=== PATIENT | female | born 1975 | race Caucasian/White ===

== ENCOUNTER 2020-12-17 13:25 | Emergency (ER) | payer OTHER, SELFPAY ==
[2020-12-17] VITALS (11 sets, daily range): BP systolic 115–132; BP diastolic 70–91; PULSE 75–91; RESP 13–20; TEMP 36.6; O2SAT 94–100
--- NOTE | ~2020-12-17 | XR_ITS ---
EXAMINATION: XR chest 2V DATE: 12/17/2020 14:15 INDICATION: Chest pain. TECHNIQUE: Frontal and lateral views of the chest were obtained. COMPARISON: Chest single view 01/13/2019, CT abdomen and pelvis 06/07/2019 FINDINGS: The chest demonstrates clear lungs without pneumonia, pleural effusion, or pneumothorax. Th e heart size is normal. Surgical clips in the right upper quadrant are likely from cholecystectomy. IMPRESSION: 1. No acute cardiopulmonary disease. Reviewed, dictated and finalized at location A.
--- NOTE | 2020-12-17 13:43 | ECG_ITS ---
Measurements Intervals [place] Rate: 87 P: 11 [place]: 109 QRS: -8 QRSD: 97 T: -11 QT: 360 QTc: 434 Interpretive Statements SINUS RHYTHM WITH SHORT [place] INTERVAL INCOMPLETE RIGHT BUNDLE BRANCH BLOCK LOW QRS VOLTAGE IN PRECORDIAL LEADS BORDERLINE T WAVE ABNORMALITY- ANT/INF LEADS BASELINE ARTIFACT- I, II, III BORDERLINE ECG Electronically Signed On 12-17-2020 14:54:30 CDT by Prince Springer D.O.
[2020-12-17 13:58] LABS: Basophils Percent Auto 0.5 % (0.2-1.2); Eosinophils Absolute Auto 0.1 K/mm3 (0-0.3); Eosinophils Percent Auto 1.8 % (0-4.4); Hematocrit 35.9 % (37.0-47.0); Hemoglobin 11.6 g/dL (12.0-15.0); Immature Granulocyte Absolute 0.05 K/mm3 (0.00-0.031); Immature Granulocyte Percent A 0.6 % (0-0.5); Lymphocytes Absolute Auto 1.81 K/mm3 (0.9-3.2); Lymphocytes Percent Auto 23.4 % (18.3-44.2); Mean Corpuscular HGB Conc 32.3 g/dl (32-36); Mean Corpuscular Hemoglobin 25.4 pg (26-34); Mean Corpuscular Volume 78.7 fl (80-100); Monocytes Absolute Auto 0.6 K/mm3 (0.1-0.6); Monocytes Percent Auto 7.3 % (2.6-8.5); Neutrophils Absolute Auto 5.1 K/mm3 (1.3-6.7); Neutrophils Percent Auto 66.4 % (45.5-73.1); Platelet Count Result 204 k/mm3 (150-375); Red Blood Count 4.56 M/mm3 (4.2-5.4); Red Cell Distribution Width 14.9 % (11.5-14.5); White Blood Count 7.7 K/mm3 (4.5-10.0)
[2020-12-17 14:07] LABS: INR 0.9; Prothrombin Time 12.7 Seconds (11.1-14.7)
[2020-12-17 14:08] LABS: Partial Thromboplastin Time 26.6 SECONDS (22.3-36.8)
[2020-12-17 14:15] LABS: Anion Gap 8 mmol/L (8-16); Blood Urea Nitrogen 17 mg/dL (7-17); Calcium 8.7 mg/dL (8.4-10.2); Carbon Dioxide 25 mmol/L (22-30); Chloride 106 mmol/L (98-107); Estimated Glomerular Filt Rate > 60; Glucose 98 mg/dL (65-105); Potassium 3.8 mmol/L (3.4-5.0); Sodium 139 mmol/L (137-145)
[2020-12-17 14:27] LABS: Troponin I < 0.012 ng/mL (0.000-0.034)
--- NOTE | 2020-12-17 14:44 | ED.CHESTPAIN ---
HPI - Chest Pain General Chief Complaint: Chest Pain Stated Complaint: CP Time Seen by Provider: 12/17/20 14:25 History of Present Illness HPI narrative: 45 yo female presents to the ED c/o chest pain. She had moderate pressure-like chest pain at 1000 today. This resolved prior to my evaluation. This was associated with mild SOB, tingling in arms, and dizziness. She has had similar symptoms occasionally for several weeks. She saw her PCP yesterday for these symptoms. He was planning a cardiology referral, but told her that if it happened again she should come to the ED. Related Data Allergies Allergy/AdvReac Type Severity Reaction Status Date / Time gatifloxacin Allergy Unknown Verified 01/13/19 19:18 Review of Systems Review of Systems: All systems reviewed & are unremarkable except as noted in HPI and below Constitutional: Constitutional: Denies chills and Denies fever(s) Eyes: Eyes: Reports no additional eye complaints ENT: Reports system reviewed and no additional complaints, except as documented Cardiovascular: Cardiovascular: Reports as per HPI Respiratory: Respiratory: Reports as per HPI Gastrointestinal: Gastrointestinal: Reports no additional gastrointestinal complaints Genitourinary: Genitourinary: Reports no additional female genitourinary complaints Neurologic: Reports as per HPI [facility] Social History Social History Gender identity (if verbalized by the patient): Female Exam Const: General: healthy appearing, no acute distress and alert Orientation/consciousness: patient oriented x3 HENMT: Head: normal to inspection Neck: Neck: normal visual inspection Chest: Chest palpation & inspection: no tenderness Resp: Effort & Inspection: normal respiratory effort Auscultation: clear to auscultation bilaterally, no rales, no rhonchi and no wheezes Cardio: Jugular venous distension: no JVD Rate: regular rate Rhythm: regular rhythm Heart sounds: no murmurs GI: Inspection: non-distended GI Palp: Yes Soft to palpation and No Tenderness to palpation present (GI) Skin: General skin exam: normal color Neuro: General: patient oriented x3, moves all extremities, no focal motor deficits and CN's II-XI intact bilaterally Speech: normal speech Gait exam (Neuro): Normal gait present Extrem: General: no edema Psych: Appearance: well kempt Affect: normal affect Course Vital Signs Vital signs: Vital Signs Temperature 36.6 C 12/17/20 13:44 Pulse Rate 79 12/17/20 13:44 Respiratory Rate 17 12/17/20 13:44 Blood Pressure 131/90 12/17/20 13:44 Pulse Oximetry 100 12/17/20 13:44 Temperature 36.6 C 12/17/20 13:44 Pulse Rate 81 12/17/20 17:36 Respiratory Rate 18 12/17/20 17:36 Blood Pressure 129/70 12/17/20 17:36 Pulse Oximetry 100 12/17/20 17:36 MDM - Chest Pain MDM Narrative Medical decision making narrative: Nothing acute on EKG. Troponin negative x2. Pain free. Differential Diagnosis Differential diagnosis: Likely unstable angina pectoris, atypical chest pain, st elevation myocardial infarction, chest pain and other (NSTEMI) Medical Records Data Attestation: I reviewed the patient's medical records. Lab Data Attestation: I reviewed the patient's lab results. Result diagrams: 12/17/20 13:47 12/17/20 13:47 Labs: Lab Results 12/17/20 12/17/20 12/17/20 Range/Units 13:47 13:47 13:47 WBC 7.7 (4.5-10.0) K/mm3 RBC 4.56 (4.2-5.4) M/mm3 Hgb 11.6 L (12.0-15.0) g/dL Hct 35.9 L (37.0-47.0) % MCV 78.7 L (80-100) fl MCH 25.4 L (26-34) pg MCHC 32.3 (32-36) g/dl RDW 14.9 H (11.5-14.5) % Plt Count 204 (150-375) k/mm3 MPV 12.0 H (7.4-10.4) fl Immature Gran % (Auto) 0.6 H (0-0.5) % Neut % (Auto) 66.4 (45.5-73.1) % Lymph % (Auto) 23.4 (18.3-44.2) % [place] % (Auto) 7.3 (2.6-8.5) % Eos % (Auto) 1.8 (0-4.4) % Ba
[2020-12-17] MEDS: ASPIRIN 81 MG CHEWABLE TABLET 324 MG PO (15:23)
--- NOTE | 2020-12-17 15:28 | PC.NURSE ---
report given to Ilda BEDOYA
[2020-12-17 16:50] LABS: Troponin I < 0.012 ng/mL (0.000-0.034)
== END 2020-12-17 17:37 | disposition home or self-care (01) ==
PROVIDERS: Emergency Provider Emergency Medicine; PCP Family Medicine
DX: R07.89 Other chest pain (principal); I45.10 Unspecified right bundle-branch block
CPT/HCPCS: 36415; 71046; 80048; 84484; 85025; 85610; 85730; 93005; 99284; A9270

== ENCOUNTER 2021-07-01 20:38 | Emergency (ER) | payer OTHER, SELFPAY ==
[2021-07-01] VITALS (27 sets, daily range): BP systolic 80–130; BP diastolic 65–86; PULSE 87–107; RESP 17–38; TEMP 37.1; O2SAT 93–95
--- NOTE | ~2021-07-01 | CT_ITS ---
EXAMINATION: CT abdomen pelvis w con DATE: 07/02/2021 00:23 INDICATION: Vomiting. TECHNIQUE: Computed tomography (CT) of the abdomen and pelvis was performed with 100 mL Omnipaque 350 intravenous contrast. Automated exposure control and iterative reconstruction technique were employe d. The dose-length product was 1376.23 mGy-cm. COMPARISON: CT abdomen and pelvis 06/07/2019, 05/17/2015 FINDINGS: The visualized portions of the lung bases demonstrate patchy airspace and groundglass opaci ties in all lobes bilaterally. Calcified right hilar and mediastinal lymph nodes are consistent with old granulomatous disease. No pleural effusion. The heart size is normal. No pericardial effusion. Th ere is a small sliding hiatal hernia. There is a mildly enlarged right hilar lymph node, likely react marian. There is a 10 mm cyst in the liver. There are changes of cholecystectomy. There is chronic mild splenomegaly, likely secondary to obesity. Calcifications in the spleen are consistent with old granu lomatous disease. The pancreas, adrenal glands, and kidneys are normal. There are changes of appendec shreyas. There are no dilated loops of bowel. There are no pathologically enlarged lymph nodes. There is no free intraperitoneal fluid. There is mild thoracolumbar spondylosis. IMPRESSION: 1. Diffuse lung disease, consistent with COVID-19 pneumonia. 2. Small sliding hiatal hernia. Reviewed, dictated and finalized at location A. E CIRCUIT OPERATOR
--- NOTE | ~2021-07-01 | XR_ITS ---
EXAMINATION: XR chest 1V portable EXAM DATE: 07/01/2021 21:59 INDICATION: N/V Today,Weakness,Fatigue,Productive Cough,COVID+ diagnosed Wednesday. TECHNIQUE: Portable AP frontal chest x-ray was obtained. Comparison is made to prior examination from 12/17/2020. FINDINGS: Mild to moderate amount of bilateral ill-defined airspace disease, distribution and appeara nce is consistent with COVID pneumonia. There are cholecystectomy clips. There is no pneumothorax jadon pected. There are no pleural effusions. Cardiomediastinal silhouette is normal. IMPRESSION: Mild to moderate bilateral COVID pneumonia. Reviewed, dictated and finalized at location A. ESSIONAL CASTER
[2021-07-01 21:23] LABS: Basophils Percent Auto 0.3 % (0.2-1.2); Eosinophils Percent Auto 0.3 % (0-4.4); Hematocrit 34.6 % (37.0-47.0); Immature Granulocyte Absolute 0.02 K/mm3 (0.00-0.031); Immature Granulocyte Percent A 0.5 % (0-0.5); Immature Platelet Fraction Pct 9.1 % (0.9-11.2); Lymphocytes Absolute Auto 0.48 K/mm3 (0.9-3.2); Lymphocytes Percent Auto 12.2 % (18.3-44.2); Mean Corpuscular HGB Conc 31.8 g/dl (32-36); Mean Corpuscular Hemoglobin 24.4 pg (26-34); Mean Corpuscular Volume 76.9 fl (80-100); Mean Platelet Volume 11.9 fl (7.4-10.4); Monocytes Absolute Auto 0.1 K/mm3 (0.1-0.6); Neutrophils Absolute Auto 3.3 K/mm3 (1.3-6.7); Neutrophils Percent Auto 83.7 % (45.5-73.1); Platelet Count Result 127 k/mm3 (150-375); Red Cell Distribution Width 16.5 % (11.5-14.5); White Blood Count 3.9 K/mm3 (4.5-10.0)
[2021-07-01 21:25] LABS: Add Urine Microscopic? YES; Appearance Urine Cloudy (Clear); Bilirubin Urine Negative (Negative); Blood Urine Negative (Negative); Color Urine Yellow (Yellow); Glucose Urine UA Negative (Negative); Ketones Urine Negative (Negative); Leukocyte Esterase Ur Negative LEU/UL (Negative); Mucus Urine Rare /lpf; Nitrate Urine Negative (Negative); Protein Urine Negative (Negative); Specific Grav Ur 1.018 (1.001-1.035); Squamous Epithelial Cell Urine Few /hpf (Few); Urobilinogen Urine Negative mg/dL (<2.0); WBC Urine 0-3 /hpf
[2021-07-01 21:33] LABS: Alanine Aminotransferase 26 U/L (4-35); Albumin Level 3.9 g/dL (3.5-5.1); Alkaline Phosphatase 86 U/L (38-126); Anion Gap 10 mmol/L (8-16); Aspartate Amino Transferase 39 U/L (14-36); Bilirubin,Total 0.2 mg/dL (0.2-1.3); Blood Urea Nitrogen 10 mg/dL (7-17); Carbon Dioxide 22 mmol/L (22-30); Chloride 104 mmol/L (98-107); Estimated CRCL calculation 111 ml/min; Estimated Glomerular Filt Rate > 60; Glucose 129 mg/dL (65-110); Lipase 55 U/L (23-300); Potassium 3.6 mmol/L (3.4-5.0); Sodium 136 mmol/L (137-145)
--- NOTE | 2021-07-01 21:49 | ECG_ITS ---
Measurements Intervals [place] Rate: 92 P: 26 SD: 107 QRS: 4 QRSD: 97 T: -15 QT: 357 QTc: 443 Interpretive Statements SINUS RHYTHM WITH SHORT [place] INTERVAL INCOMPLETE RIGHT BUNDLE BRANCH BLOCK BORDERLINE ST-T WAVE ABNORMALITY- INFERIOR LEADS BASELINE ARTIFACT- II, III, AVF, V1, V3-V6 BORDERLINE ECG Electronically Signed On 07-02-2021 5:24:55 HEEL SORTER by Prince Springer D.O.
--- NOTE | 2021-07-01 21:52 | PC.NURSE ---
Called lab requesting add on of troponin.
--- NOTE | 2021-07-01 22:06 | ED.GENADULT ---
HPI - General Adult General Chief complaint: Nausea/Vomiting/Diarrhea Stated complaint: COVID+, nausea Time Seen by Provider: 07/01/21 21:47 Source: patient and RN notes reviewed History of Present Illness HPI narrative: Patient is a 45 y/o female complaining of generalized abdominal pain, nausea and vomiting starting earlier today. She describes her pain as aching and rates it as 5/10. There is no known alleviating or exacerbating factor. She vomited about 5 times. She has a cough, but no fever or SOB. She tested positive for COVID 4 days ago. Related Data Allergies Allergy/AdvReac Type Severity Reaction Status Date / Time gatifloxacin Allergy Unknown Other Verified 07/01/21 20:57 Review of Systems Constitutional: Constitutional: Denies chills, Denies fever(s), Denies headache(s) and Denies weakness Eyes: Eyes: Denies blurry vision ENT: Denies headache(s) and Denies neck pain Cardiovascular: Cardiovascular: Denies chest pain and Denies dyspnea Respiratory: Respiratory: Reports cough and Denies dyspnea Gastrointestinal: Gastrointestinal: Reports abdominal pain, Denies diarrhea, Reports nausea and Reports vomiting Genitourinary: Genitourinary: Denies hematuria and Denies dysuria Musculoskeletal: Musculoskeletal: Denies back pain and Denies neck pain Neurologic: Denies headache(s) and Denies weakness PMFSH Social History Social History Gender identity (if verbalized by the patient): Female Exam Const: General: no acute distress, well developed and ill appearing Orientation/consciousness: oriented to person, oriented to place, oriented to time and patient oriented x3 HENMT: Head: normocephalic Ears: external ears normal General nose exam: Normal external nose present Eyes: General: appearance normal, both eyes and all related structures Conjunctivae: conjunctivae normal Neck: Neck: normal visual inspection and full ROM Chest: Chest palpation & inspection: normal inspection of the chest and no tenderness Resp: Effort & Inspection: normal respiratory effort Auscultation: clear to auscultation bilaterally Cardio: Rate: regular rate Rhythm: regular rhythm GI: GI Palp: No abdominal tenderness and Yes Soft to palpation Skin: General skin exam: normal color and turgor normal Neuro: General: oriented to person, oriented to place, oriented to time and patient oriented x3 Cognition (Neuro): normal cognition Extrem: General: normal to inspection, full ROM and no pedal edema Psych: Appearance: grossly normal Mental Status: mental status grossly normal Affect: normal affect Course Vital Signs Vital signs: Vital Signs Temperature 37.1 C 07/01/21 20:50 Pulse Rate 104 H 07/01/21 20:50 Respiratory Rate 27 H 07/01/21 20:50 Blood Pressure 130/86 07/01/21 20:50 Pulse Oximetry 93 07/01/21 20:50 Temperature 37.1 C 07/01/21 20:50 Pulse Rate 107 H 07/02/21 03:24 Respiratory Rate 22 H 07/02/21 03:24 Blood Pressure 120/86 07/02/21 03:24 Pulse Oximetry 100 07/02/21 03:24 Medical Decision Making Vital Signs Vital Signs: Vital Signs Temperature 37.1 C 07/01/21 20:50 Pulse Rate 104 H 07/01/21 20:50 Respiratory Rate 27 H 07/01/21 20:50 Blood Pressure 130/86 07/01/21 20:50 Pulse Oximetry 93 07/01/21 20:50 Temperature 37.1 C 07/01/21 20:50 Pulse Rate 107 H 07/02/21 03:24 Respiratory Rate 22 H 07/02/21 03:24 Blood Pressure 120/86 07/02/21 03:24 Pulse Oximetry 100 07/02/21 03:24 Lab Data Result diagrams: 07/01/21 21:15 07/01/21 21:15 Labs: Lab Results 07/01/21 07/01/21 07/01/21 Range/Units 21:11 21:15 21:15 WBC 3.9 L (4.5-10.0) K/mm3 RBC 4.50 (4.2-5.4) M/mm3 Hgb 11.0 L (12.0-15.0) g/dL Hct 34.6 L (37.0-47.0) % MCV 76.9 L (80-100) fl MCH 24.4 L (26-34) pg MCHC 31.8 L (32-36) g/dl RDW 16.5 H (11.5-14.5) % Plt Count
[2021-07-01 22:19] LABS: Troponin I < 0.012 ng/mL (0.000-0.034)
[2021-07-01] MEDS: ONDANSETRON INJ 4 MG/2 ML VIAL IV PUSH (22:19)
[2021-07-01] MEDS: SODIUM CHLORIDE 0.9% IV 1,000 ML 999 ML IV CONT (22:19)
--- NOTE | 2021-07-01 22:25 | PC.NURSE ---
Spoke with Gilberto, patient's , with patient permission, Gave update.
[2021-07-02 01:10] LABS: Troponin I < 0.012 ng/mL (0.000-0.034)
[2021-07-02 01:47] VITALS: BP 115/65; PULSE 90; RESP 20; O2SAT 96
[2021-07-02 02:54] VITALS: BP 120/86; PULSE 100; RESP 23; O2SAT 100
[2021-07-02 03:24] VITALS: BP 120/86; PULSE 107; RESP 22; O2SAT 100
== END 2021-07-02 03:25 | disposition home or self-care (01) ==
PROVIDERS: Family Medicine; Emergency Provider Emergency Medicine; PCP Family Medicine
DX: U07.1 COVID-19 (principal); J12.82 Pneumonia due to coronavirus disease 2019; K52.9 Noninfective gastroenteritis and colitis, unspecified
CPT/HCPCS: 36415; 71045; 74177; 80053; 81001; 81025; 83690; 84484; 85025; 85055; 93005; 96361; 96374; 99284; J2405; J7030; Q9967

== ENCOUNTER 2021-12-14 13:15 | Emergency (ER) | payer OTHER, SELFPAY ==
--- NOTE | ~2021-12-14 | CT_ITS ---
EXAMINATION: CT soft tissue neck w con DATE: 12/14/2021 16:15 INDICATION: Dysphagia, right-sided neck swelling TECHNIQUE: Computed tomography (CT) of the neck was performed with 75 cc of Omnipaque 350 intravenous contrast. The dose-length product (DLP) was 503.42 mGy-cm. Automated exposure control and iterative reconstruction technique were employed. COMPARISON: None FINDINGS: There is a polyp or mucous retention cyst in the left maxillary sinus. The neck soft tissue s are unremarkable. No mass is identified. There are no pathologically enlarged cervical lymph nodes. The vascular structures are unremarkable. No abscess is identified. IMPRESSION: 1. No CT correlate for the patient's symptoms. Reviewed, dictated and finalized at location F.
[2021-12-14 13:18] VITALS: BP 141/87; PULSE 87; RESP 16; TEMP 37.1; O2SAT 100
[2021-12-14 15:09] LABS: Basophils Absolute Auto 0.1 K/mm3 (0.0-0.1); Basophils Percent Auto 0.9 % (0.2-1.2); Eosinophils Absolute Auto 0.1 K/mm3 (0-0.3); Eosinophils Percent Auto 1.7 % (0-4.4); Hematocrit 35.9 % (37.0-47.0); Hemoglobin 10.7 g/dL (12.0-15.0); Immature Granulocyte Absolute 0.05 K/mm3 (0.00-0.031); Immature Granulocyte Percent A 0.7 % (0-0.5); Lymphocytes Absolute Auto 1.92 K/mm3 (0.9-3.2); Lymphocytes Percent Auto 25.1 % (18.3-44.2); Mean Corpuscular HGB Conc 29.8 g/dl (32-36); Mean Corpuscular Hemoglobin 22.6 pg (26-34); Mean Corpuscular Volume 75.9 fl (80-100); Mean Platelet Volume 11.6 fl (7.4-10.4); Monocytes Absolute Auto 0.6 K/mm3 (0.1-0.6); Monocytes Percent Auto 8.4 % (2.6-8.5); Neutrophils Absolute Auto 4.8 K/mm3 (1.3-6.7); Neutrophils Percent Auto 63.2 % (45.5-73.1); Platelet Count Result 240 k/mm3 (150-375); Red Blood Count 4.73 M/mm3 (4.2-5.4); Red Cell Distribution Width 17.3 % (11.5-14.5); White Blood Count 7.7 K/mm3 (4.5-10.0)
[2021-12-14 15:19] LABS: Anion Gap 9 mmol/L (8-16); Blood Urea Nitrogen 18 mg/dL (7-17); Calcium 8.5 mg/dL (8.4-10.2); Carbon Dioxide 24 mmol/L (22-30); Chloride 107 mmol/L (98-107); Estimated CRCL calculation 95 ml/min; Estimated Glomerular Filt Rate > 60; Glucose 99 mg/dL (65-110); Potassium 4.1 mmol/L (3.4-5.0); Sodium 140 mmol/L (137-145)
--- NOTE | 2021-12-14 15:25 | ED.GENADULT ---
HPI - General Adult General Chief complaint: Unspecified Stated complaint: neck swelling Time Seen by Provider: 12/14/21 14:50 Source: patient Mode of arrival: ambulatory Limitations: no limitations History of Present Illness HPI narrative: Patient is a 46-year-old female complaining of right-sided neck swelling that has been ongoing for the past month but worse today. Patient states that they found a thyroid mass back in September, had an ultrasound done, scheduled to have a biopsy next month. Patient denies any dysphagia, lip swelling, tongue swelling, throat swelling, shortness of breath, fever or chills. Related Data Allergies Allergy/AdvReac Type Severity Reaction Status Date / Time gatifloxacin Allergy Unknown Other Verified 07/01/21 20:57 Review of Systems Review of Systems: All systems reviewed & are unremarkable except as noted in HPI and below Constitutional: Constitutional: Denies body ache(s), Denies chills, Denies excessive sweating, Denies fatigue, Denies fever(s), Denies headache(s), Denies lethargy, Denies malaise, Denies weakness and Denies weight loss Eyes: Eyes: Denies blurry vision, Denies change in vision and Denies loss of vision ENT: Denies dizziness, Denies ear discharge, Denies headache(s), Denies lip swelling, Denies epistaxis, Denies nasal congestion, Denies neck pain, Denies throat swelling and Denies tongue swelling Cardiovascular: Cardiovascular: Denies chest pain, Denies chest pain at rest, Denies chest pain with activity, Denies diaphoresis, Denies rapid heart rate, Denies edema, Denies irregular heart rhythm, Denies lightheadedness, Denies palpitations, Denies dyspnea and Denies dyspnea on exertion Respiratory: Respiratory: Denies chest congestion, Denies cough, Denies hemoptysis, Denies dyspnea and Denies dyspnea on exertion Gastrointestinal: Gastrointestinal: Denies abdominal pain, Denies melena, Denies hematochezia, Denies diarrhea, Denies nausea, Denies vomiting and Denies hematemesis Musculoskeletal: Musculoskeletal: Denies abnormal gait, Denies deformity, Denies joint swelling, Denies limited range of motion, Denies neck pain and Denies numbness Neurologic: Denies Abnormal speech present, Denies abnormal gait, Denies confusion, Denies dizziness, Denies headache(s), Denies focal weakness, Denies loss of vision, Denies numbness, Denies Other visual disturbances, Denies Sensory deficit (Neuro) and Denies weakness Psychiatric: Psychiatric: Denies confusion, Denies depression, Denies auditory hallucinations, Denies homicidal ideation and Denies suicidal ideation Endocrine: Endocrine: Denies cold intolerance, Denies excessive sweating, Denies fatigue, Denies heat intolerance and Denies palpitations Hematologic/Lymphatic: Hematologic/Lymphatic: Denies easy bleeding and Denies easy bruising Allergic/Immunologic: Allergic/Immunologic: Denies lip swelling, Denies throat swelling and Denies tongue swelling [facility] Social History Social History Gender identity (if verbalized by the patient): Female Comments Past medical history: Hypertension, thyroid nodule Family history: Hypertension Social history: Non-smoker no EtOH or drug use Exam Const: General: cooperative, healthy appearing, comfortable, no acute distress, well developed, alert and awake; No confusion Orientation/consciousness: oriented to person, oriented to place, oriented to time, patient oriented x3 and No confusion Limitations: no limitations HENMT: Head: normal to inspection, normocephalic and atraumatic Ears: hearing grossly normal bilaterally, TM normal on the right and TM normal on the left General nose exam: Normal external nose present, Normal nares present and No nasal discharge present Face and sinus: normal facial exam Mouth: Yes Normal oral and palatal mucosa present, Yes lip normal, Yes tongue normal and Yes oropharynx normal Throat: posterior oropharynx normal, tonsils n
[2021-12-14 15:33] LABS: Platelet Estimate Adequate (Adequate)
[2021-12-14 15:34] LABS: Anisocytosis 1+ (NORMAL); Hypochromasia 1+ (NORMAL)
[2021-12-14 17:23] VITALS: BP 132/86; PULSE 80; RESP 14; O2SAT 99
== END 2021-12-14 17:24 | disposition home or self-care (01) ==
PROVIDERS: Emergency Provider Emergency Medicine; PCP Family Medicine
DX: R22.1 Localized swelling, mass and lump, neck (principal); I10 Essential (primary) hypertension
CPT/HCPCS: 36415; 70491; 80048; 81025; 85025; 99284; Q9967

== ENCOUNTER 2021-12-26 16:13 | Emergency (ER) | payer OTHER, SELFPAY ==
--- NOTE | ~2021-12-26 | CT_ITS ---
EXAMINATION: CTA chest PE protocol DATE: 12/26/2021 19:15 INDICATION: Chest pain and shortness of breath. TECHNIQUE: Computed tomography angiography (CTA) of the chest was performed with 100 mL Omnipaque-350 intravenous contrast timed to evaluate the pulmonary arteries. Coronal maximum intensity projection 3D-reconstructions were created by the technologist. Automated exposure control and iterative reconst ruction technique were employed. The dose-length product was 691.89 mGy-cm. COMPARISON: Chest CT 10/02/2015 FINDINGS: There is no pneumonia or pleural effusion. Calcified right hilar lymph nodes are consistent with old granulomatous disease. No pleural effusion. There is a 9 mm nodule in left thyroid lobe, li margarita not clinically significant. The heart size is normal. No pericardial effusion. There is no pulmo nary embolus. There is a small sliding hiatal hernia. There are changes of cholecystectomy. There are cysts in the liver measuring up to 8 mm. There is mild thoracic spondylosis. There is anterior and p osterior fusion at T2-T3. IMPRESSION: 1. No pulmonary embolus. 2. Small sliding hiatal hernia. Reviewed, dictated and finalized at location A.
--- NOTE | ~2021-12-26 | XR_ITS ---
EXAMINATION: XR chest 2V DATE: 12/26/2021 17:26 INDICATION: Dizziness and tachycardia TECHNIQUE: PA and lateral views of the chest are obtained. COMPARISON: 07/01/2021 FINDINGS: The lungs are free of acute opacities. There is no pleural effusion or pneumothorax. The ca rdiomediastinal silhouette is normal. The visualized bones and soft tissues are unremarkable. Surgica l clips in the right upper quadrant are likely from prior cholecystectomy. IMPRESSION: 1. No acute cardiopulmonary abnormality. Reviewed, dictated and finalized at location B.
[2021-12-26 16:14] VITALS: BP 136/82; PULSE 108; RESP 20; TEMP 36.8; O2SAT 100
--- NOTE | 2021-12-26 16:19 | ECG_ITS ---
Measurements Intervals [place] Rate: 105 P: 58 [place]: 128 QRS: 7 QRSD: 102 T: 2 QT: 324 QTc: 429 Interpretive Statements SINUS TACHYCARDIA LOW QRS VOLTAGE IN PRECORDIAL LEADS INCOMPLETE RIGHT BUNDLE BRANCH BLOCK BORDERLINE ST-T WAVE ABNORMALITY- INFERIOR LEADS BORDERLINE ECG Electronically Signed On 12-29-2021 7:43:15 CDT by Prince Springer D.O.
[2021-12-26 16:20] VITALS: PULSE 105
[2021-12-26 16:29] LABS: Basophils Absolute Auto 0.1 K/mm3 (0.0-0.1); Basophils Percent Auto 0.5 % (0.2-1.2); Eosinophils Absolute Auto 0.2 K/mm3 (0-0.3); Eosinophils Percent Auto 1.5 % (0-4.4); Hematocrit 35.8 % (37.0-47.0); Hemoglobin 10.8 g/dL (12.0-15.0); Immature Granulocyte Absolute 0.09 K/mm3 (0.00-0.031); Immature Granulocyte Percent A 0.8 % (0-0.5); Lymphocytes Absolute Auto 2.29 K/mm3 (0.9-3.2); Lymphocytes Percent Auto 20.8 % (18.3-44.2); Mean Corpuscular HGB Conc 30.2 g/dl (32-36); Mean Corpuscular Hemoglobin 22.7 pg (26-34); Mean Corpuscular Volume 75.2 fl (80-100); Mean Platelet Volume 11.8 fl (7.4-10.4); Monocytes Absolute Auto 0.7 K/mm3 (0.1-0.6); Monocytes Percent Auto 6.6 % (2.6-8.5); Neutrophils Absolute Auto 7.7 K/mm3 (1.3-6.7); Neutrophils Percent Auto 69.8 % (45.5-73.1); Platelet Count Result 237 k/mm3 (150-375); Red Blood Count 4.76 M/mm3 (4.2-5.4); Red Cell Distribution Width 16.7 % (11.5-14.5)
[2021-12-26 16:42] LABS: Alanine Aminotransferase 21 U/L (4-35); Albumin Level 4.1 g/dL (3.5-5.1); Alkaline Phosphatase 76 U/L (38-126); Anion Gap 8 mmol/L (8-16); Aspartate Amino Transferase 22 U/L (14-36); Bilirubin,Total 0.1 mg/dL (0.2-1.3); Blood Urea Nitrogen 17 mg/dL (7-17); Calcium 8.6 mg/dL (8.4-10.2); Carbon Dioxide 23 mmol/L (22-30); Chloride 104 mmol/L (98-107); Estimated CRCL calculation 86 ml/min; Estimated Glomerular Filt Rate > 60; Glucose 81 mg/dL (65-110); Potassium 3.5 mmol/L (3.4-5.0); Sodium 135 mmol/L (137-145)
--- NOTE | 2021-12-26 17:20 | ED.DIZZY ---
HPI - Dizziness General Chief Complaint: Dizziness Stated Complaint: dizzy/syncope Time Seen by Provider: 12/26/21 17:11 Source: patient Mode of arrival: EMS Limitations: no limitations History of Present Illness HPI Narrative: This is a 46 year old female that presents to the ER for episodes of racing heart rate. Ongoing over the last couple of weeks. Associated with intermittent sharp chest pain and feelings of shortness of breath. Also reports a dry cough and hoarseness. Reports she has been feeling lightheaded. Reports she was recently found to have a thyroid nodule that is scheduled to be biopsied. Denies any current chest pain. Denies fever, or lower extremity edema. Related Data Home Medications Medication Instructions Recorded Confirmed No Home Medications 12/26/21 12/26/21 Allergies Allergy/AdvReac Type Severity Reaction Status Date / Time gatifloxacin Allergy Unknown Other Verified 12/26/21 16:22 Review of Systems Review of Systems: CONSTITUTIONAL: Denies fever CARDIOVASCULAR: Reports chest pain, palpitations. Denies edema. RESPIRATORY: Reports cough and dyspnea. NEUROLOGIC: Denies numbness, or weakness. All systems reviewed & are unremarkable except as noted in HPI and below PMFSH Past Medical History Medical History (Updated 12/26/21 @ 19:34 by Deidra Chatman PA-C) History of gastroesophageal reflux (GERD) History of hypertension Social History Social History (Updated 12/26/21 @ 17:38 by Deidra Chatman PA-C) Substance use: never Gender identity (if verbalized by the patient): Female Exam Narrative: GENERAL: Well-appearing, well-nourished, and in no acute distress. HEAD: Normocephalic, atraumatic. EYES: PERRLA and EOMI. ENT: Nares clear, no rhinorrhea or epistaxis. Mucous membranes moist. Oropharynx without tonsillar hypertrophy exudate or other lesions. Bilateral TMs pearly alcantara non-bulging NECK: Supple. No adenopathy or masses. CHEST: Clear to auscultation. No respiratory distress. No wheezes rales or rhonchi HEART: Regular rate and rhythm. No murmur heard. Normal peripheral pulses. EXTREMITIES: Normal range of motion. No edema. Strength equal in bilateral upper and lower extremities (5/5) SKIN: Warm, dry, no rash. NEURO: No focal deficits. Alert and oriented x3. Cranial nerves II through XII grossly intact PSYCH: Normal mood and affect Course Vital Signs Vital signs: Vital Signs Temperature 98.3 F 12/26/21 16:14 Pulse Rate 108 H 12/26/21 16:14 Respiratory Rate 20 12/26/21 16:14 Blood Pressure 136/82 12/26/21 16:14 Pulse Oximetry 100 12/26/21 16:14 Temperature 98.3 F 12/26/21 16:14 Pulse Rate 108 H 12/26/21 19:20 Respiratory Rate 20 12/26/21 19:20 Blood Pressure 133/75 12/26/21 19:20 Pulse Oximetry 100 12/26/21 19:20 MDM - Dizziness MDM Narrative Medical decision making narrative: Patient presents to the emergency department with several complaints ongoing over the last couple of weeks. Notes feelings of intermittent lightheadedness and heart racing. Reports intermittent sharp chest pains and shortness of breath. She is afebrile and nontoxic-appearing. Oxygen saturation has remained normal on room air. Mildly tachycardic upon arrival, this did respond to fluid administration. Patient has remained in a sinus rhythm while in the ED. Denies any current chest pain. CBC shows microcytic anemia with hemoglobin of 10.8, which appears to be around her baseline. Metabolic panel without concerning findings. EKG without concerning changes and baseline troponin is negative. D-dimer was elevated, so CTA of the chest was obtained. This is without evidence of PE or acute cardiopulmonary abnormality. Shows a small sliding hiatal hernia. UA without evidence of infection at bedside test is negative. COVID swab is also negative. Patient and family updated on case findings. Will order outpatient Holter monitor for further evaluation her symp
[2021-12-26 17:46] VITALS: BP 122/85; BP 143/78; PULSE 105; PULSE 115
[2021-12-26 17:48] VITALS: BP 146/98; PULSE 122
[2021-12-26] MEDS: SODIUM CHLORIDE 0.9% IV 1,000 ML 999 ML IV CONT (17:51)
[2021-12-26 17:55] LABS: Appearance Urine Clear (Clear); Bilirubin Urine Negative (Negative); Blood Urine Negative (Negative); Color Urine Yellow (Yellow); Glucose Urine UA Negative (Negative); Ketones Urine Negative (Negative); Leukocyte Esterase Ur Negative LEU/UL (Negative); Nitrate Urine Negative (Negative); Protein Urine Negative (Negative); Urobilinogen Urine 0.2 mg/dL (<2.0)
[2021-12-26 18:13] LABS: INR 1.1; Prothrombin Time 13.4 Seconds (11.1-14.7)
[2021-12-26 18:14] LABS: Partial Thromboplastin Time 28.6 SECONDS (22.3-36.8)
[2021-12-26 18:16] LABS: D Dimer 0.52 ug/mL (<0.48)
[2021-12-26 18:26] LABS: Amorphous Sediment Urine Few; RBC Urine 0-2 /hpf (0-2); Squamous Epithelial Cell Urine Rare /hpf (Few); WBC Urine 0-3 /hpf
[2021-12-26 18:27] LABS: Troponin I < 0.012 ng/mL (0.000-0.034)
[2021-12-26 18:28] LABS: Add Urine Microscopic? YES
[2021-12-26 18:29] LABS: SARS-CoV-2 RNA PCR Negative
--- NOTE | 2021-12-26 19:19 | PC.NURSE ---
assuming care of pt.
[2021-12-26 19:20] VITALS: BP 133/75; PULSE 108; RESP 20; O2SAT 100
== END 2021-12-26 19:55 | disposition home or self-care (01) ==
PROVIDERS: Physician Assistant; Emergency Provider Emergency Medicine; PCP Family Medicine
DX: R00.2 Palpitations (principal); R42 Dizziness and giddiness; Z20.822 Contact with and (suspected) exposure to COVID-19; I10 Essential (primary) hypertension; K21.9 Gastro-esophageal reflux disease without esophagitis; K44.9 Diaphragmatic hernia without obstruction or gangrene; R00.0 Tachycardia, unspecified; R94.31 Abnormal electrocardiogram [ECG] [EKG]; I45.10 Unspecified right bundle-branch block; R07.9 Chest pain, unspecified
CPT/HCPCS: 36415; 71046; 71275; 80053; 81001; 81025; 84484; 85025; 85380; 85610; 85730; 93005; 96360; 99284; C9803; J7030; Q9967; U0003; U0005

== ENCOUNTER 2022-03-24 18:28 | Emergency (ER) | payer OTHER, SELFPAY ==
[2022-03-24] VITALS (26 sets, daily range): BP systolic 126–148; BP diastolic 77–92; PULSE 66–96; RESP 11–22; TEMP 36.3; O2SAT 95–100
--- NOTE | 2022-03-24 18:37 | ECG_ITS ---
Measurements Intervals [place] Rate: 72 P: 7 [place]: 103 QRS: -2 QRSD: 86 T: -9 QT: 381 QTc: 418 Interpretive Statements SINUS RHYTHM WITH SHORT [place] INTERVAL LOW QRS VOLTAGE IN PRECORDIAL LEADS NONSPECIFIC T-WAVE ABNORMALITY BORDERLINE ECG COMPARED TO ECG 12/26/2021 16:19:52 HEART RATE HAS DECREASED T-WAVE ABNORMALITY NOW PRESENT Electronically Signed On 03-25-2022 12:21:18 CDT by Tai Stevens M.D.
[2022-03-24 18:49] LABS: Basophils Percent Auto 0.3 % (0.2-1.2); Eosinophils Absolute Auto 0.1 K/mm3 (0-0.3); Eosinophils Percent Auto 0.6 % (0-4.4); Hematocrit 35.5 % (37.0-47.0); Hemoglobin 10.7 g/dL (12.0-15.0); Immature Granulocyte Absolute 0.04 K/mm3 (0.00-0.031); Immature Granulocyte Percent A 0.4 % (0-0.5); Lymphocytes Absolute Auto 1.35 K/mm3 (0.9-3.2); Lymphocytes Percent Auto 14.5 % (18.3-44.2); Mean Corpuscular HGB Conc 30.1 g/dl (32-36); Mean Corpuscular Hemoglobin 22.4 pg (26-34); Mean Corpuscular Volume 74.4 fl (80-100); Mean Platelet Volume 11.7 fl (7.4-10.4); Monocytes Absolute Auto 0.4 K/mm3 (0.1-0.6); Neutrophils Absolute Auto 7.5 K/mm3 (1.3-6.7); Neutrophils Percent Auto 80.2 % (45.5-73.1); Platelet Count Result 213 k/mm3 (150-375); Red Blood Count 4.77 M/mm3 (4.2-5.4); Red Cell Distribution Width 16.6 % (11.5-14.5); White Blood Count 9.3 K/mm3 (4.5-10.0)
[2022-03-24 19:07] LABS: Microcytosis 1+ (NORMAL); Ovalocytes 1+ (NORMAL); Platelet Estimate Adequate (Adequate)
[2022-03-24 19:10] LABS: Alanine Aminotransferase 21 U/L (6-35); Albumin Level 4.6 g/dL (3.5-5.1); Alkaline Phosphatase 73 U/L (38-126); Anion Gap 14 mmol/L (8-16); Aspartate Amino Transferase 29 U/L (14-36); Bilirubin,Total 0.3 mg/dL (0.2-1.3); Blood Urea Nitrogen 13 mg/dL (7-17); Calcium 9.4 mg/dL (8.4-10.2); Carbon Dioxide 22 mmol/L (22-30); Chloride 102 mmol/L (98-107); Estimated CRCL calculation 124 ml/min; Estimated Glomerular Filt Rate > 60; Glucose 114 mg/dL (65-110); Potassium 3.8 mmol/L (3.4-5.0); Sodium 138 mmol/L (137-145)
--- NOTE | 2022-03-24 19:46 | ED.DIZZY ---
HPI - Dizziness General Chief Complaint: Dizziness Stated Complaint: dizziness, covid + Time Seen by Provider: 03/24/22 19:14 History of Present Illness HPI Narrative: Patient is a 46-year-old female who presents ER with dizziness. Tested positive for COVID 1 week ago. Over the last day she has had dizziness with looking up and down and with other positional changes. Associate with some nausea but no vomiting. Feels similar to previous vertigo that she has had and she is taking meclizine without improvement. No focal weakness in arm or leg. Denies runny nose or sore throat or productive cough. Related Data Home Medications Medication Instructions Recorded Confirmed No Home Medications 12/26/21 12/26/21 Allergies Allergy/AdvReac Type Severity Reaction Status Date / Time gatifloxacin Allergy Unknown Other Verified 12/26/21 16:22 Review of Systems Review of Systems: All systems reviewed & are unremarkable except as noted in HPI and below Constitutional: Constitutional: Denies chills and Denies fever(s) ENT: Reports dizziness, Denies nasal congestion and Denies sore throat Cardiovascular: Cardiovascular: Denies chest pain, Denies rapid heart rate and Denies radiating jaw, neck or arm pain Respiratory: Respiratory: Denies cough and Denies dyspnea Gastrointestinal: Gastrointestinal: Denies abdominal pain, Denies nausea and Denies vomiting Neurologic: Denies syncope, Denies focal weakness and Denies numbness PMFSH Past Medical History Medical History (Updated 03/24/22 @ 21:20 by Fredy Zamora MD) History of gastroesophageal reflux (GERD) History of hypertension Surgical History Surgical History (Updated 03/24/22 @ 19:48 by Fredy Zamora MD) History of appendectomy History of cholecystectomy Social History Social History (Updated 12/26/21 @ 17:38 by Deidra Chatman PA-C) Substance use: never Gender identity (if verbalized by the patient): Female Exam Narrative: GENERAL: Well-appearing, well-nourished, and in no acute distress. HEAD: Normocephalic, atraumatic. EYES: PERRL and EOMI. ENT: Mucous membranes moist. TMs normal bilaterally. Ear canals free of cerumen. CHEST: Clear to auscultation. No respiratory distress. HEART: Regular rate and rhythm. Normal peripheral pulses. ABDOMEN: Soft, nontender, nondistended. EXTREMITIES: Normal range of motion. No edema. NEURO: Alert and oriented x3. PSYCH: Normal mood and affect. Course Course Emergency Course: Patient feels improved after fluids, Valium, and ear manipulation specifically on the right side. Vital Signs Vital signs: Vital Signs Temperature 97.4 F L 03/24/22 18:34 Pulse Rate 96 03/24/22 18:34 Respiratory Rate 16 03/24/22 18:34 Blood Pressure 148/88 H 03/24/22 18:34 Pulse Oximetry 100 03/24/22 18:34 Oxygen Delivery Room Air 03/24/22 18:34 Temperature 97.4 F L 03/24/22 18:34 Pulse Rate 71 03/24/22 19:15 Respiratory Rate 22 H 03/24/22 19:15 Blood Pressure 126/90 03/24/22 19:15 Pulse Oximetry 100 03/24/22 19:15 Oxygen Delivery Room Air 03/24/22 19:15 MDM - Dizziness Lab Data Result diagrams: 03/24/22 18:39 03/24/22 18:39 Labs: Lab Results 03/24/22 03/24/22 Range/Units 18:39 18:39 WBC 9.3 (4.5-10.0) K/mm3 RBC 4.77 (4.2-5.4) M/mm3 Hgb 10.7 L (12.0-15.0) g/dL Hct 35.5 L (37.0-47.0) % MCV 74.4 L (80-100) fl MCH 22.4 L (26-34) pg MCHC 30.1 L (32-36) g/dl RDW 16.6 H (11.5-14.5) % Plt Count 213 (150-375) k/mm3 MPV 11.7 H (7.4-10.4) fl Immature Gran % (Auto) 0.4 (0-0.5) % Neut % (Auto) 80.2 H (45.5-73.1) % Lymph % (Auto) 14.5 L (18.3-44.2) % [place] % (Auto) 4.0 (2.6-8.5) % Eos % (Auto) 0.6 (0-4.4) % Baso % (Auto) 0.3 (0.2-1.2) % Lymph # (Auto) 1.35 (0.9-3.2) K/mm3 [place] # (Auto) 0.4 (0.1-0.6) K/mm3 Eos # (Auto) 0.1 (0-0.3) K/mm3 Baso # (Auto) 0.0 (0.0-0.1) K/
[2022-03-24] MEDS: diazePAM INJ (*CRX) 10 MG/2 ML SYRINGE 2 MG IV PUSH (19:57)
[2022-03-24] MEDS: SODIUM CHLORIDE 0.9% IV 1,000 ML 999 ML IV CONT (19:58)
== END 2022-03-24 22:35 | disposition home or self-care (01) ==
PROVIDERS: Emergency Medicine; Emergency Provider Emergency Medicine; PCP Family Medicine
DX: R42 Dizziness and giddiness (principal); K21.9 Gastro-esophageal reflux disease without esophagitis; I10 Essential (primary) hypertension; R94.31 Abnormal electrocardiogram [ECG] [EKG]
CPT/HCPCS: 36415; 80053; 81025; 85025; 93005; 96361; 96374; 99284; J3360; J7030

== ENCOUNTER 2022-03-25 09:35 | Inpatient (IN) | payer OTHER, SELFPAY ==
[2022-03-25] VITALS (42 sets, daily range): BP systolic 115–150; BP diastolic 63–88; PULSE 57–112; RESP 10–24; TEMP 36.4–37; O2SAT 96–100; BMI 33.5; BMI 34.2
--- NOTE | ~2022-03-25 | XR_ITS ---
EXAMINATION: XR chest 1V 03/25/2022 11:36 INDICATION: Dizziness, fever and nausea. PROCEDURE: AP view of the chest COMPARISON: Comparison to multiple prior studies sequentially, with oldest reviewed study dated 01/13. FINDINGS: The lungs are clear. The cardiomediastinal silhouette is within normal limits. There are no pleural effusions. There is no pneumothorax suspected. IMPRESSION: 1: NO ACUTE CARDIOPULMONARY DISEASE. Reviewed, dictated and finalized at location A.
--- NOTE | ~2022-03-25 | MR_ITS ---
EXAMINATION: MR brain/brain stem wo/w con DATE: 03/26/2022 09:34 INDICATION: Vertigo. TECHNIQUE: Magnetic resonance imaging (MRI) of the brain and brainstem was performed without and with 18 mL MultiHance intravenous contrast. COMPARISON: Brain MRI 01/14/2019, head CT 03/25/2022 FINDINGS: There is no acute ischemic infarct, intracranial hemorrhage, or abnormal mass lesion. 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 The ventricles are normal in size. There i s mucosal thickening in the paranasal sinuses. The orbits are normal. The mastoid air cells are chalino l. IMPRESSION: 1. Normal brain. Reviewed, dictated and finalized at location A. IMPRESSION: 1. Normal brain.
--- NOTE | ~2022-03-25 | CT_ITS ---
EXAMINATION: CT brain wo con DATE: 03/25/2022 11:31 INDICATION: Vertigo. Dizziness. TECHNIQUE: Computed tomography (CT) of the head was performed without intravenous contrast. The mA wa s adjusted according to patient size. Iterative reconstruction technique was employed. The dose-lengt h product was 605.33 mGy-cm. COMPARISON: Head CT 01/13/2019 FINDINGS: There is no intracranial hemorrhage, acute infarction, or abnormal intracranial mass lesion . The ventricles are normal in size. There is mucosal thickening in the paranasal sinuses. There is d ependent fluid in the left maxillary sinus. The orbits are normal. The mastoid air cells are normal. IMPRESSION: 1. Normal brain. Reviewed, dictated and finalized at location A. IMPRESSION: 1. Normal brain.
--- NOTE | 2022-03-25 10:03 | ECG_ITS ---
Measurements Intervals [place] Rate: 70 P: 22 WA: 119 QRS: 7 QRSD: 89 T: 3 QT: 379 QTc: 409 Interpretive Statements SINUS RHYTHM WITH SHORT WA INTERVAL LOW QRS VOLTAGE IN PRECORDIAL LEADS NONSPECIFIC T-WAVE ABNORMALITY BORDERLINE ECG COMPARED TO ECG 03/24/2022 18:42:35 NO SIGNIFICANT CHANGES Electronically Signed On 03-25-2022 12:51:16 CDT by Tai Stevens M.D.
[2022-03-25 10:23] LABS: Basophils Percent Auto 0.5 % (0.2-1.2); Eosinophils Absolute Auto 0.1 K/mm3 (0-0.3); Hematocrit 35.4 % (37.0-47.0); Hemoglobin 10.5 g/dL (12.0-15.0); Immature Granulocyte Absolute 0.03 K/mm3 (0.00-0.031); Immature Granulocyte Percent A 0.5 % (0-0.5); Immature Platelet Fraction Pct 11.1 % (0.9-11.2); Lymphocytes Absolute Auto 1.12 K/mm3 (0.9-3.2); Lymphocytes Percent Auto 19.3 % (18.3-44.2); Mean Corpuscular HGB Conc 29.7 g/dl (32-36); Mean Corpuscular Hemoglobin 22.2 pg (26-34); Mean Corpuscular Volume 74.7 fl (80-100); Mean Platelet Volume 11.8 fl (7.4-10.4); Monocytes Absolute Auto 0.2 K/mm3 (0.1-0.6); Monocytes Percent Auto 4.1 % (2.6-8.5); Neutrophils Absolute Auto 4.3 K/mm3 (1.3-6.7); Neutrophils Percent Auto 74.6 % (45.5-73.1); Platelet Count Result 210 k/mm3 (150-375); Red Blood Count 4.74 M/mm3 (4.2-5.4); Red Cell Distribution Width 16.6 % (11.5-14.5); White Blood Count 5.8 K/mm3 (4.5-10.0)
[2022-03-25 10:29] LABS: Alanine Aminotransferase 23 U/L (6-35); Albumin Level 4.6 g/dL (3.5-5.1); Alkaline Phosphatase 78 U/L (38-126); Anion Gap 13 mmol/L (8-16); Aspartate Amino Transferase 26 U/L (14-36); Bilirubin,Total 0.3 mg/dL (0.2-1.3); Blood Urea Nitrogen 9 mg/dL (7-17); Calcium 8.9 mg/dL (8.4-10.2); Carbon Dioxide 22 mmol/L (22-30); Chloride 105 mmol/L (98-107); Estimated CRCL calculation 105 ml/min; Estimated Glomerular Filt Rate > 60; Glucose 115 mg/dL (65-110); Potassium 3.8 mmol/L (3.4-5.0); Sodium 140 mmol/L (137-145)
--- NOTE | 2022-03-25 11:09 | PC.NURSE ---
Patient report given to AURELIANO Maloney. All questions answered and care of patient transferred.
[2022-03-25] MEDS: MECLIZINE HCL 25 MG TABLET PO (11:15)
[2022-03-25] MEDS: SODIUM CHLORIDE 0.9% IV 1,000 ML 999 ML IV CONT (11:18)
[2022-03-25 11:34] LABS: INR 1.1; Partial Thromboplastin Time 26.8 SECONDS (22.3-36.8); Prothrombin Time 13.3 Seconds (11.1-14.7)
[2022-03-25 11:42] LABS: Appearance Urine Clear (Clear); Bilirubin Urine Negative (Negative); Blood Urine Negative (Negative); Color Urine Yellow (Yellow); Glucose Urine UA Negative (Negative); Ketones Urine 1+ mg/dL (Negative); Leukocyte Esterase Ur Negative LEU/UL (Negative); Nitrate Urine Negative (Negative); Protein Urine Negative (Negative); Specific Grav Ur <= 1.005 (1.001-1.035); Urobilinogen Urine 0.2 mg/dL (<2.0)
[2022-03-25 11:55] LABS: Add Urine Microscopic? YES; Mucus Urine Rare /lpf; RBC Urine 0-2 /hpf (0-2); WBC Urine 0-3 /hpf
[2022-03-25 13:02] LABS: Troponin I < 0.012 ng/mL (0.000-0.034)
[2022-03-25] MEDS: diazePAM INJ (*CRX) 10 MG/2 ML SYRINGE 2 MG IV PUSH ×2 (14:05→21:26)
[2022-03-25] MEDS: ONDANSETRON INJ 4 MG/2 ML VIAL IV PUSH ×2 (14:05→20:43)
--- NOTE | 2022-03-25 14:48 | ED.DIZZY ---
HPI - Dizziness General Chief Complaint: Dizziness Stated Complaint: vertigo Time Seen by Provider: 03/25/22 10:31 Source: RN notes reviewed History of Present Illness HPI Narrative: Patient presents emergency department from home for vertigo. Patient states that she has been feeling dizzy for the past 3 days. States that dizziness is worse whenever she ambulates but is still present when she sits feels like the room spinning she states associate with nausea and vomiting. Patient states she was in the emergency department last night for similar but negative work-up she denies any numbness or weakness of the extremities she denies any vision changes chest pain shortness of breath or any other symptoms states she took meclizine with minimal relief Related Data Home Medications Medication Instructions Recorded Confirmed No Home Medications 12/26/21 12/26/21 Allergies Allergy/AdvReac Type Severity Reaction Status Date / Time gatifloxacin Allergy Unknown Other Verified 03/25/22 11:00 Review of Systems Review of Systems: Gen.: Denies fevers or chills Eyes: Denies eye pain or visual change ENT: Denies congestion Respiratory: Denies shortness of breath or cough CV: Denies chest pain or palpitations GI: Denies abdominal pain reports nausea vomiting Musculoskeletal: Denies back pain or muscle pain Neuro: See HPI Skin: Denies rash Except as documented, all other systems reviewed and negative [facility] Past Medical History Medical History History of gastroesophageal reflux (GERD) History of hypertension Surgical History Surgical History (Updated 03/24/22 @ 19:48 by Fredy Zamora MD) History of appendectomy History of cholecystectomy Social History Social History Substance use: never Gender identity (if verbalized by the patient): Female Exam Narrative: APPEARANCE: No acute distress, nontoxic, resting in bed HEENT: Normocephalic, atraumatic, OMM, TMs clear bilaterally EYES: PERRL, EOMI NECK: Supple, nontender, full range of motion without pain, no meningismus RESPIRATORY: No respiratory distress, clear to auscultation bilaterally with no rhonchi wheezing or rales CARDIOVASCULAR: RRR s murmur ABDOMINAL: Soft, nontender, nondistended MUSCULOSKELETAL: Moves all extremities. No clubbing, cyanosis or edema. NEURO: A and O ?3, following commands, speech normal, cranial nerves II through XII grossly intact,muscle strength 5 out of 5 bilateral upper and lower extremities SKIN:: Warm, dry. Normal Color PSYCHIATRIC: Normal affect/mood Course Course Emergency Course: Patient given meclizine and Valium with continued dizziness Discussed with [employer] [employer] Ruba Benitez agrees with admission Discussed with patient and family results of workup and diagnosis. Discussed need for admission. Patient and family understand and agree to current treatment plan Vital Signs Vital signs: Vital Signs Temperature 97.6 F 03/25/22 09:58 Pulse Rate 112 H 03/25/22 09:58 Respiratory Rate 17 03/25/22 09:58 Blood Pressure 132/82 03/25/22 09:58 Pulse Oximetry 100 03/25/22 09:58 Oxygen Delivery Room Air 03/25/22 09:58 Temperature 97.6 F 03/25/22 09:58 Pulse Rate 62 03/25/22 14:01 Respiratory Rate 15 03/25/22 14:01 Blood Pressure 115/64 03/25/22 14:01 Pulse Oximetry 100 03/25/22 14:01 Oxygen Delivery Room Air 03/25/22 09:58 MDM - Dizziness Lab Data Result diagrams: 03/25/22 10:08 03/25/22 10:08 Labs: Lab Results 03/25/22 03/25/22 03/25/22 Range/Units 10:08 10:08 10:08 WBC 5.8 (4.5-10.0) K/mm3 RBC 4.74 (4.2-5.4) M/mm3 Hgb 10.5 L (12.0-15.0) g/dL Hct 35.4 L (37.0-47.0) % MCV 74.7 L (80-100) fl MCH 22.2 L (26-34) pg MCHC 29.7 L (32-36) g/dl RDW 16.6 H (11.5-14.5) % Plt Count 210 (150-375) k/mm3
[2022-03-25] MEDS: SODIUM CHLORIDE 0.9% IV 1,000 ML 80 ML IV CONT (16:41)
--- NOTE | 2022-03-25 16:45 | PC.NURSE ---
This patient, Rama Carrasco, was admitted to Medical Room 342-01. Patient/family oriented to hospital policies and general routines including ID bracelet, bed and alarms, visiting hours, pain management, procedures, bathroom and other care routines, personal items, smoking policy, room service/diet, and visiting hours. Information on how to activate the Rapid Response Team has been discussed. Patient/Family are encouraged to report perceived risks to care and to ask questions if they do not understand what they are told or what they should do.
--- NOTE | 2022-03-25 17:06 | PM.IMHP ---
H&P: HPI History of Present Illness Date/Time: 03/25/22 17:06 Chief Complaint: Dizziness Narrative: 46yo female with HTN who presents to the ED with complaints of dizziness. Patient developed right-sided neck pain sometime in September. She was found to have a right salivary gland enlargement as well as multiple nodules on her thyroid. She is followed by ENT for this. On chart review there is a CT of the neck in November which was unremarkable. A CT of the chest a month later did show a small thyroid nodule on the left. In any regard, patient continued to have right anterior neck tenderness and about 6 weeks ago was given a course of prednisone and Augmentin. She states she turned yellow and became very dizzy. The treatment was stopped. The prescribing providers felt this was a side effect and not a true allergy. More recently patient had sore throat, cough and fever and was diagnosed with COVID about 7 days ago. She was not treated with antibodies or other infusions. She used symptomatic care with Mucinex, NSAIDs and vitamins. She recovered well from the COVID up until 3 days ago when she developed dizziness. The dizziness was similar to the event 6 weeks ago. Dizziness seemed to be better when she was upright but worse when laying down. She had have the head of the bed elevated. She feels like the room was spinning. She presented the emergency room on March 24 and was treated appropriately. She had clinical improvement and was able to be discharged. When she returned home however she developed nausea and vomiting after eating. She tried ibuprofen and meclizine and was able to eventually fall sleep. This morning however, patient again developed severe dizziness. She was cold with tingling in her arms and blurry vision. She is having headaches. She has been having loose stools but only 1 per day. She has fullness in her ears. She did note some red blood with wiping today after a bowel movement. She also is having brief palpitations. No numbness, tingling or weakness in her extremities. No fever or chills. No dysuria or hematuria. She does have urine retention symptoms. Because of the persistent dizziness, she presented back to the emergency room for evaluation. In the emergency department, patient was hemodynamically stable. Her pulse was 112. CT the brain showed no acute findings. Chest x-ray was clear. test was negative. She has a microcytic anemia but is known iron deficiency and takes iron for this. She had this worked up with colonoscopy and EGD that were normal in October. Urinalysis showed 1+ ketones but otherwise negative. Troponin was negative. She was treated with meclizine, Zofran, Valium and IV fluids. Despite treatment, her symptoms persisted. She was admitted for further care. Review of Systems Review of Systems: All systems reviewed & are unremarkable except as noted in HPI and below PMFSH Past Medical History Medical History (Updated 03/26/22 @ 18:17 by Spencer Benitez MD) Eosinophilic esophagitis by EGD in 2016 History of gastroesophageal reflux (GERD) History of hypertension IBS (irritable bowel syndrome) Surgical History Surgical History (Updated 03/25/22 @ 18:16 by Spencer Benitez MD) History of appendectomy History of cholecystectomy Hx of section C/s x2 with two vaginal births Family History Family History Mother Hypothyroidism Hypertension Diabetes type 2, controlled Father Thyroid cancer Hypertension Diabetes type 2, controlled Social History Social History (Updated 03/25/22 @ 18:12 by Spencer Benitez MD) Social History: She is a lifelong nonsmoker. She denies alcohol and drug use. She lives at home with her and 3 children. She is a full code. She nominates her to be the 1 to make medical decisions for her if she is unable. Smoking status: Never smoker Second h
[2022-03-25 19:20] LABS: Troponin I < 0.012 ng/mL (0.000-0.034)
[2022-03-25] MEDS: MECLIZINE HCL 12.5 MG TABLET PO (20:18)
[2022-03-25 21:14] LABS: Troponin I < 0.012 ng/mL (0.000-0.034)
[2022-03-26] VITALS (8 sets, daily range): BP systolic 125–134; BP diastolic 74–76; PULSE 56–91; RESP 16–18; TEMP 36.8–36.9; O2SAT 98–100
[2022-03-26] MEDS: ACETAMINOPHEN 325 MG TABLET 650 MG PO (02:10)
[2022-03-26] MEDS: diazePAM INJ (*CRX) 10 MG/2 ML SYRINGE 2 MG IV PUSH ×3 (03:25→19:49)
[2022-03-26 06:31] LABS: Basophils Percent Auto 0.5 % (0.2-1.2); Eosinophils Absolute Auto 0.1 K/mm3 (0-0.3); Eosinophils Percent Auto 2.3 % (0-4.4); Hematocrit 31.9 % (37.0-47.0); Hemoglobin 9.3 g/dL (12.0-15.0); Immature Granulocyte Absolute 0.05 K/mm3 (0.00-0.031); Immature Granulocyte Percent A 0.8 % (0-0.5); Lymphocytes Percent Auto 36.4 % (18.3-44.2); Mean Corpuscular HGB Conc 29.2 g/dl (32-36); Mean Corpuscular Hemoglobin 22.2 pg (26-34); Mean Corpuscular Volume 76.1 fl (80-100); Mean Platelet Volume 11.6 fl (7.4-10.4); Monocytes Absolute Auto 0.4 K/mm3 (0.1-0.6); Monocytes Percent Auto 7.3 % (2.6-8.5); Neutrophils Absolute Auto 3.2 K/mm3 (1.3-6.7); Neutrophils Percent Auto 52.7 % (45.5-73.1); Platelet Count Result 185 k/mm3 (150-375); Red Blood Count 4.19 M/mm3 (4.2-5.4); Red Cell Distribution Width 16.8 % (11.5-14.5)
[2022-03-26] MEDS: SODIUM CHLORIDE 0.9% IV 1,000 ML 80 ML IV CONT ×2 (06:36→23:24)
[2022-03-26 06:44] LABS: Alanine Aminotransferase 21 U/L (6-35); Albumin Level 3.7 g/dL (3.5-5.1); Alkaline Phosphatase 60 U/L (38-126); Anion Gap 8 mmol/L (8-16); Aspartate Amino Transferase 22 U/L (14-36); Bilirubin,Total 0.2 mg/dL (0.2-1.3); Blood Urea Nitrogen 11 mg/dL (7-17); Calcium 8.4 mg/dL (8.4-10.2); Carbon Dioxide 27 mmol/L (22-30); Chloride 106 mmol/L (98-107); Estimated CRCL calculation 92 ml/min; Estimated Glomerular Filt Rate > 60; Glucose 95 mg/dL (65-110); Sodium 141 mmol/L (137-145)
[2022-03-26 07:11] LABS: Anisocytosis 1+ (NORMAL); Platelet Estimate Adequate (Adequate)
[2022-03-26] MEDS: ENOXAPARIN 40 MG/0.4 ML SYRINGE SUB-Q (08:33)
[2022-03-26] MEDS: amLODIPine BESYLATE 2.5 MG TABLET PO (08:33)
[2022-03-26] MEDS: PANTOPRAZOLE 40 MG TABLET PO (08:34)
[2022-03-26] MEDS: LORATADINE 10 MG TABLET PO (08:34)
[2022-03-26] MEDS: FLUTICASONE PROPIONATE 0.05% NA SPR 16 GM BTL (*BKC) 1 SPRAY NASAL (08:34)
[2022-03-26] MEDS: lisinopriL 10 MG TABLET PO (08:34)
[2022-03-26] MEDS: MECLIZINE HCL 12.5 MG TABLET PO ×4 (08:34→20:05)
[2022-03-26] MEDS: ONDANSETRON INJ 4 MG/2 ML VIAL IV PUSH ×2 (08:37→12:31)
--- NOTE | 2022-03-26 09:23 | PC.NURSE ---
Patient off of unit down to MRI
--- NOTE | 2022-03-26 11:24 | PCOTNOTE ---
Attempted OT evaluation, patient reports feeling to dizzy at this time to get up, will follow and attempt at later time. RN notified.
--- NOTE | 2022-03-26 11:50 | PCPTNOTE ---
Attempted PT evaluation, patient reports feeling to dizzy at this time to get up, will follow and attempt at later time. RN notified.
--- NOTE | 2022-03-26 16:22 | PM.IMPN ---
Progress Note: A&P Assessment and Plan (1) Vertigo: Code(s): R42 - Dizziness and giddiness Status: Acute (2) Nausea and vomiting: Code(s): R11.2 - Nausea with vomiting, unspecified Status: Acute (3) COVID-19 virus infection: Code(s): U07.1 - COVID-19 Status: Acute (4) Microcytic anemia: Code(s): D50.9 - Iron deficiency anemia, unspecified Status: Acute (5) HTN (hypertension), benign: Code(s): I10 - Essential (primary) hypertension Status: Acute (6) GERD (gastroesophageal reflux disease): Code(s): K21.9 - Gastro-esophageal reflux disease without esophagitis Status: Acute Plan Patient was admitted to [address] [place] [address] for dizziness. No concerning neurologic symptoms to suggest CVA. MRI of the brain normal. The acute onset makes acoustic neuroma less likely. Suspect that her dizziness is post viral from the recent COVID infection. She still symptomatic but with improvement. Will continue IV fluids. Will continue scheduled meclizine. Valium available as needed. PT noted no concerns and did not feel related BPPV. Zofran available for nausea. Continue home medications. Encouraged her to be up walking in the halls and sitting in the chair for meals. Hopefully she renea be able to be discharged tomorrow. DVT prophylaxis: Lovenox Code status: Full Diet: heart healthy Subjective Date/time seen: 03/26/22 16:22 Interval history: 46-year-old female hypertension and GERD here for dizziness. Some improvement today. He will tolerate oral intake. Still with dizziness and nausea. No hearing loss but does state she has fullness in the right ear. Right anterior neck submandibular gland tenderness. No symptoms of urine retention. Exam Narrative: AF 98.2 134/74 76 18 100% ra Gen - NARD HEENT - normocephalic. Atraumatic. Pupils equal round and reactive. Extraocular motions intact. Sclera clear and anicteric. Nares patent with some swelling to the left turbinates. TMs pearly. Oropharynx was clear. No oral lesions. Moist mucous membranes. Neck - neck was supple. Small right submandibular gland that was slightly enlarged with minimal tenderness Chest - CTA bilaterally. nml RR CV - RRR S1/S2; Tele showing no significant dysrhythmias Abd -soft. Nontender. Nondistended. Positive bowel sounds. Ext -no pedal edema Psych - normal mood but nervous affect. Skin - warm and dry. No rashes noted. Objective Data Vital Signs Vital Signs: Vital Signs - 24 hr 03/25/22 16:48 03/25/22 20:00 03/25/22 22:00 Temperature 98.6 F Pulse Rate 65 70 72 Respiratory Rate 16 16 Blood Pressure 128/73 119/73 Pulse Oximetry 100 100 Oxygen Delivery 03/26/22 00:00 03/26/22 04:00 03/26/22 05:52 Temperature 98.3 F Pulse Rate 60 56 L 61 Respiratory Rate 16 Blood Pressure 125/76 Pulse Oximetry 98 Oxygen Delivery 03/26/22 08:00 03/26/22 13:01 03/26/22 12:45 Temperature Pulse Rate Respiratory Rate Blood Pressure Pulse Oximetry Oxygen Delivery Room Air Room Air Room Air 03/26/22 08:00 03/26/22 12:00 03/26/22 14:00 Temperature 98.2 F Pulse Rate 61 91 76 Respiratory Rate 18 Blood Pressure 134/74 Pulse Oximetry 100 Oxygen Delivery Intake/Output Intake/Output: Intake & Output 03/23/22 03/24/22 03/25/22 03/26/22 23:59 23:59 23:59 23:59 Intake Total 1250 1240 Output Total 500 1900 Balance 750 -660 Meds/Results Medications: Active Medications Generic Name Dose Route Start Last Admin Trade Name Freq PRN Reason Stop Dose Admin Acetaminophen 650 mg 03/26/22 02:02 03/26/22 02:10 Acetaminophen 325 Mg Tablet PO 650 mg Q4H PRN Administration Mild Pain (1-3) or Fever Amlodipine Besylate 2.5 mg 03/26/22 09:00 03/26/22 08:33 Amlodipine Besylate 2.5 Mg Tablet PO 2.5 mg DAILY TODD Administration Diazepam 2 mg 03/25/22 18:20 03/26/22 12:27 Diazepam Inj (*
[2022-03-27 05:11] VITALS: BP 125/77; PULSE 87; RESP 18; TEMP 36.7; O2SAT 99
[2022-03-27] MEDS: ONDANSETRON INJ 4 MG/2 ML VIAL IV PUSH ×2 (08:31→16:32)
[2022-03-27] MEDS: diazePAM INJ (*CRX) 10 MG/2 ML SYRINGE 2 MG IV PUSH (08:31)
[2022-03-27] MEDS: MECLIZINE HCL 12.5 MG TABLET PO ×4 (08:31→20:12)
[2022-03-27] MEDS: LORATADINE 10 MG TABLET PO (08:32)
[2022-03-27] MEDS: lisinopriL 10 MG TABLET PO (08:32)
[2022-03-27] MEDS: FLUTICASONE PROPIONATE 0.05% NA SPR 16 GM BTL (*BKC) 1 SPRAY NASAL (08:32)
[2022-03-27] MEDS: amLODIPine BESYLATE 2.5 MG TABLET PO (08:32)
[2022-03-27] MEDS: ENOXAPARIN 40 MG/0.4 ML SYRINGE SUB-Q (08:32)
[2022-03-27] MEDS: PANTOPRAZOLE 40 MG TABLET PO ×2 (08:32→16:33)
--- NOTE | 2022-03-27 10:10 | PM.IMPN ---
Progress Note: A&P Assessment and Plan (1) Vertigo: Code(s): R42 - Dizziness and giddiness Status: Acute (2) Nausea and vomiting: Code(s): R11.2 - Nausea with vomiting, unspecified Status: Acute (3) COVID-19 virus infection: Code(s): U07.1 - COVID-19 Status: Acute (4) Microcytic anemia: Code(s): D50.9 - Iron deficiency anemia, unspecified Status: Acute (5) HTN (hypertension), benign: Code(s): I10 - Essential (primary) hypertension Status: Acute (6) GERD (gastroesophageal reflux disease): Code(s): K21.9 - Gastro-esophageal reflux disease without esophagitis Status: Acute Plan Interval plan: Patient was admitted to [address] [place] [address] for dizziness. Mri Brain is Normal. Dizziness may be related to recent covid infection treat symptomatically with fluids valium and zofran. Hb is 9, bmp is good Dc over the weekend Subjective Date/time seen: 03/27/22 10:10 Interval history: 46-year-old female hypertension and GERD here for dizziness. Pt still feels dizziness and vertigo Pt had recent COVID infection Exam Narrative: Vital Signs Temp Pulse Resp BP Pulse Ox O2 Del Method 03/27/22 05:11 36.7 C 87 18 125/77 99 03/26/22 20:00 Room Air 03/26/22 20:28 36.9 C 76 16 126/75 100 03/26/22 16:00 82 03/26/22 14:00 36.8 C 76 18 134/74 100 03/26/22 12:00 91 03/26/22 12:45 Room Air 03/26/22 13:01 Room Air Intake and Output 03/26/22 03/27/22 03/27/22 23:59 07:59 15:59 Intake Total 1120 Output Total 500 500 Balance 620 -500 Intake: IV 1000 Sodium Chlorid e 0.9% IV 1,000 1000 ml @ 80 mls/hr IV CONT .[id number] [facility] Rx#:[id number] Oral 120 Output: Urine 500 500 Generally: unwell appearing tired weak Neck - neck was supple. Chest -lungs are clear to ausculation CV - RRR S1/S2 Abd -soft. Nontender. Nondistended. Positive bowel sounds. Ext -no pedal edema Objective Data Vital Signs Vital Signs: Vital Signs - 24 hr 03/26/22 13:01 03/26/22 12:45 03/26/22 12:00 Temperature Pulse Rate 91 Respiratory Rate Blood Pressure Pulse Oximetry Oxygen Delivery Room Air Room Air 03/26/22 14:00 03/26/22 16:00 03/26/22 20:28 Temperature 36.8 C 36.9 C Pulse Rate 76 82 76 Respiratory Rate 18 16 Blood Pressure 134/74 126/75 Pulse Oximetry 100 100 Oxygen Delivery 03/26/22 20:00 03/27/22 05:11 Temperature 36.7 C Pulse Rate 87 Respiratory Rate 18 Blood Pressure
[2022-03-27] MEDS: SODIUM CHLORIDE 0.9% IV 1,000 ML 80 ML IV CONT ×2 (12:52→21:45)
[2022-03-27] MEDS: METOCLOPRAMIDE HCL INJ 10 MG/2 ML VIAL 5 MG IV PUSH (12:52)
[2022-03-27 14:00] VITALS: BP 113/71; PULSE 82; RESP 14; TEMP 36.4; O2SAT 100
[2022-03-27 20:59] VITALS: BP 126/76; PULSE 97; RESP 18; TEMP 36.2; O2SAT 100
[2022-03-27] MEDS: ACETAMINOPHEN 325 MG TABLET 650 MG PO (21:43)
[2022-03-28 04:37] VITALS: BP 108/68; PULSE 66; RESP 16; TEMP 36.3; O2SAT 100
[2022-03-28 08:00] VITALS: O2SAT 100
[2022-03-28] MEDS: ENOXAPARIN 40 MG/0.4 ML SYRINGE SUB-Q (09:30)
[2022-03-28] MEDS: LORATADINE 10 MG TABLET PO (09:30)
[2022-03-28] MEDS: amLODIPine BESYLATE 2.5 MG TABLET PO (09:30)
[2022-03-28] MEDS: MECLIZINE HCL 12.5 MG TABLET PO ×4 (09:30→20:15)
[2022-03-28] MEDS: FLUTICASONE PROPIONATE 0.05% NA SPR 16 GM BTL (*BKC) 1 SPRAY NASAL (09:30)
[2022-03-28] MEDS: PANTOPRAZOLE 40 MG TABLET PO (09:30)
[2022-03-28] MEDS: lisinopriL 10 MG TABLET PO (09:30)
--- NOTE | 2022-03-28 10:29 | PM.IMPN ---
Progress Note: A&P Assessment and Plan (1) Vertigo: Code(s): R42 - Dizziness and giddiness Status: Acute Assessment and Plan: will continue current treatment. Monitor closely. Patient advised to walk with nursing staff. (2) Nausea and vomiting: Code(s): R11.2 - Nausea with vomiting, unspecified Status: Acute Assessment and Plan: Gradually getting better. (3) COVID-19 virus infection: Code(s): U07.1 - COVID-19 Status: Acute Assessment and Plan: Old infection currently stable (4) Microcytic anemia: Code(s): D50.9 - Iron deficiency anemia, unspecified Status: Acute Assessment and Plan: monitor, stable at present (5) HTN (hypertension), benign: Code(s): I10 - Essential (primary) hypertension Status: Acute Assessment and Plan: stable on current meds (6) GERD (gastroesophageal reflux disease): Code(s): K21.9 - Gastro-esophageal reflux disease without esophagitis Status: Acute Assessment and Plan: stable Plan 03/28/2022 Patient was admitted to [address] [place] [address] for dizziness. Mri Brain is Normal. Dizziness may be related to recent covid infection treat symptomatically with fluids valium and zofran. Hb is 9, bmp is good Subjective Date/time seen: 03/28/22 10:29 Patient was seen during the morning rounds today. Patient still have mild dizziness. Patient has no chest pain or shortness of breath. No abdominal pain, nausea, vomiting. Mood stable Review of Systems Review of Systems: All systems reviewed & are unremarkable except as noted in HPI and below Exam Narrative: Vital Signs Temp Pulse Resp BP Pulse Ox O2 Del Method 03/27/22 05:11 36.7 C 87 18 125/77 99 03/26/22 20:00 Room Air 03/26/22 20:28 36.9 C 76 16 126/75 100 03/26/22 16:00 82 03/26/22 14:00 36.8 C 76 18 134/74 100 03/26/22 12:00 91 03/26/22 12:45 Room Air 03/26/22 13:01 Room Air Intake and Output 03/26/22 03/27/22 03/27/22 23:59 07:59 15:59 Intake Total 1120 Output Total 500 500 Balance 620 -500 Intake: IV 1000 Sodium Chlorid e 0.9% IV 1,000 1000 ml @ 80 mls/hr IV CONT .[id number] [facility] Rx#:[id number] Oral 120 Output: Urine 500 500 Generally: unwell appearing tired weak Neck - neck was supple. Chest -lungs are clear to ausculation CV - RRR S1/S2 Abd -soft. Nontender. Nondistended. Positive bowel sounds. Ext -no pedal edema Objective Data Vital Signs Vital
[2022-03-28] MEDS: ACETAMINOPHEN 325 MG TABLET 650 MG PO ×2 (11:01→20:17)
[2022-03-28] MEDS: THERAPEUTIC MULTIVITAMINS/MINERALS TAB (*BKC) 1 TABLET PO (11:01)
[2022-03-28 14:00] VITALS: BP 118/79; PULSE 77; RESP 14; TEMP 36.9; O2SAT 99
[2022-03-28 15:37] VITALS: O2SAT 99
[2022-03-28 19:43] VITALS: BP 130/79; PULSE 87; RESP 18; TEMP 36.8; O2SAT 100
[2022-03-28] MEDS: SODIUM CHLORIDE 0.9% IV 1,000 ML 80 ML IV CONT (20:15)
[2022-03-29 04:52] VITALS: BP 112/76; PULSE 80; RESP 18; TEMP 36.4; O2SAT 100
[2022-03-29 07:44] VITALS: BP 133/80; PULSE 74; RESP 16; TEMP 35.8; O2SAT 100
[2022-03-29] MEDS: MECLIZINE HCL 12.5 MG TABLET PO ×4 (07:52→20:53)
[2022-03-29] MEDS: SODIUM CHLORIDE 0.9% IV 1,000 ML 80 ML IV CONT ×2 (07:54→20:53)
[2022-03-29] MEDS: ONDANSETRON INJ 4 MG/2 ML VIAL IV PUSH (07:54)
[2022-03-29] MEDS: ENOXAPARIN 40 MG/0.4 ML SYRINGE SUB-Q (08:56)
[2022-03-29] MEDS: FLUTICASONE PROPIONATE 0.05% NA SPR 16 GM BTL (*BKC) 1 SPRAY NASAL (08:56)
[2022-03-29] MEDS: amLODIPine BESYLATE 2.5 MG TABLET PO (08:56)
[2022-03-29] MEDS: lisinopriL 10 MG TABLET PO (08:56)
[2022-03-29] MEDS: LORATADINE 10 MG TABLET PO (08:57)
[2022-03-29] MEDS: THERAPEUTIC MULTIVITAMINS/MINERALS TAB (*BKC) 1 TABLET PO (08:57)
[2022-03-29] MEDS: PANTOPRAZOLE 40 MG TABLET PO (08:57)
--- NOTE | 2022-03-29 10:39 | PM.IMPN ---
Progress Note: A&P Assessment and Plan (1) Vertigo: Code(s): R42 - Dizziness and giddiness Status: Acute Assessment and Plan: will continue current treatment. Monitor closely. Patient advised to walk with nursing staff. (2) Nausea and vomiting: Code(s): R11.2 - Nausea with vomiting, unspecified Status: Acute Assessment and Plan: Gradually getting better. (3) COVID-19 virus infection: Code(s): U07.1 - COVID-19 Status: Acute Assessment and Plan: Old infection currently stable (4) Microcytic anemia: Code(s): D50.9 - Iron deficiency anemia, unspecified Status: Acute Assessment and Plan: monitor, stable at present (5) HTN (hypertension), benign: Code(s): I10 - Essential (primary) hypertension Status: Acute Assessment and Plan: stable on current meds (6) GERD (gastroesophageal reflux disease): Code(s): K21.9 - Gastro-esophageal reflux disease without esophagitis Status: Acute Assessment and Plan: stable (7) Acute bronchitis: Code(s): J20.9 - Acute bronchitis, unspecified Status: Acute Assessment and Plan: start Zithromax and through lozenges Plan 03/29/2022 Patient was admitted to [address] [place] [address] for dizziness. Mri Brain is Normal. Dizziness may be related to recent covid infection treat symptomatically with fluids valium and zofran. Hb is 9, bmp is good Subjective Date/time seen: 03/29/22 10:39 Patient was seen during the morning rounds today. Patient complained of a sore throat. Dizziness is slightly better. Patient denies any shortness of breath or chest pain. No abdominal pain, no nausea, no vomiting. Mood stable Review of Systems Review of Systems: All systems reviewed & are unremarkable except as noted in HPI and below Exam Narrative: Vital Signs Temp Pulse Resp BP Pulse Ox O2 Del Method 03/27/22 05:11 36.7 C 87 18 125/77 99 03/26/22 20:00 Room Air 03/26/22 20:28 36.9 C 76 16 126/75 100 03/26/22 16:00 82 03/26/22 14:00 36.8 C 76 18 134/74 100 03/26/22 12:00 91 03/26/22 12:45 Room Air 03/26/22 13:01 Room Air Intake and Output 03/26/22 03/27/22 03/27/22 23:59 07:59 15:59 Intake Total 1120 Output Total 500 500 Balance 620 -500 Intake: IV 1000 Sodium Chlorid e 0.9% IV 1,000 1000 ml @ 80 mls/hr IV CONT .[id number] [facility] Rx#:[id number] Oral 120 Output: Urine 500 500 Generally: unwell appearing tired weak
[2022-03-29] MEDS: ACETAMINOPHEN 325 MG TABLET 650 MG PO (12:19)
[2022-03-29 14:00] VITALS: BP 120/79; PULSE 73; RESP 16; TEMP 36.6; O2SAT 100
[2022-03-29] MEDS: ALPRAZolam (*CRX) 0.5 MG TABLET PO ×2 (14:37→20:53)
[2022-03-29 20:50] VITALS: BP 107/62; PULSE 73; RESP 18; TEMP 36.2; O2SAT 100
[2022-03-30 04:27] VITALS: BP 118/69; PULSE 68; RESP 16; TEMP 36.6; O2SAT 100
[2022-03-30] MEDS: LORATADINE 10 MG TABLET PO (08:49)
[2022-03-30] MEDS: FLUTICASONE PROPIONATE 0.05% NA SPR 16 GM BTL (*BKC) 1 SPRAY NASAL (08:49)
[2022-03-30] MEDS: ENOXAPARIN 40 MG/0.4 ML SYRINGE SUB-Q (08:49)
[2022-03-30] MEDS: lisinopriL 10 MG TABLET PO (08:50)
[2022-03-30] MEDS: THERAPEUTIC MULTIVITAMINS/MINERALS TAB (*BKC) 1 TABLET PO (08:50)
[2022-03-30] MEDS: PANTOPRAZOLE 40 MG TABLET PO (08:50)
[2022-03-30] MEDS: MECLIZINE HCL 12.5 MG TABLET PO ×2 (08:50→12:22)
[2022-03-30] MEDS: amLODIPine BESYLATE 2.5 MG TABLET PO (08:50)
--- NOTE | 2022-03-30 12:47 | PM.DS ---
DS: Admitting Diagnosis Discharge Date 03/30/22 Admitting Diagnosis Dizziness DS: Discharge Diagnosis Discharge Diagnosis (1) Vertigo: Code(s): R42 - Dizziness and giddiness Status: Acute (2) Nausea and vomiting: Code(s): R11.2 - Nausea with vomiting, unspecified Status: Acute (3) COVID-19 virus infection: Code(s): U07.1 - COVID-19 Status: Acute (4) Microcytic anemia: Code(s): D50.9 - Iron deficiency anemia, unspecified Status: Acute (5) HTN (hypertension), benign: Code(s): I10 - Essential (primary) hypertension Status: Acute (6) GERD (gastroesophageal reflux disease): Code(s): K21.9 - Gastro-esophageal reflux disease without esophagitis Status: Acute (7) Acute bronchitis: Code(s): J20.9 - Acute bronchitis, unspecified Status: Acute DS: Summary Hospital Course Reason for hospitalization: 46-year-old female hypertension and GERD here for dizziness. Please see H&P for details Hospital Course: Patient was admitted to [address] [place] [address] for dizziness.? No concerning neurologic symptoms to suggest CVA.? MRI of the brain was normal. The acute onset makes acoustic neuroma less likely. Suspect that her dizziness is post viral from the recent COVID infection.?SHe also has tender right salivary gland that is being worked up by her ENT. She was started on IV fluids andw scheduled meclizine. Valium was available as needed.? PT noted no concerns and did not feel related BPPV. Zofran was available for nausea.?Azithromycin added for bronchitis. She has meclizine at home. She had clinical improvement and was able to be discharged home on 03/30/22. Status at Discharge Cognitive/behavioral status at discharge: Stable Time Spent with Patient Time attestation: Total time spent providing and/or coordinating discharge services: 32 minutes Time spent: Greater than 30 minutes Exam Narrative: AF 97.9 118/69 68 16 100% ra Gen - NARD Chest - CTA bilaterally. nml RR CV - RRR S1/S2 Abd -soft. Nontender. Nondistended. Positive bowel sounds. Ext -no pedal edema Psych - normal mood and affect; in good spirits Skin - warm and dry. No rashes noted. Discharge Plan Discharge Attending physician on discharge: Spencer Benitez Discharging Clinician: Spencer Benitez Anticipated Discharge Date/Time: 03/30/22 12:54 Patient Disposition: Home, Self-Care Activity: as tolerated Diet: regular Discharge Instructions: Please complete your antibiotic course even if you are starting to feel well. Take precautions to avoid falls. Rise slowly from a lying or sitting position. Pause before standing or walking. Contact your doctor or call 911 and come to the Emergency Room if you have recurrent dizziness or other worrisome symptoms. Use meclizine as needed for dizziness. Avoid NSAIDs (ibuprofen, naproxen, Aleve). Tylenol is safe to take. Follow-up with your doctor in 1-2 weeks. Please call for appointment. Follow-up with your ENT doctor as scheduled. Thank you for using [facility] for your isacc care needs. Patient Instructions: Antibiotic Form Stand Alone Forms: General Discharge Information Follow-up/Referrals: Abram,Rob Rubio MD [Primary Care Provider] - Call for Appointment Discharge Medications: New azithromycin 250 mg tablet 250 mg PO DAILY 3 Days Qty: 3 0RF Continued cetirizine [Zyrtec] 10 mg Tablet 10 mg PO DAILY amlodipine 2.5 mg tablet 2.5 mg PO DAILY omeprazole 40 mg Capsule,Delayed Release(Dr/Ec) 40 mg PO DAILY lisinopril 10 mg Tablet 10 mg PO DAILY fluticasone propionate [Flovent HFA] 220 mcg/actuation HFA aerosol inhaler 220 mcg inhalation PRN PRN (Reason: Shortness Of Breath Or Wheezing) Rx Instructions: patient swallows dose for EOE fluticasone propionate 50 mcg/actuation spray,suspension 50 mcg INTRANASAL DAILY Date of admissio
[2022-03-30 13:15] VITALS: BP 114/83; PULSE 85; RESP 16; TEMP 36.9; O2SAT 100
== END 2022-03-30 14:10 | disposition home or self-care (01) | DRG 149 ==
LOC: ANHED 14:50 → ANH3MED 15:54
PROVIDERS: Admitting Provider Internal Medicine; Emergency Provider Emergency Medicine; PCP Family Medicine; Visit Provider Internal Medicine
DX: R42 Dizziness and giddiness (principal); U09.9 Post COVID-19 condition, unspecified; J20.9 Acute bronchitis, unspecified; R11.2 Nausea with vomiting, unspecified; D50.9 Iron deficiency anemia, unspecified; K21.9 Gastro-esophageal reflux disease without esophagitis; I10 Essential (primary) hypertension; K58.9 Irritable bowel syndrome, unspecified; E04.1 Nontoxic single thyroid nodule; Z90.49 Acquired absence of other specified parts of digestive tract
CPT/HCPCS: 36415; 70450; 70553; 71045; 80053; 81001; 81025; 84484; 85025; 85055; 85610; 85730; 93005; 96361; 96372; 96374; 96375; 96376; 97161; 97165; 99285; A9270; A9577; G0378; J0456; J1650; J2405; J2765; J3360; J7030

== ENCOUNTER 2022-06-14 10:57 | Emergency (ER) | payer OTHER, SELFPAY ==
[2022-06-14] VITALS (37 sets, daily range): BP systolic 117–163; BP diastolic 79–94; PULSE 63–82; RESP 10–19; TEMP 36.2; O2SAT 93–100
--- NOTE | 2022-06-14 11:55 | ECG_ITS ---
Measurements Intervals [place] Rate: 66 P: 6 AZ: 112 QRS: 1 QRSD: 89 T: -8 QT: 393 QTc: 415 Interpretive Statements SINUS RHYTHM WITH SHORT [place] INTERVAL LOW QRS VOLTAGE IN PRECORDIAL LEADS [QRS DEFLECTION < 1.0 mV IN CHEST LEADS] COMPARED TO ECG 03/25/2022 10:11:52 NO SIGNIFICANT CHANGES Electronically Signed On 06-14-2022 19:49:09 CDT by Ragini Arguelles M.D.
[2022-06-14 12:17] LABS: Basophils Percent Auto 0.6 % (0.2-1.2); Eosinophils Absolute Auto 0.1 K/mm3 (0-0.3); Eosinophils Percent Auto 1.3 % (0-4.4); Hematocrit 42.3 % (37.0-47.0); Hemoglobin 13.5 g/dL (12.0-15.0); Immature Granulocyte Absolute 0.04 K/mm3 (0.00-0.031); Immature Granulocyte Percent A 0.6 % (0-0.5); Immature Platelet Fraction Pct 12.8 % (0.9-11.2); Lymphocytes Absolute Auto 1.32 K/mm3 (0.9-3.2); Lymphocytes Percent Auto 18.4 % (18.3-44.2); Mean Corpuscular HGB Conc 31.9 g/dl (32-36); Mean Corpuscular Hemoglobin 26.7 pg (26-34); Mean Corpuscular Volume 83.8 fl (80-100); Mean Platelet Volume 11.8 fl (7.4-10.4); Monocytes Absolute Auto 0.5 K/mm3 (0.1-0.6); Monocytes Percent Auto 6.4 % (2.6-8.5); Neutrophils Absolute Auto 5.2 K/mm3 (1.3-6.7); Neutrophils Percent Auto 72.7 % (45.5-73.1); Platelet Count Result 185 k/mm3 (150-375); Red Blood Count 5.05 M/mm3 (4.2-5.4); Red Cell Distribution Width 20.6 % (11.5-14.5); White Blood Count 7.2 K/mm3 (4.5-10.0)
[2022-06-14 12:20] LABS: Add Urine Microscopic? NO; Appearance Urine Clear (Clear); Bilirubin Urine Negative (Negative); Blood Urine Negative (Negative); Color Urine Colorless (Yellow); Glucose Urine UA Negative (Negative); Ketones Urine Negative (Negative); Leukocyte Esterase Ur Negative LEU/UL (Negative); Nitrate Urine Negative (Negative); Protein Urine Negative (Negative); Urobilinogen Urine Negative mg/dL (<2.0)
[2022-06-14 12:22] LABS: Specific Grav Ur 1.002 (1.001-1.035)
[2022-06-14 12:25] LABS: Alanine Aminotransferase 25 U/L (6-35); Albumin Level 4.6 g/dL (3.5-5.1); Alkaline Phosphatase 68 U/L (38-126); Anion Gap 15 mmol/L (8-16); Aspartate Amino Transferase 21 U/L (14-36); Bilirubin,Total 0.3 mg/dL (0.2-1.3); Blood Urea Nitrogen 14 mg/dL (7-17); Carbon Dioxide 24 mmol/L (22-30); Chloride 103 mmol/L (98-107); Estimated CRCL calculation 102 ml/min; Estimated Glomerular Filt Rate > 60; Glucose 103 mg/dL (65-110); Sodium 142 mmol/L (137-145)
--- NOTE | 2022-06-14 15:29 | ED.GENADULT ---
HPI - General Adult General Chief complaint: Unspecified Stated complaint: Possible Iron Overdose Source: patient Mode of arrival: ambulatory Limitations: no limitations History of Present Illness HPI narrative: 46 years old white female presented to the ED with increased dizziness and vertigo, been taking meclizine and Valium without any effect. Patient reported having diagnosis of vertigo March 2022, was seen by anything without improvement, currently been doing vestibular therapy. Patient noticed that the vertigo got worse over the last few days. Also complaining of watery diarrhea up to 5 times a day for the last 1-1/2 weeks. She denies any fever, chills, nausea, vomiting or abdominal pain. Patient on iron supplement for anemia, did not take it today. She thinks it probably overdosed on iron which causing her to have diarrhea. This morning with some pain of the right lower back, and pain of the right toes. She denied any recent physical activity or trauma. Patient had COVID infection 2 weeks prior to the beginning of the symptoms of vertigo Related Data Home Medications Medication Instructions Recorded Confirmed cetirizine 10 mg tablet (Zyrtec) 10 mg PO DAILY 03/25/22 05/26/22 fluticasone propionate 220 220 mcg inhalation PRN PRN 03/25/22 05/26/22 mcg/actuation HFA aerosol inhaler Shortness Of Breath Or Wheezing (Flovent HFA) fluticasone propionate 50 50 mcg intranasal DAILY 03/25/22 05/26/22 mcg/actuation nasal spray,suspension lisinopril 10 mg tablet 10 mg PO DAILY 03/25/22 05/26/22 omeprazole 40 mg capsule,delayed 40 mg PO DAILY 03/25/22 05/26/22 release ascorbic acid (vitamin C) 250 mg 250 mg PO DAILY 05/26/22 05/26/22 tablet calcium carb-vit D3-minerals 600 1 tablet PO DAILY 05/26/22 05/26/22 mg calcium-400 unit tablet ferrous sulfate 325 mg (65 mg 325 mg PO DAILY 05/26/22 05/26/22 iron) tablet (iron) omega-3 fatty acids 1,000 mg PO DAILY 05/26/22 05/26/22 vitamin B complex (B 1 tablet PO DAILY 05/26/22 05/26/22 Complex-Vitamin B12 tablet) Allergies Allergy/AdvReac Type Severity Reaction Status Date / Time amoxicillin Allergy Mild Dizziness Verified 06/14/22 11:45 gatifloxacin Allergy Unknown Other Verified 06/14/22 11:45 Review of Systems Review of Systems: All systems reviewed & are unremarkable except as noted in HPI and below PMFSH Past Medical History Medical History Eosinophilic esophagitis by EGD in 2016 History of gastroesophageal reflux (GERD) History of hypertension IBS (irritable bowel syndrome) Surgical History Surgical History History of appendectomy History of cholecystectomy Hx of section C/s x2 with two vaginal births Family History Family History Mother Hypothyroidism Hypertension Diabetes type 2, controlled Father Thyroid cancer Hypertension Diabetes type 2, controlled Social History Social History Social History: She is a lifelong nonsmoker. She denies alcohol and drug use. She lives at home with her and 3 children. She is a full code. She nominates her to be the 1 to make medical decisions for her if she is unable. Smoking status: Never smoker Second hand tobacco smoke exposure: No Alcohol intake: never Substance use: never Substance use type: does not use Gender identity (if verbalized by the patient): Female Spiritual care concerns: No Exam Narrative: General appearance: Well-developed, well-nourished. Patient could not lay down flat because of the severity of vertigo, and have to be in sitting up position. at the bedside Skin: Normal color Head: Normocephalic, nontraumatic Eyes: Clear conjunctiva ENT: Oropharynx normal, ears normal, nose normal Neck: Supple, nontender Chest
[2022-06-14] MEDS: SODIUM CHLORIDE 0.9% IV 1,000 ML 999 ML IV CONT ×2 (16:06→16:07)
[2022-06-14] MEDS: diazePAM INJ (*CRX) 10 MG/2 ML SYRINGE 5 MG IV PUSH (16:07)
[2022-06-14] MEDS: MECLIZINE HCL 25 MG TABLET PO (16:07)
--- NOTE | 2022-06-15 10:58 | PC.NURSE ---
[facility], pt in lab to drop off specimen. reordered lab at this time.
== END 2022-06-15 04:09 | disposition home or self-care (01) ==
PROVIDERS: Emergency Provider Emergency Medicine; PCP Family Medicine
DX: R42 Dizziness and giddiness (principal); R19.7 Diarrhea, unspecified; K21.00 Gastro-esophageal reflux disease with esophagitis, without bleeding; I10 Essential (primary) hypertension; K58.9 Irritable bowel syndrome, unspecified
CPT/HCPCS: 36415; 80053; 81003; 81025; 85025; 85055; 93005; 96361; 96374; 99284; A9270; J3360; J7030

== ENCOUNTER 2022-06-15 11:00 | Outpatient (CLI) | payer OTHER, SELFPAY ==
[2022-06-15 12:46] LABS: Toxigenic C. Diff NEGATIVE (NEGATIVE)
== END 2022-06-15 11:01 | disposition home or self-care (01) ==
PROVIDERS: PCP Family Medicine; Visit Provider Emergency Medicine
DX: A04.72 Enterocolitis due to Clostridium difficile, not specified as recurrent (principal)
CPT/HCPCS: 87493

== ENCOUNTER 2022-07-16 13:46 | Observation (INO) | payer OTHER, SELFPAY ==
--- NOTE | ~2022-07-16 | XR_ITS ---
EXAMINATION: XR chest 1V portable DATE: 07/16/2022 14:18 INDICATION: Aphasia TECHNIQUE: frontal view of the chest was obtained. COMPARISON: Chest radiograph dated 03/25/2022 FINDINGS: The lungs remain clear with no focal airspace opacities, pulmonary edema, pleural effusion or pneumot horax. The cardiomediastinal silhouette is normal. Visualized bones and soft tissues are unremarkable . Cholecystectomy clips in the right upper quadrant. IMPRESSION: 1. No acute cardiopulmonary disease. Reviewed, dictated and finalized at location A. SION DIRECTOR
--- NOTE | ~2022-07-16 | CT_ITS ---
EXAMINATION: CTA BRAIN/CAROTID DATE: 07/16/2022 14:02 INDICATION: Aphasia TECHNIQUE: Computed tomographic angiography (CTA) of the head and neck was performed with 100 mL Omni paque-350 intravenous contrast. Multiplanar reconstructions and maximum intensity projection 3D-recon structions of the carotid arteries and of the intracranial arteries were created by the technologist on a separate workstation. Precontrast CT of the head was also obtained. Automated exposure control and iterative reconstruction technique were employed.The dose-length product was 1605.86 mGy-cm. COMPARISON: Head CT dated 03/25/2022) MR dated 03/26/2022 FINDINGS: Carotid arteries: Aortic arch is normal in caliber with no atherosclerotic plaque or dissection. Normal variant separat e aortic origin of the left vertebral artery. There is no evident plaque with 0% stenosis of the righ t and left carotid bulbs relative to normal distal artery lumen diameter (NASCET criteria). Visualize d upper lungs are clear. Likely benign subcentimeter low-attenuation left thyroid nodule. Superior me diastinum and cervical soft tissues are otherwise unremarkable. Mild cervical spondylosis. Head: No acute intracranial hemorrhage, acute infarction or abnormal extra axial fluid collection. Ventricl es are normal and symmetric. No mass/mass effect. No abnormally enhancing brain lesions. The orbits a nd mastoid air cells are normal. Mild mucosal thickening in the right maxillary and bilateral ethmoid sinuses and prominent mucous retention cyst in the left maxillary sinus. Intracranial arteries There is no hemodynamically significant stenosis in the vertebral, basilar and internal carotid arter ies left vertebral artery is dominant. There are no aneurysms identified. Both A1 and P1 segments ar e patent. Cerebral arterial arborization appears symmetric. IMPRESSION: 1. 0% stenosis of the right and left carotid bulbs relative to normal distal artery lumen diameter (N ASCET criteria). 2. Normal brain and cerebral CT angiogram. No evident acute intracranial process. Reviewed, dictated and finalized at location A. HEAD IMPRESSION: 1. 0% stenosis of the right and left carotid bulbs relative to normal distal ar yaakov lumen diameter (NASCET criteria). 2. Normal brain and cerebral CT angiogram. No evident acute intracranial proces s.
--- NOTE | ~2022-07-16 | MR_ITS ---
EXAMINATION: MR brain/brain stem wo/w con DATE: 07/17/2022 13:08 INDICATION: Dysarthria TECHNIQUE: Magnetic resonance imaging (MRI) of the brain and brainstem was performed without and with 17 mL Multihance intravenous contrast. Sequences included sagittal and axial T1-weighted SE, axial d iffusion-weighted FS SE, axial T2*-weighted GRE, axial T2-weighted FLAIR, and axial T2-weighted FSE. Postcontrast axial, sagittal and coronal T1-weighted SE was obtained. Apparent diffusion coefficient (ADC) maps were created. COMPARISON: 03/26/2022 FINDINGS: There are no areas of restricted diffusion to suggest acute infarction. No intracranial hemorrhage or abnormal intracranial mass lesion. There are scattered areas of nonspecific increased T2-weighted si gnal intensity in the cerebral white matter, predominantly involving the deep and periventricular whi te matter. There are no intraparenchymal signal abnormalities seen on the other pulse sequences. The ventricles are symmetric and normal in size. There are no abnormal extra-axial fluid collections. Dylan w voids are seen in the cerebral arteries on the T2-weighted sequences consistent with their expected patency. 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 No other abnormally enhancing lesions identified. Mild mucosal thickening the bilateral ethmoid sin uses. Large mucous retention cyst in the left maxillary sinus. Visualized orbits and mastoid air cell s are normal. IMPRESSION: 1. Normal brain. No acute intracranial process. Reviewed, dictated and finalized at location A. IN WORKER
--- NOTE | ~2022-07-16 | MR_ITS ---
EXAMINATION: MR brain/brain stem wo con DATE: 07/19/2022 11:20 INDICATION: Garbled and delayed speech. TECHNIQUE: Magnetic resonance imaging (MRI) of the brain and brainstem was performed without intraven ous contrast. COMPARISON: Brain MRI 07/17/2022 FINDINGS: There is no intracranial hemorrhage, acute infarction, or abnormal intracranial mass lesion . The ventricles are normal in size. The orbits are normal. There is a mucous retention cyst in left maxillary sinus. The mastoid air cells are normal. IMPRESSION: 1. Normal brain. Reviewed, dictated and finalized at location A. T CHECKER IMPRESSION: 1. Normal brain.
--- NOTE | ~2022-07-16 | MR_ITS ---
EXAMINATION: MR venography brain DATE: 07/19/2022 11:20 INDICATION: Refractory headaches. TECHNIQUE: Magnetic resonance venography (MRV) of the brain was performed without intravenous contras t. COMPARISON: Brain MRI 07/17/2022 FINDINGS: The superior sagittal sinus, internal cerebral veins, vein of Moncho, straight sinus, transverse sinus es, and oblique sinuses are normal. 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 IMPRESSION: 1. Normal MRV. Reviewed, dictated and finalized at location A. ER PRINTER IMPRESSION: 1. Normal MRV.
--- NOTE | 2022-07-16 13:50 | ECG_ITS ---
Measurements Intervals [place] Rate: 85 P: 40 AZ: 134 QRS: 1 QRSD: 117 T: -11 QT: 377 QTc: 449 Interpretive Statements SINUS RHYTHM INCOMPLETE RIGHT BUNDLE BRANCH BLOCK LOW QRS VOLTAGE IN PRECORDIAL LEADS BORDERLINE ST-T WAVE ABNORMALITY- ANT/INF LEADS BORDERLINE ECG COMPARED TO ECG 06/14/2022 12:47:53 NO SIGNIFICANT CHANGES Electronically Signed On 07-16-2022 14:37:12 ARTIST COLOR SEPARATION by Prince Springer D.O.
--- NOTE | 2022-07-16 14:00 | ED.NEUROSD ---
HPI - Neuro Symptoms/Deficit General Chief Complaint: Suspected CVA Stated Complaint: SLURRED SPEECH IN PAST 1/2 HOUR Time Seen by Provider: 07/16/22 13:49 History of Present Illness HPI Narrative: This is a 46-year-old female past medical history of hypertension, presenting the emergency department with slurred speech beginning at approximately 19:00 last night. Patient states she was recently started on prednisone and noticed some slurred speech associated with some headache. The headache and the slurred speech appeared to improve. Patient then noted a recurrence of the slurred speech at approximately 13:16 today. She denies any other symptoms Related Data Home Medications Medication Instructions Recorded Confirmed cetirizine 10 mg tablet (Zyrtec) 10 mg PO DAILY 03/25/22 07/16/22 fluticasone propionate 220 220 mcg inhalation PRN PRN 03/25/22 07/16/22 mcg/actuation HFA aerosol inhaler Shortness Of Breath Or Wheezing (Flovent HFA) fluticasone propionate 50 50 mcg intranasal DAILY 03/25/22 07/16/22 mcg/actuation nasal spray,suspension omeprazole 40 mg capsule,delayed 40 mg PO DAILY 03/25/22 07/16/22 release ascorbic acid (vitamin C) 250 mg 250 mg PO DAILY 05/26/22 07/16/22 tablet calcium carb-vit D3-minerals 600 1 tablet PO DAILY 05/26/22 07/16/22 mg calcium-400 unit tablet ferrous sulfate 325 mg (65 mg 325 mg PO DAILY 05/26/22 07/16/22 iron) tablet (iron) omega-3 fatty acids 1,000 mg PO DAILY 05/26/22 07/16/22 vitamin B complex (B 1 tablet PO DAILY 05/26/22 07/16/22 Complex-Vitamin B12 tablet) Allergies Allergy/AdvReac Type Severity Reaction Status Date / Time amoxicillin Allergy Mild Dizziness Verified 07/16/22 14:28 gatifloxacin Allergy Unknown Other Verified 07/16/22 14:28 clavulanic acid AdvReac Other Verified 07/16/22 17:34 [From Augmentin] prednisone AdvReac Other Verified 07/16/22 17:34 Review of Systems Review of Systems: CONSTITUTIONAL: Denies fever, chills, or sweats. EYES: Denies visual changes, redness, or discharge. ENT: Denies rhinorrhea, congestion, sore throat, or otalgia. CARDIOVASCULAR: Denies chest pain, palpitations, or edema. RESPIRATORY: Denies cough or dyspnea. GASTROINTESTINAL: Denies abdominal pain, nausea, vomiting, or diarrhea. GENITOURINARY: Denies dysuria or hematuria. SKIN: Denies rash or itching. MUSCULOSKELETAL: Denies back pain, joint pain, or myalgia. NEUROLOGIC: Slurred speech denies headache, numbness, dizziness, or weakness. PSYCHIATRIC: Denies anxiety or depression. [facility] Past Medical History Medical History Eosinophilic esophagitis by EGD in 2016 History of gastroesophageal reflux (GERD) History of hypertension IBS (irritable bowel syndrome) Surgical History Surgical History History of appendectomy History of cholecystectomy Hx of section C/s x2 with two vaginal births Family History Family History Mother Hypothyroidism Diabetes type 2, controlled Hypertension Father Thyroid cancer Diabetes type 2, controlled Hypertension Sibling Epilepsy Other Epilepsy Grandparent Breast cancer Social History Social History Social History: She is a lifelong nonsmoker. She denies alcohol and drug use. She lives at home with her and 3 children. She is a full code. She nominates her to be the 1 to make medical decisions for her if she is unable. Smoking status: Never smoker Second hand tobacco smoke exposure: No Alcohol intake: never Substance use: never Substance use type: does not use Lack of Transportation: No Lack of Food: Never True Current Housing: I Have Housing Concerned About Future Housing: No Difficulty Paying Gas/Electric Bills: No Difficulty Paying for Me
[2022-07-16 14:04] VITALS: BP 145/95; PULSE 95; RESP 16; TEMP 36.6; O2SAT 100
[2022-07-16 14:04] LABS: Glucose Point of Care 93 mg/dl (65-105)
[2022-07-16 14:13] LABS: Basophils Absolute Auto 0.1 K/mm3 (0.0-0.1); Basophils Percent Auto 0.6 % (0.2-1.2); Eosinophils Absolute Auto 0.1 K/mm3 (0-0.3); Eosinophils Percent Auto 1.5 % (0-4.4); Hematocrit 41.7 % (37.0-47.0); Hemoglobin 13.7 g/dL (12.0-15.0); Immature Granulocyte Absolute 0.06 K/mm3 (0.00-0.031); Immature Granulocyte Percent A 0.6 % (0-0.5); Lymphocytes Absolute Auto 2.53 K/mm3 (0.9-3.2); Mean Corpuscular HGB Conc 32.9 g/dl (32-36); Mean Corpuscular Hemoglobin 28.2 pg (26-34); Mean Platelet Volume 11.8 fl (7.4-10.4); Monocytes Absolute Auto 0.6 K/mm3 (0.1-0.6); Monocytes Percent Auto 6.7 % (2.6-8.5); Neutrophils Percent Auto 63.6 % (45.5-73.1); Platelet Count Result 199 k/mm3 (150-375); Red Blood Count 4.85 M/mm3 (4.2-5.4); Red Cell Distribution Width 16.3 % (11.5-14.5); White Blood Count 9.4 K/mm3 (4.5-10.0)
[2022-07-16 14:18] VITALS: PULSE 87
[2022-07-16 14:24] LABS: Ethanol < 10 mg/dL (<10); Prothrombin Time 13.1 Seconds (11.1-14.7)
[2022-07-16 14:25] LABS: Alanine Aminotransferase 25 U/L (6-35); Albumin Level 4.5 g/dL (3.5-5.1); Alkaline Phosphatase 61 U/L (38-126); Anion Gap 13 mmol/L (8-16); Aspartate Amino Transferase 20 U/L (14-36); Bilirubin,Total 0.2 mg/dL (0.2-1.3); Blood Urea Nitrogen 18 mg/dL (7-17); Carbon Dioxide 25 mmol/L (22-30); Chloride 103 mmol/L (98-107); Estimated CRCL calculation 71 ml/min; Estimated Glomerular Filt Rate > 60; Glucose 99 mg/dL (65-110); Potassium 3.7 mmol/L (3.4-5.0); Sodium 141 mmol/L (137-145)
[2022-07-16 14:30] LABS: Appearance Urine Clear (Clear); Bilirubin Urine Negative (Negative); Blood Urine 2+ (Negative); Glucose Urine UA Negative (Negative); Ketones Urine Negative (Negative); Leukocyte Esterase Ur Negative LEU/UL (Negative); Nitrate Urine Negative (Negative); Protein Urine Negative (Negative); Specific Grav Ur <= 1.005 (1.001-1.035); Urobilinogen Urine 0.2 mg/dL (<2.0); pH Urine 6.5 (5.0-9.0)
[2022-07-16 14:33] LABS: Add Urine Microscopic? YES; Color Urine Other (Yellow)
[2022-07-16 14:35] LABS: Squamous Epithelial Cell Urine Rare /hpf (Few); WBC Urine 0-3 /hpf
[2022-07-16 14:44] LABS: Amphetamine Screen Urine Negative (Negative); Barbiturate Screen Urine Negative (Negative); Benzodiazepines Screen Urine Negative (Negative); Cannabinoid Screen Urine Negative (Negative); Cocaine Screen Urine Negative (Negative); Methadone Screen Urine Negative (Negative); Opiate Screen Urine Negative (Negative); Phencyclidine Screen Urine Negative (Negative)
[2022-07-16 15:43] LABS: Influenza A QL RT-PCR Negative (Negative); Influenza B QL RT-PCR Negative (Negative); SARS-CoV-2 RNA PCR Negative
[2022-07-16 16:17] VITALS: BP 118/78; PULSE 68; RESP 16; O2SAT 99
--- NOTE | 2022-07-16 17:00 | ADMGEN ---
This patient, Rama Carrasco, was admitted to 2 Medical Room 242-. Patient/family oriented to hospital policies and general routines including ID bracelet, bed and alarms, visiting hours, pain management, procedures, bathroom and other care routines, personal items, smoking policy, room service/diet, and visiting hours. Report received from Nannette in ER Information on how to activate the Rapid Response Team has been discussed. Patient/Family are encouraged to report perceived risks to care and to ask questions if they do not understand what they are told or what they should do.
[2022-07-16 17:10] VITALS: BMI 33.0
[2022-07-16 18:17] VITALS: PULSE 68
[2022-07-16 20:00] VITALS: PULSE 70
[2022-07-16 20:43] VITALS: BP 124/73; PULSE 70; RESP 18; TEMP 36.3; O2SAT 97
--- NOTE | 2022-07-16 22:00 | PM.IMHP ---
H&P: HPI History of Present Illness Date/Time: 07/16/22 22:00 Chief Complaint: Headache and difficulty speaking. Narrative: This is a 46-year-old female with hypertension who presented to the emergency department from home for evaluation of headache and difficulty speaking. She has had a continuous headache at the top of her head since that she describes as sharp and squeezing in nature. Tylenol does help take the edge off however the headache has never fully gone away. She has had sensitivities to light, noise, and smell with the headache as well. She also has intermittent dizziness however that is not necessarily unusual for her as she is currently undergoing vestibular therapy for vertigo that has been an ongoing problem since March. Last evening she had some mild slurred speech which she attributed to possible low blood sugar and her symptoms improved after having a bite to eat. This morning she was busy preparing Thanksgiving and while sitting down for lunch she once again started to have slurred speech and worsening of her headache and she came in for evaluation. Blood pressure was 145/95 on arrival (she was taken off of her lisinopril not too long ago after a 25 pound weight loss) but they have been well within normal limits since that time. CTA of the head and neck showed no evidence of acute intracranial process and 0% stenosis of the right and left carotid bulbs. Her labs were unremarkable. At the time my evaluation she continues to have the headache, unfortunately. She has not seemed to be having any issues with speech at this time. She denies facial droop, dysphagia, focal weakness, and paresthesias. No sensations of racing heart, palpitations, or irregular heartbeat. She has not had acute vision changes or shortness of breath. Review of Systems Review of Systems: Twelve systems were reviewed and are negative except for as per HPI. [facility] Past Medical History Medical History (Updated 07/17/22 @ 00:23 by Cintia David PA-C) Eosinophilic esophagitis by EGD in 2016 Gastroesophageal reflux disease History of hypertension No longer on antihypertensives after 25 pound weight loss. Irritable bowel syndrome Surgical History Surgical History History of appendectomy History of cholecystectomy Hx of section C/s x2 with two vaginal births Family History Family History Mother Hypothyroidism Diabetes type 2, controlled Hypertension Father Thyroid cancer Diabetes type 2, controlled Hypertension Sibling Epilepsy Other Epilepsy Grandparent Breast cancer Social History Social History (Updated 07/17/22 @ 00:21 by Cintia David PA-C) Social History: Surrogate medical decision maker: Gilberto Carrasco, spouse. Code status: Full code. Smoking status: Never smoker Second hand tobacco smoke exposure: No Alcohol intake: never Substance use: never Substance use type: does not use Lack of Transportation: No Lack of Food: Never True Current Housing: I Have Housing Concerned About Future Housing: No Difficulty Paying Gas/Electric Bills: No Difficulty Paying for Meds: No Currently Unemployed: No Education: Associate Degree Difficulty w/ Childcare or Family Care: No Additional living arrangements comments: The patient lives with her and 4 children in [place]. Additional occupation/education comments: Homemaker. Spiritual care concerns: No Meds Home Medications and Allergies Home Medications Medication Instructions Recorded Confirmed Type cetirizine 10 mg tablet (Zyrtec) 10 mg PO DAILY 03/25/22 07/16/22 History fluticasone propionate 220 220 mcg inhalation PRN PRN 03/25/22 07/16/22 History mcg/actuation HFA aerosol inhaler Shortness Of Breath Or Wheezing (Flovent HFA) fluticasone propionate 50 50 mcg intranasal DAILY 03/25/22
[2022-07-16] MEDS: ACETAMINOPHEN 325 MG TABLET 650 MG PO (23:58)
[2022-07-17] VITALS (8 sets, daily range): BP systolic 114–124; BP diastolic 76–82; PULSE 58–84; RESP 16–18; TEMP 35.9–36.6; O2SAT 99–100; BMI 32.8
[2022-07-17 04:35] LABS: Estimated CRCL calculation 71 ml/min; Estimated Glomerular Filt Rate > 60
[2022-07-17 05:06] LABS: Anion Gap 10 mmol/L (8-16); Blood Urea Nitrogen 17 mg/dL (7-17); Calcium 8.5 mg/dL (8.4-10.2); Carbon Dioxide 25 mmol/L (22-30); Chloride 106 mmol/L (98-107); Estimated CRCL calculation 80 ml/min; Estimated Glomerular Filt Rate > 60; Glucose 83 mg/dL (65-110); Sodium 141 mmol/L (137-145)
[2022-07-17 05:13] LABS: Basophils Absolute Auto 0.1 K/mm3 (0.0-0.1); Basophils Percent Auto 0.7 % (0.2-1.2); Eosinophils Absolute Auto 0.1 K/mm3 (0-0.3); Hematocrit 38.3 % (37.0-47.0); Hemoglobin 12.4 g/dL (12.0-15.0); Immature Granulocyte Absolute 0.03 K/mm3 (0.00-0.031); Immature Granulocyte Percent A 0.4 % (0-0.5); Lymphocytes Absolute Auto 2.91 K/mm3 (0.9-3.2); Lymphocytes Percent Auto 42.2 % (18.3-44.2); Mean Corpuscular HGB Conc 32.4 g/dl (32-36); Mean Corpuscular Hemoglobin 27.5 pg (26-34); Mean Corpuscular Volume 84.9 fl (80-100); Mean Platelet Volume 11.6 fl (7.4-10.4); Monocytes Absolute Auto 0.5 K/mm3 (0.1-0.6); Monocytes Percent Auto 7.1 % (2.6-8.5); Neutrophils Absolute Auto 3.3 K/mm3 (1.3-6.7); Neutrophils Percent Auto 47.6 % (45.5-73.1); Platelet Count Result 173 k/mm3 (150-375); Red Blood Count 4.51 M/mm3 (4.2-5.4); Red Cell Distribution Width 16.2 % (11.5-14.5); White Blood Count 6.9 K/mm3 (4.5-10.0)
--- NOTE | 2022-07-17 08:24 | WPDNEURCNPN ---
Assessment and Plan Assessment and plan (1) Headache: Code(s): R51.9 - Headache, unspecified Status: Acute (2) Slurred speech: Code(s): R47.81 - Slurred speech Status: Acute (3) History of hypertension: Code(s): Z86.79 - Personal history of other diseases of the circulatory system Status: Acute Plan Ms. Carrasco is a 46 year old female with a history of HTN who presented with headache and transient dysarthria. Concern was initially for stroke/TIA vs demyelinating disease vs migraine with aura. However, patient has had very consistent episodes of speech change associated with trembling movements that have raised concern for possible seizures. She has full awareness of the episodes so could be focal onset seizures; however, if she is having bilateral trembling movements with intact awareness, that would be more concerning for a psychogenic non-epileptic spell. - Recommend MRI brain w/wo contrast and routine EEG - I have asked to try to record any future spells on his phone for me to review - Will discuss need for anti-seizure medication based on results of testing - Can treat headache with migraine cocktail if not responding to OTC - migraine cocktail: 1L normal saline bolus, 25mg IV Benadryl, 30mg IV Toradol, 10mg IV prochlorperazine Consult date: 07/17/22 Time Seen: 08:24 Reason for consult: Concern for stroke HPI: Rama Carrasco is a 46 year old female with a history of HTN who presented on 07/16 due to headache and dysarthria. Patient's last known well was on 07/15 around 1900, since that time she had intermittent headache and slurring of the speech. Headache is described as sharp and squeezing with photphobia, phonophobia, dizziness. It has not responded to any over the counter medication. Patient presented to the emergency department for evaluation. Her BP was 145/95. Her EKG showed sinus rhythm. Her labs including UA and UDS were negative. CT head as well as CTA brain and neck were negative. Her NIH score was 1. She was outside the window for tPA. Her speech issues eventually resolved by the time she was admitted. She denied any word finding difficulties, focal numbness/weakness, vision changes, or any other neurological symptoms. Per patient has had three episodes of transient slurrying of speech over the past three days. He describes the episodes as fairly similar, although some more intense. During the episode patient is alert and aware of the episode, but cannot speak and sounds like she has garbled speech . With one of the episodes she had bilateral upper and lower extremity trembling, but she was fully aware of this and has full recollection of the episode. Earlier this morning, patient had a third episode that was witnessed by her nurse again described as garbled speech with full alertness, and tremulous movements of the left leg. This lasted about 2 minutes, and she was tired afterwards. Patient does not feel completely back to baseline, especially with her speech. is concerned about recent cessation of steroids that were prescribed for otological issues. He reports the steroids made her turn yellow like jaundice , and is worried about adrenal issues causing these episodes. Patient's BP has been stable during the admission and there do not seem to be any active concerns for adrenal insufficiency. They have also brought up concerns about her history of low ferritin. Patient has a sister, uncle, and grandfather who have epilepsy. Her sister was diagnosed in her 30s, has lupus, and takes Lamictal. Review of Systems Constitutional: Constitutional: Reports no additional constitutional complaints Eyes: Eyes: Reports no additional eye complaints ENT: Reports system reviewed and no additional complaints, except as documented Cardiovascular: Cardiovascular: Reports no additional cardiovascular complaints Respiratory: Respiratory: Reports no additional respiratory complaints
[2022-07-17] MEDS: ACETAMINOPHEN 325 MG TABLET 650 MG PO (08:54)
[2022-07-17] MEDS: LORATADINE 10 MG TABLET PO (09:07)
[2022-07-17] MEDS: OMEGA 3 POLYUNSAT FATTY ACIDS 1 GM CAP PO (09:07)
[2022-07-17] MEDS: ASCORBIC ACID 250 MG TABLET PO (09:07)
[2022-07-17] MEDS: FLUTICASONE PROPIONATE 0.05% NA SPR 16 GM BTL (*BKC) 2 SPRAY NASAL (09:08)
--- NOTE | 2022-07-17 09:43 | PM.IMPN ---
Progress Note: A&P Assessment and Plan (1) Headache: Code(s): R51.9 - Headache, unspecified Status: Acute Assessment and Plan: complex migraine versus TIA. Appreciate neurology consult. CTA head negative. MRA brain ordered per Neurology. Echo ordered. will start on Toradol Compazine for headache per Neurology recommendations (2) Slurred speech: Code(s): R47.81 - Slurred speech Status: Acute Assessment and Plan: complex migraine versus TIA. Neurology on board. Management as per above (3) History of hypertension: Code(s): Z86.79 - Personal history of other diseases of the circulatory system Status: Acute Assessment and Plan: allow permissive hypertension Subjective Date/time seen: 07/17/22 09:43 Patient reports headache on the back side of her head. No other complaints Review of Systems Review of Systems: Twelve systems were reviewed and are negative except for as per HPI. Exam Const: Other: Well-developed, mildly ill-appearing female sitting up in bed. Weight: 87.5 kilograms. BMI: 33.1. HENMT: Other: Normocephalic, atraumatic. Nares patent bilaterally. Moist mucous membranes. Eyes: Other: Wearing glasses. Pupils are reactive. Extraocular motions intact. Sclerae anicteric. Conjunctiva mildly injected. Neck: Other: Supple. No carotid bruits. Resp: Other: Respirations are nonlabored and lungs are clear to auscultation. Cardio: Other: Regular rate rhythm with normal S1-S2. GI: Other: Abdomen is soft, nontender, and nondistended with positive bowel sounds. Skin: Other: Warm and dry. No rash or lesion on limited exam. Neuro: Other: Alert and oriented x4. Cranial nerves 2-12 are grossly intact. Mild beating nystagmus with left lateral gaze. She reports increasing vertigo with extreme gaze is as well. Tongue is midline. No pronator drift. Normal [id number] and rapid alternating movements. Speech is clear. No facial asymmetry. Strong shoulder shrug. Strength 5/5 in upper and lower extremities. Neurovascular intact throughout. Extrem: Other: No cyanosis, clubbing, or edema. Peripheral pulses intact. Psych: Other: Pleasant and cooperative. Appropriate mood and affect. Objective Data Vital Signs Vital Signs: Vital Signs - 24 hr 07/16/22 14:04 07/16/22 14:18 07/16/22 16:17 Temperature 97.8 F Pulse Rate 95 87 68 Respiratory Rate 16 16 Blood Pressure 145/95 H 118/78 Pulse Oximetry 100 99 Oxygen Delivery Room Air 07/16/22 18:17 07/16/22 18:00 07/16/22 19:52 Temperature Pulse Rate 68 Respiratory Rate Blood Pressure Pulse Oximetry Oxygen Delivery Room Air Room Air 07/16/22 20:43 07/17/22 04:21 07/16/22 20:00 Temperature 97.4 F L 96.6 F L Pulse Rate 70 64 70 Respiratory Rate 18 18 Blood Pressure 124/73 115/79 Pulse Oximetry 97 99 Oxygen Delivery 07/17/22 00:00 07/17/22 04:00 07/17/22 08:48 Temperature Pulse Rate 84 58 L Respiratory Rate Blood Pressure Pulse Oximetry Oxygen Delivery Room Air Intake/Output Intake/Output: Intake & Output 07/14/22 07/15/22 07/16/22 07/17/22 23:59 23:59 23:59 23:59 Intake Total 100 / 100 490 / 490 Output Total 650 / 650 550 / 550 Balance -550 / -550 -60 / -60 Meds/Results Medications: Active Medications Generic Name Dose Route Start Last Admin Trade Name Freq PRN Reason Stop Dose Admin Acetaminophen 650 mg 07/16/22 23:00 07/17/22 08:54 Acetaminophen 325 Mg Tablet PO 650 mg Q6H PRN Administration Mild Pain (1-3) or Fever Ascorbic Acid 250 mg 07/17/22 09:00 07/17/22 09:07 Ascorbic Acid 250 Mg Tablet PO 250 mg DAILY TODD Administration Calcium Carbonate 500 mg 07/17/22 09:00 07/17/22 09:07 Calcium/Vitamin D 500 Mg Tablet PO 500 mg QAM [facility] Administration Ferrous Sulfate 324 mg 07/17/22 09:00 Ferrous Sulfate 324 Mg Tablet PO DAILY [facility]
[2022-07-17] MEDS: KETOROLAC 15 MG/ML VIAL (*BKC) IV PUSH ×3 (10:38→23:06)
[2022-07-17] MEDS: levETIRAcetam 500MG/NACL 100ML 500 MG/100 ML BAG 400 MG IVPB (10:47)
--- NOTE | 2022-07-17 12:28 | WPDNEUROLOGY ---
Neurology EEG Report General Information Date of Study: 07/17/22 TEST Routine EEG DIAGNOSIS Possible seizure CONDITION OF RECORDING Awake, drowsy, and asleep EEG NUMBER [id number] CLINICAL HISTORY Patient has had intermittent episodes of slurred speech and dizziness. EEG DESCRIPTION During the awake state with eyes closed the background consists of 9 Hz posterior dominant rhythm which attenuates appropriately with eye opening. The recording is continuous. There is a well developed anterior-posterior gradient. No significant asymmetries of background activities are noted. With drowsiness there is was waxing and waning of the dominant rhythm with eventual replacement by a mixture of beta, alpha, and theta activity. As the patient enters stage II sleep, symmetrical spindles, K complexes and vertex sharp waves are present. Arousal is unremarkable. There are no epileptiform discharges or seizures during this recording. Hyperventilation and photic stimulation were not performed. IMPRESSION This is a normal routine EEG recorded in awake, drowsy, and asleep states. There are no electrographic seizures identified, nor are there any epileptiform discharges. Please note that a normal EEG cannot exclude a seizure disorder. Clinical correlation is recommended.
[2022-07-17] MEDS: VITAMIN B COMPLEX CAPSULE 1 CAP PO (14:30)
[2022-07-17] MEDS: FERROUS SULFATE 324 MG TABLET PO (14:30)
[2022-07-17] MEDS: PANTOPRAZOLE 40 MG TABLET PO (17:03)
[2022-07-18] VITALS (10 sets, daily range): BP systolic 118–133; BP diastolic 69–85; PULSE 55–83; RESP 18–20; TEMP 36.2–36.9; O2SAT 98–100
--- NOTE | 2022-07-18 08:00 | PM.IMPN ---
Progress Note: A&P Assessment and Plan (1) Headache: Code(s): R51.9 - Headache, unspecified Status: Acute Assessment and Plan: Suspect complex migraine, appreciate Neurology consultation, Topamax 50 mg twice daily started naproxen as needed (2) Slurred speech: Code(s): R47.81 - Slurred speech Status: Acute Assessment and Plan: secondary to migraine, intermittent in (3) History of hypertension: Code(s): Z86.79 - Personal history of other diseases of the circulatory system Status: Acute Assessment and Plan: allow permissive hypertension Plan DVT prophylaxis with SCDs GI prophylaxis not indicated Code status full code Subjective Date/time seen: 07/18/22 08:00 Interval history: No overnight events noted. No chest pain or shortness of breath. No nausea, vomiting or diarrhea. No fevers or chills. headache remains. Review of Systems Review of Systems: 12 point review of systems was assessed and was negative except as noted in the HPI Exam Narrative: General: No acute distress, alert and oriented per baseline HEENT: Atraumatic, normocephalic, mucous membranes moist CV: Regular rate and rhythm, S1, S2 Lungs: Clear to auscultation bilaterally, no rales or crackles noted, no wheezes, good air entry Abdomen: Soft, nontender, nondistended Extremities: Normal to inspection Skin: No rashes noted, no lesions or wounds seen Psych: Euthymic, normal affect Objective Data Vital Signs Vital Signs: Vital Signs - 24 hr 07/17/22 08:48 07/17/22 14:08 07/17/22 12:00 Temperature 97.9 F Pulse Rate 72 71 Respiratory Rate 16 Blood Pressure 114/76 Pulse Oximetry 99 Oxygen Delivery Room Air 07/17/22 16:00 07/17/22 20:00 07/17/22 20:00 Temperature Pulse Rate 67 77 Respiratory Rate Blood Pressure Pulse Oximetry Oxygen Delivery Room Air 07/17/22 20:25 07/18/22 03:30 07/18/22 00:00 Temperature 97.1 F L 97.2 F L Pulse Rate 67 65 55 L Respiratory Rate 18 18 Blood Pressure 124/82 118/69 Pulse Oximetry 100 99 Oxygen Delivery 07/18/22 04:00 Temperature Pulse Rate 56 L Respiratory Rate Blood Pressure Pulse Oximetry Oxygen Delivery Intake/Output Intake/Output: Intake & Output 07/15/22 07/16/22 07/17/22 07/18/22 23:59 23:59 23:59 23:59 Intake Total 100 1620 390 Output Total 650 1350 600 Balance -550 270 -210 Meds/Results Medications: Active Medications Generic Name Dose Route Start Last Admin Trade Name Freq PRN Reason Stop Dose Admin Acetaminophen 650 mg 07/16/22 23:00 07/17/22 08:54 Acetaminophen 325 Mg Tablet PO 650 mg Q6H PRN Administration Mild Pain (1-3) or Fever Ascorbic Acid 250 mg 07/17/22 09:00 07/17/22 09:07 Ascorbic Acid 250 Mg Tablet PO 250 mg DAILY TODD Administration Calcium Carbonate 500 mg 07/17/22 09:00 07/17/22 09:07 Calcium/Vitamin D 500 Mg Tablet PO 500 mg QAM TODD Administration Ferrous Sulfate 324 mg 07/17/22 09:00 07/17/22 14:30 Ferrous Sulfate 324 Mg Tablet PO 324 mg DAILY TODD Administration Fish Oil 1 gm 07/17/22 09:00 07/17/22 09:07 Green 3 Polyunsat Fatty Acids 1 Gm Cap PO 1 gm QAM TODD Administration Fluticasone Propionate 2 spray 07/17/22 09:00 07/17/22 09:08 Fluticasone Propionate 0.05% Na Spr 16 Gm Btl (*Bkc) NASAL 2 spray DAILY TODD Administration Fluticasone Propionate 1 puff 07/17/22 09:55 Fluticasone Prop 220 Mcg (*Sp) 12 Gm Inhaler INHALATION PRN PRN Difficulty swallowing Ketorolac Tromethamine 15 mg 07/17/22 09:27 07/17/22 23:06 Ketorolac 15 Mg/Ml Vial (*Bkc) IV PUSH 15 mg Q6H PRN Administration Pain Rated 4-6 Loratadine 10 mg 07/17/22 09:00 07/17/22 09:07 Loratadine 10 Mg Tablet PO 10 mg QAM TODD Administration Pantoprazole Sodium 40 mg 07/17/22 01:10 07/17/22 17:03 Pantoprazole 40 Mg Tablet PO 40 mg HS TODD
[2022-07-18] MEDS: FLUTICASONE PROPIONATE 0.05% NA SPR 16 GM BTL (*BKC) 2 SPRAY NASAL (09:18)
[2022-07-18] MEDS: OMEGA 3 POLYUNSAT FATTY ACIDS 1 GM CAP PO (09:18)
[2022-07-18] MEDS: ASCORBIC ACID 250 MG TABLET PO (09:18)
[2022-07-18] MEDS: FERROUS SULFATE 324 MG TABLET PO (09:18)
[2022-07-18] MEDS: VITAMIN B COMPLEX CAPSULE 1 CAP PO (09:18)
[2022-07-18] MEDS: LORATADINE 10 MG TABLET PO (09:18)
[2022-07-18] MEDS: ACETAMINOPHEN 325 MG TABLET 650 MG PO ×2 (09:26→17:38)
--- NOTE | 2022-07-18 10:50 | WPDNEUROPN ---
Progress Note: A&P Assessment and Plan (1) Headache: Code(s): R51.9 - Headache, unspecified Status: Acute (2) Slurred speech: Code(s): R47.81 - Slurred speech Status: Acute (3) History of hypertension: Code(s): Z86.79 - Personal history of other diseases of the circulatory system Status: Acute Assessment and Plan: Ms. Carrasco is a 46 year old female with a history of HTN who presented with headache and transient episodes dysarthria. After getting a better description of these episodes, I have low suspicion that these are seizures. MRI and routine EEG were normal. I am considering migraine with brainstem aura as a possibility vs psychogenic non-epileptic spell. I do suspect there may be a functional component to these symptoms. There also seems to be some fluctuation in her speech related to her submandibular gland, per the patient. Given the headaches, I have discussed the option of starting a daily preventative medication (Topamax), which they are agreeable with. I have emphasized that she does not need to be completely headache free to be able to go home, as it may take several weeks before she sees improvement in her symptoms. - Start Topamax 50mg BID - Use Naproxen 500mg PRN breakthrough headaches - Follow-up with ENT this week - Follow-up with [facility] Neurology in 3 months. Subjective Date/time seen: 07/18/22 10:50 Interval history: Rama Carrasco is a 46 year old female with a history of HTN who presented on 07/16 due to headache and dysarthria. Patient's last known well was on 07/15 around 1900, since that time she had intermittent headache and slurring of the speech. Headache is described as sharp and squeezing with photophobia, phonophobia, dizziness. Patient presented to the emergency department for evaluation. Her BP was 145/95. Her EKG showed sinus rhythm. Her labs including UA and UDS were negative. CT head as well as CTA brain and neck were negative. Her NIH score was 1. She was outside the window for tPA. Her speech issues eventually resolved by the time she was admitted. She denied any word finding difficulties, focal numbness/weakness, vision changes, or any other neurological symptoms. Per patient has had multiple episodes of transient slurrying of speech over the past few days. He describes the episodes as fairly similar, although some more intense. During the episode patient is alert and aware of the episode, but cannot speak and sounds like she has garbled speech . With one of the episodes she had bilateral upper and lower extremity trembling, but she was fully aware of this and has full recollection of the episode. Patient had a third episode that was witnessed by her nurse again described as garbled speech with full alertness, and tremulous movements of the left leg. This lasted about 2 minutes, and she was tired afterwards. Patient does not feel completely back to baseline, especially with her speech. is concerned about recent cessation of steroids that were prescribed for otological issues. He reports the steroids made her turn yellow like jaundice , and is worried about adrenal issues causing these episodes. Patient's BP has been stable during the admission and there do not seem to be any active concerns for adrenal insufficiency. They have also brought up concerns about her history of low ferritin. Patient has a sister, uncle, and grandfather who have epilepsy. Her sister was diagnosed in her 30s, has lupus, and takes Lamictal. Interval history: Patient has had fluctuations in her speech associated with headaches, no alterations in awareness. was able to provide me with videos of the events. Patient also reports submandibular swelling on the right side and feels that her speech gets worse when this swells. She has been following with an ENT and has an appt scheduled this Wednesday. Routine EEG and MRI brain were normal. There is no family history of migraines. Rev
[2022-07-18] MEDS: TOPIRAMATE 25 MG TABLET 50 MG PO ×2 (12:08→20:35)
[2022-07-18] MEDS: KETOROLAC 15 MG/ML VIAL (*BKC) IV PUSH ×2 (12:08→20:35)
[2022-07-18] MEDS: FOLIC ACID 1 MG TABLET PO (12:08)
[2022-07-18 12:42] LABS: Folic Acid 5.1 ng/mL (2.76->20)
[2022-07-18 19:35] LABS: Iron 61 ug/dL (37-170)
[2022-07-18 19:44] LABS: Percent Iron Saturation 18 % (20-50)
[2022-07-18] MEDS: PANTOPRAZOLE 40 MG TABLET PO (20:35)
[2022-07-19] VITALS (8 sets, daily range): BP systolic 112–115; BP diastolic 83–87; PULSE 56–89; RESP 16–18; TEMP 36.7–36.8; O2SAT 98–100
[2022-07-19 06:06] LABS: Basophils Absolute Auto 0.1 K/mm3 (0.0-0.1); Basophils Percent Auto 0.9 % (0.2-1.2); Eosinophils Absolute Auto 0.2 K/mm3 (0-0.3); Eosinophils Percent Auto 2.3 % (0-4.4); Hematocrit 39.6 % (37.0-47.0); Hemoglobin 13.1 g/dL (12.0-15.0); Immature Granulocyte Absolute 0.04 K/mm3 (0.00-0.031); Immature Granulocyte Percent A 0.6 % (0-0.5); Lymphocytes Absolute Auto 2.12 K/mm3 (0.9-3.2); Lymphocytes Percent Auto 31.1 % (18.3-44.2); Mean Corpuscular HGB Conc 33.1 g/dl (32-36); Mean Corpuscular Hemoglobin 27.7 pg (26-34); Mean Corpuscular Volume 83.7 fl (80-100); Monocytes Absolute Auto 0.5 K/mm3 (0.1-0.6); Monocytes Percent Auto 6.7 % (2.6-8.5); Neutrophils Percent Auto 58.4 % (45.5-73.1); Platelet Count Result 178 k/mm3 (150-375); Red Blood Count 4.73 M/mm3 (4.2-5.4); Red Cell Distribution Width 15.7 % (11.5-14.5); White Blood Count 6.8 K/mm3 (4.5-10.0)
[2022-07-19 06:26] LABS: Alanine Aminotransferase 25 U/L (6-35); Albumin Level 3.9 g/dL (3.5-5.1); Alkaline Phosphatase 54 U/L (38-126); Anion Gap 7 mmol/L (8-16); Aspartate Amino Transferase 21 U/L (14-36); Bilirubin,Total 0.2 mg/dL (0.2-1.3); Blood Urea Nitrogen 19 mg/dL (7-17); Calcium 8.3 mg/dL (8.4-10.2); Carbon Dioxide 21 mmol/L (22-30); Chloride 110 mmol/L (98-107); Estimated CRCL calculation 79 ml/min; Estimated Glomerular Filt Rate > 60; Glucose 87 mg/dL (65-110); Potassium 3.8 mmol/L (3.4-5.0); Sodium 138 mmol/L (137-145)
--- NOTE | 2022-07-19 09:39 | WPDNEUROPN ---
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 Carrasco is a 46 year old female with a history of HTN who presented with headache and transient episodes dysarthria. 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 I have discussed this in length with patient and . Discussed that the only treatment for these spells is outpatient cognitive behavioral therapy, and that they do not respond to traditional anti-seizure medications. She still may have migraines, but I do not think these spells of dysarthria and shaking are related to any kind of aura. She did not tolerate Topamax, so I have discussed with them the option of amitriptyline, which they will think over. - Can try amitriptyline 25mg qhs for headache prevention - Use Naproxen 500mg PRN breakthrough headaches - Will repeat MRI brain and obtain MRV due to refractory headaches - Recommend consulting ENT for speech issues or can follow-up as outpatient as scheduled if discharged Subjective Date/time seen: 07/19/22 09:39 Interval history: Rama Carrasco is a 46 year old female with a history of HTN who presented on 07/16 due to headache and dysarthria. Patient's last known well was on 07/15 around 1900, since that time she had intermittent headache and slurring of the speech. Headache is described as sharp and squeezing with photophobia, phonophobia, dizziness. Patient presented to the emergency department for evaluation. Her BP was 145/95. Her EKG showed sinus rhythm. Her labs including UA and UDS were negative. CT head as well as CTA brain and neck were negative. Her NIH score was 1. She was outside the window for tPA. Her speech issues eventually resolved by the time she was admitted. She denied any word finding difficulties, focal numbness/weakness, vision changes, or any other neurological symptoms. Per patient has had multiple episodes of transient slurrying of speech over the past few days. He describes the episodes as fairly similar, although some more intense. During the episode patient is alert and aware of the episode, but cannot speak and sounds like she has garbled speech . With one of the episodes she had bilateral upper and lower extremity trembling, but she was fully aware of this and has full recollection of the episode. Patient had a third episode that was witnessed by her nurse again described as garbled speech with full alertness, and tremulous movements of the left leg. This lasted about 2 minutes, and she was tired afterwards. MRI brain and routine EEG were normal. is concerned about recent cessation of steroids that were prescribed for otological issues. He reports the steroids made her turn yellow like jaundice , and is worried about adrenal issues causing these episodes. Patient's BP has been stable during the admission and there do not seem to be any active concerns for adrenal insufficiency. They have also brought up concerns about her history of low ferritin. Patient has a sister, uncle, and grandfather who have epilepsy. Her sister was diagnosed in her 30s, has lupus, and takes Lamictal. Interval history: Patient felt worse this morning, had more spells yesterday that were recorded by . She received two doses of Topamax and felt that it made her feel worse. This afternoon she is feeling better. Her speech is at baseline presently, but continues to fluctuate. Review of Systems Constitutional: Constitutional: Reports no additional constitutional complaints Eyes:
--- NOTE | 2022-07-19 09:51 | PCOTNOTE ---
Attempted to see pt for Occupational therapy treatment this AM. Per RN, to come back and attempt at a later time today due to some medical concerns at this time.
[2022-07-19] MEDS: FLUTICASONE PROPIONATE 0.05% NA SPR 16 GM BTL (*BKC) 2 SPRAY NASAL (09:52)
--- NOTE | 2022-07-19 12:03 | PC.NURSE ---
Spoke with Dr. Arevalo to let her know that ENT cannot see patient until tomorrow, as no one is available until then
[2022-07-19] MEDS: FOLIC ACID 1 MG TABLET PO (12:43)
[2022-07-19] MEDS: ACETAMINOPHEN 325 MG TABLET 650 MG PO (12:43)
[2022-07-19] MEDS: VITAMIN B COMPLEX CAPSULE 1 CAP PO (12:43)
[2022-07-19] MEDS: ASCORBIC ACID 250 MG TABLET PO (12:43)
--- NOTE | 2022-07-19 15:57 | PM.DS ---
DS: Admitting Diagnosis Discharge Date 07/19/22 Admitting Diagnosis slurred speech, migraine, blurred vision DS: Discharge Diagnosis Discharge Diagnosis (1) Headache: Code(s): R51.9 - Headache, unspecified Status: Acute (2) Slurred speech: Code(s): R47.81 - Slurred speech Status: Acute (3) History of hypertension: Code(s): Z86.79 - Personal history of other diseases of the circulatory system Status: Acute DS: Summary Hospital Course Reason for hospitalization: slurred speech, headache, blurred vision Hospital Course: 56-year-old female with a past medical history of hypertension, presented to the ER with slurred speech on 07/16/2022. Patient was recently on prednisone and noticed the slurred speech with associated headache on that medication. Slurred speech comes and goes. Patient also having blurred vision associated with the headaches along with photosensitivity and smell sensitivity. Neurology has been consulted. Tylenol does seem to help with the headache sometimes but not always. She also has some dizziness and is currently undergoing vestibular therapy for vertigo and has been doing this since March. When arrived to the ED patient's blood pressure was 145/95. CTA of the head and neck showed no evidence of acute intracranial process and 0 stenosis of the right and left carotid bulbs. Patient's labs were unremarkable. Neurology ordered MRI in routine EEG the verbal unremarkable. Differentials per neurology included non psychogenic epileptic spell versus migraine with brainstem aura. Dr. Arevalo recommended Topamax 50 mg twice daily and naproxen as needed for headaches. Patient was educated on the risk and benefits and mechanism of Topamax. Patient and family were not happy with Topamax results and stated that they felt that it increased her slurred speech. Discuss possible change to amitriptyline but it patient and were not on board with changing medications. They would prefer being prescribed abortive migraine medication and no maintenance medication. A for full neurological workup has been conducted and she has been discharged from neurology's care. Was advised that patient follow-up with ENT this week and follow up with [facility] neurology in 3 months. Time Spent with Patient Time attestation: Total time spent providing and/or coordinating discharge services: Exam Narrative: GENERAL: Comfortable, no acute distress HENMT: moist mucous membranes EYES: EOM intact b/l, PERRL NECK: no lymphadenopathy RESPIRATORY: clear to auscultation CARDIO: RRR GI: soft, nontender, bowel sounds present SKIN: no rashes EXTREMITIES: no edema, redness or tenderness NEURO: cranial nerves 1-12 intact, no facial droop DS: Data Data Completed and Pending Labs on day of discharge: Labs from last 24 hours 07/19/22 07/19/22 07/18/22 05:47 05:47 18:06 WBC 6.8 RBC 4.73 Hgb 13.1 Hct 39.6 MCV 83.7 MCH 27.7 MCHC 33.1 RDW 15.7 H Plt Count 178 MPV 12.0 H Immature Gran % (Auto) 0.6 H Neut % (Auto) 58.4 Lymph % (Auto) 31.1 Irwin % (Auto) 6.7 Eos % (Auto) 2.3 Baso % (Auto) 0.9 Lymph # (Auto) 2.12 Irwin # (Auto) 0.5 Eos # (Auto) 0.2 Baso # (Auto) 0.1 Abs Immat Gran (auto) 0.04 H Absolute Neuts (auto) 4.0 Absolute Nucleated RBC 0.0 Nucleated RBC % 0.0 Sodium 138 Potassium 3.8 Chloride 110 H Carbon Dioxide 21 L Anion Gap 7 L BUN 19 H Creatinine 0.80 Estim Creat Clear Calc 79 Estimated GFR > 60 Glucose 87 Calcium 8.3 L Iron 61 TIBC 344 % Saturation 18 L Ferritin 14.90 Total Bilirubin 0.2 AST 21 ALT 25 Alkaline Phosphatase 54 Total Protein 7.0 Albumin 3.9 Discharge Plan Discharge Attending physician on discharge: Spencer Benitez Consulting providers: Nisha Arevalo Discharging Clinician: Michelle Slade Patient Dis
== END 2022-07-19 18:05 | disposition home or self-care (01) ==
LOC: ANHED 14:19 → ANH2MED 16:39
PROVIDERS: Student in an Organized Health Care Education/Training Program; Admitting Provider Hospitalist; Emergency Provider Preventive Medicine Aerospace Medicine; PCP Family Medicine; Visit Provider Internal Medicine
DX: R51.9 Headache, unspecified (principal); F44.5 Conversion disorder with seizures or convulsions; R47.81 Slurred speech; R47.1 Dysarthria and anarthria; K21.9 Gastro-esophageal reflux disease without esophagitis; I10 Essential (primary) hypertension; R19.7 Diarrhea, unspecified; R32 Unspecified urinary incontinence; K58.9 Irritable bowel syndrome, unspecified; R42 Dizziness and giddiness; I45.10 Unspecified right bundle-branch block; Z20.822 Contact with and (suspected) exposure to COVID-19; Z86.79 Personal history of other diseases of the circulatory system; Z79.51 Long term (current) use of inhaled steroids; Z79.899 Other long term (current) drug therapy; Z82.49 Family history of ischemic heart disease and other diseases of the circulatory system
CPT/HCPCS: 36415; 70496; 70498; 70544; 70551; 70553; 71045; 80048; 80053; 80307; 81001; 82607; 82728; 82746; 82948; 83540; 83550; 85025; 85610; 87636; 92523; 93005; 95816; 96365; 96366; 96374; 96375; 96376; 97161; 97165; 97535; 99285; A9270; A9577; G0378; J0131; J1885; J1953; Q9967

== ENCOUNTER 2022-10-12 00:07 | Day surgery (SDC) | payer OTHER, SELFPAY ==
[2022-05-26 11:57] VITALS: BMI 32.9
--- NOTE | 2022-07-09 09:44 | SUR.PREOP ---
Report to the Outpatient Waiting Room, entrance under the green pavilion located off [facility], at time 0715 on date 07/20/22. Planned Procedure Time: 0915. Time changes happen often and if your time is changed the preop area will call you the afternoon before. - You and your visitor will be asked to self-screen and do not enter if you have any COVID symptoms. - Only one visitor is requested with a max of two and NO children visitors are allowed at this time. - The patient visitor may be requested to leave or wait in car when not with patient due to distancing restrictions. - A mask is optional within the hospital. Patients may have clear liquids (water, carbonated beverages, clear teas, apple juice) until 3 hours prior to surgery with a maximum of 20 ounces. - No food from midnight until time of surgery - Infants may have breast milk until 4 hours before surgery, infant formula 6 hours prior to surgery. - Children will be allowed to drink immediately following surgery. If applicable, please bring a bottle or sippy cup to assist with drinking. Juice, water, soda, and popsicles are readily available. For infants on formula, please bring formula the day of surgery. Pacifiers are allowed. Medications to discontinue per physician VITAMINS & SUPPLEMENTS Date to take last dose 07/17/22 Please no make-up, nail icelandic, hairspray, perfume, deodorant, or body powder the day of surgery. No jewelry (including any body piercings) or valuables the day of surgery, leave them at home. Please take a shower or bath the night before, or the morning of, surgery with an antibacterial soap. Wear comfortable, loose fitting clothing. Children are encouraged to wear pajamas. - Jewelry must be removed prior to entering the operating room. Rings and piercings that are not removed may be cut off. - The hospital will not accept responsibility for valuables. - Please leave all valuables, including medications, at home the day of surgery. If you are going home after surgery, a licensed driver license reviewing officer must drive you home. - NO public transportation without another adult if you receive anesthesia. - We recommend that an adult stay with you for 24 hours following discharge. - We also recommend that you do not drive, make important decision, drink alcoholic beverages, or take any drugs that were not prescribed by your health care provider for at least 24 hours after your discharge time. For Pediatric surgeries, we recommend two adults accompany the child home. Follow any additional instructions given to you from your surgeon. If you or anyone in your household have experienced Covid symptoms in the past week, please notify your surgeon or the nurse liaison at the phone number below for possible testing. Telephone instructions given to [place] GIRARD and asked if any additional questions and then verbalized understanding. Patient advised to call surgeon office or pre surgery nurse liaison [phone] if any additional questions.
[2022-07-09 09:54] VITALS: BMI 32.5
--- NOTE | 2022-07-20 07:21 | WPDHPUPDATE1 ---
History and Physical Update Update Date/Time: 07/20/22 07:21 History and Physical has been reviewed, including an updated exam of the patient. There are NO changes in the patient's condition. Risks, benefits, and alternatives have been discussed and questions answered. Patient agrees to proceed with procedure.
--- NOTE | 2022-07-20 07:21 | PM.HPGS ---
History of Present Illness History of Present Illness Consent: Risks, benefits, and alternatives have been discussed and questions answered. Patient agrees to proceed with procedure. Chief complaint: menorrhagia Narrative: Rama Carrasco is a 46 year old female with heavy cycles. Patient was admitted in March of 2022 with severe vertigo and at that time was diagnosed with anemia and started on iron. Current H&H is 12.8 and 41 however ferritin is still low at 9. Patient had heavy cycles throughout the summer. She then skipped her March in April cycles and her May cycle was machine ceramic coater. It was recommended to proceed with D&C hysteroscopy due to the severe anemia. Risks of infection, bleeding, and perforation were reviewed. Possible pathology was also discussed. Patient voices understanding and agrees to proceed. Review of Systems Review of Systems: not repeated day of surgery; patient states no changes in status PMFSH Past Medical History Medical History (Updated 07/20/22 @ 07:28 by Vivian Wallace MD) Eosinophilic esophagitis by EGD in 2016 Gastroesophageal reflux disease History of asthma History of hypertension No longer on antihypertensives after 25 pound weight loss. Irritable bowel syndrome Surgical History Surgical History (Updated 07/20/22 @ 07:25 by Vivian Wallace MD) History of appendectomy History of bladder suspension procedure 2004 History of cholecystectomy Hx of section C/s x2 with two vaginal births Family History Family History Mother Hypothyroidism Diabetes type 2, controlled Hypertension Father Thyroid cancer Diabetes type 2, controlled Hypertension Sibling Epilepsy Other Epilepsy Grandparent Breast cancer Social History Social History Social History: Surrogate medical decision maker: Gilberto Carrasco, spouse. Code status: Full code. Smoking status: Never smoker Second hand tobacco smoke exposure: No Alcohol intake: never Substance use: never Substance use type: does not use Lack of Transportation: No Lack of Food: Never True Current Housing: I Have Housing Concerned About Future Housing: No Difficulty Paying Gas/Electric Bills: No Difficulty Paying for Meds: No Currently Unemployed: No Education: Associate Degree Difficulty w/ Childcare or Family Care: No Living arrangements: with family Additional living arrangements comments: The patient lives with her and 4 children in [place]. Additional occupation/education comments: Homemaker. Spiritual care concerns: No Meds Home Medications and Allergies Home Medications Medication Instructions Recorded Confirmed Type cetirizine 10 mg tablet (Zyrtec) 10 mg PO DAILY 03/25/22 07/16/22 History fluticasone propionate 220 220 mcg inhalation PRN PRN 03/25/22 07/16/22 History mcg/actuation HFA aerosol inhaler Shortness Of Breath Or Wheezing (Flovent HFA) fluticasone propionate 50 50 mcg intranasal DAILY 03/25/22 07/16/22 History mcg/actuation nasal spray,suspension omeprazole 40 mg capsule,delayed 40 mg PO HS 03/25/22 07/17/22 History release ascorbic acid (vitamin C) 250 mg 250 mg PO DAILY 05/26/22 07/16/22 History tablet calcium carb-vit D3-minerals 600 1 tablet PO DAILY 05/26/22 07/16/22 History mg calcium-400 unit tablet omega-3 fatty acids 1,000 mg PO DAILY 05/26/22 07/16/22 History sumatriptan succinate 25 mg tablet 25 mg PO ONCE #40 tabs 07/19/22 Rx topiramate 25 mg tablet (Topamax) 50 mg PO Q12HR #60 tabs 07/19/22 Rx Allergies Allergy/AdvReac Type Severity Reaction Status Date / Time amoxicillin Allergy Mild Dizziness Verified 07/16/22 14:28 gatifloxacin Allergy Unknown Other Verified 07/16/22 14:28 clavulanic acid AdvReac Other Verified 07/16/22 17:34 [From Augmentin] prednisone AdvReac Other Verified
[2022-09-28 13:30] VITALS: BMI 31.2
--- NOTE | 2022-09-28 13:36 | PC.NURSE ---
Addendum entered by Lizbet Corona RN 10/08/22 12:53: PT CALLED AND ADDED NEW MEDICATIONS TO LIST. INSTRUCTED TO TAKE PREDNISONE AND GABAPENTIN DAY OF SURGERY Original Note: Report to the Outpatient Waiting Room, entrance under the green pavilion located off [facility], at time 0600 on date 10/12/22. Planned Procedure Time: 0730. Time changes happen often and if your time is changed the preop area will call you the afternoon before. - You and your visitor will be asked to self-screen and do not enter if you have any COVID symptoms. - Only one visitor is requested with a max of two and NO children visitors are allowed at this time. - The patient visitor may be requested to leave or wait in car when not with patient due to distancing restrictions. - A mask is optional within the hospital at this time. Patients may have clear liquids (water, carbonated beverages, clear teas, apple juice) until 3 hours prior to surgery with a maximum of 20 ounces. - No food from midnight until time of surgery Take the following medications with a SIP of water the morning of surgery: N/A DO NOT STOP ANY OF YOUR OTHER PRESCRIPTION MEDICATIONS PRIOR TO SURGERY EXCEPT THE FOLLOWING Medications to discontinue per physician: VITAMINS/SUPPLEMENTS Date to take last dose: 10/08/22 Please no make-up, nail northern irish, hairspray, perfume, deodorant, or body powder the day of surgery. No jewelry (including any body piercings) or valuables the day of surgery, leave them at home. Please take a shower or bath the night before, or the morning of, surgery with an antibacterial soap. Wear comfortable, loose fitting clothing. - Jewelry must be removed prior to entering the operating room. Rings and piercings that are not removed may be cut off. - The hospital will not accept responsibility for valuables. - Please leave all valuables, including medications, at home the day of surgery. If you are going home after surgery, a licensed electric pile driver operator must drive you home. - NO public transportation without another adult if you receive anesthesia. - We recommend that an adult stay with you for 24 hours following discharge. - We also recommend that you do not drive, make important decision, drink alcoholic beverages, or take any drugs that were not prescribed by your health care provider for at least 24 hours after your discharge time. Follow any additional instructions given to you from your surgeon. If you or anyone in your household have experienced Covid symptoms in the past week, please notify your surgeon or the nurse liaison at the phone number below for possible testing. Telephone instructions given to PT - IND[place] GIRARD and asked if any additional questions and then verbalized understanding. Patient advised to call surgeon office or pre surgery nurse liaison [phone] if any additional questions.
--- NOTE | 2022-10-08 12:51 | SUR.PREOP ---
PT CALLED TO ADD NEW MEDICATIONS TO MED LIST.
[2022-10-12 06:05] VITALS: BP 122/81; PULSE 64; RESP 14; TEMP 36.4; O2SAT 99
[2022-10-12 06:13] VITALS: BMI 31.3
[2022-10-12] MEDS: ACETAMINOPHEN 500 MG TABLET 1000 MG PO (06:19)
[2022-10-12] MEDS: LACTATED RINGERS 1,000 ML 30 ML IV CONT ×2 (06:20→09:05)
--- NOTE | 2022-10-12 06:34 | WPDANESEPPF ---
Anes - Initial Pre Proc Eval Procedure: Operation Date: 10/12/22 07:30 Proposed Procedures p Hysteroscopy Dilation and Curettage - Vivian Wallace MD Date/Time: 10/12/22 06:34 Surgeon: Vivian Wallace MD Pre Op Diagnosis: menorrhagia Patient Data Age: 46 Gender: F Height: 1.63 m Weight: 82.75 kg Allergies Allergy/AdvReac Type Severity Reaction Status Date / Time gatifloxacin Allergy Unknown Other Verified 10/12/22 06:33 prednisone Allergy Seizure Verified 10/12/22 06:33 amoxicillin AdvReac Mild Dizziness Verified 10/12/22 06:33 Home Medications Medication Instructions Recorded Confirmed Type cetirizine 10 mg tablet (Zyrtec) 10 mg PO DAILY 03/25/22 07/16/22 History fluticasone propionate 220 220 mcg inhalation PRN PRN 03/25/22 07/16/22 History mcg/actuation HFA aerosol inhaler Shortness Of Breath Or Wheezing (Flovent HFA) fluticasone propionate 50 50 mcg intranasal DAILY 03/25/22 07/16/22 History mcg/actuation nasal spray,suspension omeprazole 40 mg capsule,delayed 40 mg PO HS 03/25/22 07/17/22 History release ascorbic acid (vitamin C) 250 mg 250 mg PO DAILY 05/26/22 10/12/22 History tablet calcium carb-vit D3-minerals 600 1 tablet PO DAILY 05/26/22 10/12/22 History mg calcium-400 unit tablet omega-3 fatty acids 1,000 mg PO DAILY 05/26/22 10/12/22 History famotidine 20 mg tablet (Pepcid) 20 mg PO DAILY 09/28/22 09/28/22 History montelukast 10 mg tablet 10 mg PO HS 09/28/22 09/28/22 History (Singulair) gabapentin 300 mg tablet 300 mg PO TID 10/08/22 10/12/22 History methylprednisolone 4 mg tablets in 0 mg PO PER PKG DIR 10/08/22 10/08/22 History a dose pack Patient hx anesthesia problems: none Family hx anesthesia problems: none Results Review: All pre-operative results and documents have been reviewed as part of the pre-operative evaluation. [facility] Past Medical History Medical History (Updated 10/12/22 @ 06:34 by Reyes Daniel MD) Eosinophilic esophagitis by EGD in 2016 Gastroesophageal reflux disease History of asthma History of hypertension No longer on antihypertensives after 25 pound weight loss. Irritable bowel syndrome Obesity Surgical History Surgical History History of appendectomy History of bladder suspension procedure 2004 History of cholecystectomy Hx of section C/s x2 with two vaginal births Family History Family History Mother Hypothyroidism Diabetes type 2, controlled Hypertension Father Thyroid cancer Diabetes type 2, controlled Hypertension Sibling Epilepsy Other Epilepsy Grandparent Breast cancer Social History Social History Social History: Surrogate medical decision maker: Gilberto Carrasco, spouse. Code status: Full code. Smoking status: Never smoker Second hand tobacco smoke exposure: No Alcohol intake: never Substance use: never Substance use type: does not use Lack of Transportation: No Lack of Food: Never True Current Housing: I Have Housing Concerned About Future Housing: No Difficulty Paying Gas/Electric Bills: No Difficulty Paying for Meds: No Currently Unemployed: No Education: Associate Degree Difficulty w/ Childcare or Family Care: No Living arrangements: with family Additional occupation/education comments: Homemaker. Spiritual care concerns: No Anes - Eval Final PreProcedure Day of Procedure 10/12/22 06:34 Patient weight: obese Heart: regular rate and rhythm Lungs: clear to auscultation Airway: Mallampati scale class II Neurological: alert and oriented Last oral intake: >/= 8 hours ASA classification: III Emergent: no Anesthetic plan: proceed Anesthesia type and monitoring: general GIVS and standard monitoring Results Review: All pre-operative results and document
--- NOTE | 2022-10-12 07:15 | WPDHPUPDATE1 ---
History and Physical Update Update Date/Time: 10/12/22 07:15 History and Physical has been reviewed, including an updated exam of the patient. There are NO changes in the patient's condition. Risks, benefits, and alternatives have been discussed and questions answered. Patient agrees to proceed with procedure.
--- NOTE | 2022-10-12 07:16 | PM.HPGS ---
History of Present Illness History of Present Illness Consent: Risks, benefits, and alternatives have been discussed and questions answered. Patient agrees to proceed with procedure. Chief complaint: menorrhagia Narrative: Rama Carrasco is a 46 year old female with menorrhagia and anemia. It was recommended to proceed with workup with D&C hysteroscopy. Risks of infection, bleeding, perforation, and possible pathology are reviewed. Patient voices understanding and agrees to proceed. Review of Systems Review of Systems: not repeated day of surgery; patient states no changes in status [facility] Past Medical History Medical History (Updated 10/12/22 @ 06:34 by Reyes Daniel MD) Eosinophilic esophagitis by EGD in 2016 Gastroesophageal reflux disease History of asthma History of hypertension No longer on antihypertensives after 25 pound weight loss. Irritable bowel syndrome Obesity Surgical History Surgical History History of appendectomy History of bladder suspension procedure 2004 History of cholecystectomy Hx of section C/s x2 with two vaginal births Family History Family History Mother Hypothyroidism Diabetes type 2, controlled Hypertension Father Thyroid cancer Diabetes type 2, controlled Hypertension Sibling Epilepsy Other Epilepsy Grandparent Breast cancer Social History Social History Social History: Surrogate medical decision maker: Gilberto Carrasco, spouse. Code status: Full code. Smoking status: Never smoker Second hand tobacco smoke exposure: No Alcohol intake: never Substance use: never Substance use type: does not use Lack of Transportation: No Lack of Food: Never True Current Housing: I Have Housing Concerned About Future Housing: No Difficulty Paying Gas/Electric Bills: No Difficulty Paying for Meds: No Currently Unemployed: No Education: Associate Degree Difficulty w/ Childcare or Family Care: No Living arrangements: with family Additional occupation/education comments: Homemaker. Spiritual care concerns: No Meds Home Medications and Allergies Home Medications Medication Instructions Recorded Confirmed Type cetirizine 10 mg tablet (Zyrtec) 10 mg PO DAILY 03/25/22 07/16/22 History fluticasone propionate 220 220 mcg inhalation PRN PRN 03/25/22 07/16/22 History mcg/actuation HFA aerosol inhaler Shortness Of Breath Or Wheezing (Flovent HFA) fluticasone propionate 50 50 mcg intranasal DAILY 03/25/22 07/16/22 History mcg/actuation nasal spray,suspension omeprazole 40 mg capsule,delayed 40 mg PO HS 03/25/22 07/17/22 History release ascorbic acid (vitamin C) 250 mg 250 mg PO DAILY 05/26/22 10/12/22 History tablet calcium carb-vit D3-minerals 600 1 tablet PO DAILY 05/26/22 10/12/22 History mg calcium-400 unit tablet omega-3 fatty acids 1,000 mg PO DAILY 05/26/22 10/12/22 History famotidine 20 mg tablet (Pepcid) 20 mg PO DAILY 09/28/22 09/28/22 History montelukast 10 mg tablet 10 mg PO HS 09/28/22 09/28/22 History (Singulair) gabapentin 300 mg tablet 300 mg PO TID 10/08/22 10/12/22 History methylprednisolone 4 mg tablets in 0 mg PO PER PKG DIR 10/08/22 10/08/22 History a dose pack Allergies Allergy/AdvReac Type Severity Reaction Status Date / Time gatifloxacin Allergy Unknown Other Verified 10/12/22 06:33 prednisone Allergy Seizure Verified 10/12/22 06:33 amoxicillin AdvReac Mild Dizziness Verified 10/12/22 06:33 Vital Signs Vital Signs - 24 hr 10/12/22 06:05 Temperature 97.5 F L Pulse Rate 64 Respiratory Rate 14 Blood Pressure 122/81 Pulse Oximetry 99 Oxygen Delivery Room Air Exam Const: General: healthy appearing and alert Orientation/consciousness: patient oriented x3 Resp: Effort & Inspection: normal respi
[2022-10-12] MEDS: KETOROLAC 30 MG/ML VIAL (*BKC) IV PUSH (07:41)
[2022-10-12] MEDS: LIDOCAINE 1% BUFFERED WITH 8.4% SODIUM BICARB 1 ML SYRINGE 10 ML INFILTRATE (07:41)
--- NOTE | 2022-10-12 07:48 | P.OP_ITS ---
Procedure Note - Detailed Date of Procedure 10/12/22 Pre-op Diagnosis menorrhagia Post-op Diagnosis Same Procedure Performed D&C hysteroscopy Surgeon Vivian Wallace MD Anesthesia MAC and Local Findings uterus sounds to 8cm and appears grossly normal Description of Procedure The patient is taken to the operating room and placed under anesthesia in the dorsal lithotomy position. She was prepped and draped in usual sterile fashion. Farnam speculum was placed in the vagina and the cervix was grasped on the anterior lip with a tenaculum. The cervix is injected in each quadrant with 1% lidocaine. The uterus is sounded to 8cm. The hysteroscope was placed with no abnormalities noted it is immediately removed. The sharp curette is used to curette the endometrium until a good uterine cry was noted in all areas. All instruments are removed. Sponge, needle, and instrument counts are correct per the OR staff. The patient is awakened from anesthesia and taken to recovery in stable condition. Estimated Blood Loss 5 Drains No Packing No Pathology Yes ( Endometrial curetting) Complications No immediate complications Condition Stable Disposition PACU
[2022-10-12 07:55] VITALS: BP 104/73; PULSE 63; RESP 12; O2SAT 97
[2022-10-12 08:35] VITALS: BP 117/73; PULSE 59; RESP 16
[2022-10-12] MEDS: ONDANSETRON INJ 4 MG/2 ML VIAL IV PUSH (08:42)
[2022-10-12 09:10] VITALS: BP 127/76; PULSE 55; RESP 12
[2022-10-12] MEDS: diphenhydrAMINE HCl INJ 50 MG/ML VIAL 25 MG IV PUSH (09:21)
[2022-10-12 09:40] VITALS: BP 136/81; PULSE 56; RESP 12
== END 2022-10-12 10:30 | disposition home or self-care (01) ==
PROVIDERS: PCP Family Medicine; Visit Provider Obstetrics & Gynecology Gynecology
PROC: 0U5B8ZZ Destruction of Endometrium, Via Natural or Artificial Opening Endoscopic (ICD-10-PCS; CPT 58563; principal; 2022-10-12 07:30)
DX: N92.0 Excessive and frequent menstruation with regular cycle (principal); K21.9 Gastro-esophageal reflux disease without esophagitis; K58.9 Irritable bowel syndrome, unspecified; E66.9 Obesity, unspecified; Z68.31 Body mass index [BMI] 31.0-31.9, adult
CPT/HCPCS: 58558; 88305; A9270; J1100; J1200; J1885; J2250; J2405; J2704; J3010; J7030; J7120

== ENCOUNTER 2022-11-09 16:30 | Emergency (ER) | payer OTHER, SELFPAY ==
[2022-11-09 16:59] VITALS: BP 126/86; PULSE 91; RESP 16; TEMP 37; O2SAT 100
[2022-11-09 19:00] VITALS: BP 131/88
--- NOTE | 2022-11-09 20:08 | ED.GENADULT ---
HPI - General Adult General Chief complaint: Back Pain/Injury Stated complaint: CHRONIC BACK PAIN Time Seen by Provider: 11/09/22 18:58 History of Present Illness HPI narrative: This is a 47-year-old female presenting ED with a chief complaint of lower back pain. Patient has been having pain in the left sacroiliac region for 6-8 weeks. It is a shooting pain that goes down the back of her left leg. It is severe in intensity, constant and worse with different movements. Before the last 2 months she has never experienced this pain before. Sometimes it improved with change in position and there are no exacerbating factors. She has been taking Tylenol Motrin and Robaxin for this. She denies bowel incontinence, urinary retention, weakness of her lower extremities, IV drug abuse history of cancer or trauma. The patient has an appointment this Wednesday to get an MRI. The goal of today's visit is pain control. Related Data Home Medications Medication Instructions Recorded Confirmed cetirizine 10 mg tablet (Zyrtec) 10 mg PO DAILY 03/25/22 07/16/22 fluticasone propionate 220 220 mcg inhalation PRN PRN 03/25/22 07/16/22 mcg/actuation HFA aerosol inhaler Shortness Of Breath Or Wheezing (Flovent HFA) fluticasone propionate 50 50 mcg intranasal DAILY 03/25/22 07/16/22 mcg/actuation nasal spray,suspension omeprazole 40 mg capsule,delayed 40 mg PO HS 03/25/22 07/17/22 release ascorbic acid (vitamin C) 250 mg 250 mg PO DAILY 05/26/22 10/12/22 tablet calcium carb-vit D3-minerals 600 1 tablet PO DAILY 05/26/22 10/12/22 mg calcium-400 unit tablet omega-3 fatty acids 1,000 mg PO DAILY 05/26/22 10/12/22 famotidine 20 mg tablet (Pepcid) 20 mg PO DAILY 09/28/22 09/28/22 montelukast 10 mg tablet 10 mg PO HS 09/28/22 09/28/22 (Singulair) gabapentin 300 mg tablet 300 mg PO TID 10/08/22 10/12/22 methylprednisolone 4 mg tablets in 0 mg PO PER PKG DIR 10/08/22 10/08/22 a dose pack Allergies Allergy/AdvReac Type Severity Reaction Status Date / Time gatifloxacin Allergy Unknown Other Verified 10/12/22 06:33 prednisone Allergy Seizure Verified 10/12/22 06:33 amoxicillin AdvReac Mild Dizziness Verified 10/12/22 06:33 PMF Past Medical History Medical History Eosinophilic esophagitis by EGD in 2016 Gastroesophageal reflux disease History of asthma History of hypertension No longer on antihypertensives after 25 pound weight loss. Irritable bowel syndrome Obesity Surgical History Surgical History History of appendectomy History of bladder suspension procedure 2004 History of cholecystectomy Hx of section C/s x2 with two vaginal births Family History Family History Mother Hypothyroidism Diabetes type 2, controlled Hypertension Father Thyroid cancer Diabetes type 2, controlled Hypertension Sibling Epilepsy Other Epilepsy Grandparent Breast cancer Social History Social History Social History: Surrogate medical decision maker: Gilberto Carrasco, spouse. Code status: Full code. Smoking status: Never smoker Second hand tobacco smoke exposure: No Alcohol intake: never Substance use: never Substance use type: does not use Lack of Transportation: No Lack of Food: Never True Current Housing: I Have Housing Concerned About Future Housing: No Difficulty Paying Gas/Electric Bills: No Difficulty Paying for Meds: No Currently Unemployed: No Education: Associate Degree Difficulty w/ Childcare or Family Care: No Living arrangements: with family Additional occupation/education comments: Homemaker. Spiritual care concerns: No Exam Narrative: APPEARANCE: Patient appears uncomfortable Head: atraumatic. EYES: EOMI, NOSE: Atraumatic NECK: Trachea mi
[2022-11-09] MEDS: ACETAMINOPHEN 500 MG TABLET 1000 MG PO (20:36)
[2022-11-09] MEDS: methocarbamoL 750 MG TABLET 1500 MG PO (20:37)
[2022-11-09] MEDS: LIDOCAINE 5% PATCH 1 PATCH TRANSDERM (20:38)
[2022-11-09] MEDS: KETOROLAC 15 MG/ML VIAL (*BKC) IM (20:43)
[2022-11-09 21:05] VITALS: BP 119/79; PULSE 70; RESP 17; O2SAT 99
== END 2022-11-09 21:05 | disposition home or self-care (01) ==
PROVIDERS: Emergency Provider Emergency Medicine; PCP Family Medicine
DX: M54.42 Lumbago with sciatica, left side (principal); K21.9 Gastro-esophageal reflux disease without esophagitis; J45.909 Unspecified asthma, uncomplicated; I10 Essential (primary) hypertension
CPT/HCPCS: 96372; 99283; A9270; J1885

== ENCOUNTER → 2022-11-10 13:05 | Outpatient (CLI) | payer OTHER, SELFPAY ==
--- NOTE | ~2022-11-10 | US_ITS ---
Pelvic ultrasound. Clinical History: Menorrhagia, pain, anemia Technique: Realtime transabdominal and transvaginal scanning of the pelvis was performed. Color flow Doppler and Doppler spectral analysis were performed. Findings: The uterus is anteverted. The endometrial stripe has a thickness of 8 mm. Small cervical n abothian cysts noted. No focal myometrial mass is identified. The right ovary measures 1.6 x 1.2 x 1.8 cm. No significant right ovarian or adnexal mass is seen. V ascular flow present in the right ovary on Doppler spectral analysis. The left ovary is not visualized. No significant left ovarian or adnexal mass is seen. There is trace free fluid in the cul de sac. Impression: Uterus and right ovary are unremarkable. Left ovary not seen. Trace free fluid, nonspecific. Reviewed, dictated and finalized at [facility]. Impression: Uterus and right ovary are unremarkable. Left ovary not seen. Trace free fluid, nonspecific.
== END ==
PROVIDERS: PCP Family Medicine; Visit Provider Obstetrics & Gynecology Gynecology
DX: M54.50 Low back pain, unspecified (principal); N92.0 Excessive and frequent menstruation with regular cycle; D64.9 Anemia, unspecified
CPT/HCPCS: 76830

== ENCOUNTER 2023-01-30 17:24 | Emergency (ER) | payer OTHER, SELFPAY ==
--- NOTE | 2023-01-30 17:54 | PC.NURSE ---
Pt would like to leave without being seen, pt verbalized understanding of recommendation to stay for evaluation and return to closest ER if symptoms worsen. IV per EMS discontinued.
== END 2023-01-30 18:18 | disposition left against medical advice (07) ==
PROVIDERS: PCP Family Medicine
DX: Z53.21 Procedure and treatment not carried out due to patient leaving prior to being seen by health care provider (principal)
CPT/HCPCS: 99199

== ENCOUNTER 2023-09-28 19:12 | Emergency (ER) | payer OTHER, SELFPAY ==
[2023-09-28 19:14] VITALS: BP 153/102; PULSE 100; RESP 17; TEMP 37.2; O2SAT 99
--- NOTE | 2023-09-28 22:11 | ED.WOUNDLAC ---
HPI - Wound/Laceration General Chief Complaint: Wound/Laceration Stated Complaint: pain after crew person procedure Time Seen by Provider: 09/28/23 21:56 History of Present Illness HPI narrative: 47-year-old female who reports for evaluation for increased pain to her biopsy site today. Patient went to a crew person today and had a lesion removed with shave biopsy to her left buttocks. States she was given pain medicines which has since worn off and she is now having increasing pain. She also states she is having difficulty controlling the bleeding earlier but that has since resolved and is now at least using. She denies fever vomiting. She called her dermatology office who advised him to come to the ER given it was the end of a workday. She has been taking Tylenol without improvement. Unfortunately, she is unable to take NSAIDs. Related Data Home Medications Medication Instructions Recorded Confirmed cetirizine 10 mg tablet (Zyrtec) 10 mg PO DAILY 03/25/22 07/16/22 fluticasone propionate 220 220 mcg inhalation PRN PRN 03/25/22 07/16/22 mcg/actuation HFA aerosol inhaler Shortness Of Breath Or Wheezing (Flovent HFA) fluticasone propionate 50 50 mcg intranasal DAILY 03/25/22 07/16/22 mcg/actuation nasal spray,suspension omeprazole 40 mg capsule,delayed 40 mg PO HS 03/25/22 07/17/22 release ascorbic acid (vitamin C) 250 mg 250 mg PO DAILY 05/26/22 10/12/22 tablet calcium carb-vit D3-minerals 600 1 tablet PO DAILY 05/26/22 10/12/22 mg calcium-400 unit tablet omega-3 fatty acids 1,000 mg PO DAILY 05/26/22 10/12/22 famotidine 20 mg tablet (Pepcid) 20 mg PO DAILY 09/28/22 09/28/22 montelukast 10 mg tablet 10 mg PO HS 09/28/22 09/28/22 (Singulair) gabapentin 300 mg tablet 300 mg PO TID 10/08/22 10/12/22 methylprednisolone 4 mg tablets in 0 mg PO PER PKG DIR 10/08/22 10/08/22 a dose pack Allergies Allergy/AdvReac Type Severity Reaction Status Date / Time gatifloxacin Allergy Unknown Other Verified 09/28/23 20:08 morphine Allergy Swelling Verified 09/28/23 20:08 prednisone Allergy Seizure Verified 09/28/23 20:08 amoxicillin AdvReac Mild Dizziness Verified 09/28/23 20:08 Review of Systems Review of Systems: CONSTITUTIONAL: Denies fever, chills, or sweats. EYES: Denies visual changes, redness, or discharge. ENT: Denies rhinorrhea, congestion, sore throat, or otalgia. CARDIOVASCULAR: Denies chest pain, palpitations, or edema. RESPIRATORY: Denies cough or dyspnea. GASTROINTESTINAL: Denies abdominal pain, nausea, vomiting, or diarrhea. GENITOURINARY: Denies dysuria or hematuria. SKIN: See HPI MUSCULOSKELETAL: Denies back pain, joint pain, or myalgia. NEUROLOGIC: Denies headache, numbness, or weakness. PSYCHIATRIC: Denies anxiety or depression. [facility] Past Medical History Medical History Eosinophilic esophagitis by EGD in 2016 Gastroesophageal reflux disease History of asthma History of hypertension No longer on antihypertensives after 25 pound weight loss. Irritable bowel syndrome Obesity Surgical History Surgical History History of appendectomy History of bladder suspension procedure 2004 History of cholecystectomy Hx of section C/s x2 with two vaginal births Family History Family History Mother Hypothyroidism Diabetes type 2, controlled Hypertension Father Thyroid cancer Diabetes type 2, controlled Hypertension Sibling Epilepsy Other Epilepsy Grandparent Breast cancer Social History Social History Social History: Surrogate medical decision maker: Gilberto Carrasco, spouse. Code status: Full code. Smoking status: Never smoker Second hand tobacco smoke exposure: No Alcohol intake: never Substance use: never Substance use
[2023-09-28] MEDS: HYDROcodone/acetaminophen (*CRX) 5-325 MG TABLET 1 TAB PO (22:16)
[2023-09-28 22:31] VITALS: BP 146/97; PULSE 88; RESP 20; O2SAT 99
== END 2023-09-28 22:32 | disposition home or self-care (01) ==
LOC: ANHED 22:27
PROVIDERS: Emergency Provider Physician Assistant; PCP Family Medicine
DX: G89.18 Other acute postprocedural pain (principal); K21.9 Gastro-esophageal reflux disease without esophagitis; J45.909 Unspecified asthma, uncomplicated
CPT/HCPCS: 99283; A9270

== ENCOUNTER 2024-12-27 13:52 | Emergency (ER) | payer OTHER, SELFPAY ==
--- OUTSIDE RECORDS SUMMARY | 2024-12-27 14:02 | XMS_ITS ---
Author Organization [facility], Address [address] [facility] [address] [place] [address] Care Team Providers Care Qa Specialist Name Role Phone Rob Valverde DO Primary Care Provider Randal Colunga Unavailable [phone] Jonathon Sparrow Unavailable [phone] RESULTS Component Value Reference Range Notes CT Lumbar Spine with Sagitta l and Coronal Reconstruction Reviewed date:04/14/2024 09:20:39 AM Interpretation:completed Performing Lab: Notes/Report: completed REASON FOR VISIT SNN XR/MRI Lumb 04-06-24 Encounters Encounter Location Date Provider Diagnosis [facility], [place] [address] [address] 04/13/2024 Jonathon Sparrow Lumbar radiculopathy M54.16 ASSESSMENTS Encounter Date Diagnosis Assessment Notes Treatment Notes Treatment Clinical Notes 04/13/2024 Lumbar radiculopathy (ICD-10 - M54.16) PLAN OF TREATMENT No Information
--- OUTSIDE RECORDS SUMMARY | 2024-12-27 14:02 | XMS_ITS | Clinical Summary ---
Author Organization [facility] Address [address] [place] [address] [address] [place] [address] Phone Care Team Providers Care Business Continuity Planning Director Name Role Phone Provider, Not On File Primary Care Provider Unav ailable Gilberto Ferrera DO Unavailable [phone] Allergies Active Allergy Reactions Criticality Noted Date Comments Gatifloxacin Other (see Comments) 08/08/2015 Unable to speak Medications lisinopril (PRINIVIL, ZESTRIL) 10 MG Tablet Take 10 mg by mouth daily. Active esomeprazole (NEXIUM) 40 MG CAPSULE DELAYED RELEASE Take 1 Cap by mouth every morning (before breakfast). 30 Cap 2 5 Active polyethylene glycol (MIRALAX) Powder Mix the entire bottle with 64 oz of a clear liquid. Use as directed by the office for colonoscopy prep. 255 g 0 5 Active Fexofenadine-Ps eudoephedrine (FELECIA-D PO) Take 10 mg by mouth daily. Active montelukast (SINGULAIR) 10 MG Tablet Take 10 mg by mouth every evening. Active fluticasone (FLOVENT HFA) 220 MCG/ACT Aerosol 2 puffs BID; swallow do not inhale 1 Inhaler 3 6 Active sucralfate (CARAFATE) 1 GM Tablet DISSOLVE 1 TABLET IN 30ML OF WATER AND DRINK BEFORE MEALS AND AT BEDTIME 120 Tab 1 6 Active Active Problems No known active problems Family History Medical History Relation Name Comments Hypertension Father Thyroid Cancer Father Crohn's Disease Mother Hypertension Mother Skin Cancer Mother Lupus Sister 1 Seizures Sister 2 Relation Name Status Comments Father Mother Alive Sister 1 Sister 2 Social History Tobacco Use Types Packs/Day Years Used Date Smoking Tobacco: Never Alcohol Use Standard Drinks/Week Comments No 0 (1 standard drink = 0.6 oz pur e alcohol) Comments No Sex and Gender Information Value Date Recorded Sex Assigned at Not on file Legal Sex Female 4:44 PM AGENT SPA DESK Gender Identity Not on file Sexual Orientation Not on file Last Filed Vital Signs Vital Sign Reading Time Taken Comments Blood Pressure 124/82 08/08/2015 10:50 AM AGENT SPA DESK Pulse 99 08/08/2015 10:50 AM AGENT SPA DESK Temperature 36.4 C (97.5 F) 08/08/2015 10:50 AM AGENT SPA DESK Respiratory Rate 14 08/08/2015 10:5 0 AM AGENT SPA DESK Oxygen Saturation 97% 08/08/2015 10: 50 AM AGENT SPA DESK Inhaled Oxygen Concentration - - Weight 102.6 kg (226 lb 3.2 oz) 015 10:50 AM AGENT SPA DESK Height 162.6 cm (5' 4 ) 08/08/2015 10:5 0 AM AGENT SPA DESK Body Mass Index 38.83 08/08/2015 10:50 AM AGENT SPA DESK Plan of Treatment Health Maintenance Due Date Last Done Comments Hepatitis C Virus (HCV) Screening 1975 TdaP Immunization 1973 Hepatitis B Immunization (1 of 3 - 19+ 3-dose series) 1992 Pap Smear 1994 Cervical Cancer Screening (CCS) 2003 HPV/Cotest 2003 Cologuard 2023 Immunochemical Fecal Occult Blood 2023 Mammogram 2023 Pneumococcal Immunization (5 0+ years) (1 of 1 - PCV) 2023 Zoster Immunization (1 of 2) 2023 Influenza Immunization (#1) 2024 SARS-COV-2 Immunization (1 - 2023- season) 2024 Colonoscopy 10/10/2025 10/10/2015 Colorectal Cancer Screening 10/10/2025 Respiratory Syncytial Virus (RSV) Immunization (Adult) (1 - 1-dose 75+ series) 2048 10/10/2015 Meningococcal Immunization (ACWY) Aged Out No longer eligible based on patient's age to complete this topic Pneumococcal Immunization Combined Aged Out No longer eligible based on patient's age to complete this topic Rotavirus Immunization Aged Out No lo nger eligible based on patient's age to complete this topic Procedures Procedure Name Priority Date/Time Associated Diagnosis Comments HM COLONOSCOPY Routine 10/10/2015 from Last 3 Months or Most Recently Relevant to Health Maintenance Results * HM COLONOSCOPY (10/10/2015) Gilberto Ferrera DO PROCEDURE/MINOR SURGICAL ORDERA BLES Final Result from Last 3 Months or Most Recently Relevant to Health Maintenance Care Teams Business Continuity Planning Director Relationship Specialty Start Date End Date Provider, Not On File [place] PCP - General 08/26/15 Gilberto Ferrera DO [facility] [facility] 10/17/15
--- OUTSIDE RECORDS SUMMARY | 2024-12-27 14:02 | XMS_ITS ---
Author Organization [facility] [employer] [facility] [place] ([address]) Address [address] [place] [address] Care Team Providers Care Training And Development Officer Name Role Phone Kishore Mercer Primary Care Provider UnavailRagini Darby Unavailable [phone] Rob Valverde DO Unavailable Unavailable Petr Schulz [phone] REASON FOR VISIT SCIT - Traditional Schedule Allergy immunotherapy Encounters Encounter Location Date Provider Diagnosis [facility] [address] [place] [address] 12/05/2024 Petr Schulz Allergic rhinitis du e to pollen J30.1 ; Other allergic rhinitis J30.89 ; Allergic rhinitis due to animal (cat) (dog) hair and dander J30.81 and Other chronic allergic conjunctivitis H10.45 Assessments Encounter Date Diagnosis (ICD Code) Assessment Notes Treatment Notes Treatment Clinical Notes Section Notes 12/05/2024 Allergic rhinitis due to pollen (ICD-10 - J30.1) 12/05/2024 Other allergic rhinitis (ICD-10 - J30.89) 12/05/2024 Allergic rhinitis due to animal (cat) (dog) hair and dander (ICD-10 - J30.81) 12/05/2024 Other chronic allergic conjunctivitis (ICD-10 - H10.45) Plan Of Treatment Next Appt Details Follow Up: 1 Week, Reason: Progress Notes * Rama CARRASCO EDOB: [birth year] (49 yo F)Acc No.[id number]:12/05/2024 SCIT-Aeroallergen Patient: Rama DAVIS Provider: Omer Schulz MD :1975 A ge:49 Y S ex:Female Date:12/05/2024 Address:[address] [place] [address] [address], [id number] Pcp:Kishore Mercer Subjective: * Chief Complaints: * 1 . SCIT - Traditional Schedule Allergy immunotherapy. * HPI: * Introduction: The patient is here for scheduled immunotherapy. Please see the attached specialty form regarding the specifics of the administration of these vaccines. As per our protocol, the must undergo a screening health questionnaire (medication changes, reaction(s) to last immunotherapy dose(s), current health status, ACT (if appropriate), self-injectable epinephrine on patient(?) and peak flow (if appropriate)). Also, the patient must wait in our office for 30 minutes after receiving the vaccine(s). Furthermore, every patient must have an epinephrine pen (self-injectable) with them at the time of administration--and carry if for the following 1.5 hours after they leave our office. The patient must also have taken their antihistamine the day of the injection, preferably 2 hours prior. The consent form for SCIT (subcutaneous immunotherapy) is on file. * Medical History: Objective: * Vitals: Assessment: * Assessment: 1. A llergic rhinitis due to pollen - J30.1 (Primary) 2 . O ther allergic rhinitis - J30.89 3 . A llergic rhinitis due to animal (cat) (dog) hair and dander - J30.81 4 . O ther chronic allergic conjunctivitis - H10.45 Plan: * Treatment: * Follow Up: 1 Week * Billing Information: * Visit Code: * Procedure Codes: 49441 IMMUNOTHERAPY INJECTIONS. * Electronic signature of Johny Schulz MD, FAAAAI on 12/27/2024 at 02:02 PM CDT Sign off status: Pending * Provider: Omer Schulz MD Date: 0 12/05/2024 Generated for Printi ng/Raphael/eTransmitting on: 0 12/27/2024 02:02 PM CDT History and Physical Notes * HPI (History of Present Illness) Category Sub-Category Detail Notes Category Not es *Introduction The patient is here for scheduled immunotherapy. Please see the attached specialty form regarding the specifics of the administration of these vaccines. As per our protocol, the must undergo a screening health questionnaire (medication changes, reaction(s) to last immunotherapy dose(s), current health status, ACT (if appropriate), self-injectable epinephrine on patient(?) and peak flow (if appropriate)). Also, the patient must wait in our office for 30 minutes after receiving the vaccine(s). Furthermore, every patient must have an epinephrine pen (self-injectable) with them at the time of administration--and carry if for the following 1.5 hours after they leave our office. The patient must also have taken their antihistamine the day of the injection, preferably 2 hours prior. The consent form for SCIT (subcutaneous immunotherapy) is on file.
--- OUTSIDE RECORDS SUMMARY | 2024-12-27 14:02 | XMS_ITS ---
Author Organization [facility] [employer] [facility] [place] ([address]) Address [address] [place] [address] Care Team Providers Care Aged Or Disabled Care Worker Name Role Phone Kishore Mercer Primary Care Provider Unavailab Ragini Patel Unavailable [phone] Rob Valverde DO Unavailable REASON FOR VISIT Refills Medications Medication SIG (Take, Route, Fr equency, Duration) Notes Start Date End Date Status Famotidine 20 MG 1 tablet Orally 1 hr prior to shots for 90 days 03/23/2024 Active Encounters Encounter Location Date Provider Diagnosis [address] [address] 12/21/2024 Ragini Godoy Allergic rhinitis due to pollen J30.1 Assessments Encounter Date Diagnosis (ICD Code) Assessment Notes Treatment Notes Treatment Clinical Notes Section Notes 12/21/2024 Allergic rhinitis due to pollen (ICD-10 - J30.1) Plan Of Treatment Medication Medication Name Sig Start Date Stop Date Notes Famotidine 20 MG 1 tablet Orally 1 hr prior to shots for 90 days 03/23/2024 Progress Notes * Rama CARRASCO EDOB: [birth year] (49 yo F)Acc No.[id number]:12/21/2024 Patient: Anali Rama HERNANDEZ :1975 A ge:49 Y S ex:Female Address:[address], [place], [address] * Refills Refill Famotidine Tablet, 20 MG, Orally, 90, 1 tablet, 1 hr prior to shots, 90 days, Refills=0 * true * Date: Generated for Gustavo sidhu/Raphael/Laina on: 0 12/27/2024 02:02 PM CDT
--- OUTSIDE RECORDS SUMMARY | 2024-12-27 14:02 | XMS_ITS | Clinical Summary ---
Author Organization [facility] Address [address] [place] [address] Care Team Providers Care Strip Cutting Machine Operator Name Role Phone Rob Valverde DO Primary Care Provider [phone] Source Comments [facility],non-owned Affiliates and Associated Physician Practices is amultiple site organization consisting of ambulatory clinics and hospital sitesin [place], [place], [place] and [place]. This disclosure is being madepursuant to the Care Everywhere program and may not contain all information available regarding this patient. Last updated 18.[facility] [employer] Social History Tobacco Use Types Packs/Day Years Used Date Smoking Tobacco: Never Assessed Comments Unknown Sex and Gender Information Value Date Recorded Sex Assigned at Not on file Legal Sex Female 10:50 AM FLIGHT SERVICE AGENT Gender Identity Not on file Sexual Orientation Not on file Plan of Treatment Health Maintenance Due Date Last Done Comments COLOGUARD (AGES 45-75) - COL ON CA SCREENING 1973 COLON MONITORING 1973 COLONOSCOPY - COLON CA SCREENING 1973 CT COLONOGRAPHY - COLON CA SCREENING 1973 Colorectal Cancer Screening 1973 FIT - COLON CA SCREENING 1973 FLEX SIG - COLON CA SCREENING 1973 LIPID TESTING 1973 MAMMOGRAM 1973 HIV SCREENING 1988 HEPATITIS C SCREENING 10/10/1991 DTAP/TDAP/TD VACCINES (1 - Tdap) 1992 HEPATITIS B VACCINE (1 of 3 - 19+ 3-dose series) 1992 PNEUMOCOCCAL VACCINE 50+ (1 of 1 - PCV) 2023 ZOSTER VACCINE (1 of 2) 2023 COVID-19 VACCINE ( - 2023-2 5 season) 2024 DEPRESSION SCREENING 08/23/2024 INFLUENZA VACCINE (Season Ended) 2025 08/19/2022, 05/23/2020 PAP SMEAR 06/03/2026 06/03/2023 HIB VACCINE Aged Out No longer eligi ble based on patient's age to complete this topic HPV VACCINE Aged Out No longer eligi ble based on patient's age to complete this topic MENINGOCOCCAL (Group B) VACCINE SHARED DECISION-MAKING Aged Out No longer eligible based on patient's age to complete this topic MENINGOCOCCAL GROUPS A/C/Y/W VACCINE Aged Out No longer eligible b ased on patient's age to complete this topic Insurance [facility] Address: [facility] [address] [place] [address] Care Teams Strip Cutting Machine Operator Relationship Specialty Start Date End Date Rob Valverde DO [address] [place] [id number] PCP - General 10/28/22
--- OUTSIDE RECORDS SUMMARY | 2024-12-27 14:03 | XMS_ITS | Referral Summary ---
Author Organization [facility] [address] Address [address] [place] [address] Care Team Providers Care Marine Equipment Sales Engineer Name Role Phone Sylvie Kishore Samano DO Primary Care Provide r Allergies Active Allergy Reactions Criticality Noted Date Comments Gatifloxacin Other (See comments),Unknown High 11/04 Unable to speak Morphine Swelling Medium 03/02/2023 Redness, pain Medications fluticasone propionate (FLOVENT HFA) 220 mcg/actuation inhaler Inhale 2 puffs 2 (two) times a day Rinse mouth with water after use. Do not swallow. 3 each 3 10/20/19 Active Additional Information Patient taking differently:2 puff inhalation2 times daily PRN, Rinse mouth with water after use. Do not swallow.,Indications: Eosinophilic Esophagitis, Informant: Self, Reported on 07/31/2022 magnesium ascorbate, bulk, powderIndications: supplement Take 0.5 Scoops by mouth every morning Active famotidine (PEPCID) 20 mg tablet Take 1 tablet (20 mg total) by mouth daily Active olopatadine (PATANOL) 0.1 % ophthalmic solutionIndication s:Allergic Conjunctivitis 1 drop 2 (two) times a day as needed for allergies Active fluticasone propionate (FLONASE) 50 mcg/actuation nasal spray Administer 1 spray into each nostril 2 (two) times a day Active montelukast (SINGULAIR) 10 mg tablet Take 1 tablet (10 mg total) by mouth nightly Active EPINEPHrine 0.3 mg/0.3 mL auto-injection syringe 09/10/19 23 Active budesonide (PULMICORT) 0.5 mg/2 mL nebulizer solution 09/10/19 23 Active ascorbic acid (TANA-C ORAL) Take by mouth Ac tive methocarbamoL (ROBAXIN) 750 mg tablet Take by mouth 3 (three) times a day 11/11/19 23 Active diazePAM (VALIUM) 2 mg tablet Take 1 tablet (2 mg total) by mouth every 6 (six) hours as needed for muscle spasms 30 tablet 03/24/20 23 Active meclizine (ANTIVERT) 25 mg tablet Take 1 tablet (25 mg total) by mouth 3 (three) times a day as needed for dizziness 30 tablet 1 05/14/20 23 Active ondansetron ODT (ZOFRAN-ODT) 4 mg disintegrating tablet Take 1 tablet (4 mg total) by mouth every 8 (eight) hours as needed for nausea or vomiting 30 tablet 1 05/14/20 23 Active omeprazole (PriLOSEC) 20 mg capsule TAKE 1 CAPSULE(20 MG) BY MOUTH EVERY NIGHT 90 capsule 3 09/20/19 24 Active lisinopriL (PRINIVIL,ZESTRIL) 20 mg tablet Take 1 tablet (20 mg total) by mouth daily 90 tablet 3 10/25/19 24 Active cetirizine (ZyrTEC) 10 mg tablet TAKE 1 TABLET BY MOUTH DAILY 90 tablet 1 12/17/19 24 Active pregabalin (LYRICA) 75 mg capsule Take 1 capsule (75 mg total) by mouth 2 (two) times a day 60 capsule 01/04/20 24 Active famotidine (PEPCID) 40 mg tablet TAKE 1 TABLET BY MOUTH PRIOR TO SHOTS 01/21/20 24 Active baclofen (LIORESAL) 10 mg tablet Take 1 tablet (10 mg total) by mouth 3 (three) times a day as needed for muscle spasms 90 tablet 02/18/20 24 Active estradioL (ESTRACE) 0.01 % (0.1 mg/gram) vaginal creamIndications:U rinary frequency,Urgency of urination,Painful urination APPLY 1 GRAM TO THE VAGINA 2-3 NIGHTS PER WEEK 42.5 g 3 02/23/20 24 Active pregabalin (LYRICA) 50 mg capsule 04/10/20 24 Active Active Problems Problem Noted Date Diagnosed Date Dizziness 05/14/2023 Assessment & Plan (05/14/2023 12:09 PM CDT): COVID and flu testing completed in office with normal results. Suspected vertigo. Patient prescribed Meclizine 25 mg PRN and Zofran 4 mg PRN for nasuea. She is to continue on Zyrtec and Flonase daily. Patient also referred to physical therapy for vestibular therapy. Patient to call office if her dizziness does not improve with medication and therapy. Chronic thoracic back pain 03/24/2023 Anterolisthesis of lumbar spine 10/06/2022 Long COVID 07/31/2022 COVID-19 long hauler manifesting chronic fatigue 07/31/2022 COVID-19 long hauler manifes ting chronic concentration deficit 07/31/2022 Disrupted sleep-wake cycle 07/31/2022 COVID-19 long hauler manifesting chronic anxiety 07/31/2022 Abnormal uterine bleeding 07/31/2022 Adjustment disorder with anxious mood 04/14/2022 Iron deficiency anemia killian howelly to inadequate dietary iron intake 03/19/2022 Submandibular gland swelling 02/02/2022 Assessment & Plan (02/12/2022 9:06 AM CDT): - will treat for possible infection causing sx and with steroids to decrease swelling in neck - rec pt call ENT to be seen since she is established with them for this issue having occurred in the past - go to ER if develops SOB or dysphagia Neck mass 01/01/2022 Thyroid nodule 01/01/2022 Abnormal hemoglobin (Hgb) 10/30/2021 Overview (10/30/2021): Added automatically from request for surgery [id number] 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 - ddx includes developing infection, COVID infection, anxiety, thyroid disorder - given normal TSH 3 days ago, unlikely thyroid related - encouraged pt to continue with plan for thyroid US - will check covid test and have pt f/u next week if sx continue Thyromegaly 10/20/2021 Essential hypertension 06/10/2020 Assessment & Plan (10/24/2021 4:34 PM MANUFACTURING SHIFT SUPERVISOR): - slight elevated today - rec if BP high over weekend increase lisinopril to 20mg daily - f/u with Dr Valverde if sx continue Gastroesophageal reflux disease without esophagi tis 06/10/2020 Obesity (BMI 30-39.9) 06/10/2020 Eosinophilic esophagitis 06/10/2020 Lipoma of buttock 06/10/2020 Seizures Overview (07/31/2022): 3 yrs ago, on no meds Resolved Problems Problem Noted Date Diagnosed Date Resolved Date COVID 07/01/2021 10/25/2023 Immunizations Immunization Administration Dates Next Due Hep A / Hep B 05/01/2019,10/23/2003 IPV 10/23/2003 Influenza, Quadrivalent, Suzie l Culture-based MDCK, Antibiotic Free, Intramuscular 05/23/2020 Influenza, Quadrivalent, Spl it, Preservative Free, Intramuscular 08/19/2022 Influenza, Unspecified 06/23/2023(Deferr ed: Patient Refused),07/31/2022(Deferred: Patient Refused),07/07/2022(Deferred: Patient Refused),06/17/2022(Deferred: Patient Refused),10/20/2021(Deferred: Patient Refused),06/23/2021(Deferred: Patient Refused),06/23/2021(Deferred: Patient Refused),05/23/2019(Deferred: Patient Refused) Influenza, Whole 06/30/2005,10/23/2003 PPD TEST 10/12/2003 Td, adsorbed 10/23/2003 Tdap 05/01/2019,09/24/2017 Social History Tobacco Use Types Packs/Day Years Used Date Smoking Tobacco: Never Smokeless Tobacco: Never Tobacco Cessation:Counseling Given: Not Answered AUDIT-C Answer Date Recorded Q1: How often do you have a drink containing alcohol? Never 04/24/2022 Q2: How many drinks containi ng alcohol do you have on a typical day when you are drinking? Patient does not drink Q3: How often do you have si x or more drinks on one occasion? Never 04/24/2022 PHQ-2 Answer Date Recorded PHQ-2 Total Score (If total score is 3 or more points, staff should administer the PHQ-9) 0 10/25/2023 Personal Safety Answer Date Recorded Getting School Help Needed Denies 08/04 Comments No Sex and Gender Information Value Date Recorded Sex Assigned at Not on file Legal Sex Female 2:29 AM MANUFACTURING SHIFT SUPERVISOR Gender Identity Not on file Sexual Orientation Not on file Last Filed Vital Signs Vital Sign Reading Time Taken Comments Blood Pressure 140/86 02/18/2024 9:16 AM CDT Pulse 84 02/18/2024 9:16 AM CDT Temperature 36.9 C (98.5 F) 02/14/2024 3:10 PM CDT Respiratory Rate 16 02/14/2024 3:10 PM CDT Oxygen Saturation 98% 02/14/2024 3:10 PM CDT Inhaled Oxygen Concentration - - Weight 91.2 kg (201 lb) 02/18/2024 9:16 AM CDT Height 162.6 cm (5' 4 ) 02/18/2024 9:16 AM CDT Body Mass Index 34.5 02/18/2024 9:16 AM CDT Plan of Treatment Not on file Procedures Procedure Name Priority Date/Time Associated Diagnosis Comments DIAGNOSTIC MAMMOGRAM BILATERAL W DARRELL Schedule Routine, Read Routine (OP Routine) 03/01/2024 9:30 AM CDT Follow-up examination of abnormal mammogram HIGH RISK HPV DNA DETECTION WITH GENOTYPING Routine 06/03/2023 11:00 AM CDT Encounter for screening for malignant neoplasm of cervix COLONOSCOPY Routine 11/06/2021 from Last 3 Months or Most Recently Relevant to Health Maintenance Results * Diagnostic Mammogram Bilateral W Darrell (03/01/2024 9:30 AM CDT) Anatomical Region Laterality Modality Breast Bilateral Mammography 03/01/2024 9:47 AM CDT Narrative 03/01/2024 9:52 AM CDT EXAM DESCRIPTION: US BREAST LEFT LIMITED; DIAGNOSTIC MAMMOGRAM BILATERAL W DARRELL REASON FOR STUDY: 48-year-old woman comes in today for follow-up of a probably benign mass in the left breast, and routine annual screening of the right breast. COMPARISON: Diagnostic mammogram and sonogram dated 08/25/2023, 02/19/2023. FINDINGS: CC and MLO digital breast tomosynthesis of both breasts with C view was performed. Targeted sonographic examination of the left breast was also performed with real-time grayscale images and color Doppler. FINDINGS: MAMMOGRAPHIC FINDINGS: DENSITY: The breasts are almost entirely fatty. BREASTS: The 4 mm probably benign mass of concern that was previously seen at the 9 o'clock to 10 o'clock position of the left breast anterior to middle depth is no longer seen. In addition, the patient reports she can no longer feel a lump in this area. A few benign coarse calcifications are unchanged in both breasts. There are no new suspicious findings in either breast on mammogram. ULTRASOUND FINDINGS: Targeted sonographic examination of the left breast at the 930-10 o'clock position 10 cm from the nipple demonstrates only benign fatty and fibroglandular are tissue. The mass of concern that was previously seen at this level is no longer identified. IMPRESSION: 1. Interval mammographic and sonographic resolution of the 4 mm mass of concern that was previously seen at the 9 o'clock to 10 o'clock position of the left breast 10 cm from the nipple. The patient also reports she can no longer feel this lump. Findings are consistent with resolved focal area of benign fat necrosis. 2. No new suspicious findings are seen in either breast. Continued monthly breast self-examination is recommended, and annual bilateral screening mammography in 12 months. BIRADS: 2 - Benign The patient was notified of the results and recommendations at the time of the examination. THIS IS AN ELECTRONICALLY VERIFIED FINAL REPORT 03/01/2024 9:52 AM - Electronically signed by Roberto Mcguire M.D. RL: SOULEYMANE Report ID: [id number] Reading Location: [facility] Rob Valverde DO IMG MAMMO PROCEDURES Fin al Result * High Risk HPV DNA Detection with Genotyping (Molecular component) (06/03/2023 11:00 AM CDT) HPV HR 16 Not Detected Not Detected [facility] Comment:Testing performed by : [facility], [address] [place]., [address] HPV HR 18 Not Detected Not Detected JIM Comment:Testing performed by : [facility], [address] [place]., [address] HPV HR Non 16/18 Not Detected Not Detected [facility] Comment: Interpretive Data Nucleic acid amplification for detection of high-risk Human Papilloma virus (HPV) is performed by the David Herberth 6800 HPV test. This assay specifically detects HPV-16 and HPV-18 genotypes. The following HPV genotypes are detected as high-risk HPV: HPV-31, 33, 35, ,39, 45, 51, 52, 56, 58, 59, 66, and 68. This assay has been approved by the [place] Food and Drug Administration for detection of HPV in cervical specimens collected by a physician using an endocervical brush/spatula or cervical broom and placed in the ThinPrep Pap Test PreservCyt collection containers. The performance characteristics of this test have been verified by the [facility] Molecular Infectious Disease laboratory. Correlate with separately reported cytology results, as applicable. Interpretive data last revised 23 Testing performed by: [facility], [address] [place]., [address] Endocervical 06/03/2023 11:0 0 AM CDT 06/04/2023 3:49 PM CDT Narrative JIM - 06/05/2023 2:38 AM CDT Clinical history and diagnosis->routine Number of vials->1 Testing type->Screening Last menstrual period (date if known)->02/23/2023 Rama Gastelum CNM LAB BODY FLUIDS AND STOOLS OR DERABLES Final Result [facility] [address] [facility] Department [place] [address] [facility] * Colonoscopy (11/06/2021) Anatomical Region Laterality Modality Other us Historical Provider ENDOSCOPY PROCEDURES Jeane l Result from Last 3 Months or Most Recently Relevant to Health Maintenance Insurance [facility] Care Teams Marine Equipment Sales Engineer Relationship Specialty Start Date End Date Kish[place] [address] [place] [address] PCP - General Family Medicine 06/22/24
--- OUTSIDE RECORDS SUMMARY | 2024-12-27 14:03 | XMS_ITS | Clinical Summary ---
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 Assessment & Plan (10/24/2021 4:37 PM ROLLER CLEANER): - concern for possible covid - check covid test today - if neg possible other viral illness Palpitations 10/24/2021 Assessment & Plan (10/24/2021 4:37 PM ROLLER CLEANER): - EKG today with sinus tachycardia, rate [...] 06/10/2020 Assessment & Plan (10/24/2021 4:34 PM ROLLER CLEANER): - slight elevated today - rec if [...] TEST 10/12/2003 Td, adsorbed 10/23/2003 Tdap 05/01/2019,09/24/2017 Surgical History Surgery Date Site/Laterality Comments GALLBLADDER SURGERY 08/23/1997 - 08/22/1998 SECTION 08/23/1997 - 08/22/1998 2005 APPENDECTOMY 08/23/2003 - 08/22/2004 INCONTINENCE SURGERY 08/23/2004 - 08/22/2005 COLONOSCOPY 10/21/2021 - 11/20/2021 UPPER GASTROINTESTINAL ENDOSCOPY required dilation, concern for esophageal tear as result CHOLECYSTECTOMY 1997 SPINE SURGERY 2022 SHOULDER SURGERY Left Medical History Medical History Date Comments Seizures (HCC) 3 yrs ago, on no meds Colon polyp Eosinophilic esophagitis Delayed emergence from general anesthesia Sinusitis Dizziness March GERD (gastroesophageal reflux disease) Headache 07/09/22 Anemia 10/21/21 Anxiety Due to vertigo Hypertension Meningitis Thyroid disease Cavernous malformation Family History Medical History Relation Name Comments Cancer Father Tan Diabetes Father Tan Hypertension Father Tan Thyroid disease Father Tan Breast cancer Maternal Grandmother Cancer Mother Su Diabetes Mother Su Hypertension Mother Su Skin cancer Mother Su Thyroid disease Mother Su Breast cancer Paternal Grandmother Clotting disorder Sister Suresh Hypertension Sister Suresh Lupus Sister Suresh Seizures Sister Suresh Kidney disease Son Arden Anesthesia problems Neg Hx Relation Name Status Comments Father Tan Alive Maternal Grandmother Mother Su Alive Paternal Grandmother Sister Suresh Alive Son Arden Social History Tobacco Use Types Packs/Day Years [...] on file Legal Sex Female 2:29 AM ROLLER CLEANER Gender Identity Not on file Sexual Orientation Not on file Obstetrics History Para Term AB IAB SAB Ectopic Multiple Livin g Live Births 4 4 4 Date Outcome GA Total Labor Labor/2nd/3rd Weight Sex Type Anes PTL Ivonne A1 A5 Name Clin Term Term Term Term Last Filed Vital Signs Vital Sign Reading [...] 02/18/2024 9:16 AM CDT Plan of Treatment Health Maintenance Due Date Last Done Comments Hepatitis C Screening 1973 Pneumococcal vaccine <65 (1 of 2 - PCV) 1992 Zoster Vaccine (1 of 2) 2023 Covid-19 Vaccine (2 - 2023-2 5 season) 2024 08/20/2022 Cervical Cancer Screening 06/03/2024 06/03/2023, 07/2023 Depression Screening 10/24/2024 10/25/2023, 05/06/2023, 02/15/2023, Additional history exists Regular Well Visit/Exam 18-64 10/24/2024, 06/03/2023, 10/20/2022, Additional history exists Breast Cancer Screening-Mammogram 03/01/2025 03/01/2024, 02/19/2023, 03/11/2022, Additional history exists Influenza Vaccine (Season Ended) 2025 08/19/2022, 05/23/2020, 06/30/2005, Additional history exists DTaP/Tdap/Td Vaccine (3 - Td or Tdap) 05/01/2029 05/01/2019, 09/24/2017, 10/23/2003 Colon Cancer Screening-Colonoscopy 11/07/20312021 Hepatitis B Screening Completed 05/01/2019, 004 Procedures Procedure Name Priority Date/Time Associated Diagnosis [...] Roberto Mcguire M.D. RL: SOULEYMANE Report ID: [id number] Reading Location: [facility] Rob Valverde DO IMG MAMMO PROCEDURES Fin al Result * High Risk HPV DNA Detection with Genotyping (Molecular component) (06/03/2023 11:00 AM CDT) HPV HR 16 Not Detected Not Detected [facility] Comment:Testing performed by : [facility], [address] [place] [address]., [address] HPV HR 18 Not Detected Not Detected [facility] Comment:Testing performed by : [facility], [address] [place]., [address] HPV HR Non 16/18 Not Detected Not Detected [facility] Comment: Interpretive Data Nucleic acid amplification for [...] this test have been verified by the [facility] Molecular Infectious Disease laboratory. Correlate with separately reported cytology results, as applicable. Interpretive data last revised 23 Testing performed by: [facility], [address] [place]., [address] Endocervical 06/03/2023 11:0 0 AM CDT 06/04/2023 3:49 PM CDT Narrative JIM [facility] - 06/05/2023 2:38 AM CDT Clinical history and diagnosis->routine Number of vials->1 Testing type->Screening Last menstrual period (date if known)->02/23/2023 Rama Gastelum CNM LAB BODY FLUIDS AND STOOLS OR DERABLES Final Result [facility] [address] [facility] Department [place] [address] [facility] * Colonoscopy (11/06/2021) Anatomical Region Laterality Modality Other Historical Provider ENDOSCOPY PROCEDURES Jeane l Result from Last 3 Months or Most Recently Relevant to Health Maintenance Insurance [facility] Care Teams Brinell Tester Relationship Specialty Start Date End Date Kishore [place] [address] [place] [address] PCP - General Family Medicine 06/22/24
--- OUTSIDE RECORDS SUMMARY | 2024-12-27 14:03 | XMS_ITS ---
Author Organization [facility] Address [address] [facility] [address] [place] [address] Care Team Providers Care Manager Multicultural Name Role Phone Rob Valverde DO Primary Care Provider Aspena Randal Mullen [phone] REASON FOR VISIT MRI Facility Change Encounters Encounter Location Date Provider Diagnosis [facility] [address] [facility] [address] [place] [address] 03/01/2024 Randal Cook PLAN OF TREATMENT No Information
--- OUTSIDE RECORDS SUMMARY | 2024-12-27 14:04 | XMS_ITS | Continuity of Care Document ---
Author Name [facility]OD-MA Organization [facility] Care Team Providers Care Destination Specialist Name Role Phone [facility] Unavailable Unavailable Problems Combined list of problems from Department of Defense and Veterans Affairs facilities. It does not include entries that were removed or entered in error. Problem Status Onset Date Problem Type Date of Resolution Comments Source Eosinophilic esophagitis Active 6 Condition DoD Allergic rhinitis due to pollen Active Condition DoD Facial Myokymia Active Condition DoD REFRACTIVE ERROR - MYOPIA Active Condition DoD ASTIGMATISM Active Condition DoD Oral Contraceptives Active Condition Do D ALLERGIC RHINITIS - MOLD Active Condition DoD ALLERGIC RHINITIS - POLLEN TREES Active Condition DoD ALLERGIC RHINITIS - POLLEN RAGWEED Active Condition DoD ALLERGIC RHINITIS - POLLEN GRASSES Active Condition DoD nausea Inactive Condition DoD spinning dizziness (vertigo) Inactive Condition DoD visit for: issue repeat prescription for medication Inactive Condition DoD Outpatient Physician Consultation Active Condition DoD CYSTITIS ACUTE Inactive Condition DoD urinary symptoms Inactive Condition DoD pain during urination (dysuria) Inactive Condition DoD OBESITY EXOGENOUS Active Condition DoD TACHYCARDIA Active Condition DoD fainting (syncope) Active Condition DoD lightheadedness Inactive Condition [facility] visit for: issue repeat prescription Inactive Condition DoD Patient Education Inactive Condition DoD headache Inactive Condition DoD PALPITATIONS Active Condition DoD Laboratory Studies Inactive Condition Do D DEPRESSION WITH ANXIETY Active Condition DoD DYSPHAGIA Active Condition DoD MENORRHAGIA Active Condition DoD Body Mass Index Active Condition DoD visit for: screening exam Inactive Condition [facility] visit for: screening exam for malignant neoplasm cervix Inactive Condition DoD ESOPHAGEAL REFLUX Active Condition DoD GASTROENTERITIS VIRAL Inactive Condition DoD CONSTIPATION CHRONIC Inactive Condition DoD LACTASE DEFICIENCY SYNDROME Active Condition DoD ankle joint pain Active Condition motrin prn Do D WARTS PLANTAR Active Condition LN2 tx x 2, application of canthardin, rinse this pm. FU prn. Rec otc yovany acid pads 40% alternating with duct tape occlusion DoD Dietary Counseling Pertaining To Obesity Inactive Condition DoD OBESITY Active Condition DoD HYPERTENSION (SYSTEMIC) Active Condition DoD PLANTAR FASCIITIS Active Condition esquivel ndout given, motrin 600-800 tid x 2wks DoD CYSTOURETHROCELE Active Condition mos tly asympt for bulge but might be contributory to urinary incontinence and dyspareunia. DoD urinary loss of control Active Condition could be related to ant vag wall relaxation and urethral hypermobility, but need to r/o UTI due past hx of apparent recurrent (coital) UTI's; will schedule for urodynamics to further characterize USI vs OAB vs mixed vs NGB.Pending UAC&S for fanta . DoD FATIGUE Active Condition likley due to labetolol. Gradual taper off B-laura and monitor BP/HR closely. If sinus tach recurs, would try lopressor or diltiazem/calan . DoD STRESS INCONTINENCE Active Condition Do D ALLERGIC RHINITIS Active Condition DoD CARPAL TUNNEL SYNDROME Active Condition DoD OSTEOARTHRITIS Active Condition DoD visit for: new patient eye exam Inactive Condition DoD ROUTINE PELVIC EXAM Inactive Condition D oD FOOT SPRAIN RIGHT Inactive Condition DoD visit for: exam high-risk Active Condition MONITORING FOR KIDNEY ANOMALIES DoD ABN AFFECTING CARE OF MOTHER - ANTEPARTUM COND OR COMP Active Condition DoD SINUS TACHYCARDIA Active Condition wi th HTN, BP high, will increase labetalol from 100 to 200mg bid DoD Patient Counseling: Active Condition Educated Patient on medication side effects, orthostatic hypotension, rest, getting family assistance with other home children. DoD Patient Education - Proper Use Of Medications Active Condition DoD NORMAL CHECKUP - SECOND TRIMESTER Active Condition DoD Medications Combined list of outpatient medications from Department of Defense and Veterans Affairs facilities.Medications provided include 1) outpatient medications from the last 15 months, and 2) patient-reported medications. Medication Details Route Status Patient Instructions Prescription Expires Prescription Number Last Dispense Date Ordering Provider Order Date Order Qty Source AMOX TR-POTASSIU M CLAVULANATE (AMOXICILLI N/POTASSIUM CLAV), 875-125 MG, TABLET, ORAL, SANDOZ, 20 ea. BOTTLE Active [id number] 2023 14 Pharmac y Data Transac tion Service Facilit y CETIRIZINE HCL (cetirizine HCl), 10 MG, TABLET, ORAL, 'S LAB, 500 ea. BOTTLE Active [id number] 4 2023 90 Pharmac y Data Transac tion Service Facilit y CYCLOBENZAP RINE HCL (cyclobenza tony HCl), 10 MG, TABLET, ORAL, UNICHEM PHARMAC, 1000 ea. BOTTLE Active [id number] 4 2023 20 Pharmac y Data Transac tion Service Facilit y ESTRADIOL (estradiol) , 0.01 %, CREAM/APPL, VAGINAL, PADAGIS, 42.5 g TUBE Cancele d [id number] : 2023 0 Pharmac y Data Transac tion Service Facilit y ESTRADIOL (estradiol) , 0.01 %, CREAM/APPL, VAGINAL, PADAGIS, 42.5 g TUBE Cancele d [id number] : 2023 0 Pharmac y Data Transac tion Service Facilit y famotidine 40 mg tablet See Instruct ions, # 30 EA, 3 total refill(s ), Acute Complet ed 09/09/2023 3 2023 30.0 Ambulat ory Pharmac y gabapentin 100 mg capsule See dose instruct ions in comments , # 270 EA, 11 total refill(s ), Acute Complet ed 10/19/2023 3 2023 270.0 Ambulat ory Pharmac y LISINOPRIL (lisinopril ), 20 MG, TABLET, ORAL, LUPIN PHARMACEU, 1000 ea. BOTTLE Active [id number] 4 2023 90 Pharmac y Data Transac tion Service Facilit y LISINOPRIL (lisinopril ), 20 MG, TABLET, ORAL, LUPIN PHARMACEU, 1000 ea. BOTTLE Active [id number] 4 2023 90 Pharmac y Data Transac tion Service Facilit y meclizine 25 mg chew tablet See Instruct ions, # 30 EA, 1 total refill(s ), Hard Stop Complet ed 05/13/2024 3 2023 30.0 Ambulat ory Pharmac y METHYLPREDN ISOLONE (methylpred nisolone), 4 MG, TAB DS PK, ORAL, [employer], 21 ea. DOSE-PACK Active [id number] 4 2023 21 Pharmac y Data Transac tion Service Facilit y METHYLPREDN ISOLONE (methylpred nisolone), 4 MG, TAB DS PK, ORAL, [employer], 21 ea. DOSE-PACK Active [id number] 2023 21 Pharmac y Data Transac tion Service Facilit y montelukast 10 mg oral tablet TAKE ONE TABLET BY MOUTH 30 MINUTES PRIOR TO ALLERGY SHOTS DIRECTED , # 30 EA, 2 total refill(s ), Acute Complet ed 08/09/2023 2 2022 30.0 Ambulat ory Pharmac y montelukast 10 mg oral tablet TAKE ONE TABLET BY MOUTH 30 MINUTES PRIOR TO ALLERGY SHOTS DIRECTED , # 30 EA, 3 total refill(s ), Acute Complet ed 09/09/2023 3 2023 30.0 Ambulat ory Pharmac y MONTELUKAST SODIUM (MONTELUKAS T SODIUM), 10 MG, TABLET, ORAL, CAMBER PHARMACE, 1000 ea. BOTTLE Cancele d [id number] : 2023 0 Pharmac y Data Transac tion Service Facilit y olopatadine 0.1% ophthalmic solution INSTILL 1 DROP IN EACH EYE TWICE A DAY DIRECTED , # 5 mL, 11 total refill(s ), Acute Complet ed 07/30/2023 2 2022 5.0 Ambulat ory Pharmac y omeprazole 40 mg oral delayed release capsule TAKE 1 CAPSULE BY MOUTH EVERY MORNING, # 90 EA, 2 total refill(s ), Acute Complet ed 04/22/2023 3 2022 90.0 Ambulat ory Pharmac y ondansetron 4 mg ODT See Instruct ions, 0, # 30 EA, 1 total refill(s ), Hard Stop Complet ed 05/13/2024 3 2023 30.0 Ambulat ory Pharmac y PREGABALIN (pregabalin ), 150 MG, CAPSULE, ORAL, AMNEAL PHARMACE, 90 ea. BOTTLE Active [id number] 2023 60 Pharmac y Data Transac tion Service Facilit y PREGABALIN (pregabalin ), 75 MG, CAPSULE, ORAL, NOVADOZ PHARMAC, 90 ea. BOTTLE Active [id number] 4 2023 60 Pharmac y Data Transac tion Service Facilit y PREGABALIN (pregabalin ), 75 MG, CAPSULE, ORAL, NOVADOZ PHARMAC, 90 ea. BOTTLE Active [id number] 2023 60 Pharmac y Data Transac tion Service Facilit y sertraline 25 mg oral tablet TAKE ONE TABLET DAILY, # 30 EA, 3 total refill(s ), Acute Complet ed 07/30/2023 2 2022 30.0 Ambulat ory Pharmac y Allergies, Adverse Reactions, Alerts Combined list of allergies from Department of Defense and Veterans Affairs facilities. It does not include entries that were removed or entered in error. Substance Category Reaction Severity Reaction type Status Date Reported Comments Source gatifloxacin Propensity to adverse reactions to drug Rash Active 5 Unknown Organizat ion TEQUIN (GATIFLOXACIN ) Drug allergy (disorder) Rash active 5 OCTAVIO Burnham Immunizations Combined list of available immunizations from the Department of Defense and Veterans Affairs facilities. Immunization Series Date Given Administered By Site Reaction Lot Number CVX Code Drug Repacker Status Comments Source influenza, injectable, quadrivalent- pf 2021 Hubert Arm [id number] 150 GlaxoSmithKli ne complet ed influenza , injectabl e, quadrival ent-pf 08/19/22 Given Ambulat ory Pharmac y Influenza, injectable, quadrivalent, preservative free 1 2021 Unknown, Provider [id number] 150 SmithKline (JESS) complet ed Influenza , injectabl e, quadrival ent, preservat marian free DoD hepatitis A-hepatitis B vaccine 2018 zBaref t Arm [id number] 104 GlaxoSmithKli ne complet ed hepatitis A-hepatit is B vaccine 05/01/19 Given Ambulat ory Pharmac y tetanus, diphtheria, acellular pertu is 2018 zzLef t Arm [id number] 115 GlaxoSmithKli ne complet ed tetanus, diphtheri a, acellular pertussis 05/01/19 Given Ambulat ory Pharmac y hepatitis A and hepatitis B vaccine 1 2018 Unknown, Provider [id number] 104 SmithKline (SKAnali) complet ed hepatitis A and hepatitis B vaccine DoD tetanus toxoid, reduced diphtheria toxoid, and acellular pertu is vaccine, adsorbed 1 2018 Unknown, Provider [id number] 115 SmithKline (SKB) complet ed tetanus toxoid, reduced diphtheri a toxoid, and acellular pertussis vaccine, adsorbed DoD influenza virus vaccine, whole virus 2004 [id number] 16 sanofi pasteur complet ed influenza virus vaccine, whole virus 06/30/05 Given Ambulat ory Pharmac y influenza virus vaccine, whole virus 1 2004 Unknown, Provider [id number] 16 Sanofi Pasteur (PMC) complet ed influenza virus vaccine, whole virus DoD influenza virus vaccine, whole virus 2003 zzLef t Arm [id number] 16 Novartis Pharmaceutica ls complet ed influenza virus vaccine, whole virus 10/23/03 Given Ambulat ory Pharmac y hepatitis A-hepatitis B vaccine 2003 zzLef t Arm [id number] 104 [facility] complet ed hepatitis A-hepatit is B vaccine 10/23/03 Given Ambulat ory Pharmac y tetanus-dipht h toxoids (Td) adult/adol 2003 zzLef t Arm [id number] 09 sanofi pasteur complet ed tetanus-d iphth toxoids (Td) adult/ado l 10/23/03 Given Ambulat ory Pharmac y poliovirus vaccine, inactivated 2003 zzLef t Thigh [id number] 10 sanofi pasteur complet ed polioviru s vaccine, inactivat ed 10/23/03 Given Ambulat ory Pharmac y tetanus and diphtheria toxoids, adsorbed, preservative free, for adult use (2 Lf of tetanus toxoid and 2 Lf of diphtheria toxoid) 1 2003 Unknown, Provider [id number] 09 Sanofi Pasteur (PMC) complet ed tetanus and diphtheri a toxoids, adsorbed, preservat marian free, for adult use (2 Lf of tetanus toxoid and 2 Lf of diphtheri a toxoid) DoD poliovirus vaccine, inactivated 1 2003 Unknown, Provider [id number] 10 Sanofi Pasteur (PMC) complet ed polioviru s vaccine, inactivat ed DoD influenza virus vaccine, whole virus 1 2003 Unknown, Provider [id number] 16 PowderJect Pharmaceutica ls (PWJ) complet ed influenza virus vaccine, whole virus DoD hepatitis A and hepatitis B vaccine 1 2003 Unknown, Provider [id number] 104 [facility] (SKB) complet ed hepatitis A and hepatitis B vaccine DoD tuberculin purified protein derivative 2003 zzLef t Arm [id number] 96 sanofi pasteur complet ed Patient Tolerance : Negative Ambulat ory Pharmac y tuberculin skin test; purified protein derivative solution, intradermal 1 2003 Unknown, Provider [id number] 96 Sanofi Pasteur (PMC) complet ed tuberculi n skin test; purified protein derivativ e solution, intraderm al DoD Encounters Combined list of: 1) Encounters from Department of Veterans Affairs facilities going backup to the last 18 months, not all VA inpatient encounters are included; 2) Encounters from the Department of Defense facilities going backup to 280 months. Location Location Details Encounter Type Encounter Number Reason For Visit Attending Provider ADM Date DC Date Status Disposition Source OCTAVIO Haile([employer] [facility] ([facility]) ) OUTPATIENT [id number] f/u LAUREN Sagastume 11/04 Released w/o Limitations OCTAVIO Bowser([employer] [facility] OCTAVIO Haile([employer] [facility] ([facility]) ) TELE CONSULT [id number] ref: w/ heart LAUREN HOOD 11/07 OCTAVIO Bowser([employer] [facility] OCTAVIO Haile([employer] [facility] ([facility]) ) OUTPATIENT [id number] OB Wt. check MARTA BAIRD 11/11 Released w/o Limitations OCTAVIO Bowser([employer] [facility] OCTAVIO Haile([facility]) TELE CONSULT [id number] pt states airline s cannot work with her getting back early ADEHUGO FREGOSO Leanne 12/31 OCTAVIO Bowser([facility]) OCTAVIO Haile([facility]) OUTPATIENT [id number] VERONICA Mckay 02/04 Released w/o Limitations Ryan NoonaninOCTAVIO moise([facility]) [facility] AmilcarOCTAVIO oneil([facility]) OUTPATIENT [id number] nst and carlos alberto EDMAR VERONICA YOHANA 02/06 [facility]itations [facility] MamtaOCTAVIO chamberlain([facility]) [facility] FROM OTHER THAN ER OR APU [id number] 02/09 DISCHARGED HOME [facility] Amilcarronelyariel OCTAVIO ruffin([employer] [facility] ([facility]) ) OUTPATIENT [id number] foot pain X 5 weeks, OTC not working ; 6 weeks postpar cheryl IGOR EPPERSON 04/23 Released with Work/Duty Limitations [facility] MamtaOCTAVIO chamberlain(Fransicoel son [facility] ([facility] [place] [address](Arnav antoine Raptor Team, [facility]) OUTPATIENT [id number] check htn AHLTA SYSTEM ADMINISTRA TOR 06/23 [facility] [place] [address](Tessa Barajas Team, [facility]) [facility] [place] [address](Modeling Agency Manager ecology Clinic, [facility]) OUTPATIENT [id number] rou pap no problem missed her postpar cheryl THEA CHASEA 06/30 Released w/o Limitations [facility] [place] [address](G shonda gy Clinic, [facility]) [facility] [place] [address](Arnav antoine [facility]IENT [id number] CHOL EVAL AHLTA SYSTEM ADMINISTRA TOR 07/10 [facility] [place] [address]([facility]ajas Team[facility] [place] [address](Arnav antoine Raptor Team[facility] OUTPATIENT [id number] pt w/ N/V/D,p t breastf eeding w/redne ss L breast, sorenes s both breasts AHLTA SYSTEM ADMINISTRA TOR 10/09 [facility] [place] [address](Tessa orellana Raptor Team, [employer]) [facility] [place] [address](Opt ometry, [facility]) OUTPATIENT [id number] exam 15 early MARTA ROBERTS 11/24 Released w/o Limitations [facility] [place] [address](O ptometr y, [facility]) [facility] [place] [address](Arnav antoine Raptor Team, [facility]) OUTPATIENT [id number] wrists/ hands pain/nu mbness/ does not want ER visit DAVID CHANDRA 01/22 Released w/o Limitations [facility] [place] [address](Tessa orellana Raptor Team, [facility]) [facility] [place] [address](Arnav antoine Raptor Team, [facility]) OUTPATIENT [id number] rapid heartbe at/head aches/t ingling in top right teeth.. advised ER ALMA CORONEL 07/06 Released w/o Limitations [facility] [place] [address](Tessa West, [facility]) [facility] [place] [address](Arnav antoine Raptor Team, [facility]) OUTPATIENT [id number] EVAL BP MARTA BUSH 08/06 Released w/o Limitations [facility] [place] [address](Tessa West, [employer]) [facility] [place] [address](Modeling Agency Manager ecology [facility]) OUTPATIENT [id number] STRESS INCONTI ZOE LUONG 08/06 Released w/o Limitations [facility] [place] [address](Michelle merchant [facility]) [facility] [place] [address](Arnav antoine Raptor Team, [employer]) OUTPATIENT [id number] EVAL FOOT MARTA BUSH 08/10 Released w/o Limitations [facility] [place] [address](Tessa West, [facility]) [facility] [place] [address](Arnav Barajas Team, [employer] VERMA) OUTPATIENT [id number] f/up for meds for b/press ure DAVID CHANDRA L 09/09 Released w/o Limitations [facility] [place] [address](Tessa Barajas Team, [employer] VERMA) [facility] [place] [address](Chanelle matology, [facility]) OUTPATIENT [id number] NAVEEN Haney 10/25 Released w/o Limitations [facility] [place] [address](Deanna rm,[facility]) [facility] [place] [address](MISA Orellana Team, GERARDO (inactive )) OUTPATIENT [id number] right ankle pain..p t states the ankle is not frac... if so pt was advelidiad YONI Ragland 11/15 Released w/o Limitations [facility] [place] [address](Jazzmine West, KASHARI (inacti ve)) [employer]([facility]) OUTPATIENT [id number] UPSET STOMACH , VOMITTI NG AND CONSTIP ATION ZHANG GILES 12/26 Released w/o Limitations [employer](F amily Practic e) [employer](Modeling Agency Manager ecology) OUTPATIENT [id number] ANNUAL PAP SLOAN CHANDRA B 04/09 Released w/o Limitations [employer](G ynecolo gy) [employer](Modeling Agency Manager ecology) TELE CONSULT [id number] SLOAN CHANDRA B 04/24 [employer](G ynecolo gy) [employer]([facility]) OUTPATIENT [id number] DIFFCUL TIES SWOLLOW ING AND SUGAR LEVELS SEEM TO BE OFF SEASTEVE KELLEY 04/29 Released w/o Limitations [employer](F amily Practic e) [employer]([facility]) TELE CONSULT [id number] 72 Hr///HE Fitzpatrick 05/07 Referred for Appointment [employer]([facility]) [employer]([facility]) TELE CONSULT [id number] 72 hr//kayla MARTELL EH Ty 05/08 Referred for Appointment [employer](F amily Practic e) [facility]) TELE CONSULT [id number] receive d results of barium study. KM AGUILAR 05/08 Referred for Appointment [employer](F amily Practic e) [facility]) TELE CONSULT [id number] 24HR/NU RSE NICHOLAS JEFFYOHANAAugustin Saab 05/20 Referred for Appointment [employer](F amily Practic e) [facility]) OUTPATIENT [id number] GO OVER LAB RESULTS /GLUCOS E DENELSBECK , JULITA R 05/23 Released w/o Limitations [employer](F amily Practic e) [facility]) OUTPATIENT [id number] F/U FOR THYROID [place]K , JULITA R 07/08 Released w/o Limitations [employer](F amily Practic e) [facility]) OUTPATIENT [id number] Depress ion/Anx ieNAVEEN Cunningham 11/11 Released w/o Limitations [employer](F amily Practic e) [facility]) TELE CONSULT [id number] 72HR/NU RSE NICHOLAS JEFFYOHANAAugustin Saab 11/24 Referred for Appointment [employer](F amily Practic e) [facility]) OUTPATIENT [id number] RENEW ANTIDEP RESSANT MEDICAT ION [place] , JULITA R 12/03 Released w/o Limitations [employer](F amily Practic e) [facility]) TELE CONSULT [id number] 72HR/ME D REFILL DENEL[place]K , JULITA R 12/11 [employer](F amily Practic e) [facility]) OUTPATIENT [id number] F/U FOR ANXIETY //F/U FOR BLOOD PRESSUR E [place] , JULITA R 01/07 Released w/o Limitations [employer](F amily Practic e) [employer] Stevan VERMA ([facility]Sco tt [facility] Team 3) OUTPATIENT [id number] blood pressur e meds [phone] SINGH LEE 05/11 Released w/o Limitations [address] [place] [address] [facility])([facility] Team 3) [address] [place] [address])([facility] Team 3) OUTPATIENT [id number] allergi es causing breathi ng problem s - [id number] KEVEN CASPER 06/09 Released w/o Limitations [address] [place] [address])([facility] Team 3) [address] [place] [address])(War rior [facility] Med Cln Tm A Ad) TELE CONSULT [id number] vitamin D level is low 24 NAEL MERAZ 06/[address] [place] [address])([facility] Tm A Ad) [address] [place] [address])([facility] Team 3) TELE CONSULT [id number] Notes Entered by: DELMA ALANIZ 14 Jan 2012 1116 ------- ------- ------- ------- -- High blood pressur e, heartra te, dizzine ss after working outside ALMA Gallegos 01/[address] [place] [address])([facility] Team 3) [address] [place] [address])([facility] Team 3) OUTPATIENT [id number] F/U blood pressur e concern s [phone] ZHANG GILES 02/09 Released w/o Limitations [address] [place] [address])([facility] Team 3) [address] [place] [address])([facility] Team 3) TELE CONSULT [id number] Notes Entered by: KEVEN SULLIVAN 01 Mar 2012 0956 ------- ------- ------- ------- -- Tcon for lab results Dr Unique roca [phone] ALMA Harding 03/[address] [place] [address])([facility] Team 3) [address] [place] [address])([facility] Team 3) TELE CONSULT [id number] Notes Entered by: DELMA ALANIZ 04 Mar 2012 0849 ------- ------- ------- ------- -- Lab results Unique frankt ALMA ABEBE 03/[address] [place] [address])([facility] Team 3) [address] [place] [address])([facility] Team 3) TELE CONSULT [id number] Notes Entered by: JULIAN CRWAFORD 04 Mar 2012 1500 ------- ------- ------- ------- -- Cardiol ogZHANG Chiang 03/[address] [place] [address])([facility] Team 3) [address] [place] [address])([facility] Team 3) TELE CONSULT [id number] Notes Entered by: JULIAN CRAWFORD 15 Mar 2012 0650 ------- ------- ------- ------- -- Urine Culture ALMA ABEBE 03/[address] [place] [address])([facility] Team 3) [address] [place] [address])([facility] Team 3) TELE CONSULT [id number] Notes Entered by: GENESIS TRIPATHI CIA 14 Apr 2012 1022 ------- ------- ------- ------- -- Lab and urine test results wanted - unique roca - dino/[facility] VANESSA DYSON 04/[address] [place] [address])([facility] Team 3) [address] [place] [address])([facility] Tm A Ad) TELE CONSULT [id number] Notes Entered by: BORIS BENSON 02 Jun 2012 1559 ------- ------- ------- ------- -- Network Results -CARDIO LOGY 05/18/12 ZHANG GILES 06/[address] [facility] Stevan [facility])(W arrior Op Med Cln Tm A Ad) [facility] Medical [facility])(Sco tt [facility] Team 3) TELE CONSULT [id number] Notes Entered by: KEVEN SULLIVAN 20 Jul 2012 0829 ------- ------- ------- ------- -- Med refill Dr Calhoun chanelle ph [phone] VANESSA DYSON 07/[address] [place] [address] [facility]van [facility])(S cott [facility] Team 3) [address] [place] [address] Stevan [facility])(War rior Op Med Cln Tm A Ad) OUTPATIENT [id number] Ear and stomach Pain possibl e vertigo per pt H# MINNIE MONCADA 10/31 Released w/o Limitations [address] [place] [address] Stevan [facility])(W arrior Op Med Cln Tm A Ad) [facility] Medical [facility])(All ergy Resource Sharing) OUTPATIENT [id number] Allergi c SAMARA Dowling 11/29 Released w/o Limitations [address] [place] [address] Stevan [facility])(A llergy [facility] e Sharing ) [address] [place] [address])(War rior Op Med Cln Tm A Ad) OUTPATIENT [id number] F/U blood pressur e [phone] MINNIE MONCADA 12/05 Released w/o Limitations [address] [place] [address] Stevan [facility])(W arrior Op Med Cln Tm A Ad) [address] [place] [address])(Opt ometry) OUTPATIENT [id number] eye exam [phone] JOAN AKERS 10/02 Released w/o Limitations [address] [place] [address])(O ptometr y) [address] [place] [address])(Sco tt [facility] Fam Res Tm Red) TELE CONSULT [id number] Notes Entered by: Ty CHERRY 30 Oct 2013 1217 ------- ------- ------- ------- -- Med refill MARYBETH EDUARDO 10/30 [facility] Medical Group [employer] [facility] ([facility])(S [facility] Fam Res Tm Red) [facility] Medical Group [employer] [facility] ([facility])(Pro [facility] Fam Res Tm Green) OUTPATIENT [id number] [facility] [phone] MARGARITA ARELLANO 11/10 Released w/o Limitations [address] [place] [address] Group [employer] [facility] ([facility])([facility] Fam Res Tm Green) [facility] Medical Group [employer] ([facility])(Pro [facility] Fam Res Tm Gold) TELE CONSULT [id number] Notes Entered by: HAILEY GONZALEZ 15 Nov 2013 0927 ------- ------- ------- ------- -- Blood pressur e not staying down - Adan MARYBETH EDUARDO 11/15 [facility] Medical Group [employer] [place] ([facility])([facility] Fam Res Tm Gold) [address] [place] [address] [employer] [facility] ([facility])(All ergy Resource Sharing) OUTPATIENT [id number] allergy test SAMARA ROTH 11/28 Released w/o Limitations [address] [place] [address] Group [employer] [place] ([facility])(A llergy Resourc e Sharing ) [address] [place] [address] [employer] [place] ([facility])([facility] Fam Res Tm Green) OUTPATIENT [id number] F/U blood pressur e MARGARITA ARELLANO 12/01 Released w/o Limitations [address] [place] [address] Group [employer] [place] ([facility])([facility] Fam Res Tm Green) [facility] Medical Group [employer] ([facility])(All ergy Resource Sharing) OUTPATIENT [id number] Notes Entered by: Ty LOGAN ON06 Feb 2014 1008 ------- ------- ------- ------- -- allergy shots LAURENCE LOGAN 02/06 Released w/o Limitations [address] [place] [address] Stevan [facility] ([facility])(A llergy Resourc e Sharing ) [address] [place] [address] Stevan [facility])(All ergy) OUTPATIENT [id number] Notes Entered by: HUGO HOOKS 13 Feb 2014 0944 ------- ------- ------- ------- -- Allergy shots HUGO KHAN 02/13 Released w/o Limitations [address] [place] [address] Stevan [facility] ([facility])(A llergy) [address] [place] [address] Stevan [facility])(All ergy Resource Sharing) OUTPATIENT [id number] Notes Entered by: Ty LOGAN 20 Feb 2014 1005 ------- ------- ------- ------- -- allergy shots LAURENCE LOGAN 02/20 Released w/o Limitations [address] [place] [address] Stevan [facility])(A llergy Resourc e Sharing ) [address] [place] [address] Ste[facility])(Sco [facility] Fam Res Tm Green) TELE CONSULT [id number] Notes Entered by: HAILEY GONZALEZ 20 Feb 2014 1005 ------- ------- ------- ------- -- Medicat [facility] renewal - Arellano - BHARGAV THOMPSON 02/[address] [place] [address] Stevan [facility])(S [facility] Fam Res Tm Green) [address] [place] [address] [employer])(All ergy Resource Sharing) OUTPATIENT [id number] Notes Entered by: Ty LOGAN 27 Feb 2014 1329 ------- ------- ------- ------- -- allergy shots LAURENCE LOGAN 02/27 Released w/o Limitations [address] [place] [address] Group [employer] LAWSON ([facility])(A llergy Resourc e Sharing ) [address] [place] [address] Stevan [facility])(All ergy Resource Sharing) OUTPATIENT [id number] Notes Entered by: Ty LOGAN 06 Mar 2014 1045 ------- ------- ------- ------- -- allergy shots HUGO KHAN 03/06 Released w/o Limitations [employer] ([facility])(A llergy Resourc e Sharing ) [employer] ([facility])(All ergy) OUTPATIENT [id number] Notes Entered by: HUGO HOOKS 13 Mar 2014 0916 ------- ------- ------- ------- -- Allergy gemma KHAN HUGO ALMANZA 03/13 Released w/o Limitations [employer] [facility] ([facility])(A llergy) [facility] [employer] ([facility])(Sco tt [facility] Fam Res Tm Green) OUTPATIENT [id number] f/u for bp [phone] MARGARITA ARELLANO 03/14 Released w/o Limitations [facility] Medical Group [employer] ([facility])(S cott [facility] Fam Res Tm Green) [facility] [employer] ([facility])(All ergy) OUTPATIENT [id number] Notes Entered by: HUGO HOOKS 20 Mar 2014 0842 ------- ------- ------- ------- -- Allergy LAURENCE Rebollar 03/20 Released w/o Limitations [facility] Medical Group [employer] [facility] ([facility])(A llergy) [facility] Medical Group [employer] ([facility])([facility]) OUTPATIENT [id number] FABIANO NARANJO 03/23 Released w/o Limitations [facility] Medical [employer] ([facility])(O [facility]) [facility] Medical [employer] ([facility])(All ergy Resource Sharing) OUTPATIENT [id number] Notes Entered by: Ty LOGANATHAN 27 Mar 2014 0933 ------- ------- ------- ------- -- allergy LAURENCE Rebollar 03/27 Released w/o Limitations [employer] ([facility])(A llergy Resourc e Sharing ) [facility] [employer] ([facility])(All ergy) OUTPATIENT [id number] Notes Entered by: HUGO HOOKS 03 Apr 2014 1558 ------- ------- ------- ------- -- Allergy shotHUGO DunnSES 04/03 Released w/o Limitations [address] [place] [address] Group [place] ([facility])(A llergy) [address] [place] [address] ([facility])(All ergy) OUTPATIENT [id number] Notes Entered by: HUGO HOOKS 10 Apr 2014 0902 ------- ------- ------- ------- -- Allergy shotHUGO Dunn CAMI 04/10 Released w/o Limitations [address] [place] [address] Group [place] ([facility])(A llergy) [address] [place] [address])(All ergy) OUTPATIENT [id number] Notes Entered by: HUGO HOOKS 17 Apr 2014 1014 ------- ------- ------- ------- -- Allergy HUGO Brownlee CAMI 04/17 Released w/o Limitations [address] [place] [address] Group [place] ([facility])(A llergy) [address] [place] [address])(All ergy Resource Sharing) OUTPATIENT [id number] Notes Entered by: Ty LOGAN 01 May 2014 0920 ------- ------- ------- ------- -- allergy shot LAURENCE LOGAN 05/01 Released w/o Limitations [address] [place], [place] [address]B ([facility])(A llergy Resourc e Sharing ) [address] [place], [place] [address]B ([facility])([facility]) OUTPATIENT [id number] Notes Entered by: BROOKE PACHECO 01 May 2014 1136 ------- ------- ------- ------- -- Weight loss JOHNATHON PACHECO 05/01 Released w/o Limitations [address] [place] [address] Group [employer] ([facility])(N utritio nal Medicin e) [address] [place], [place] [address]B ([facility])(All ergy Resource Sharing) OUTPATIENT [id number] Notes Entered by: Ty LOGANATHAN 15 May 2014 0952 ------- ------- ------- ------- -- allergy shots LAURENCE LOGAN 05/15 Released w/o Limitations [facility] Medical Group [employer] ([facility])(A llergy Resourc e Sharing ) [facility] Medical Group [employer] ([facility])(All ergy) OUTPATIENT [id number] Notes Entered by: Ty LOGAN 01 Jun 2014 1238 ------- ------- ------- ------- -- Allergy shots LAURENCE LOGAN 06/01 Released w/o Limitations [facility] Medical Group [employer] ([facility])(A llergy) [address] [place] [address] Group [employer] ([facility])(All ergy Resource Sharing) OUTPATIENT [id number] Notes Entered by: Ty LOGAN 04 Jul 2014 1435 ------- ------- ------- ------- -- allergy shots DEENA ELLIS 07/04 Released w/o Limitations [facility] Medical Group [employer] ([facility])(A llergy Resourc e Sharing ) [facility] Medical Group [employer] ([facility])(All ergy) OUTPATIENT [id number] Notes Entered by: HUGO HOOKS 03 Aug 2014 0856 ------- ------- ------- ------- -- Allergy shots HUGO KHAN 08/03 Released w/o Limitations [facility] Medical [employer] ([facility])(A llergy) [facility] [employer] ([facility])(All ergy) OUTPATIENT [id number] Notes Entered by: HUGO HOOKS 05 Sep 2014 1355 ------- ------- ------- ------- -- Allergy shots HUGO KHAN 09/05 Released w/o Limitations [facility] [employer] ([facility])(A llergy) [facility] [employer] ([facility])(All ergy) TELE CONSULT [id number] Notes Entered by: HUGO HOOKS 05 Sep 2014 1357 ------- ------- ------- ------- -- Medicat ion refill SHERRY THURMAN 09/[address] [place] [address] Group [place] ([facility])(A llergy) [address] [place] [address])(All ergy Resource Sharing) OUTPATIENT [id number] Yearly follow up SHERRY THURMAN 09/24 Released w/o Limitations [address] [place] [address] Group [facility])(A llergy Resourc e Sharing ) [address] [place] [address])(All ergy Resource Sharing) OUTPATIENT [id number] Notes Entered by: STEVE ROWAN 24 Sep 2014 0948 ------- ------- ------- ------- -- Allergy Shots SHERRY THURMAN 09/24 Released w/o Limitations [address] [place] [address] Group [facility])(A llergy Resourc e Sharing ) [address] [place] [address])(Sco [facility] Fam Res Tm Green) TELE CONSULT [id number] Notes Entered by: ABDIAS SKELTON 27 Sep 2014 1313 ------- ------- ------- ------- -- Med refill/ adan/Martha [phone] MARGARITA ARELLANO 09/[address] [place] [address])(S [facility] Fam Res Tm Green) [address] [place] [address])(All ergy Resource Sharing) OUTPATIENT [id number] Notes Entered by: STEVE ROWAN 22 Oct 2014 1000 ------- ------- ------- ------- -- Allergy Shots SHERRY THURMAN 10/22 Released w/o Limitations [address] [place] [address] Group [place] ([facility])(A llergy Resourc e Sharing ) [address] [place] [address])(All ergy Resource Sharing) OUTPATIENT [id number] follow up SHERRY THURMAN 11/26 Released w/o Limitations [employer] ([facility])(A llergy Resourc e Sharing ) [employer] ([facility])(All ergy Resource Sharing) OUTPATIENT [id number] Notes Entered by: STEVE ROWAN 26 Nov 2014 1126 ------- ------- ------- ------- -- SHERRY CLEMENTE 11/26 Released w/o Limitations [employer] ([facility])(A llergy Resourc e Sharing ) [facility] [employer] ([facility])(All ergy Resource Sharing) OUTPATIENT [id number] Notes Entered by: Ty LOGAN 24 Dec 2014 1036 ------- ------- ------- ------- -- SHERRY CLEMENTE 12/24 Released w/o Limitations [facility] Medical Group [employer] [facility] ([facility])(A llergy Resourc e Sharing ) [facility] [employer] ([facility])(All ergy Resource Sharing) OUTPATIENT [id number] Notes Entered by: STEVE ROWAN 21 Jan 2015 0956 ------- ------- ------- ------- -- SHERRY CLEMENTE 01/21 Released w/o Limitations [employer] ([facility])(A llergy Resourc e Sharing ) [facility] [employer] ([facility])(All ergy Resource Sharing) OUTPATIENT [id number] Notes Entered by: Ty LOGAN 30 Jan 2015 1013 ------- ------- ------- ------- -- SAMARA APODACA 01/30 Released w/o Limitations [employer] ([facility])(A llergy Resourc e Sharing ) [facility] [employer] ([facility])(All ergy Resource Sharing) OUTPATIENT [id number] Notes Entered by: STEVE ROWAN 27 Feb 2015 1041 ------- ------- ------- ------- -- SAMARA APODACA 02/27 Released w/o Limitations [facility] Medical Group [employer] ([facility])(A llergy Resourc e Sharing ) [address] [place] [address] Group [employer] VERMA [facility])(All ergy) OUTPATIENT [id number] Notes Entered by: DESIRAE BOYLE 22 Mar 2015 0853 ------- ------- ------- ------- -- SAMARA APODACA 03/22 Released w/o Limitations [facility] Medical Group [employer] ([facility])(A llergy) [address] [place] [address] Group [employer] [facility]SON[facility])(All ergy) OUTPATIENT [id number] Notes Entered by: DESIRAE BOYLE 19 Apr 2015 1549 ------- ------- ------- ------- -- SAMARA APODACA 04/19 Released w/o Limitations [address] [place] [address] Group [employer] ([facility])(A llergy) [address] [place] [address] Group [employer] [facility])(Sco tt [facility] Fam Res Tm Green) TELE CONSULT [id number] Notes Entered by: JORGE LUIS MORRIS 20 May 2015 1005 ------- ------- ------- ------- -- ER f/u (referr al request )/Adan /[phone] BHARGAV THOMPSON 05/[address] [place] [address] Group [employer] [facility]SON[facility]S cott [facility] Fam Res Tm Green) [address] [place] [address] Stevan [facility] [facility])(All ergy Resource Sharing) OUTPATIENT [id number] Notes Entered by: STEVE ROWAN 24 May 2015 1036 ------- ------- ------- ------- -- SAMARA APODACA 05/24 Released w/o Limitations [facility] Medical Group [employer] ([facility])(A llergy Resourc e Sharing ) [address] [place] [address] Group [employer] ([facility])(All ergy Resource Sharing) OUTPATIENT [id number] Notes Entered by: DESIRAE BOYLE 12 Jun 2015 1242 ------- ------- ------- ------- -- SHERRY CLEMENTE 06/12 Released w/o Limitations [address] [place] [address])(A llergy [facility] e Sharing ) [address] [place] [address])(Sco tt [facility] Fam Res Tm Green) TELE CONSULT [id number] Notes Entered by: ROLY TAYLOR 25 Jun 2015 0820 ------- ------- ------- ------- -- Sx - blood in vomit, painful diarrhe a - REFUSED E.R - Adan - [phone]* BHARGAV THOMPSON 06/[address] [place] [address])(S [facility] [employer] Res Tm Green) [address] [place] [address])(Sco tt [facility] Fam Res Tm Green) TELE CONSULT [id number] Notes Entered by: MARIA G MIDDLETON 04 Oct 2015 1519 ------- ------- ------- ------- -- Network Results -GASTRO ENTEROL OGY 10/02/15 UPPER ENDOSCO PY PATRICIO HERNANDEZ 10/[address] [place] [address])(S [facility] Fam Res Tm Green) [address] [place] [address])(Sco tt [facility] Fam Res Tm Green) TELE CONSULT [id number] Notes Entered by: MARIA G MIDDLETON 11 Oct 2015 1005 ------- ------- ------- ------- -- Network Results -GASTRO ENTEROL OGY 10/10/15 COLONOS COPY MARGARITA KIM 10/[address] [place] [address])(S [facility] Fam Res Tm Green) [address] [place] [address])([facility] ication Refill Clinic) TELE CONSULT [id number] Notes Entered by: HAILEY GONZALEZ 12 Nov 2015 1002 ------- ------- ------- ------- -- Rx renewal - Adan - KARIME NICHOLSIE PAXTON 11/11 Referred for Appointment [address] [place] [address] Stevan B [facility])(Franck macdonald on Refill Clinic) [address] [place], [place] [address]B [facility])(Sco tt [facility] Fam Res Tm Green) OUTPATIENT [id number] annual f/u for HTN MARGARITA ARELLANO 12/09 Released w/o Limitations [address] [place] [address] [employer] ([facility])(S cott [facility] Fam Res Tm Green) [address] [place], [place] [address]B [facility])(Sco tt [facility] Fam Res Tm Green) OUTPATIENT [id number] Notes Entered by: Augustin CHANDRA 06 Jan 2016 1009 ------- ------- ------- ------- -- Strep Test SANDOR EATON 01/05 Released w/o Limitations [address] [place] [address] Stevan [facility])(S cott [facility] Fam Res Tm Green) [address] [place] [address] [employer] B [facility])(Sco tt [facility] Fam Res Tm Green) TELE CONSULT [id number] Notes Entered by: HAILEY GONZALEZ 15 May 2016 0909 ------- ------- ------- ------- -- Ovidio saab apr madiet - Yuripa Bryanna - - RITU Membreno 05/15 Other Not Elsewhere Classified [address] [place] [address] Group [employer] ([facility])(S cott [facility] Fam Res Tm Green) [address] [place] [address] [employer]van B [facility])(Sco tt [facility] Fam Res Tm Green) TELE CONSULT [id number] Notes Entered by: MARIA G MIDDLETON 11 Aug 2016 1044 ------- ------- ------- ------- -- Network Results -FERNANDO Spaulding 04/22/16 SILVIANO BRIDGES 08/11 Referred for Appointment [address] [place] [address] Group [employer] ([facility])(S cott [facility] Fam Res Tm Green) [address] [place] [address] [facility])(Sco tt [facility] Fam Res Tm Green) TELE CONSULT [id number] Notes Entered by: MARIA G MIDDLETON 25 Aug 2016 0706 ------- ------- ------- ------- -- Network Results -ALLERG Y 6 ROSIE REA 08/[address] [place] [address] [facility])(S cott [facility] Fam Res Tm Green) [address] [place] [address] [facility])(Sco tt [facility] Fam Res Tm Green) TELE CONSULT [id number] Notes Entered by: LUANA CANTU 16 Nov 2016 1518 ------- ------- ------- ------- -- Ovidio Grubbs /CHENCHO MENDEZ / SHARITA KRISHNAMURTHY 11/[address] [place] [address] [employer] [facility] [facility]S cott [facility] Fam Res Tm Green) [address] [place] [address] [facility])(Sco tt [facility] Fam Res Tm Green) TELE CONSULT [id number] Notes Entered by: MARIA G MIDDLETON 29 Jan 2017 0920 ------- ------- ------- ------- -- Network Results -ALLERG Y 12/09/16 and 01/21/17 ROSIE REA 01/[address] [place] [address] [employer] [facility])(S cott [facility] Fam Res Tm Green) [address] [place] [address] [facility])(Sco tt [facility] Fam Res Tm Green) TELE CONSULT [id number] Notes Entered by: MARIA G MIDDLETON 01 Feb 2017 1147 ------- ------- ------- ------- -- Network Results -ALLERG Y 11/16/16 - 01/12/17 ROSIE REA 02/[address] [place] [address] [employer] [facility])(S cott [facility] Fam Res Tm Green) [address] [place] [address] Stevan [facility])(Med ication Refill Clinic) TELE CONSULT [id number] Notes Entered by: HAILEY GONZALEZ 04 Mar 2017 1017 ------- ------- ------- ------- -- Rx renewal - Troy Gould - - [facility] [place] SHARITA KRISHNAMURTHY 03/[address] [place] [address] Stevan [facility])(Franck macdonald on Refill Clinic) [address] [place] [address] Stevan [facility])(Sco tt [facility] Fam Res Tm Green) OUTPATIENT [id number] annual check up, refill meds, f/u on labs ROSIE RODRIGUES 03/11 Released w/o Limitations [address] [place] [address] Stevan [facility])(S cott [facility] Fam Res Tm Green) [address] [place] [address] Stevan [facility])(Sco tt [facility] FAMRES Tm Blue) TELE CONSULT [id number] Notes Entered by: HODAN THEODORE 22 Apr 2017 1411 ------- ------- ------- ------- -- Lab results ROSIE RODRIGUES 04/[address] [place] [address] [employer] [facility] [facility]S cott [facility] FAMRES Tm Blue) [address] [place] [address] [facility])(Sco tt [facility] Fam Res Tm Green) OUTPATIENT [id number] lump in right breast ROSIE RODRIGUES 04/22 Released w/o Limitations [address] [place] [address] Stevan [facility])(S cott [facility] Fam Res Tm Green) [address] [place] [address] Stevan [facility])(Sco tt [facility] FAMRES Tm Blue) TELE CONSULT [id number] Notes Entered by: MARCELL AMBRIZ 07 Jul 2017 0823 ------- ------- ------- ------- -- Network results Allergy 7 ROSIE RODRIGUES 07/[address] [place] [address] Group Stevan VERMA [facility]S cott [facility] FAMRES Tm Blue) [address] [place] [address] Stevan LAWSONB [facility]Sco tt [facility] Fam Res Tm Green) TELE CONSULT [id number] Notes Entered by: MOOSE ALCANTARA 17 Dec 2017 0954 ------- ------- ------- ------- -- Allergy Referra katiana Rios / Troy nRoyo/6 [phone] - DAYSI Moscoso 12/17 Other Not Elsewhere Classified [address] [place] [address] Group Stevan VERMA [facility]S cott [facility] Fam Res Tm Green) [address] [place] [address] Stevan Anali [facility]Sco tt [facility] Fam Res Tm Green) TELE CONSULT [id number] Notes Entered by: ROSELINE ENCISO 19 Apr 2018 1320 ------- ------- ------- ------- -- Med Renewal / Winsome mead / - [facility] BUD SMALLS 04/19 Referred for Appointment [address] [place] [address] Stevan VERMA [facility]S cott [facility] Fam Res Tm Green) [address] [place] [address] Stevan [facility])(Sco tt [facility] Fam Res Tm Green) OUTPATIENT [id number] 4 f/u on BP, ALEXANDR DUMONT 06/16 Released w/o Limitations [address] [place] [address] [facility]van [facility]S cott [facility] Fam Res Tm Green) [address] [place] [address] Stevan VERMA [facility]Sco tt [facility] FAMRES Tm Blue) TELE CONSULT [id number] 0 Notes Entered by: Mikayla BERNARDO 23 Dec 2018 1509 ------- ------- ------- ------- -- Visit for adminis trative purpose URI BERNARDO 12/[address] [place] [address] Stevan LAWSONB [facility]S [facility] FAMRES Tm Blue) [address] [place] [address] Stevan LAWSONB [facility]Sco tt [facility] Fam Res Tm Green) TELE CONSULT [id number] Notes Entered by: JORGE LUIS MORRIS 27 Dec 2018 1017 ------- ------- ------- ------- -- Referra l Renewal Request /Redalisa [facility]/[phone] DAYSI CIFUENTES 12/27 Other Not Elsewhere Classified [address] [place] [address] Group [facility])(S [facility] Res Green) [address] [place] [address] Stevan [facility])(Sco tt [facility] Green) TELE CONSULT [id number] Notes Entered by: MOOSE ALCANTARA 17 Jan 2019 0847 ------- ------- ------- ------- -- Neurolo gy Ovidio saab Req- ER F/U/ [facility]/ - SHARITA Subramanian 01/17 Referred for Appointment [address] [place] [address])(S [facility] Res Green) [address] [place] [address])(Sco tt [facility] Green) OUTPATIENT [id number] 6 f/uon er visit, passing out, seizure ? FARHAD PETERSON 01/24 Released w/o Limitations [address] [place] [address])(S [facility] Res Tm Green) [address] [place] [address])(Sco tt [facility] Green) TELE CONSULT [id number] Notes Entered by: AMBROCIO IZQUIERDO 07 Feb 2019 1026 ------- ------- ------- ------- -- Med Renewal /Redalisa [facility]/[phone]/SHARITA Carrera 02/07 Referred for Appointment [address] [place] [address] Group [facility])(S [facility] Res Tm Green) [address] [place] [address])(Sco tt [facility] Res Green) TELE CONSULT [id number] Notes Entered by: Augustin MAURER 30 Mar 2019 1406 ------- ------- ------- ------- -- Network results Neurolo gy 9 TSB BUD SMALLS 03/30 Released to Self Care [address] [place] [address] Stevan VERMA [facility]S cott [facility] Fam Res Tm Green) [address] [place] [address] Stevan [facility]Sco tt [facility] Fam Res Tm Green) OUTPATIENT [id number] 6 ER F/U Stomach Infecti on [phone] BUD SMALLS 06/09 Released w/o Limitations [address] [place] [address] Stevan VERMA [facility]S cott [facility] Fam Res Tm Green) [address] [place] [address] Stevan [facility]Sco tt [facility] Fam Res Tm Green) OUTPATIENT [id number] 3 left arm pit lump noticed 1 week [phone] RAUL ROBLERO 07/27 Released w/o Limitations [address] [place] [address] Stevan VERMA [facility]S cott [facility] Fam Res Tm Green) [address] [place] [address] Stevan VERMA [facility]Sco tt [facility] Fam Res Tm Green) TELE CONSULT [id number] 3 Notes Entered by: JORGE LUIS MORRIS 02 Aug 2019 1028 ------- ------- ------- ------- -- Ovidio moyer/Nirali deal / SHARITA KRISHNAMURTHY 08/02 Other Not Elsewhere Classified [address] [place] [address] Stevan VERMA [facility]S cott [facility] Fam Res Tm Green) [address] [place] [address] Stevan VERMA [facility]Sco tt [facility] [employer] Tm Blue) TELE CONSULT [id number] Notes Entered by: RAUL LIN 02 Aug 2019 1229 ------- ------- ------- ------- -- axilla lump RAUL ROBLERO 08/02 Other Not Elsewhere Classified [address] [place] [address] Stevan LULUAnali [facility]S cott [facility] FAMRES Tm Blue) [address] [place] [address] Stevan LAWSONAnali [facility]Sco tt [facility] Fam Res Tm Green) TELE CONSULT [id number] Notes Entered by: ROSELINE ENCISO 21 Aug 2019 1018 ------- ------- ------- ------- -- Med Romie / Winsome mead / - ty KRISHNAMURTHYSHARITA Franck 08/21 Other Not Elsewhere Classified [facility] Group Stevan VERMA [facility]S cott [facility] Fam Res Tm Green) [address] [place] [address] Stevan [facility])(Sco tt [facility] Fam Res Tm Green) TELE CONSULT [id number] 1 Notes Entered by: Sheri WALKER 28 Sep 2019 1238 ------- ------- ------- ------- -- Network results Gastroakin sultana gy 020 BUD NAPIER 09/28 Released to Self Care [address] [place] [address] Stevan [facility])(S cott [facility] Fam Res Tm Green) [address] [place] [address] Stevan [facility])(Sco tt [facility] Fam Res Tm Green) TELE CONSULT [id number] Notes Entered by: ROSELINE ENCISO 23 Oct 2019 0808 ------- ------- ------- ------- -- STAT Referra l Renewal - Appt Oct /Specia list F/U/Yeison baig/ SHIV Olsen 10/22 Immediate Referral [address] [place] [address] Stevan [facility]S cott [facility] Fam Res Tm Green) [address] [place] [address] Stevan [facility]Sco tt [facility] Fam Res Tm Green) TELE CONSULT [id number] Notes Entered by: Sheri WALKER 06 Nov 2019 1216 ------- ------- ------- ------- -- Network results Danny sultana gy 020 BUD NAPIER 11/05 Released to Self Care [address] [place] [address] Stevan VERMA [facility]S cott [facility] Fam Res Tm Green) [address] [place] [address] Stevan [facility])(Sco tt [facility] Fam Res Tm Green) TELE CONSULT [id number] Notes Entered by: JORGE LUIS MORRIS 02 Jan 2020 1049 ------- ------- ------- ------- -- Referra l Renewal Request /Black garay/[phone] KAMERON RILEY MALENA 01/01 Released to Self Care [address] [place] [address])(S [facility] Res Tm Green) [address] [place] [address])(Sco tt [facility] Res Green) TELE CONSULT [id number] Notes Entered by: Sheri WALKER 25 Jan 2020 0935 ------- ------- ------- ------- -- Network results Gastroe nterolo gy 019 ALD KAMERON RILEY Lorelei 01/24 Released to Self Care [address] [place] [address])(S [facility] Res Tm Green) [address] [place] [address])(Sco tt [facility] Res Green) TELE CONSULT [id number] Sx - Rash/Re say / SHARITA KRISHNAMURTHY 02/21 Other Not Elsewhere Classified [address] [place] [address])(S [facility] Fam Res Tm Green) [address] [place] [address])(Sco tt [facility] Res Green) TELE CONSULT [id number] 1 Notes Entered by: MOOSE ALCANTARA 05 Mar 2020 1037 ------- ------- ------- ------- -- Med Renewal Request / Winsome mead/ - SALBADOR Osei 03/05 Referred for Appointment [address] [place] [address] Stevan [facility])(S cott [facility] Fam Res Tm Green) 0055A-375 [facility] Between Visit [id number] 03/01 0055A-3 [facility]th [facility]- Stevan 0055A-375 th [facility] Between Visit [id number] 03/08 Discharge Disposition: Home or Self Care 0055A-3 75th [facility] 0055A-375 th [facility] Between Visit [id number] 03/15 Discharge Disposition: Home or Self Care 0055A-3 75th [facility] 0055A-375 th [facility] Outpatient [id number] AASHISH Dover 04/06 Discharge Disposition: Home or Self Care 0055A-3 75th [facility] 0055A-375 th [facility] Outpatient [id number] HALINA TRAN 04/06 Discharge Disposition: Home or Self Care 0055A-3 75th [facility] Procedures Combined list of: 1) Procedures from Department of Veterans Affairs facilities going back up to thelast 18 months, not all [place] non-surgical procedures are included; 2) All procedures from the Department of Defense facilities. Procedure Procedure Type Code Date Perfomer Comments Sourc e No data available for this section [facility] Non-Physician Phone Call To Patient/Provider Brief (5-10min) Non-Physician Phone Call To Patient/Provider Brief (5-10min) [id number] 2016 SHARITA KRISHNAMURTHY [facility] Non-Physician Phone Call To Patient/Provider Brief (5-10min) Non-Physician Phone Call To Patient/Provider Brief (5-10min) [id number] 2016 SHARITA KRISHNAMURTHY [facility] Rapid Antigen Identification Streptococcus Group A Beta Hemolytic Rapid Antigen Identification Streptococcus Group A Beta Hemolytic [id number] 2015 SANDOR EATON [facility] Non-Physician Phone Call To Patient/Provider Brief (5-10min) Non-Physician Phone Call To Patient/Provider Brief (5-10min) [id number] 2015 BINDU NICHOLS [facility] Non-Physician Phone Call To Patient/Provider Brief (5-10min) Non-Physician Phone Call To Patient/Provider Brief (5-10min) [id number] 2014 BHARGAV THOMPSON [facility] Desensitization Supervision - Multiple Extract Injections Desensitization Supervision - Multiple Extract Injections 72224 2014 DESIRAE BOYLE [facility] Pulmonary Function MVV Pulmonary Function MVV 72267 2014 DESIRAE BOYLE 1st peak flow 525 2nd peak flow 550 3rd peak flow 520 DoD Pulmonary Function MVV Pulmonary Function MVV 37264 2014 STEVE ROWAN 1st PF: 520 2nd PF: 460 3rd PF: 500 DoD Desensitization Supervision - Multiple Extract Injections Desensitization Supervision - Multiple Extract Injections 10523 2014 STEVE ROWAN Do[facility] Non-Physician Phone Call To Patient/Provider Brief (5-10min) Non-Physician Phone Call To Patient/Provider Brief (5-10min) 22675 2014 BHARGAV THOMPSON [facility] Pulmonary Function MVV Pulmonary Function MVV 31425 2014 DESIRAE BOYLE 1st peak flow 510 2nd peak flow 525 3rd peak flow 510 DoD Desensitization Supervision - Multiple Extract Injections Desensitization Supervision - Multiple Extract Injections 55770 2014 DESIRAE BOYLE DoD Pulmonary Function MVV Pulmonary Function MVV 99728 2014 DESIRAE BOYLE 1st peak flow 500 2nd peak flow 500 3rd peak flow 500 DoD Desensitization Supervision - Multiple Extract Injections Desensitization Supervision - Multiple Extract Injections 85615 2014 DESIRAE BOYLE DoD Pulmonary Function MVV Pulmonary Function MVV 96303 2014 STEVE ROWAN 1st PF: 460 2nd PF 480 3rd PF: 480 DoD Desensitization Supervision - Multiple Extract Injections Desensitization Supervision - Multiple Extract Injections 64791 2014 STEVE ROWAN DoD Pulmonary Function MVV Pulmonary Function MVV 63545 2014 LAURENCE LOGAN 1st 440 2nd 460 3rd 450 DoD Desensitization Supervision - Multiple Extract Injections Desensitization Supervision - Multiple Extract Injections 76346 2014 LAURENCE LOGAN DoD Desensitization Supervision - Multiple Extract Injections Desensitization Supervision - Multiple Extract Injections 58565 2014 STEVE ROWAN DoD Pulmonary Function MVV Pulmonary Function MVV 32122 2014 STEVE ROWAN 1st PF: 450 2nd PF: 450 3rd PF: 470 DoD Pulmonary Function MVV Pulmonary Function MVV 76310 2014 LAURENCE LOGAN 1ST 500 2ND 400 3RD 380 DoD Desensitization Supervision - Multiple Extract Injections Desensitization Supervision - Multiple Extract Injections 74131 2014 LAURENCE LOGAN DoD Pulmonary Function MVV Pulmonary Function MVV 93193 2014 STEVE ROWAN 1st PF: 510 2nd PF: 490 3rd PF: 490 DoD Desensitization Supervision - Multiple Extract Injections Desensitization Supervision - Multiple Extract Injections 27174 2014 STEVE ROWAN [facility] Desensitization Supervision - Multiple Extract Injections Desensitization Supervision - Multiple Extract Injections 75733 2014 STEVE ROWAN [facility] Desensitization Supervision - Multiple Extract Injections Desensitization Supervision - Multiple Extract Injections 91013 2014 YASMINALESSANDROAMINATAREYNALDO Saab [facility] Spirometry Spirometry 28071 2014 SHERRY THURMAN [facility] Desensitization Supervision - Multiple Extract Injections Desensitization Supervision - Multiple Extract Injections 06982 2014 HUGO KHAN [facility] Desensitization Supervision - Multiple Extract Injections Desensitization Supervision - Multiple Extract Injections 66288 2013 HUGO KHAN [facility] Desensitization Supervision - Multiple Extract Injections Desensitization Supervision - Multiple Extract Injections 90393 2013 LAURENCE LOGAN [facility] Desensitization Supervision - Multiple Extract Injections Desensitization Supervision - Multiple Extract Injections 09770 2013 LAURENCE LOGAN [facility] Medical Nutrition Therapy Initial A e ment, Intervention Medical Nutrition Therapy Initial Assessment, Intervention 33826 2013 JOHNATHON PACHECO [facility] Desensitization Supervision - Multiple Extract Injections Desensitization Supervision - Multiple Extract Injections 82993 2013 LAURENCE LOGAN [facility] Desensitization Supervision - Multiple Extract Injections Desensitization Supervision - Multiple Extract Injections 53101 2013 LAURENCE LOGAN [facility] Desensitization Supervision - Multiple Extract Injections Desensitization Supervision - Multiple Extract Injections 82163 2013 HUGO KHAN [facility] Desensitization Supervision - Multiple Extract Injections Desensitization Supervision - Multiple Extract Injections 92147 2013 HUGO KHAN [facility] Desensitization Supervision - Multiple Extract Injections Desensitization Supervision - Multiple Extract Injections 37819 2013 HUGO KHAN [facility] Desensitization Supervision - Multiple Extract Injections Desensitization Supervision - Multiple Extract Injections 42652 2013 LAURENCE LOGAN [facility] Psychiatric Therapy Individual Approximately 45-50 Minutes 2013 FABIANO PRATHER [facility] Desensitization Supervision - Multiple Extract Injections Desensitization Supervision - Multiple Extract Injections 62111 2013 HUGO KHAN Cluster Schedule: Week 7 [facility] Desensitization Supervision - Multiple Extract Injections Desensitization Supervision - Multiple Extract Injections 75992 2013 HUGO KHAN Cluster schedule: Week 6 [facility] Desensitization Supervision - Multiple Extract Injections Desensitization Supervision - Multiple Extract Injections 96628 2013 LAURENCE LOGAN Desensitization Supervision - Multiple Extract Injections Desensitization Supervision - Multiple Extract Injections 51050 2013 LAURENCE LOGAN Desensitization Supervision - Multiple Extract Injections Desensitization Supervision - Multiple Extract Injections 76627 2013 LAURENCE LOGAN Desensitization Supervision - Multiple Extract Injections Desensitization Supervision - Multiple Extract Injections 98206 2013 HUGO KHAN schedule: Week 2 DoD Desensitization Supervision - Multiple Extract Injections Desensitization Supervision - Multiple Extract Injections 10992 2013 LAURENCE LOGAN Determination Of Refractive State Determination Of Refractive State 64082 2013 JOAN AKERS Ophthalmological New Patient Start Comprehensive Care Ophthalmological New Patient Start Comprehensive Care [id number] 2013 JOAN AKERS Allergy Percutaneous tests - allergenic extracts Allergy Percutaneous tests - allergenic extracts 52356 2012 SAMARA ROTH Informed consent obtained [facility] Non-Physician Phone Call To Patient/Provider Brief (5-10min) Non-Physician Phone Call To Patient/Provider Brief (5-10min) 50135 2010 NAEL MERAZ Screening papanicolaou smear; obtaining, preparing and conveyance of cervical or vaginal smear to laboratory 2009 SLOAN CHANDRA Destruction Of Benign Lesion By Cryosurgery 2006 ELIZABETH GREENWOOD Destruct Of Benign Lesion By Any Method Second Through 14 2006 ELIZABETH GREENWOOD Urethral Catheterization (Diagnostic) Urethral Catheterization (Diagnostic) 35287 2005 ZOE VILLANUEVA Urethral Catheterization Straight (Non-Balloon) Urethral Catheterization Straight (Non-Balloon) 59699 2005 ZOE VILLANUEVA Ophthalmological New Patient Start Comprehensive Care Ophthalmological New Patient Start Comprehensive Care 80668 2005 MARTA ROBERTS Determination Of Refractive State Determination Of Refractive State 95945 2005 MARTA ROBERTS Non-Stre Test (___ 0,2) Non-Stress Test (___ 0,2) 34520 2004 VERONICA HYATT Non-Stre Test (___ 0,2) Non-Stress Test (___ 0,2) 63515 2004 VERONICA HYATT [facility] NON-STRESS TEST 2004 [facility] OTHER BILATERAL LIGATION AND DIVISION OF FALLOPIAN TUBES 2004 [facility] LOW CERVICAL SECTION 2004 [facility] OTHER DIAGNOSTIC PROCEDURES ON URETHRA AND PERIURETHRAL TISSUE 2004 [facility] INJECTION OF RH IMMUNE GLOBULIN 2004 [facility] LIGATION OR TRANSECTION OF FALLOPIAN TUBE(S) WHEN DONE AT THE TIME OF DELIVERY OR INTRA-ABDOMINAL SURGERY (NOT SEPARATE PROCEDURE) (LIST SEPARATELY IN ADDITION TO CODE FOR PRIMARY PROCEDURE) 2004 [facility] NON-STRESS TEST 2004 [facility] ULTRASOUND, UTERUS, REAL TIME WITH IMAGE DOCUMENTATION, LIMITED (EG, HEART BEAT, PLACENTAL LOCATION, POSITION AND/OR QUALITATIVE AMNIOTIC FLUID VOLUME), 1 OR MORE FETUSES 2004 [facility] ULTRASOUND, UTERUS, REAL TIME WITH IMAGE DOCUMENTATION, AND MATERNAL EVALUATION PLUS DETAILED ANATOMIC EXAMINATION,TRANSAB DOMINAL APPROACH; SINGLE OR FIRST GESTATION 2004 [facility] NON-STRESS TEST 2004 [facility] NON-STRESS TEST 2004 [facility] THERAPEUTIC, PROPHYLACTIC OR DIAGNOSTIC INJECTION (SPECIFY MATERIAL INJECTED); SUBCUTANEOUS OR INTRAMUSCULAR 2004 [facility] ULTRASOUND, UTERUS, REAL TIME WITH IMAGE DOCUMENTATION, AND MATERNAL EVALUATION PLUS DETAILED ANATOMIC EXAMINATION,TRANSAB DOMINAL APPROACH; SINGLE OR FIRST GESTATION 2004 [facility] ULTRASOUND, UTERUS, REAL TIME WITH IMAGE DOCUMENTATION, AND MATERNAL EVALUATION, AFTER FIRST TRIMESTER (> OR = 14 WEEKS 0 DAYS), TRANSABDOMINAL APPROACH; SINGLE OR FIRST GESTATION 2004 [facility] ULTRASOUND, UTERUS, REAL TIME WITH IMAGE DOCUMENTATION, AND MATERNAL EVALUATION PLUS DETAILED ANATOMIC EXAMINATION,TRANSAB DOMINAL APPROACH; SINGLE OR FIRST GESTATION 2004 [facility] ULTRASOUND, UTERUS, REAL TIME WITH IMAGE DOCUMENTATION, AND MATERNAL EVALUATION PLUS DETAILED ANATOMIC EXAMINATION,TRANSAB DOMINAL APPROACH; SINGLE OR FIRST GESTATION 2004 [facility] EXT PAT &,WHEN PERF,AUTO ACT ECG RHY DERIVED EVENT RECORD W SYMPT-RELAT MEMORY LOOP W REMOTE DOWNLOAD CAPABILITY UP TO 30 DAYS,24-HOUR ATTENDED MONITOR; RECORDING (INCL CONNECT, RECORD, & DISCONNECT) 2004 [facility] SCREENING PAPANICOLAOU SMEAR; OBTAINING, PREPARING AND CONVEYANCE OF CERVICAL OR VAGINAL SMEAR TO LABORATORY 2004 [facility] EDUCATIONAL SUPPLIES, SUCH BOOKS, TAPES, AND PAMPHLETS, FOR THE PATIENT'S EDUCATION AT COST TO PHYSICIAN OR OTHER QUALIFIED HEALTH CHILD CENTER ASSISTANT 2004 [facility] INJECTION, DIPHENHYDRAMINE HCL, UP TO 50 MG 2003 [facility] VISUAL FIELD EXAMINATION, UNI OR BILATERAL, WITH MEDICAL DIAGNOSTIC EVAL; LIMITED EXAM (EG, TANGENT SCREEN, AUTOPLOT, ARC PERIMETER, OR SINGLE STIMULUS LEVEL AUTO TEST, EG OCTOPUS 3 OR 7 EQUIVALENT) 2003 [facility] THERAPEUTIC, PROPHYLACTIC OR DIAGNOSTIC INJECTION (SPECIFY MATERIAL INJECTED); SUBCUTANEOUS OR INTRAMUSCULAR 2003 [facility] LAPAROSCOPIC APPENDECTOMY 2002 [facility] COLLECTION OF VENOUS BLOOD BY VENIPUNCTURE 2002 [facility] OPHTHALMOLOGICAL SERVICES: MEDICAL EXAMINATION AND EVALUATION, WITH INITIATION OR CONTINUATION OF DIAGNOSTIC AND TREATMENT PROGRAM; INTERMEDIATE, ESTABLISHED PATIENT 2002 [facility] OPHTHALMOLOGICAL SERVICES: MEDICAL EXAMINATION AND EVALUATION WITH INITIATION OF DIAGNOSTIC AND TREATMENT PROGRAM; INTERMEDIATE, NEW PATIENT 2002 [facility] EKG (SCALP) 2002 [facility] INDUCTION OF LABOR BY ARTIFICIAL RUPTURE OF MEMBRANES 2002 [facility] MEDICAL INDUCTION OF LABOR 2002 [facility] HANDLING AND/OR CONVEYANCE OF SPECIMEN FOR TRANSFER FROM THE OFFICE TO A LABORATORY 2002 [facility] NON-STRESS TEST 2002 [facility] NON-STRESS TEST 2002 [facility] HANDLING AND/OR CONVEYANCE OF SPECIMEN FOR TRANSFER FROM THE OFFICE TO A LABORATORY 2002 [facility] COLLECTION OF VENOUS BLOOD BY VENIPUNCTURE 2002 [facility] SCREENING PAPANICOLAOU SMEAR; OBTAINING, PREPARING AND CONVEYANCE OF CERVICAL OR VAGINAL SMEAR TO LABORATORY 2009 [facility] VISUAL FIELD EXAM,UNILAT/BI,INTE RP&REP;EXT EXM(EG,GOLDMANN VIS FLD,AT LEAST 3 ISOP PLOT&STAT DET W/IN KAMI 30DEG/QUANT,AUTO THRSH PAMELA,OCT G-1,32/42,HUMP VIS FLD ANAL FULL THRSH 30-2,24-2, OR 3060-2) 2001 [facility] SCREENING PAPANICOLAOU SMEAR; OBTAINING, PREPARING AND CONVEYANCE OF CERVICAL OR VAGINAL SMEAR TO LABORATORY 2000 [facility] TELE ASSESS & MGT SRV PROV QUAL NONPHYS HLTH CARE PRO TO EST PAT,PARENT,GUARD NOT ORIG REL ASSESS & MGT SRV PROV W/IN PREV 7 DAYS NOR LEAD ASSESS & MGT SRV/PX W/IN NXT 24 HR/SOON APT;5-10 MIN MED DIS 2016 DoD TELE ASSESS & MGT SRV PROV QUAL NONPHYS HLTH CARE PRO TO EST PAT,PARENT,GUARD NOT ORIG REL ASSESS & MGT SRV PROV W/IN PREV 7 DAYS NOR LEAD ASSESS & MGT SRV/PX W/IN NXT 24 HR/SOON APT;5-10 MIN MED DIS 2016 DoD INFECTIOUS AGENT ANTIGEN DETECTION BY IMMUNOASSAY WITH DIRECT OPTICAL (IE, VISUAL) OBSERVATION; STREPTOCOCCUS, GROUP A 2015 DoD TELE ASSESS & MGT SRV PROV QUAL NONPHYS HLTH CARE PRO TO EST PAT,PARENT,GUARD NOT ORIG REL ASSESS & MGT SRV PROV W/IN PREV 7 DAYS NOR LEAD ASSESS & MGT SRV/PX W/IN NXT 24 HR/SOON APT;5-10 MIN MED DIS 2015 DoD TELE ASSESS & MGT SRV PROV QUAL NONPHYS HLTH CARE PRO TO EST PAT,PARENT,GUARD NOT ORIG REL ASSESS & MGT SRV PROV W/IN PREV 7 DAYS NOR LEAD ASSESS & MGT SRV/PX W/IN NXT 24 HR/SOON APT;5-10 MIN MED DIS 2014 DoD PROFESSIONAL SERVICES FOR ALLERGEN IMMUNOTHERAPY NOT INCLUDING PROVISION OF ALLERGENIC EXTRACTS; 2 OR MORE INJECTIONS 2014 DoD MAXIMUM BREATHING CAPACITY, MAXIMAL VOLUNTARY VENTILATION 2014 DoD TELE ASSESS & MGT SRV PROV QUAL NONPHYS HLTH CARE PRO TO EST PAT,PARENT,GUARD NOT ORIG REL ASSESS & MGT SRV PROV W/IN PREV 7 DAYS NOR LEAD ASSESS & MGT SRV/PX W/IN NXT 24 HR/SOON APT;5-10 MIN MED DIS 2014 DoD MAXIMUM BREATHING CAPACITY, MAXIMAL VOLUNTARY VENTILATION 2014 DoD MAXIMUM BREATHING CAPACITY, MAXIMAL VOLUNTARY VENTILATION 2014 DoD MAXIMUM BREATHING CAPACITY, MAXIMAL VOLUNTARY VENTILATION 2014 DoD MAXIMUM BREATHING CAPACITY, MAXIMAL VOLUNTARY VENTILATION 2014 DoD PROFESSIONAL SERVICES FOR ALLERGEN IMMUNOTHERAPY NOT INCLUDING PROVISION OF ALLERGENIC EXTRACTS; 2 OR MORE INJECTIONS 2014 DoD MAXIMUM BREATHING CAPACITY, MAXIMAL VOLUNTARY VENTILATION 2014 DoD MAXIMUM BREATHING CAPACITY, MAXIMAL VOLUNTARY VENTILATION 2014 DoD PROFESSIONAL SERVICES FOR ALLERGEN IMMUNOTHERAPY NOT INCLUDING PROVISION OF ALLERGENIC EXTRACTS; 2 OR MORE INJECTIONS 2014 DoD PROFESSIONAL SERVICES FOR ALLERGEN IMMUNOTHERAPY NOT INCLUDING PROVISION OF ALLERGENIC EXTRACTS; 2 OR MORE INJECTIONS 2014 DoD SPIROMETRY, INCLUDING GRAPHIC RECORD, TOTAL AND TIMED VITAL CAPACITY, EXPIRATORY FLOW RATE MEASUREMENT(S), WITH OR WITHOUT MAXIMAL VOLUNTARY VENTILATION 2014 DoD PROFESSIONAL SERVICES FOR ALLERGEN IMMUNOTHERAPY NOT INCLUDING PROVISION OF ALLERGENIC EXTRACTS; 2 OR MORE INJECTIONS 2014 DoD PROFESSIONAL SERVICES FOR ALLERGEN IMMUNOTHERAPY NOT INCLUDING PROVISION OF ALLERGENIC EXTRACTS; 2 OR MORE INJECTIONS 2013 DoD PROFESSIONAL SERVICES FOR ALLERGEN IMMUNOTHERAPY NOT INCLUDING PROVISION OF ALLERGENIC EXTRACTS; 2 OR MORE INJECTIONS 2013 DoD PROFESSIONAL SERVICES FOR ALLERGEN IMMUNOTHERAPY NOT INCLUDING PROVISION OF ALLERGENIC EXTRACTS; 2 OR MORE INJECTIONS 2013 DoD PROFESSIONAL SERVICES FOR ALLERGEN IMMUNOTHERAPY NOT INCLUDING PROVISION OF ALLERGENIC EXTRACTS; 2 OR MORE INJECTIONS 2013 DoD MEDICAL NUTRITION THERAPY; INITIAL ASSESSMENT AND INTERVENTION, INDIVIDUAL, [id number] WITH THE PATIENT, EACH 15 MINUTES 2013 DoD PROFESSIONAL SERVICES FOR ALLERGEN IMMUNOTHERAPY NOT INCLUDING PROVISION OF ALLERGENIC EXTRACTS; 2 OR MORE INJECTIONS 2013 DoD PROFESSIONAL SERVICES FOR ALLERGEN IMMUNOTHERAPY NOT INCLUDING PROVISION OF ALLERGENIC EXTRACTS; 2 OR MORE INJECTIONS 2013 DoD PROFESSIONAL SERVICES FOR ALLERGEN IMMUNOTHERAPY NOT INCLUDING PROVISION OF ALLERGENIC EXTRACTS; 2 OR MORE INJECTIONS 2013 DoD PROFESSIONAL SERVICES FOR ALLERGEN IMMUNOTHERAPY NOT INCLUDING PROVISION OF ALLERGENIC EXTRACTS; 2 OR MORE INJECTIONS 2013 DoD PROFESSIONAL SERVICES FOR ALLERGEN IMMUNOTHERAPY NOT INCLUDING PROVISION OF ALLERGENIC EXTRACTS; 2 OR MORE INJECTIONS 2013 DoD PSYCHOTHERAPY, 60 MINUTES WITH PATIENT 2013 DoD PSYCHOTHERAPY, 45 MINUTES WITH PATIENT 2013 DoD PROFESSIONAL SERVICES FOR ALLERGEN IMMUNOTHERAPY NOT INCLUDING PROVISION OF ALLERGENIC EXTRACTS; 2 OR MORE INJECTIONS 2013 DoD PROFESSIONAL SERVICES FOR ALLERGEN IMMUNOTHERAPY NOT INCLUDING PROVISION OF ALLERGENIC EXTRACTS; 2 OR MORE INJECTIONS 2013 DoD PROFESSIONAL SERVICES FOR ALLERGEN IMMUNOTHERAPY NOT INCLUDING PROVISION OF ALLERGENIC EXTRACTS; 2 OR MORE INJECTIONS 2013 DoD PROFESSIONAL SERVICES FOR ALLERGEN IMMUNOTHERAPY NOT INCLUDING PROVISION OF ALLERGENIC EXTRACTS; 2 OR MORE INJECTIONS 2013 DoD PROFESSIONAL SERVICES FOR ALLERGEN IMMUNOTHERAPY NOT INCLUDING PROVISION OF ALLERGENIC EXTRACTS; 2 OR MORE INJECTIONS 2013 DoD PROFESSIONAL SERVICES FOR ALLERGEN IMMUNOTHERAPY NOT INCLUDING PROVISION OF ALLERGENIC EXTRACTS; 2 OR MORE INJECTIONS 2013 DoD PROFESSIONAL SERVICES FOR ALLERGEN IMMUNOTHERAPY NOT INCLUDING PROVISION OF ALLERGENIC EXTRACTS; 2 OR MORE INJECTIONS 2013 DoD DETERMINATION OF REFRACTIVE STATE 2013 DoD PERCUTANEOUS TESTS (SCRATCH, PUNCTURE, PRICK) WITH ALLERGENIC EXTRACTS, IMMEDIATE TYPE REACTION, INCLUDING TEST INTERPRETATION AND REPORT, SPECIFY NUMBER OF TESTS 2012 [facility] TELE ASSESS & MGT SRV PROV QUAL NONPHYS HLTH CARE PRO TO EST PAT,PARENT,GUARD NOT ORIG REL ASSESS & MGT SRV PROV W/IN PREV 7 DAYS NOR LEAD ASSESS & MGT SRV/PX W/IN NXT 24 HR/SOON APT;5-10 MIN MED DIS 2010 DoD Social History Combined list of available smoking, tobacco, and other social history from [facility] Defense and [facility] facilities. Social History Type Response Date Comment Sour e Sex Representation Female (finding) 10/28/2022 Unknown Organization Sexual Orientation Ambula tory Pharmacy Gender identity Ambulator y Pharmacy This section is an empty social history section. [facility] Assessment and Plan Combined list of future care activities from Department of Defense and Veterans Affairs facilities (e.g., assessment and plan notes, appointments, orders, and referrals). Additional future care activities may be listed in the Plan of Care section. Result Assessment and Plan Date Source Assessment and Plan No data available for this section 12/27/2024 Ambulatory Pharmacy Functional Status Combined list of recent functional and cognitive assessments recorded at [facility] and [facility] ([facility] Functional Catron Measurement (FIM) Scale: 1 = Total Assistance (Subject = 0% +), 2 = Maximal Assistance (Subject = 25% +), 3 = Moderate Assistance (Subject = 50% +), 4 = Minimal Assistance (Subject = 75% +), 5 = Supervision, 6 = Modified Catron (Device), 7 = Complete Catron (Timely, Safely). Assessment Date/Time Source Assessment Type Assessment Skill Assessment Score Assessment Details No data available for this section
--- OUTSIDE RECORDS SUMMARY | 2024-12-27 14:04 | XMS_ITS | Clinical Summary ---
Author Organization [facility] Address [address] [place] [address] Care Team Providers Care Director Compensation Name Role Phone Kishore Mercer Primary Care Provider Allergies Active Allergy Reactions Criticality Noted Date Comments Morphine Swelling 03/02/2023 Redness, pain Prednisone Other (see comment),Seizure Low 07/21/2022 Slurred speech and muscle twitching, led to hospitalization 06/2022 Gatifloxacin Other (see comment) High 09/22/2019 Couldn't speak Medications cetirizine 10 MG tablet Take 1 tablet (10 mg total) by mouth daily. Active montelukast 10 MG tablet Take 1 tablet (10 mg total) by mouth nightly at bedtime. Active multi vitamin/minerals tablet Take 1 tablet by mouth daily. Active albuterol (VENTOLIN) 2 MG/5ML syrup Take 5 mLs (2 mg total) by mouth 3 (three) times daily. Active EPINEPHrine 0.3 MG/0.3ML injection 3 Active fluticasone propionate (FLONASE ALLERGY RELIEF) 50 MCG/ACT nasal spray daily. Active FLOVENT HFA 220 MCG/ACT inhaler every 12 (twelve) hours. Active Magnesium Ascorbate Powder Take 0.5 Scoops by mouth daily. Active levocetirizine (XYZAL ALLERGY 24HR) 5 MG tablet 1 tab(s) orally once a day (in the evening) Active baclofen (LIORESAL) 10 MG tablet Take 1 tablet (10 mg total) by mouth. 4 Active levothyroxine (SYNTHROID) 88 MCG tabletIndications: Acquired hypothyroidism Take 1 tablet (88 mcg total) by mouth every morning. 90 tablet 3 4 Active omeprazole (PRILOSEC) 40 MG capsule Take 1 capsule (40 mg total) by mouth daily. 90 capsule 2 5 Active lisinopril (PRINIVIL) 20 MG tabletIndications: Essential hypertension Take 1 tablet (20 mg total) by mouth daily. 30 tablet 5 Active lisinopril (PRINIVIL) 20 MG tablet 4 12/19/19 25 Discontin ued(Reord er) Active Problems Problem Noted Date Diagnosed Date Class 2 obesity due to exces s calories without serious comorbidity with body mass index (BMI) of 35.0 to 35.9 in adult 06/07/2024 Other allergic rhinitis 06/07/2024 Acquired hypothyroidism 06/07/2024 Menopausal syndrome on hormone replacement thera py 06/07/2024 Other chronic allergic conjunctivitis of both ey es 06/07/2024 Allergic rhinitis due to animal (cat) (dog) hair and dander 06/07/2024 Impaired glucose regulation 06/07/2024 Myelopathy (CMS/HCC [facility]) 06/07/2024 Left-sided weakness 06/07/2024 Chronic midline back pain, unspecified back loca tion 06/07/2024 Cervical radiculopathy 03/02/2023 Cavernous malformation ([facility]) 12/09/2022 Overview (06/07/2024): I don't have a cervical nerve root. I have a cavernous malformation. Nodule of right lobe of thyroid gland 01/01/2022 Essential hypertension 06/10/2020 Gastroesophageal reflux dise ase with esophagitis without hemorrhage 06/10/2020 Eosinophilic esophagitis 08/11/2016 Immunizations Immunization Administration Dates Next Due Hepatitis A/Hepatitis B(Twinrix) 05/01/2019,03/09/2003 Influenza (Generic) 06/30/2005,10/23/2003 Influenza Adult (Generic) 08/19/2022,05/23/2020 Polio IPV (Ipol) 10/23/2003 Td (TDVAX) 10/23/2003 Tdap (Generic) 05/01/2019,09/24/2017 Family History Medical History Relation Comments Arthritis Father Feet, hips Cancer Father Thyroid cancer Diabetes Father Type 2 Hypertension Father Breast Cancer Maternal Grandmother Arthritis Mother Hands, hips Cancer Mother Skin cancer Diabetes Mother Type 2 Hypertension Mother Thyroid Disease Mother Breast Cancer Paternal Grandmother Diabetes Sister Hypothyroidism Hypertension Sister Also has Caverno us malformation Lupus Sister Thyroid Disease Sister Kidney Disease Son Chronic Kidney d isease Relation Status Comments Father Alive Maternal Grandmother Mother Alive Paternal Grandmother Sister Alive Son Social History Tobacco Use Types Packs/Day Years Used Date Smoking Tobacco: Never Passive Smoke Exposure: Never Smokeless Tobacco: Never Tobacco Cessation:Counseling Given: No Alcohol Use Standard Drinks/Week Comments Never 0 (1 standard drink = 0.6 oz pur e alcohol) PHQ-2 Answer Date Recorded Patient Health Questionnaire-2 Score 0 09/22/2024 Comments No Sex and Gender Information Value Date Recorded Sex Assigned at Female 09/22/2024 11:16 AM BLANKET WASHER Legal Sex Female 5:30 PM BLANKET WASHER Gender Identity Female 09/22/2024 11:16 AM BLANKET WASHER Sexual Orientation Not on file Last Filed Vital Signs Vital Sign Reading Time Taken Comments Blood Pressure 133/83 09/22/2024 11:16 AM BLANKET WASHER Pulse 83 09/22/2024 11:16 AM BLANKET WASHER Temperature 36.7 C (98.1 F) 09/22/2024 11:16 AM BLANKET WASHER Respiratory Rate 20 09/22/2024 11:16 AM BLANKET WASHER Oxygen Saturation 100% 09/22/2024 11:16 AM BLANKET WASHER Inhaled Oxygen Concentration - - Weight 95.3 kg (210 lb) 09/22/2024 11:16 AM BLANKET WASHER Height 162.6 cm (5' 4 ) 09/22/2024 11:16 AM BLANKET WASHER Body Mass Index 36.05 09/22/2024 11:16 AM BLANKET WASHER Plan of Treatment Upcoming Encounters Date Type Department Care Team (Late st Contact Info) Description 06/19/2025 10:00 AM CDT Office Visit [facility] Family Medicine - [address] [place] [phone] Kishore Mercer DO [address] [place] [address] Health Maintenance Due Date Last Done Comments Annual Physical 1976 Hepatitis C 1991 Cervical Cancer Screening Pap with HPV Testing (Age 30 to 64) Every 5 Years 2003 Hepatitis B Vaccines (3 of 3 - Hep B Twinrix 3-dose series) 10/01/2019 05/01/2019, 10/23/2003 Pneumococcal Vaccine: 50+ Years (1 of 1 - PCV) 2023 Zoster Vaccines (1 of 2) 2023 COVID-19 Vaccine (1 - season) 2024 Mammogram Screening 03/01/2026 03/01/2024, 08/25/2023, 02/19/2023, Additional history exists Cervical Cancer Screening Pap Smear (Age 30 to 64) Every 3 Years 06/03/2026 06/03/2023 Cervical Cancer Screening with HPV 06/03/2026 DTaP, Tdap and Td Vaccines (3 - Td or Tdap) 05/01/2029 05/01/2019, 09/24/2017, 10/23/2003 Colorectal Cancer Screening Colonoscopy (10 Years) 09/27/2029 09/27/2019, 09/27/2019 PHQ-2 (Physician [place]) Completed 09/22/2024 Meningococcal B Vaccine Aged Out No l onger eligible based on patient's age to complete this topic Meningococcal Vaccine Aged Out No jc jarrod eligible based on patient's age to complete this topic RSV Immunizations Under 20 Months Aged Out No longer eligible based on patient's age to complete this topic Procedures Procedure Name Priority Date/Time Associated Diagnosis Comments COLONOSCOPY Routine 09/27/2019 9:29 AM BLANKET WASHER MG DIAG W KASSY BILAT DIGI Routine 09/04/2019 8:44 AM BLANKET WASHER Axillary lump, left Localized superficial swelling, mass, or lump from Last 3 Months or Most Recently Relevant to Health Maintenance Results * MG DIAG W KASSY BILAT DIGI (09/04/2019 8:44 AM BLANKET WASHER) Anatomical Region Laterality Modality Breast Bilateral Mammography 09/04/2019 9:54 AM BLANKET WASHER Impressions 09/04/2019 9:55 AM BLANKET WASHER =====IMPRESSION:===== No mammographic findings suggestive of malignancy. ASSESSMENT: ACR BI-RADS Category 2 - Benign. RECOMMENDATION: 1: Routine screening mammogram bilateral in 1 year COMMENTS: Narrative 09/04/2019 9:55 AM BLANKET WASHER EXAMINATION: Digital bilateral diagnostic mammogram with 3-D tomography EXAM DATE/TIME: 09/04/2019 8:16 AM REASON FOR EXAM: Encounter for screening mammogram for malignant neoplasm of breast COMPARISON: April 2017 TECHNIQUE: Digital diagnostic mammography of both breasts was performed in addition to 3-D Tomosynthesis technique. This study was read with the assistance of a computer-aided detection system. TISSUE DENSITY: The breast tissue contains scattered fibroglandular densities. FINDINGS:. No suspicious masses, malignant appearing calcifications, skin thickening or other abnormalities are present. No significant change from the prior exam. The patient no longer has the palpable changes within the left breast and is unable to identify any specific concern in the left breast. Arya Navarrete DO MAMMO Final Result from Last 3 Months or Most Recently Relevant to Health Maintenance Insurance Care Teams Director Compensation Relationship Specialty Start Date End Date Kishore Mercer [place] [address] PCP - General FAMILY PRACTICE 05/26/24
--- OUTSIDE RECORDS SUMMARY | 2024-12-27 14:04 | XMS_ITS | Encounter Summary ---
Author Organization [facility] Address [address] [place] [address] Care Team Providers Care Intelligence Applications Name Role Phone ValverdeRob cano Primary Care Provider [phone] Encounter Details Date Type Department Care Team (Late st Contact Info) Description 09/28/2023 Lab Requisition [facility] - DermPath Lab [address] [place] [id number] Ward Isaacs MD [facility] DERMAT[facility] [address] [place] [phone] Neoplasm of uncertain behavior of skin Social History Tobacco Use Types Packs/Day Years Used Date Smoking Tobacco: Never Assessed Comments Unknown Sex and Gender Information Value Date Recorded Sex Assigned at Not on file Legal Sex Female 10:50 AM FINISHED STOCK INSPECTOR Gender Identity Not on file Sexual Orientation Not on file documented as of this encounter Plan of Treatment Not on file documented as of this encounter Procedures Procedure Name Priority Date/Time Associated Diagnosis Comments DERMATOPATHOLOGY Routine 09/28/2023 3:33 AM FINISHED STOCK INSPECTOR Neoplasm of uncertain behavior of skin documented in this encounter Results * DERMATOPATHOLOGY (09/28/2023 3:33 AM FINISHED STOCK INSPECTOR) Case Report Dermatopathology Report Case: [id number] Authorizing Provider: Ward Isaacs MD Collected: 09/28/2023 03:33 AM Ordering Location: [facility] Derm[facility] Lab Received: 09/29/2023 01:54 PM Pathologist: Deidra Salcedo MD Specimen: Skin, left gluteal fold 4 5:24 PM [facility] DERMATOPATH[facility]Y [facility]OR[facility] Final Diagnosis Specimen A. SKIN, left gluteal fold: DERMAL SCAR (L90.5) (see microscopic description) 4 5:24 PM [facility]MATOP[facility] Clinical History Neurofibroma 4 5:24 PM [facility]MAT[facility] Gross Description Specimen A: Received is one formalin filled container labeled with the patient's name and designated left gluteal fold. The specimen consists of a shave biopsy measuring [id number] mm. Jar 0. 5:24 PM [facility]ERMATOPATH[facility]Y [facility] Microscopic Description Specimen A. SKIN, left gluteal fold: There are fibroblasts and collagen bundles oriented parallel to the skin surface with elongated blood vessels, some of which are oriented perpendicular to the skin surface. Additional deeper sections were obtained and reviewed. 5:24 PM [facility]ERMATOPATH[facility] Disclaimer An external and internal positive and negative controls are appropriate for the histochemical, immunohistochemical and immunofluorescence stain(s) in this case (if any), except where stated explicitly. The performance characteristics of the stain(s) cited in this report were developed and its performance characteristic determined by the Dermatopathology Laboratory at [facility], directed by Dr. Jes Clinton. These tests need not be, and therefore are not, approved by the [place] Food and Drug Administration. The tests are used for clinical purposes. Billing Codes Specimen Charges Stain Charges 00002 1 4 5:24 PM [facility] Embedded Images 4 5:24 PM [facility] Pathology/Cytolo gy TISSUE SPECIMEN FROM SKIN / Unknown 09/28/2023 3:33 AM FINISHED STOCK INSPECTOR 09/29/2023 1:54 PM FINISHED STOCK INSPECTOR us Ward Isaacs MD LAB - PATHOLOGY/CYTOLOGY [place] [place] Final Result DERMATOPATHOLOGY LABORATORY [facility] - Department of Dermatology [address] [phone] documented in this encounter Visit Diagnoses Diagnosis Neoplasm of uncertain behavior of skin documented in this encounter Care Teams Intelligence Applications Relationship Specialty Start Date End Date Rob Valverde DO [address] [place] [id number] PCP - General 10/28/22 documented as of this encounter
--- OUTSIDE RECORDS SUMMARY | 2024-12-27 14:04 | XMS_ITS | Patient Health Record ---
Author Organization [facility] Address [address] [place] [address] Care Team Providers Care Logistics Engineering Manager Name Role Phone Rob Valverde DO Primary Care Provider Randal Colunga Unavailable [phone] Jonathon Sparrow Unavailable [phone] ALLERGIES Allergen (clinical drug ingredient) Drug/Non Drug Allergy documented on EMR Reaction Allergy Type Onset Date Status gatifloxacin Tequin (uncoded) Unknown Allergy Active RESULTS Component Value Reference Range Notes MRI : Lumbar without contras t Reviewed date:03/01/2024 10:27:42 AM Interpretation:CANCELLED Performing Lab: Notes/Report: CANCELLED CT Lumbar Spine with Sagitta l and Coronal Reconstruction Reviewed date:04/14/2024 09:20:39 AM Interpretation:completed Performing Lab: Notes/Report: completed REASON FOR REFERRAL No Information MEDICATIONS Medication SIG (Take, Route, Frequency, Duration) Notes Start Date End Date Status Progesterone Active PriLOSEC Active Testosterone Active [place] Thyroid Activ e Neurontin 300 MG 1 capsule Orally Thr ee times a day 11/23/2022 Not-Taking ZyrTEC Active Famotidine Active Lyrica Active methylPREDNISolone 4 MG as directed Oral ly as directed for 6 days 09/02/2023 Not-Taking Medrol (Alec) 4 MG as directed on the package Orally as directed on the package for 6 days 11/25/2023 Active Medrol (Alec) 4 MG as directed on the package Orally as directed on the package for 6 days 11/04/2023 Not-Taking PROBLEMS Problem Type ICD Code Onset Dates Problem Status W/U Status Risk SNOMED Code Notes Problem Low back pain with left-sided sciatica (M54.42) Active confirmed Sciatica (76391199) Problem Lumbar radiculopathy (M54.16) Active confirmed Lumbar radiculopathy (532103871) Problem Lumbar stenosis with neurogenic claudication (M48.062) Active confirmed Neurogenic claudication (738373042) Problem Spondylolisthesis of lumbar region (M43.16) Active confirmed Acquired spondylolisthesis (639384624) Problem Orthopedic aftercare (Z47.89) Active confirmed Problem Arthritis of left acromioclavicular joint (M19.012) Active confirmed 112976349 Problem Incomplete rotator cuff tear or rupture of left shoulder, not specified as traumatic (M75.112) Active confirmed Non-trau matic partial tear of left rotator cuff ([id number]) Problem Cervical radiculopathy (M54.12) Active confirmed 60808130 Encounters Encounter Location Date Provider Diagnosis [facility] [address] [address] 02/23/2024 Jonathon Sparrow Lumbar radiculopathy M54.16 [facility] [address] [phone] 03/01/2024 Randal Cook [facility] [address] [address] 04/13/2024 Jonathon Sparrow Lumbar radiculopathy M54.16 [facility] [address] [address] 04/20/2024 Jonathon Sparrow ASSESSMENTS Encounter Date Diagnosis Assessment Notes Treatment Notes Treatment Clinical Notes 02/23/2024 Lumbar radiculopathy (ICD-10 - M54.16) 04/13/2024 Lumbar radiculopathy (ICD-10 - M54.16) PLAN OF TREATMENT Pending Test Test Name Order Date Lumbar Decompression and Transforminal I nterbody Fusion 11/25/2022 Insurance Providers Payer Name Payer Address Payer Phone Subscriber Number Group Number Insured Name Patient Relationship to Insured Coverage Start Date Coverage End Date [facility] [address] [place] [phone] [id number] Rama Carrasco Self - patient is the insured MEDICAL (GENERAL) HISTORY Medical History History ICD Code Hypertension Hypothyroidism Anemia Surgical History Surgery Date(Month/Year) Cholecystectomy Bladder surgery Appendectomy Left shoulder arthroscopy, d ebridement of rotator cuff, distal clavicle resection- [facility] 06/04/23 L4-5 Decompression and TLIF 12/09/22 Hospitalization History Reason Date(Month/Year) As per above.
--- OUTSIDE RECORDS SUMMARY | 2024-12-27 14:04 | XMS_ITS | Patient Health Record ---
Author Organization [facility] [place] ([address]) Address [address] [place] [address] Care Team Providers Care Back Tender Name Role Phone Kishore Mercer Primary Care Provider Unavailab le Ragini Godoy Unavailable [phone] Rob Valverde DO Unavailable Unavailable Petr Schulz Unavailable [phone] [facility], Provider Unavailable Unavailab le Allergies Allergen (clinical drug ingredient) Drug/Non Drug Allergy documented on EMR Reaction Allergy Type Onset Date Status TEQUIN (uncoded) Dysphagia Allergy Act marian Reason For Referral Reason [id number] Referring Provider First Name Kishore Referring Provider Last Name Sylvie Referred Organization [facility] Referred Provider Ragini Godoy Referred Address [address] [place], [place],[address], Referred Provider Specialty Allergy/Immu nology Referral Priority Routine Medications Medication SIG (Take, Route, Frequency, Duration) Notes Start Date End Date Status Cetirizine HCl 10 MG 1 tablet Orally Once a day for 90 days Active Naltrexone HCl (Pain) 1.5 MG as directed Orally Active Famotidine 40 MG 1 tab(s) orally prio r to shots for 90 days Active Omeprazole 40 MG 1 cap(s) orally once a day Active Flonase Allergy Relief 50 MCG/ACT 2 spray(s) intranasally (avoid nasal septum) once a day Active ZyrTEC Allergy 10 MG 1 tab(s) orally once a day Active Pregabalin 100 MG 1 cap(s) orally 3 times a day Not-Taking PAZEO 0.7% 1 GTT IN EACH AFFECTED EYE ONCE A DAY for 90 DAYS *Please review for potential replacement for e-prescription and drug interaction check* Not-Taking Budesonide 0.5 MG/2ML 2 ml mix with 4-5 packets of Splenda, then swallow 1 times a day for 30 day(s) Not-Taking Xyzal Allergy 24HR 5 MG 1 tab(s) orally once a day (in the evening) Active EpiPen 2-Vamshi 0.3 mg 0.3 mg intramuscularly once for 30 days Active Famotidine 20 MG 1 tablet Orally 1 hr prior to shots for 90 days 03/23/2024 Active FAMOTIDINE 40 mg 1 tab(s) orally prio r to shots for 90 days Not-Taking Lisinopril 10 MG 1 tab(s) orally once a day for 30 day(s) Not-Taking FLONASE 0.05 mg/inh 2 spray(s) intranasally (avoid nasal septum) once a day Active Famotidine 40 MG 1 tab(s) orally once a day (at bedtime) Not-Taking NASAL WASHES N/A as directed intranasally as needed Active Montelukast Sodium 10 MG TAKE 1 TABLET BY MOUTH PRIOR TO ALLERGY SHOT for 90 Active PROVENTIL (ALBUTEROL) HFA 90 mcg/inh, cfc-free 2-4 puffs inhaled with spacer QID, PRN and per asthma action plan for 30 day(s) Active Flovent HFA CFC FREE 220 MCG/INH 4 PUFF(S) SWALLOWED 2 TIMES A DAY for 90 DAYS *Please review and pick correct strength-formulat ion from MENABANQER options. If intended option is not shown, discontinue and re-order from Quick Search* Not-Taking AEROCHAMBER MDI SPACER N/A user with MDI inhalers by mouth q4-6 hours PRN Active SIT (CLUSTER) VARIABLE PER SCHEDULE SC PER SCHEDULE for TO BE DETERMINED *Please review for potential replacement for e-prescription and drug interaction check* Not-Taking OMEPRAZOLE 40 mg 1 cap(s) orally once a day Active BUDESONIDE 0.5 mg/2 mL 2 ml mix with 4-5 packets of Splenda, then swallow 1 times a day for 30 day(s) Active SIT (TRADITIONAL) variable per schedule SC per schedule Active SINGULAIR 10 mg 1 tab(s) orally prio r to allergy shots for 90 days Active EPIPEN 2-VAMSHI 0.3 mg 0.3 mg intramuscularly once for 30 days Active Olopatadine HCl 0.1 % 1 drop into affected eye Ophthalmic Twice a day for 90 days Active Immunizations Vaccine Route Administration Date Status Comme nts NOC Flucelevax Quadrivalent Unknown 05/23/2020 Administ ered Social History Tobacco Use: Social History Observation Description Date Details (start date - stop date) Never Smoker NA - NA Smoking Smart Form: Question Answer Notes Are you a: never smoker Additional Findings:Tobacco Non-User Non-smoker for personal reasons Tobacco Control (Standard) Question Answer Notes Tobacco use: Nonsmoker Problems Problem Type SNOMED Code ICD Code Onset Dates Problem Status W/U Status Risk Notes Problem Shortness of breath (349702786) Shortness of breath (R06.02) Active confirmed Problem Blepharitis (13526991) Unspecified inflammation of eyelid (H01.9) Active confirmed Problem Chronic allergic conjunctivitis (74383400) Other chronic allergic conjunctivitis (H10.45) Active confirmed Problem Allergic rhinitis caused by pollen (disorder) (31828132) Allergic rhinitis due to pollen (J30.1) Active confirmed Problem Allergic rhinitis (52261119) Other allergic rhinitis (J30.89) Active confirmed Problem Eosinophilic esophagitis (473271445) Eosinophilic esophagitis (K20.0) Active confirmed Problem Melena (2723020) Melena (K92.1) Active confirme d Problem Allergic rhinitis caused by pollen (disorder) (67361604) Allergic rhinitis due to pollen (J30.1) Active confirmed Problem Allergic rhinitis caused by animal hair and dander (928467565402096) Allergic rhinitis due to animal (cat) (dog) hair and dander (J30.81) Active confirmed Problem Allergic rhinitis (24655352) Other allergic rhinitis (J30.89) Active confirmed Problem Chronic allergic conjunctivitis (19163029) Other chronic allergic conjunctivitis (H10.45) Active confirmed Problem Dysphagia, unspecified (R13.10) Active confirmed Vital Signs Respiratory Rate 17 /min 09/28/2024 Oximetry 99 % 09/28/2024 Blood pressure diastolic 87 mm Hg 09/28/2024 Height 64 in 09/28/2024 Blood pressure systolic 125 mm Hg 09/28/2024 Weight 209.2 lbs 09/28/2024 BMI 35.91 kg/m2 09/28/2024 Encounters Encounter Location Date Provider Diagnosis [place] [address] [place] [address] 12/21/2024 Ragini Young Allergic rhinitis du e to pollen J30.[address] [address] 03/23/2024 Ragini Young Eosinophilic esophagitis K20.0 ; Other diseases of salivary glands K11.8 ; Shortness of breath R06.02 ; Allergic rhinitis due to pollen J30.1 ; Allergic rhinitis due to animal (cat) (dog) hair and dander J30.81 ; Other allergic rhinitis J30.89 and Other chronic allergic conjunctivitis H10.[address] [address] 09/28/2024 Ragini Young Eosinophilic esophagitis K20.0 ; Other diseases of salivary glands K11.8 ; Shortness of breath R06.02 ; Allergic rhinitis due to pollen J30.1 ; Allergic rhinitis due to animal (cat) (dog) hair and dander J30.81 ; Other allergic rhinitis J30.89 and Other chronic allergic conjunctivitis H10.[address] [address] 10/10/2024 Petr Schulz Allergic rhinitis du e to pollen J30.1 ; Other allergic rhinitis J30.89 ; Allergic rhinitis due to animal (cat) (dog) hair and dander J30.81 and Other chronic allergic conjunctivitis H10.[address] [address] 10/17/2024 Petr Schulz Allergic rhinitis du e to pollen J30.1 ; Other allergic rhinitis J30.89 ; Allergic rhinitis due to animal (cat) (dog) hair and dander J30.81 and Other chronic allergic conjunctivitis H10.[address] [address] 11/07/2024 Petr Schulz Allergic rhinitis du e to pollen J30.1 ; Other allergic rhinitis J30.89 ; Allergic rhinitis due to animal (cat) (dog) hair and dander J30.81 and Other chronic allergic conjunctivitis H10.45 [facility] [address] [place] [address] 12/07/2024 Petr Zeus Allergic rhinitis du e to pollen J30.1 ; Other allergic rhinitis J30.89 ; Allergic rhinitis due to animal (cat) (dog) hair and dander J30.81 and Other chronic allergic conjunctivitis H10.45 [facility] [address] [place] [address] 03/30/2024 Petr Zeus Allergic rhinitis du e to pollen J30.1 ; Other allergic rhinitis J30.89 ; Allergic rhinitis due to animal (cat) (dog) hair and dander J30.81 and Other chronic allergic conjunctivitis H10.45 [facility] [address] [place] [address] 04/13/2024 Petranthony Schulz Allergic rhinitis du e to pollen J30.1 ; Other allergic rhinitis J30.89 ; Allergic rhinitis due to animal (cat) (dog) hair and dander J30.81 and Other chronic allergic conjunctivitis H10.45 [facility] [address] [place] [phone] 04/20/2024 Petr Zeus Allergic rhinitis du e to pollen J30.1 ; Other allergic rhinitis J30.89 ; Allergic rhinitis due to animal (cat) (dog) hair and dander J30.81 and Other chronic allergic conjunctivitis H10.45 [facility] [address] [place] [phone] 04/25/2024 Petranthony Schulz Allergic rhinitis du e to pollen J30.1 ; Other allergic rhinitis J30.89 ; Allergic rhinitis due to animal (cat) (dog) hair and dander J30.81 and Other chronic allergic conjunctivitis H10.45 [facility] [address] [place] [phone] 05/02/2024 Petranthony Schulz Allergic rhinitis du e to pollen J30.1 ; Other allergic rhinitis J30.89 ; Allergic rhinitis due to animal (cat) (dog) hair and dander J30.81 and Other chronic allergic conjunctivitis H10.45 [facility] [address] [place], [place] [address] [address] 05/09/2024 Petr Zeus Allergic rhinitis du e to pollen J30.1 ; Other allergic rhinitis J30.89 ; Allergic rhinitis due to animal (cat) (dog) hair and dander J30.81 and Other chronic allergic conjunctivitis H10.45 [facility] [address] [place] [address] [address] 05/16/2024 Petr Zeus Allergic rhinitis du e to pollen J30.1 ; Other allergic rhinitis J30.89 ; Allergic rhinitis due to animal (cat) (dog) hair and dander J30.81 and Other chronic allergic conjunctivitis H10.45 [facility] [address] [place] [address] [address] 05/23/2024 Petr Zeus Allergic rhinitis du e to pollen J30.1 ; Other allergic rhinitis J30.89 ; Allergic rhinitis due to animal (cat) (dog) hair and dander J30.81 and Other chronic allergic conjunctivitis H10.45 [facility] [address] [place] [address] [address] 05/30/2024 Petr Zeus Allergic rhinitis du e to pollen J30.1 ; Other allergic rhinitis J30.89 ; Allergic rhinitis due to animal (cat) (dog) hair and dander J30.81 and Other chronic allergic conjunctivitis H10.45 [facility] [address] [place] [address] [address] 06/06/2024 ePtr Schulz Allergic rhinitis du e to pollen J30.1 ; Other allergic rhinitis J30.89 ; Allergic rhinitis due to animal (cat) (dog) hair and dander J30.81 and Other chronic allergic conjunctivitis H10.45 [facility] [address] [place], [place] [address] [address] 06/13/2024 Petr Schulz Allergic rhinitis du e to pollen J30.1 ; Other allergic rhinitis J30.89 ; Allergic rhinitis due to animal (cat) (dog) hair and dander J30.81 and Other chronic allergic conjunctivitis H10.45 [facility] [address] [place], [place] [address] [address] 06/22/2024 Petr Schulz Allergic rhinitis du e to pollen J30.1 ; Other allergic rhinitis J30.89 ; Allergic rhinitis due to animal (cat) (dog) hair and dander J30.81 and Other chronic allergic conjunctivitis H10.45 [facility] [address] [place], [place] [address] [place] [phone] 06/29/2024 Petr Schulz Allergic rhinitis du e to pollen J30.1 ; Other allergic rhinitis J30.89 ; Allergic rhinitis due to animal (cat) (dog) hair and dander J30.81 and Other chronic allergic conjunctivitis H10.45 [facility] [address] [place], [place] [address] [place] [phone] 07/06/2024 Petr Zeus Allergic rhinitis du e to pollen J30.1 ; Other allergic rhinitis J30.89 ; Allergic rhinitis due to animal (cat) (dog) hair and dander J30.81 and Other chronic allergic conjunctivitis H10.45 [facility] [address] [place], [place] [address] [address] 07/17/2024 Petr Schulz Allergic rhinitis du e to pollen J30.1 ; Other allergic rhinitis J30.89 ; Allergic rhinitis due to animal (cat) (dog) hair and dander J30.81 and Other chronic allergic conjunctivitis H10.45 [facility] [address] [place], [place] [address] [place] [phone] 08/01/2024 Petr Zeus Allergic rhinitis du e to pollen J30.1 ; Other allergic rhinitis J30.89 ; Allergic rhinitis due to animal (cat) (dog) hair and dander J30.81 and Other chronic allergic conjunctivitis H10.45 [facility] [address] [place], [place] [address] [place] [phone] 08/30/2024 Petrnathony Schulz Allergic rhinitis du e to pollen J30.1 ; Other allergic rhinitis J30.89 ; Allergic rhinitis due to animal (cat) (dog) hair and dander J30.81 and Other chronic allergic conjunctivitis H10.45 [facility] [address] [place], [place] [address] [address] [place] [phone] 09/20/2024 Petranthony Schulz Allergic rhinitis du e to pollen J30.1 ; Other allergic rhinitis J30.89 ; Allergic rhinitis due to animal (cat) (dog) hair and dander J30.81 and Other chronic allergic conjunctivitis H10.45 [facility] [address] [place] [address] 12/28/2023 Petr Schulz Allergic rhinitis du e to pollen J30.1 ; Other allergic rhinitis J30.89 ; Allergic rhinitis due to animal (cat) (dog) hair and dander J30.81 and Other chronic allergic conjunctivitis H10.45 [facility] [address] [place] [address] 01/06/2024 Petr Schulz Allergic rhinitis du e to pollen J30.1 ; Other allergic rhinitis J30.89 ; Allergic rhinitis due to animal (cat) (dog) hair and dander J30.81 and Other chronic allergic conjunctivitis H10.45 [facility] [address] [place] [address] 01/12/2024 Petr Schulz Allergic rhinitis du e to pollen J30.1 ; Other allergic rhinitis J30.89 ; Allergic rhinitis due to animal (cat) (dog) hair and dander J30.81 and Other chronic allergic conjunctivitis H10.45 [facility] [address] [place] [phone] 01/19/2024 Petr Schulz Allergic rhinitis du e to pollen J30.1 ; Other allergic rhinitis J30.89 ; Allergic rhinitis due to animal (cat) (dog) hair and dander J30.81 and Other chronic allergic conjunctivitis H10.45 [facility] [address] [place] [phone] 01/26/2024 Petr Schulz Allergic rhinitis du e to pollen J30.1 ; Other allergic rhinitis J30.89 ; Allergic rhinitis due to animal (cat) (dog) hair and dander J30.81 and Other chronic allergic conjunctivitis H10.45 [facility] [address] [place] [phone] 02/02/2024 Petr Schulz Allergic rhinitis du e to pollen J30.1 ; Other allergic rhinitis J30.89 ; Allergic rhinitis due to animal (cat) (dog) hair and dander J30.81 and Other chronic allergic conjunctivitis H10.[address] [address] 02/09/2024 Petr Schulz Allergic rhinitis du e to pollen J30.1 ; Other allergic rhinitis J30.89 ; Allergic rhinitis due to animal (cat) (dog) hair and dander J30.81 and Other chronic allergic conjunctivitis H10.[address] [address] 02/17/2024 Petr Schulz Allergic rhinitis du e to pollen J30.1 ; Other allergic rhinitis J30.89 ; Allergic rhinitis due to animal (cat) (dog) hair and dander J30.81 and Other chronic allergic conjunctivitis H10.[address] [address] 02/22/2024 Petr Schulz Allergic rhinitis du e to pollen J30.1 ; Other allergic rhinitis J30.89 ; Allergic rhinitis due to animal (cat) (dog) hair and dander J30.81 and Other chronic allergic conjunctivitis H10.[address] [address] 03/09/2024 Petr Schulz Allergic rhinitis du e to pollen J30.1 ; Other allergic rhinitis J30.89 ; Allergic rhinitis due to animal (cat) (dog) hair and dander J30.81 and Other chronic allergic conjunctivitis H10.[address] [address] 02/05/2024 Provider [facility] Assessments Encounter Date Diagnosis (ICD Code) Assessment Notes Treatment Notes Treatment Clinical Notes Section Notes 12/28/2023 Allergic rhinitis due to pollen (ICD-10 - J30.1) 01/06/2024 Allergic rhinitis due to pollen (ICD-10 - J30.1) 01/12/2024 Allergic rhinitis due to pollen (ICD-10 - J30.1) 01/19/2024 Allergic rhinitis due to pollen (ICD-10 - J30.1) 01/26/2024 Allergic rhinitis due to pollen (ICD-10 - J30.1) 02/02/2024 Allergic rhinitis due to pollen (ICD-10 - J30.1) 02/09/2024 Allergic rhinitis due to pollen (ICD-10 - J30.1) 02/17/2024 Allergic rhinitis due to pollen (ICD-10 - J30.1) 02/22/2024 Allergic rhinitis due to pollen (ICD-10 - J30.1) 03/09/2024 Allergic rhinitis due to pollen (ICD-10 - J30.1) 03/23/2024 Other diseases of salivary glands (ICD-10 - K11.8) Rama returned recently at request of her ENT. s/p intraoral sialolithotomy in 04/2022. No evidence of sialolithiasis or lymphadenopathy per patient. She is off Lisinopril. Swelling was not worsening in the setting of foods or medications. She does not routinely take NSAIDS. Work-up for HAE/AAE was normal. Urine studies for pheochromocytoma and carcinold was negative She does have a strong history of atopic disease with EoE, presumed asthma, and recently told at the ER in May that she had a nasal polyp. Will request these records as well. -Although she response to OCS she does not tolerate them with perceived SE of facial droop and BOYD. -per PUBLICITY EXPERT Tung notes was having episodes of tachycardia and dizziness and this has resolved. -consider off-label anti-IL 5 given her other eosinophiliic conditions. CBC at recent check was normal - will request Dr. Morin last CBC -labs for Sjogrens, total IgE, ANCA, and DUSTIN w/ reflex to cascade panel - all normal -She has resumed SCIT and feels like treatment is helping. I discussed that I am not 100% sure that this will help her gland swelling but she is willing to try 03/23/2024 Eosinophilic esophagitis (ICD-10 - K20.0) History of dysphagia, 2 or 3 prior dilations, and 1 ER evaluation for food impaction. Last EGD was October 2021 did not require dilation. -currently managing with dairy avoidance, PPI, and PRN swallowed steroids -discussed restarting immunotherapy -consider anti-IL 5 vs. Dupixent, the latter now approved for EoE - Trialed Budesonide swallowed steroid x 1 month with improvement. Now on oral steroids and holding If she continues to have dysphagia or food sticking after that will need to see GI as PCP has been managing - EGD with biopsy will be helpful 03/30/2024 Allergic rhinitis due to pollen (ICD-10 - J30.1) 04/13/2024 Allergic rhinitis due to pollen (ICD-10 - J30.1) 04/20/2024 Allergic rhinitis due to pollen (ICD-10 - J30.1) 04/25/2024 Allergic rhinitis due to pollen (ICD-10 - J30.1) 05/02/2024 Allergic rhinitis due to pollen (ICD-10 - J30.1) 05/09/2024 Allergic rhinitis due to pollen (ICD-10 - J30.1) 05/16/2024 Allergic rhinitis due to pollen (ICD-10 - J30.1) 05/23/2024 Allergic rhinitis due to pollen (ICD-10 - J30.1) 05/30/2024 Allergic rhinitis due to pollen (ICD-10 - J30.1) 06/06/2024 Allergic rhinitis due to pollen (ICD-10 - J30.1) 06/13/2024 Allergic rhinitis due to pollen (ICD-10 - J30.1) 06/22/2024 Allergic rhinitis due to pollen (ICD-10 - J30.1) 06/29/2024 Allergic rhinitis due to pollen (ICD-10 - J30.1) 07/06/2024 Allergic rhinitis due to pollen (ICD-10 - J30.1) 07/17/2024 Allergic rhinitis due to pollen (ICD-10 - J30.1) 08/01/2024 Allergic rhinitis due to pollen (ICD-10 - J30.1) 08/30/2024 Allergic rhinitis due to pollen (ICD-10 - J30.1) 09/20/2024 Allergic rhinitis due to pollen (ICD-10 - J30.1) 09/28/2024 Other diseases of salivary glands (ICD-10 - K11.8) Rama returned at request of her ENT. s/p intraoral sialolithotomy in 04/2022. No evidence of sialolithiasis or lymphadenopathy per patient. She is off Lisinopril. Swelling was not worsening in the setting of foods or medications. She does not routinely take NSAIDS. Work-up for HAE/AAE was normal. Urine studies for pheochromocytoma and carcinold was negative She does have a strong history of atopic disease with EoE, presumed asthma, and recently told at the ER in May that she had a nasal polyp. Will request these records as well. -Although she response to OCS she does not tolerate them with perceived SE of facial droop and BOYD. -per PUBLICITY EXPERT Tung notes was having episodes of tachycardia and dizziness and this has resolved. -consider off-label anti-IL 5 given her other eosinophiliic conditions. CBC at recent check was normal - will request Dr. Morin last CBC -labs for Sjogrens, total IgE, ANCA, and DUSTIN w/ reflex to cascade panel - all normal -She has resumed SCIT and feels like treatment is helping. I discussed that I am not 100% sure that this will help her gland swelling but she is willing to try. Over the last year has seen a clear improvement in her airway symptoms, EoE, and gland swelling. Would like to continue 09/28/2024 Eosinophilic esophagitis (ICD-10 - K20.0) History of dysphagia, 2 or 3 prior dilations, and 1 ER evaluation for food impaction. Last EGD was October 2021 did not require dilation. -currently managing with dairy avoidance and SCIT. No longer on PPI, or PRN swallowed steroids -consider anti-IL 5 vs. Dupixent, the latter now approved for EoE - EGD with biopsy will be helpful if symptoms return 10/10/2024 Allergic rhinitis due to pollen (ICD-10 - J30.1) 10/17/2024 Allergic rhinitis due to pollen (ICD-10 - J30.1) 11/07/2024 Allergic rhinitis due to pollen (ICD-10 - J30.1) 12/07/2024 Allergic rhinitis due to pollen (ICD-10 - J30.1) 12/21/2024 Allergic rhinitis due to pollen (ICD-10 - J30.1) 12/07/2024 Other allergic rhinitis (ICD-10 - J30.89) 11/07/2024 Other allergic rhinitis (ICD-10 - J30.89) 10/17/2024 Other allergic rhinitis (ICD-10 - J30.89) 10/10/2024 Other allergic rhinitis (ICD-10 - J30.89) 09/28/2024 Shortness of breath (ICD-10 - R06.02) No recent ELVIS use or lower airway symptoms. Spirometry last visit with normal FEV1, FVC, and FEV%. -continue to closely monitor lung function and symptoms given her other allergic conditions -UTD on flu shot -continue ELVIS per AAP with spacer -continue Singulair 09/20/2024 Other allergic rhinitis (ICD-10 - J30.89) 08/30/2024 Other allergic rhinitis (ICD-10 - J30.89) 08/01/2024 Other allergic rhinitis (ICD-10 - J30.89) 07/17/2024 Other allergic rhinitis (ICD-10 - J30.89) 07/06/2024 Other allergic rhinitis (ICD-10 - J30.89) 06/29/2024 Other allergic rhinitis (ICD-10 - J30.89) 06/22/2024 Other allergic rhinitis (ICD-10 - J30.89) 06/13/2024 Other allergic rhinitis (ICD-10 - J30.89) 06/06/2024 Other allergic rhinitis (ICD-10 - J30.89) 05/30/2024 Other allergic rhinitis (ICD-10 - J30.89) 05/23/2024 Other allergic rhinitis (ICD-10 - J30.89) 05/16/2024 Other allergic rhinitis (ICD-10 - J30.89) 05/09/2024 Other allergic rhinitis (ICD-10 - J30.89) 05/02/2024 Other allergic rhinitis (ICD-10 - J30.89) 04/25/2024 Other allergic rhinitis (ICD-10 - J30.89) 04/20/2024 Other allergic rhinitis (ICD-10 - J30.89) 04/13/2024 Other allergic rhinitis (ICD-10 - J30.89) 03/30/2024 Other allergic rhinitis (ICD-10 - J30.89) 03/23/2024 Shortness of breath (ICD-10 - R06.02) Spirometry last visit with normal FEV1, FVC, and FEV%. -continue to closely monitor lung function and symptoms given her other allergic conditions -UTD on flu shot -continue ELVIS per AAP with spacer -continue Singulair 03/09/2024 Other allergic rhinitis (ICD-10 - J30.89) 02/22/2024 Other allergic rhinitis (ICD-10 - J30.89) 02/17/2024 Other allergic rhinitis (ICD-10 - J30.89) 02/09/2024 Other allergic rhinitis (ICD-10 - J30.89) 02/02/2024 Other allergic rhinitis (ICD-10 - J30.89) 01/26/2024 Other allergic rhinitis (ICD-10 - J30.89) 01/19/2024 Other allergic rhinitis (ICD-10 - J30.89) 01/12/2024 Other allergic rhinitis (ICD-10 - J30.89) 01/06/2024 Other allergic rhinitis (ICD-10 - J30.89) 12/28/2023 Other allergic rhinitis (ICD-10 - J30.89) 12/28/2023 Allergic rhinitis due to animal (cat) (dog) hair and dander (ICD-10 - J30.81) 01/06/2024 Allergic rhinitis due to animal (cat) (dog) hair and dander (ICD-10 - J30.81) 01/12/2024 Allergic rhinitis due to animal (cat) (dog) hair and dander (ICD-10 - J30.81) 01/19/2024 Allergic rhinitis due to animal (cat) (dog) hair and dander (ICD-10 - J30.81) 01/26/2024 Allergic rhinitis due to animal (cat) (dog) hair and dander (ICD-10 - J30.81) 02/02/2024 Allergic rhinitis due to animal (cat) (dog) hair and dander (ICD-10 - J30.81) 02/09/2024 Allergic rhinitis due to animal (cat) (dog) hair and dander (ICD-10 - J30.81) 02/17/2024 Allergic rhinitis due to animal (cat) (dog) hair and dander (ICD-10 - J30.81) 02/22/2024 Allergic rhinitis due to animal (cat) (dog) hair and dander (ICD-10 - J30.81) 03/09/2024 Allergic rhinitis due to animal (cat) (dog) hair and dander (ICD-10 - J30.81) 03/23/2024 Allergic rhinitis due to pollen (ICD-10 - J30.1) Rama clearly suffers from atopic disease based upon our prior SPT. -immunocaps showed alternatia, ragweed, and cedar -doing well back on SCIT. She will triple pre-medicate due to prior large local rxns -AIE refilled 03/30/2024 Allergic rhinitis due to animal (cat) (dog) hair and dander (ICD-10 - J30.81) 04/13/2024 Allergic rhinitis due to animal (cat) (dog) hair and dander (ICD-10 - J30.81) 04/20/2024 Allergic rhinitis due to animal (cat) (dog) hair and dander (ICD-10 - J30.81) 04/25/2024 Allergic rhinitis due to animal (cat) (dog) hair and dander (ICD-10 - J30.81) 05/02/2024 Allergic rhinitis due to animal (cat) (dog) hair and dander (ICD-10 - J30.81) 05/09/2024 Allergic rhinitis due to animal (cat) (dog) hair and dander (ICD-10 - J30.81) 05/16/2024 Allergic rhinitis due to animal (cat) (dog) hair and dander (ICD-10 - J30.81) 05/23/2024 Allergic rhinitis due to animal (cat) (dog) hair and dander (ICD-10 - J30.81) 05/30/2024 Allergic rhinitis due to animal (cat) (dog) hair and dander (ICD-10 - J30.81) 06/06/2024 Allergic rhinitis due to animal (cat) (dog) hair and dander (ICD-10 - J30.81) 06/13/2024 Allergic rhinitis due to animal (cat) (dog) hair and dander (ICD-10 - J30.81) 06/22/2024 Allergic rhinitis due to animal (cat) (dog) hair and dander (ICD-10 - J30.81) 06/29/2024 Allergic rhinitis due to animal (cat) (dog) hair and dander (ICD-10 - J30.81) 07/06/2024 Allergic rhinitis due to animal (cat) (dog) hair and dander (ICD-10 - J30.81) 07/17/2024 Allergic rhinitis due to animal (cat) (dog) hair and dander (ICD-10 - J30.81) 08/01/2024 Allergic rhinitis due to animal (cat) (dog) hair and dander (ICD-10 - J30.81) 08/30/2024 Allergic rhinitis due to animal (cat) (dog) hair and dander (ICD-10 - J30.81) 09/20/2024 Allergic rhinitis due to animal (cat) (dog) hair and dander (ICD-10 - J30.81) 10/10/2024 Allergic rhinitis due to animal (cat) (dog) hair and dander (ICD-10 - J30.81) 10/17/2024 Allergic rhinitis due to animal (cat) (dog) hair and dander (ICD-10 - J30.81) 09/28/2024 Allergic rhinitis due to pollen (ICD-10 - J30.1) Rama clearly suffers from atopic disease based upon our prior SPT. -immunocaps showed alternatia, ragweed, and cedar -doing well back on SCIT. No longer pre-medicated due to prior large local rxns (off pepcid) -dosing tolerated today -AIE refilled 11/07/2024 Allergic rhinitis due to animal (cat) (dog) hair and dander (ICD-10 - J30.81) 12/07/2024 Allergic rhinitis due to animal (cat) (dog) hair and dander (ICD-10 - J30.81) 12/07/2024 Other chronic allergic conjunctivitis (ICD-10 - H10.45) 11/07/2024 Other chronic allergic conjunctivitis (ICD-10 - H10.45) 09/28/2024 Allergic rhinitis due to animal (cat) (dog) hair and dander (ICD-10 - J30.81) Recommend medications, allergen avoidance measures, and SCIT as above 10/17/2024 Other chronic allergic conjunctivitis (ICD-10 - H10.45) 10/10/2024 Other chronic allergic conjunctivitis (ICD-10 - H10.45) 09/20/2024 Other chronic allergic conjunctivitis (ICD-10 - H10.45) 08/30/2024 Other chronic allergic conjunctivitis (ICD-10 - H10.45) 08/01/2024 Other chronic allergic conjunctivitis (ICD-10 - H10.45) 07/17/2024 Other chronic allergic conjunctivitis (ICD-10 - H10.45) 07/06/2024 Other chronic allergic conjunctivitis (ICD-10 - H10.45) 06/29/2024 Other chronic allergic conjunctivitis (ICD-10 - H10.45) 06/22/2024 Other chronic allergic conjunctivitis (ICD-10 - H10.45) 06/13/2024 Other chronic allergic conjunctivitis (ICD-10 - H10.45) 06/06/2024 Other chronic allergic conjunctivitis (ICD-10 - H10.45) 05/30/2024 Other chronic allergic conjunctivitis (ICD-10 - H10.45) 05/23/2024 Other chronic allergic conjunctivitis (ICD-10 - H10.45) 05/16/2024 Other chronic allergic conjunctivitis (ICD-10 - H10.45) 05/09/2024 Other chronic allergic conjunctivitis (ICD-10 - H10.45) 05/02/2024 Other chronic allergic conjunctivitis (ICD-10 - H10.45) 04/25/2024 Other chronic allergic conjunctivitis (ICD-10 - H10.45) 04/20/2024 Other chronic allergic conjunctivitis (ICD-10 - H10.45) 04/13/2024 Other chronic allergic conjunctivitis (ICD-10 - H10.45) 03/30/2024 Other chronic allergic conjunctivitis (ICD-10 - H10.45) 03/23/2024 Allergic rhinitis due to animal (cat) (dog) hair and dander (ICD-10 - J30.81) Recommend medications, allergen avoidance measures, and SCIT as above 03/09/2024 Other chronic allergic conjunctivitis (ICD-10 - H10.45) 02/22/2024 Other chronic allergic conjunctivitis (ICD-10 - H10.45) 02/17/2024 Other chronic allergic conjunctivitis (ICD-10 - H10.45) 02/09/2024 Other chronic allergic conjunctivitis (ICD-10 - H10.45) 02/02/2024 Other chronic allergic conjunctivitis (ICD-10 - H10.45) 01/26/2024 Other chronic allergic conjunctivitis (ICD-10 - H10.45) 01/19/2024 Other chronic allergic conjunctivitis (ICD-10 - H10.45) 01/12/2024 Other chronic allergic conjunctivitis (ICD-10 - H10.45) 01/06/2024 Other chronic allergic conjunctivitis (ICD-10 - H10.45) 12/28/2023 Other chronic allergic conjunctivitis (ICD-10 - H10.45) 03/23/2024 Other allergic rhinitis (ICD-10 - J30.89) Recommend medications, allergen avoidance measures, and SCIT as above 09/28/2024 Other allergic rhinitis (ICD-10 - J30.89) Recommend medications, allergen avoidance measures, and SCIT as above 09/28/2024 Other chronic allergic conjunctivitis (ICD-10 - H10.45) Given ocular signs and symptoms I encouraged allergy avoidance measures and meds and continue SCIT as an adjunctive measure 03/23/2024 Other chronic allergic conjunctivitis (ICD-10 - H10.45) Given ocular signs and symptoms I encouraged allergy avoidance measures and meds and continue SCIT as an adjunctive measure 03/23/2024 Other 09/28/2024 Other Plan Of Treatment Pending Test Test Name Order Date METANEPHRINES, FRACT. LC/MS/MS, 24 HR UR INE 09/22/2021 METANEPHRINES, FRACT, FREE, LC/MS/MS, PL ASMA 09/22/2021 C1 INHIBITOR, FUNCTIONAL 03/10/2022 C1 INHIBITOR, PROTEIN 03/10/2022 VMA, 24-HOUR URINE 09/22/2021 HOMOVANILLIC ACID, 24-HR URINE 5-HIAA, 24-HOUR URINE 09/22/2021 HISTAMINE, 24 HOUR URINE 09/22/2021 ANCA SCREEN WITH REFLEX TO TITER 15/2 022 PROSTAGLANDIN D2 (PG D2), URINE 09/22/19 22 LEUKOTRIENE E4, URINE 09/22/2021 N METHYLHISTAMINE, 24 HOUR, URINE 2021 Insurance Providers Payer Name Payer Address Payer Phone Subscriber Number Group Number Insured Name Patient Relationship to Insured Coverage Start Date Coverage End Date [facility] [address] [phone] [id number] Gilberto Carrasco Spouse - patient is the spouse of the insured 5 Medical (General) History Medical History History ICD Code Essential (primary) hypertension Allergic rhinitis due to pollen Other allergic rhinitis Other chronic allergic conjunctivitis Shortness of breath Dysphagia, unspecified Surgical History Surgery Date(Month/Year) , Cholecystectomy 1997 Appendectomy 2002 2004 Bladder Reconstruction 2005 lumbar fusion 11/2022 Shoulder surgery 05/2023 Hospitalization History Reason Date(Month/Year) COVID x7 days 03/25/2022 See above surgical history
--- OUTSIDE RECORDS SUMMARY | 2024-12-27 14:04 | XMS_ITS ---
Author Organization [facility], Address [address] [place] [address] Care Team Providers Care Race Starter Name Role Phone Rob Valverde DO Primary Care Provider Unavaila Randal Mullen Unavailable [phone] Jonathon Sparrow Unavailable [phone] Lumb 04-20-24 Encounters Encounter Location Date Provider Diagnosis [facility] [address] [place] [address] 04/20/2024 Jonathon Sparrow PLAN OF TREATMENT No Information
--- OUTSIDE RECORDS SUMMARY | 2024-12-27 14:05 | XMS_ITS ---
Author Organization [email or web address] ([address]) Address [address] [place] [address] Care Team Providers Care Preparation Plant Supervisor Name Role Phone Kishore Mercer Primary Care Provider Unavailab Ragini Patel Unavailable [phone] Rob Valverde DO Unavailable Unavailable Petr Schulz Unavailable [phone] REASON FOR VISIT SCIT - Traditional Schedule Allergy immunotherapy Medications Medication SIG (Take, Route, Frequency, Duration) Notes Start Date End Date Status FLONASE 0.05 mg/inh 2 spray(s) intranasally (avoid nasal septum) once a day Active Montelukast Sodium 10 MG TAKE 1 TABLET BY MOUTH PRIOR TO ALLERGY SHOT for 90 Active PROVENTIL (ALBUTEROL) HFA 90 mcg/inh, cfc-free 2-4 puffs inhaled with spacer QID, PRN and per asthma action plan for 30 day(s) Active AEROCHAMBER MDI SPACER N/A user with MDI inhalers by mouth q4-6 hours PRN Active EpiPen 2-Alec 0.3 mg 0.3 mg intramuscularly once for 30 days Active FAMOTIDINE 40 mg 1 tab(s) orally prio r to shots for 90 days Not-Taking Lisinopril 10 MG 1 tab(s) orally once a day for 30 day(s) Not-Taking Famotidine 40 MG 1 tab(s) orally once a day (at bedtime) Not-Taking Flovent HFA CFC FREE 220 MCG/INH 4 PUFF(S) SWALLOWED 2 TIMES A DAY for 90 DAYS *Please review and pick correct strength-formulat ion from [employer]an options. If intended option is not shown, discontinue and re-order from Quick Search* Not-Taking SIT (CLUSTER) VARIABLE PER SCHEDULE SC PER SCHEDULE for TO BE DETERMINED *Please review for potential replacement for e-prescription and drug interaction check* Not-Taking Famotidine 20 MG 1 tablet Orally 1 hr prior to shots for 90 days 03/23/2024 Not-Taking Pregabalin 100 MG 1 cap(s) orally 3 [...] once a day (in the evening) Active Naltrexone HCl (Pain) 1.5 MG as directed Orally Active Famotidine 40 MG 1 tab(s) orally prio r to shots for 90 days Active Omeprazole 40 MG 1 cap(s) orally once a day Active Flonase Allergy Relief 50 MCG/ACT 2 spray(s) intranasally (avoid nasal septum) once a day Active ZyrTEC Allergy 10 MG 1 tab(s) orally once a day Active Cetirizine HCl 10 MG 1 tablet Orally Once a day for 90 days Active OMEPRAZOLE 40 mg 1 cap(s) orally once a day Active BUDESONIDE 0.5 mg/2 mL 2 ml mix with 4-5 packets of Splenda, then swallow 1 times a day for 30 day(s) Active SINGULAIR 10 mg 1 tab(s) orally prio r to allergy shots for 90 days Active Olopatadine HCl 0.1 % 1 drop into affected eye Ophthalmic Twice a day for 90 days Active NASAL WASHES N/A as directed intranasally as needed Active SIT (TRADITIONAL) variable per schedule SC per schedule Active Encounters Encounter Location Date Provider Diagnosis [facility] [address] [place] [address] 12/07/2024 Petr Schulz Allergic rhinitis du e to pollen J30.1 ; Other allergic rhinitis J30.89 ; Allergic rhinitis due to animal (cat) (dog) hair and dander J30.81 and Other chronic allergic conjunctivitis H10.45 Assessments Encounter Date Diagnosis (ICD Code) Assessment Notes Treatment Notes Treatment Clinical Notes Section Notes 12/07/2024 Allergic rhinitis due to pollen (ICD-10 - J30.1) 12/07/2024 Other allergic rhinitis (ICD-10 - J30.89) 12/07/2024 Allergic rhinitis due to animal (cat) (dog) hair and dander (ICD-10 - J30.81) 12/07/2024 Other chronic allergic conjunctivitis (ICD-10 - H10.45) Plan Of Treatment Next Appt Details Follow Up: 1 Week, Reason: Progress Notes * Rama CARRASCO EDOB: [birth year] (49 yo F)Acc No.[id number]:12/07/2024 SCIT-Aeroallergen Patient: Rama DAVIS Provider: Omer Schulz MD :1975 A ge:49 Y S ex:Female Date:12/07/2024 Address:[address] [place] [address], [id number] Pcp:Kishore Mercer Subjective: * Chief Complaints: * S CIT - Traditional Schedule Allergy immunotherapy * HPI: * Introduction: The patient is [...] immunotherapy) is on file. * Medical History: * Surgical History: * Hospitalization/Major Diagno stic Procedure: * Medications: T akingEpiPen 2-Alec 0.3 mg kit 0.3 mg intramuscularly once EpiPen 2-Alec 0.3 mg kit 0.3 mg intramuscularly once PROVENTIL (ALBUTEROL) HFA 90 mcg/inh, cfc-free inhaler with adapter/spacer 2-4 puffs inhaled with spacer QID, PRN and per asthma action plan AEROCHAMBER MDI SPACER N/A N/A user with MDI inhalers by mouth q4-6 hours PRN FLONASE 0.05 mg/inh spray 2 spray(s) intranasally (avoid nasal septum) once a day NASAL WASHES N/A 1 quart of sterilized tap water or distilled water, 1 tsp NaCl, 1 pinch of baking soda as directed intranasally as needed SIT (TRADITIONAL) variable see record per schedule SC per schedule SINGULAIR 10 mg tablet 1 tab(s) orally prior to allergy shots OMEPRAZOLE 40 mg delayed release capsule 1 cap(s) orally once a day BUDESONIDE 0.5 mg/2 mL suspension 2 ml mix with 4-5 packets of Splenda, then swallow 1 times a day Olopatadine HCl 0.1 % Solution 1 drop into affected eye Ophthalmic Twice a day Cetirizine HCl 10 MG Tablet 1 tablet Orally Once a day Naltrexone HCl (Pain) 1.5 MG Capsule as directed Orally Flonase Allergy Relief 50 MCG/ACT Suspension 2 spray(s) intranasally (avoid nasal septum) once a day ZyrTEC Allergy 10 MG Tablet 1 tab(s) orally once a day Famotidine 40 MG Tablet 1 tab(s) orally prior to shots Omeprazole 40 MG Capsule Delayed Release 1 cap(s) orally once a day Xyzal Allergy 24HR 5 MG Tablet 1 tab(s) orally once a day (in the evening) Montelukast Sodium 10 MG Tablet TAKE 1 TABLET BY MOUTH PRIOR TO ALLERGY SHOT Taking EpiPen 2-Alec 0.3 mg kit 0.3 mg intramuscularly once Taking EpiPen 2-Alec 0.3 mg kit 0.3 mg intramuscularly once Taking PROVENTIL (ALBUTEROL) HFA 90 mcg/inh, cfc-free inhaler with adapter/spacer 2-4 puffs inhaled with spacer QID, PRN and per asthma action plan Taking AEROCHAMBER MDI SPACER N/A N/A user with MDI inhalers by mouth q4-6 hours PRN Taking FLONASE 0.05 mg/inh spray 2 spray(s) intranasally (avoid nasal septum) once a day Taking NASAL WASHES N/A 1 quart of sterilized tap water or distilled water, 1 tsp NaCl, 1 pinch of baking soda as directed intranasally as needed Taking SIT (TRADITIONAL) variable see record per schedule SC per schedule Taking SINGULAIR 10 mg tablet 1 tab(s) orally prior to allergy shots Taking OMEPRAZOLE 40 mg delayed release capsule 1 cap(s) orally once a day Taking BUDESONIDE 0.5 mg/2 mL suspension 2 ml mix with 4-5 packets of Splenda, then swallow 1 times a day Taking Olopatadine HCl 0.1 % Solution 1 drop into affected eye Ophthalmic Twice a day Taking Cetirizine HCl 10 MG Tablet 1 tablet Orally Once a day Taking Naltrexone HCl (Pain) 1.5 MG Capsule as directed Orally Taking Flonase Allergy Relief 50 MCG/ACT Suspension 2 spray(s) intranasally (avoid nasal septum) once a day Taking ZyrTEC Allergy 10 MG Tablet 1 tab(s) orally once a day Taking Famotidine 40 MG Tablet 1 tab(s) orally prior to shots Taking Omeprazole 40 MG Capsule Delayed Release 1 cap(s) orally once a day Taking Xyzal Allergy 24HR 5 MG Tablet 1 tab(s) orally once a day (in the evening) Taking Montelukast Sodium 10 MG Tablet TAKE 1 TABLET BY MOUTH PRIOR TO ALLERGY SHOT Not-Taking/PRNBudesonide 0.5 MG/2ML Suspension 2 ml mix with 4-5 packets of Splenda, then swallow 1 times a day Pregabalin 100 MG Capsule 1 cap(s) orally 3 times a day PAZEO 0.7% SOLUTION 1 GTT IN EACH AFFECTED EYE ONCE A DAY , Notes to Pharmacist: *Please review for potential replacement for e-prescription and drug interaction check*Famotidine 20 MG Tablet 1 tablet Orally 1 hr prior to shots FAMOTIDINE 40 mg tablet 1 tab(s) orally prior to shots Lisinopril 10 MG Tablet 1 tab(s) orally once a day Flovent HFA CFC FREE 220 MCG/INH AEROSOL 4 PUFF(S) SWALLOWED 2 TIMES A DAY , Notes to Pharmacist: *Please review and pick correct strength-formulation from [employer] options. If intended option is not shown, discontinue and re-order from Quick Search*SIT (CLUSTER) VARIABLE SEE RECORD PER SCHEDULE SC PER SCHEDULE , Notes to Pharmacist: *Please review for potential replacement for e-prescription and drug interaction check*Famotidine 40 MG Tablet 1 tab(s) orally once a day (at bedtime) Not- Taking/PRN Budesonide 0.5 MG/2ML Suspension 2 ml mix with 4-5 packets of Splenda, then swallow 1 times a day Not-Taking/PRN Pregabalin 100 MG Capsule 1 cap(s) orally 3 times a day Not-Taking/PRN PAZEO 0.7% SOLUTION 1 GTT IN EACH AFFECTED EYE ONCE A DAY , Notes to Pharmacist: *Please review for potential replacement for e-prescription and drug interaction check*Not-Taking/PRN Famotidine 20 MG Tablet 1 tablet Orally 1 hr prior to shots Not-Taking/PRN FAMOTIDINE 40 mg tablet 1 tab(s) orally prior to shots Not-Taking/PRN Lisinopril 10 MG Tablet 1 tab(s) orally once a day Not-Taking/PRN Flovent HFA CFC FREE 220 MCG/INH AEROSOL 4 PUFF(S) SWALLOWED 2 TIMES A DAY , Notes to Pharmacist: *Please review and pick correct strength-formulation from [employer] options. If intended option is not shown, discontinue and re-order from Quick Search*Not-Taking/PRN SIT (CLUSTER) VARIABLE SEE RECORD PER SCHEDULE SC PER SCHEDULE , Notes to Pharmacist: *Please review for potential replacement for e- prescription and drug interaction check*Not-Taking/PRN Famotidine 40 MG Tablet 1 tab(s) orally once a day (at bedtime) Objective: * Vitals: Assessment: * Assessment: 1. A llergic rhinitis due to pollen - J30.1 (Primary) 2 . O ther allergic rhinitis - J30.89 3 . A llergic rhinitis due to animal (cat) (dog) hair and dander - J30.81 4 . O ther chronic allergic conjunctivitis - H10.45 Plan: * Treatment: * Procedure Codes: 9 5117 IMMUNOTHERAPY INJECTIONS * Follow Up: 1 Week * Billing Information: * Visit Code: * Procedure Codes: 47114 IMMUNOTHERAPY INJECTIONS. * Sign off status: Completed true * Provider: Omre Schulz MD Date: 0 12/07/2024 Generated for Gustavo sidhu/Raphael/Laina on: 0 12/27/2024 02:04 PM CDT History and Physical Notes * [...]
--- OUTSIDE RECORDS SUMMARY | 2024-12-27 14:05 | XMS_ITS | Encounter Summary ---
Author Organization [facility] Address [address] [place] [address] Care Team Providers Care Web Content Specialist Name Role Phone Kishore Mercer DO Primary Care Provider [phone] Reason for Visit * Reason Onset Date Comments Referral 07/06/2024 Encounter Details Date Type Department Care Team (Late st Contact Info) Description 07/06/[address] [facility] Family Medicine [address] [address] Kishore Mercer DO [address] [place] [address] Referrals Social History Tobacco Use Types Packs/Day Years Used Date Smoking Tobacco: Never Passive Smoke Exposure: Never Smokeless Tobacco: Never Alcohol Use Standard Drinks/Week Comments Never 0 (1 standard drink = 0.6 oz pur e alcohol) PHQ-2 Answer Date Recorded Patient Health Questionnaire-2 Score 1 06/07/2024 Comments No Sex and Gender Information Value Date Recorded Sex Assigned at Female 09/22/2024 11:16 AM MANAGER FOOD Legal Sex Female 5:30 PM MANAGER FOOD Gender Identity Female 09/22/2024 11:16 AM MANAGER FOOD Sexual Orientation Not on file documented as of this encounter Progress Notes * Jumana Woodard - 07/06/2024 2:52 PM CST Marli from [facility] office called and is needing an ins Referral for pt who has an appt 07/10/24. Pt is seeing Dr Ricardo Cox NPI #[id number] Diagnosis Code E04.1 any further questions call Marli at [phone] fax # [phone] GER FOOD documented in this encounter Plan of Treatment Upcoming Encounters Date Type Department Care Team (Late st Contact Info) Description 06/19/2025 10:00 AM CDT Office Visit [facility] Family Medicine - [place] [address] [place] [address] Kishore Mercer DO [address] [place], [place] [id number] documented as of this encounter Visit Diagnoses Not on filedocumented in this encounter Additional Health Concerns Assessment Noted Time PHQ-9 Depression Total Score: 3 06/07/20 24 11:14 AM CDT documented as of this encounter Care Teams Web Content Specialist Relationship Specialty Start Date End Date Kishore Mercer DO [address] [place] [address] PCP - General FAMILY PRACTICE 05/26/24 documented as of this encounter
[2024-12-27 14:09] VITALS: BP 130/86; PULSE 97; RESP 17; TEMP 36.5; O2SAT 99
--- NOTE | 2024-12-27 15:13 | ED_ITS ---
HPI - Skin/Abscess/Foreign Bdy General Chief complaint: Skin/Abscess/Foreign Body <Deidra Chatman PA-C - Last Filed: 12/27/24 16:44> Stated complaint: Poss infected cyst <Deidra Chatman PA-C - Last Filed: 12/27/24 16:44> Time Seen by Provider: 12/27/24 15:13 <Deidra Chatman PA-C - Last Filed: 12/27/24 16:44> Focused HPI: This is a 49 year old female that presents to the ER for a Bartholin cyst. Reports history of same. Reports it has been bothering her for about a week. Reports worsening swelling and pain. Reports some dysuria. Denies fever. GENERAL: Well-appearing, well-nourished, and in no acute distress. HEAD: Normocephalic, atraumatic. CHEST: Clear to auscultation. ?No respiratory distress. HEART: Regular rate and rhythm.? NEURO: ?Alert and oriented x3. Patient screened in triage and initial orders placed.? ?Additional care and disposition to be based upon?diagnostic testing and treatment. <Deidra Chatman PA-C - Last Filed: 12/27/24 16:44> History of Present Illness HPI narrative: Agree with HPI. History of recurrent cyst formation and drainage however she has been squeezing in unable to drain it. It is swollen. No significant dysuria. No fevers chills or sweats. Has been in [facility] in the past. <Fredy Zamora MD - Last Filed: 12/27/24 21:21> Related Data Home medications: Home Medications ?Medication ?Instructions ?Recorded ?Confirmed ?Last Taken ?Type cetirizine 10 mg tablet (Zyrtec) 10 mg PO DAILY 03/25/22 07/16/22 07/16/22 History fluticasone propionate 220 220 mcg inhalation PRN PRN 03/25/22 07/16/22 Unknown History mcg/actuation HFA aerosol inhaler Shortness Of Breath Or Wheezing (Flovent HFA) fluticasone propionate 50 50 mcg intranasal DAILY 03/25/22 07/16/22 07/16/22 History mcg/actuation nasal spray,suspension omeprazole 40 mg capsule,delayed 40 mg PO HS 03/25/22 07/17/22 07/15/22 History release ascorbic acid (vitamin C) 250 mg 250 mg PO DAILY 05/26/22 10/12/22 10/08/22 History tablet calcium 600 mg (as carbonate)-vit 1 tablet PO DAILY 05/26/22 10/12/22 10/08/22 History D3 10 mcg (400 unit)-minerals tablet omega-3 fatty acids 1,000 mg PO DAILY 05/26/22 10/12/22 10/08/22 History famotidine 20 mg tablet (Pepcid) 20 mg PO DAILY 09/28/22 09/28/22 Unknown History montelukast 10 mg tablet 10 mg PO HS 09/28/22 09/28/22 Unknown History (Singulair) gabapentin 300 mg tablet 300 mg PO TID 10/08/22 10/12/22 10/12/22 History 0500 methylprednisolone 4 mg tablets in 0 mg PO PER PKG DIR 10/08/22 10/08/22 Unknown History a dose pack <Deidra Chatman PA-C - Last Filed: 12/27/24 16:44> Allergies/Adverse reactions: Allergies Allergy/AdvReac Type Severity Reaction Status Date / Time gatifloxacin Allergy Unknown Other Verified 12/27/24 15:51 morphine Allergy Swelling Verified 12/27/24 15:51 prednisone Allergy Seizure Verified 12/27/24 15:51 amoxicillin AdvReac Mild Dizziness Verified 12/27/24 15:51 <Deidra Chatman PA-C - Last Filed: 12/27/24 16:44> Review of Systems Constitutional: Constitutional: Reports no additional constitutional complaints <Fredy Zamora MD - Last Filed: 12/27/24 21:21> Genitourinary: Genitourinary: Reports no additional female genitourinary complaints <Fredy Zamora MD - Last Filed: 12/27/24 21:21> [facility] Past Medical History Medical History: Medical History Eosinophilic esophagitis by EGD in 2016 Gastroesophageal reflux disease History of asthma History of hypertension No longer on antihypertensives after 25 pound weight loss. Irritable bowel syndrome Obesity <Deidra Chatman PA-C - Last Filed: 12/27/24 16:44> Surgical History Surgical History: Surgical History History of appendectomy History of bladder suspension procedure 2005 History of cholecystectomy Hx of section C/s x2 with two vaginal births <Deidra Chatman PA-C - Last Filed: 12/27/24 16:44> Family History Family History: Family History Mother Hypothyroidism Diabetes type 2, controlled Hypertension Father Thyroid cancer Diabetes type 2, controlled Hypertension Sibling Epilepsy Other Epilepsy Grandparent Breast cancer <Deidra Chatman PA-C - Last Filed: 12/27/24 16:44> Social History Social History: Social History Social History: Surrogate medical decision maker: Gilberto Carrasco, spouse. Code status: Full code. Smoking status: Never smoker Second hand tobacco smoke exposure: No Alcohol intake: never Substance use: never Substance use type: does not use Lack of Transportation: No Lack of Food: Never True Current Housing: I Have Housing Concerned About Future Housing: No Difficulty Paying Gas/Electric Bills: No Difficulty Paying for Meds: No Currently Unemployed: No Education: Associate Degree Difficulty w/ Childcare or Family Care: No Living arrangements: with family Additional occupation/education comments: Homemaker. Spiritual care concerns: No <Deidra Chatman PA-C - Last Filed: 12/27/24 16:44> Exam Narrative: GENERAL: Well-appearing, well-nourished, and in no acute distress. HEAD: Normocephalic, atraumatic. ENT: Mucous membranes moist. CHEST: Clear to auscultation. No respiratory distress. HEART: Regular rate and rhythm. Normal peripheral pulses. GI: Risingsun gland abscess right-side. Tender to palpation. EXTREMITIES: Normal range of motion. No edema. NEURO: Alert and oriented x3. PSYCH: Normal mood and affect. <Fredy Zamora MD - Last Filed: 12/27/24 21:21> Course Course Emergency Course: Patient resting comfortably. Tolerated incision drainage. Word catheter placed. Follow-up with Gynecology. <Fredy Zamora MD - Last Filed: 12/27/24 21:21> Vital Signs Vital signs: Vital Signs Temperature 97.7 F 12/27/24 14:09 Pulse Rate 97 12/27/24 14:09 Respiratory Rate 17 12/27/24 14:09 Blood Pressure 130/86 12/27/24 14:09 Pulse Oximetry 99 12/27/24 14:09 Oxygen Delivery Room Air 12/27/24 14:09 Temperature 97.7 F 12/27/24 14:09 Pulse Rate 97 12/27/24 14:09 Respiratory Rate 17 12/27/24 14:09 Blood Pressure 130/86 12/27/24 14:09 Pulse Oximetry 99 12/27/24 14:09 Oxygen Delivery Room Air 12/27/24 14:09 <Deidra Chatman PA-C - Last Filed: 12/27/24 16:44> Vital Signs Temperature 97.7 F 12/27/24 14:09 Pulse Rate 97 12/27/24 14:09 Respiratory Rate 17 12/27/24 14:09 Blood Pressure 130/86 12/27/24 14:09 Pulse Oximetry 99 12/27/24 14:09 Oxygen Delivery Room Air 12/27/24 14:09 Temperature 97.7 F 12/27/24 14:09 Pulse Rate 97 12/27/24 14:09 Respiratory Rate 17 12/27/24 14:09 Blood Pressure 130/86 12/27/24 14:09 Pulse Oximetry 99 12/27/24 14:09 Oxygen Delivery Room Air 12/27/24 14:09 <Fredy Zamora MD - Last Filed: 12/27/24 21:21> Procedures Abscess I/D skenes gland: Date of Incision: 12/27/24 <Fredy Zamora MD - Last Filed: 12/27/24 21:21> Time of Incision: 16:26 <Fredy Zamora MD - Last Filed: 12/27/24 21:21> Side (if applicable): right <Fredy Zamora MD - Last Filed: 12/27/24 21:21> Local Anesthetic: lidocaine 1% and with epi <Fredy Zamora MD - Last Filed: 12/27/24 21:21> Amount of anesthesia used (mL): 3 <Fredy Zamora MD - Last Filed: 12/27/24 21:21> Technique: incised with #11 blade <Fredy Zamora MD - Last Filed: 12/27/24 21:21> Irrigation: No <Fredy Zamora MD - Last Filed: 12/27/24 21:21> Packing used?: Word catheter <Fredy Zamora MD - Last Filed: 12/27/24 21:21> I&D Results: Pus <Fredy Zamora MD - Last Filed: 12/27/24 21:21> Complications: pain <Fredy Zamora MD - Last Filed: 12/27/24 21:21> MDM - Skin/Abscess/Foreign Bdy Lab Data Labs: Lab Results 12/27/24 Range/Units 15:21 Urine Color Yellow (Yellow) Urine Appearance Clear (Clear) Urine pH 6.0 (5.0-9.0) Ur Specific Norris 1.015 (1.001-1.035) Urine Protein Negative (Negative) mg/dL Urine Glucose (UA) Negative (Negative) mg/dL Urine Ketones Trace H (Negative) mg/dL Ur Blood (Man) Negative (Negative) Urine Nitrate Negative (Negative) Urine Bilirubin Negative (Negative) Urine Urobilinogen 0.2 (<2.0) mg/dL Leukocyte Esterase Rfl Negative (Negative) MONICA/UL <Deidra Chatman PA-C - Last Filed: 12/27/24 16:44> Lab Results 12/27/24 Range/Units 15:21 Urine Color Yellow (Yellow) Urine Appearance Clear (Clear) Urine pH 6.0 (5.0-9.0) Ur Specific Norris 1.015 (1.001-1.035) Urine Protein Negative (Negative) mg/dL Urine Glucose (UA) Negative (Negative) mg/dL Urine Ketones Trace H (Negative) mg/dL Ur Blood (Man) Negative (Negative) Urine Nitrate Negative (Negative) Urine Bilirubin Negative (Negative) Urine Urobilinogen 0.2 (<2.0) mg/dL Leukocyte Esterase Rfl Negative (Negative) MONICA/UL <Fredy Zamora MD - Last Filed: 12/27/24 21:21> Critical Care Time Critical Care Time Critical Care Time: No <Deidra Chatman PA-C - Last Filed: 12/27/24 16:44> Discharge Plan Discharge Clinical Impression: Abscess, Risingsun's gland <SCOT Crawley Last Filed: 12/27/24 16:44> Patient Disposition: Home <SCOT Crawley Last Filed: 12/27/24 16:44> Condition: Stable <SCOT Crawley Last Filed: 12/27/24 16:44> Instructions: Bartholin Cyst (ED) <SOCT Crawley Last Filed: 12/27/24 16:44> Additional Instructions: You had a Skenes gland abscess drained. This is similar to a bartholins gland abscess. You will need your word catheter removed in next 48 hours. Follow up with Gynecology. Return the ER if you have increased pain, have worsening drainage, or have additional concerns. <SCOT Crawley Last Filed: 12/27/24 16:44> Patient Language: Uruguayan <SCOT Crawley Last Filed: 12/27/24 16:44> Prescriptions: New doxycycline hyclate 100 mg capsule 100 mg PO BID Qty: 14 0RF hydrocodone-acetaminophen 5-325 mg tablet 1 tablet PO Q6H PRN (Reason: pain) Qty: 10 0RF No Action ascorbic acid (vitamin C) 250 mg Tablet 250 mg PO DAILY omega-3 fatty acids Capsule 1,000 mg PO DAILY calcium carbonate-vit D3-min 600 mg calcium- 400 unit Tablet 1 tablet PO DAILY famotidine [Pepcid] 20 mg Tablet 20 mg PO DAILY montelukast [Singulair] 10 mg Tablet 10 mg PO HS gabapentin 300 mg Tablet 300 mg PO TID methylprednisolone 4 mg Tablets,Dose Pack 0 mg PO PER PKG DIR cetirizine [Zyrtec] 10 mg Tablet 10 mg PO DAILY omeprazole 40 mg Capsule,Delayed Release(Dr/Ec) 40 mg PO HS fluticasone propionate [Flovent HFA] 220 mcg/actuation HFA aerosol inhaler 220 mcg inhalation PRN PRN (Reason: Shortness Of Breath Or Wheezing) Rx Instructions: patient swallows dose for EOE fluticasone propionate 50 mcg/actuation spray,suspension 50 mcg INTRANASAL DAILY methylprednisolone [Medrol (Alec)] 4 mg tablets,dose pack 4 mg PO DAILY Qty: 21 0RF Rx Instructions: Take x6 on day 1, x5 on day 2, x4 on day 3, x3 on day 4, x2 on day 5, x1 on day 6. methocarbamol 750 mg tablet 1,500 mg PO TID Qty: 60 0RF hydrocodone-acetaminophen 5-325 mg tablet 1 tablet PO Q8H PRN (Reason: pain) Qty: 10 0RF <Deidra Chatman PA-C - Last Filed: 12/27/24 16:44> Follow-up/Referrals: Richard Maya MD [Physician] - 2 Days Valverde,Rob Rubio MD [Primary Care Provider] - <Deidra Chatman PA-C - Last Filed: 12/27/24 16:44>
[2024-12-27 15:35] LABS: Add Urine Microscopic? NO; Appearance Urine Clear (Clear); Bilirubin Urine Negative (Negative); Blood Urine Negative (Negative); Color Urine Yellow (Yellow); Glucose Urine UA Negative (Negative); Ketones Urine Trace mg/dL (Negative); Leukocyte Esterase Ur Negative LEU/UL (Negative); Nitrate Urine Negative (Negative); Protein Urine Negative (Negative); Specific Grav Ur 1.015 (1.001-1.035); Urobilinogen Urine 0.2 mg/dL (<2.0)
--- OUTSIDE RECORDS SUMMARY | 2024-12-27 16:10 | XMS_ITS | Encounter Summary ---
Author Organization [facility] Address [address] [place] [address] Care Team Providers Care Boring Mill Set Up Operator Name Role Phone ValverdeRob cano Primary Care Provider [phone] Encounter Details Date Type Department Care Team (Late st Contact Info) Description 09/28/2023 Lab Requisition [facility] - DermPath Lab [address] [place] [id number] Ward Isaacs MD [facility] DERMATOLOG[facility] [address] [place] [phone] Neoplasm of uncertain behavior of skin Social History Tobacco Use Types Packs/Day Years Used Date Smoking Tobacco: Never Assessed Comments Unknown Sex and Gender Information Value Date Recorded Sex Assigned at Not on file Legal Sex Female 10:50 AM GUEST SERVICES ASSOCIATE Gender Identity Not on file Sexual Orientation Not on file documented as of this encounter Plan of Treatment Not on file documented as of this encounter Procedures Procedure Name Priority Date/Time Associated Diagnosis Comments DERMATOPATHOLOGY Routine 09/28/2023 3:33 AM GUEST SERVICES ASSOCIATE Neoplasm of uncertain behavior of skin documented in this encounter Results * DERMATOPATHOLOGY (09/28/2023 3:33 AM GUEST SERVICES ASSOCIATE) Case Report Dermatopathology Report Case: [id number] Authorizing Provider: Ward Isaacs MD Collected: 09/28/2023 03:33 AM Ordering Location: [facility] DermPath Lab Received: 09/29/2023 01:54 PM Pathologist: Deidra Salcedo MD Specimen: Skin, left gluteal fold 4 5:24 PM [facility]ERMAT[facility]Y [facility] Final Diagnosis Specimen A. SKIN, left gluteal fold: DERMAL SCAR (L90.5) (see microscopic description) 4 5:24 PM [facility]MAT[facility]Y [facility] Clinical History Neurofibroma 4 5:24 PM [facility] Gross Description Specimen A: Received is one formalin filled container labeled with the patient's name and designated left gluteal fold. The specimen consists of a shave biopsy measuring [id number] mm. Jar 0. 5:24 PM [facility]ERMATOPATH[facility]Y [facility] Microscopic Description Specimen A. SKIN, left gluteal fold: There are fibroblasts and collagen bundles oriented parallel to the skin surface with elongated blood vessels, some of which are oriented perpendicular to the skin surface. Additional deeper sections were obtained and reviewed. 5:24 PM [facility] DERMATOPATHOLOGY [facility]OR[facility] Disclaimer An external and internal positive and negative controls are appropriate for the histochemical, immunohistochemical and immunofluorescence stain(s) in this case (if any), except where stated explicitly. The performance characteristics of the stain(s) cited in this report were developed and its performance characteristic determined by the Dermatopathology Laboratory at [facility], directed by Dr. Jes Clinton. These tests need not be, and therefore are not, approved by the [place] Food and Drug Administration. The tests are used for clinical purposes. Billing Codes Specimen Charges Stain Charges 15156 1 4 5:24 PM [facility] DERMATOPATHOLOGY [facility] Embedded Images 4 5:24 PM [facility] DERMATOPATH[facility]Y [facility] Pathology/Cytolo gy TISSUE SPECIMEN FROM SKIN / Unknown 09/28/2023 3:33 AM GUEST SERVICES ASSOCIATE 09/29/2023 1:54 PM GUEST SERVICES ASSOCIATE us Ward Isaacs MD LAB - PATHOLOGY/CYTOLOGY [facility] Final Result DERMATOPATHOLOGY LABORATORY [facility] - Department of Dermatology [address] [phone] documented in this encounter Visit Diagnoses Diagnosis Neoplasm of uncertain behavior of skin documented in this encounter Care Teams Boring Mill Set Up Operator Relationship Specialty Start Date End Date Rob Valverde DO [address] [place] [id number] PCP - General 10/28/22 documented as of this encounter
--- OUTSIDE RECORDS SUMMARY | 2024-12-27 16:10 | XMS_ITS | Clinical Summary ---
Author Organization [facility] Address [address] [place] [address] Care Team Providers Care Crop Adjuster Name Role Phone Rob Valverde DO Primary Care Provider [phone] Source Comments [facility],non-owned Affiliates and Associated Physician Practices is amultiple site organization consisting of ambulatory clinics and hospital sitesin [place], [place], [place] and [place]. This disclosure is being madepursuant to the Care Everywhere program and may not contain all information available regarding this patient. Last updated 18.[facility] Core Oncology Social History Tobacco Use Types Packs/Day Years Used Date Smoking Tobacco: Never Assessed Comments Unknown Sex and Gender Information Value Date Recorded Sex Assigned at Not on file Legal Sex Female 10:50 AM DIRECTOR CASE MANAGEMENT Gender Identity Not on file Sexual Orientation [...] patient's age to complete this topic Insurance [facility] Address: [facility] [address] [place] [address] Care Teams Crop Adjuster Relationship Specialty Start Date End Date Rob Valverde DO [address] [place] [id number] PCP - General 10/28/22
--- OUTSIDE RECORDS SUMMARY | 2024-12-27 16:10 | XMS_ITS | Clinical Summary ---
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[facility]) 12/09/2022 Overview (06/07/2024): I don't have a [...] Sex Assigned at Female 09/22/2024 11:16 AM LINE MAINTAINER SECTION Legal Sex Female 5:30 PM LINE MAINTAINER SECTION Gender Identity Female 09/22/2024 11:16 AM LINE MAINTAINER SECTION Sexual Orientation Not on file Last Filed Vital Signs Vital Sign Reading Time Taken Comments Blood Pressure 133/83 09/22/2024 11:16 AM LINE MAINTAINER SECTION Pulse 83 09/22/2024 11:16 AM LINE MAINTAINER SECTION Temperature 36.7 C (98.1 F) 09/22/2024 11:16 AM LINE MAINTAINER SECTION Respiratory Rate 20 09/22/2024 11:16 AM LINE MAINTAINER SECTION Oxygen Saturation 100% 09/22/2024 11:16 AM LINE MAINTAINER SECTION Inhaled Oxygen Concentration - - Weight 95.3 kg (210 lb) 09/22/2024 11:16 AM LINE MAINTAINER SECTION Height 162.6 cm (5' 4 ) 09/22/2024 11:16 AM LINE MAINTAINER SECTION Body Mass Index 36.05 09/22/2024 11:16 AM LINE MAINTAINER SECTION Plan of Treatment Upcoming Encounters Date Type Department Care Team (Late st Contact Info) Description 06/19/2025 10:00 AM CDT Office Visit [facility] Family Medicine - [address] [place] [id number] Kishore Mercer DO [address] [place] [address] Health Maintenance Due Date Last Done Comments [...] (10 Years) 09/27/2029 09/27/2019, 09/27/2019 PHQ-2 (Physician [place]) Completed 09/22/2024 Meningococcal B Vaccine Aged Out [...] Diagnosis Comments COLONOSCOPY Routine 09/27/2019 9:29 AM LINE MAINTAINER SECTION MG DIAG W KASSY BILAT DIGI Routine 09/04/2019 8:44 AM LINE MAINTAINER SECTION Axillary lump, left Localized superficial swelling, mass, or lump from Last 3 Months or Most Recently Relevant to Health Maintenance Results * MG DIAG W KASSY BILAT DIGI (09/04/2019 8:44 AM LINE MAINTAINER SECTION) Anatomical Region Laterality Modality Breast Bilateral Mammography 09/04/2019 9:54 AM LINE MAINTAINER SECTION Impressions 09/04/2019 9:55 AM LINE MAINTAINER SECTION =====IMPRESSION:===== No mammographic findings suggestive of malignancy. ASSESSMENT: ACR BI-RADS Category 2 - Benign. RECOMMENDATION: 1: Routine screening mammogram bilateral in 1 year COMMENTS: Narrative 09/04/2019 9:55 AM LINE MAINTAINER SECTION EXAMINATION: Digital bilateral diagnostic mammogram with 3-D [...] Relevant to Health Maintenance Insurance Care Teams Classroom Technology Coach Relationship Specialty Start Date End Date Kishore [place] [address] [address] [place] [address] PCP - General FAMILY PRACTICE 05/26/24
--- OUTSIDE RECORDS SUMMARY | 2024-12-27 16:10 | XMS_ITS | Continuity of Care Document ---
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 Role Phone [facility] Unavailable Unavailable Problems [...] (syncope) Active Condition DoD lightheadedness Inactive Condition [facility] visit for: issue repeat prescription Inactive Condition DoD Patient Education Inactive Condition DoD headache Inactive Condition DoD PALPITATIONS Active Condition DoD Laboratory Studies Inactive Condition Do D DEPRESSION WITH ANXIETY Active Condition DoD DYSPHAGIA Active Condition DoD MENORRHAGIA Active Condition DoD Body Mass Index Active Condition DoD visit for: screening exam Inactive Condition [facility] visit for: screening exam for malignant neoplasm [...] TABLET, ORAL, SANDOZ, 20 ea. BOTTLE Active [id number] 2023 14 Pharmac y Data Transac tion Service Facilit y CETIRIZINE HCL (cetirizine HCl), 10 MG, TABLET, ORAL, 'S LAB, 500 ea. BOTTLE Active [id number] 4 2023 90 Pharmac y Data Transac tion Service Facilit y CYCLOBENZAP RINE HCL (cyclobenza tony HCl), 10 MG, TABLET, ORAL, UNICHEM PHARMAC, 1000 ea. BOTTLE Active [id number] 2023 20 Pharmac y Data Transac tion Service Facilit y ESTRADIOL (estradiol) , 0.01 %, CREAM/APPL, VAGINAL, PADAGIS, 42.5 g TUBE Cancele d [id number] : 2023 0 Pharmac y Data Transac tion Service Facilit y ESTRADIOL (estradiol) , 0.01 %, CREAM/APPL, VAGINAL, PADAGIS, 42.5 g TUBE Cancele d [id number] : 2023 0 Pharmac y Data Transac [...] ORAL, LUPIN PHARMACEU, 1000 ea. BOTTLE Active [id number] 2023 90 Pharmac y Data Transac tion Service Facilit y LISINOPRIL (lisinopril ), 20 MG, TABLET, ORAL, LUPIN PHARMACEU, 1000 ea. BOTTLE Active [id number] 2023 90 Pharmac y Data Transac tion Service Facilit y meclizine 25 mg chew tablet See Instruct ions, # 30 EA, 1 total refill(s ), Hard Stop Complet ed 05/13/2024 3 2023 30.0 Ambulat ory Pharmac y METHYLPREDN ISOLONE (methylpred nisolone), 4 MG, TAB DS PK, ORAL, [employer], 21 ea. DOSE-PACK Active [id number] 2023 21 Pharmac y Data Transac tion Service Facilit y METHYLPREDN ISOLONE (methylpred nisolone), 4 MG, TAB DS PK, ORAL, [employer], 21 ea. DOSE-PACK Active [id number] 4 2023 21 Pharmac y Data Transac [...] CAMBER PHARMACE, 1000 ea. BOTTLE Cancele d [id number] : 2023 0 Pharmac y Data Transac [...] ORAL, AMNEAL PHARMACE, 90 ea. BOTTLE Active [id number] 4 2023 60 Pharmac y Data Transac tion Service Facilit y PREGABALIN (pregabalin ), 75 MG, CAPSULE, ORAL, NOVADOZ PHARMAC, 90 ea. BOTTLE Active [id number] 2023 60 Pharmac y Data Transac tion Service Facilit y PREGABALIN (pregabalin ), 75 MG, CAPSULE, ORAL, NOVADOZ PHARMAC, 90 ea. BOTTLE Active [id number] 4 2023 60 Pharmac y Data Transac [...] Site Reaction Lot Number CVX Code Drug Emt Dispatcher Status Comments Source influenza, injectable, quadrivalent- pf [...] DoD influenza virus vaccine, whole virus 2004 [id number] sanofi pasteur complet ed influenza virus vaccine, whole virus 06/30/05 Given Ambulat ory Pharmac y influenza virus vaccine, whole virus 1 2004 Unknown, Provider [id number] 16 Sanofi Pasteur (PMC) complet ed influenza virus vaccine, whole virus DoD influenza virus vaccine, whole virus 2003 zzLef t Arm [id number] 16 Novartis Pharmaceutica ls complet ed influenza virus vaccine, whole virus 10/23/03 Given Ambulat ory Pharmac y hepatitis A-hepatitis B vaccine 2003 zzLef t Arm [id number] 104 [facility] ed hepatitis A-hepatit is B vaccine 10/23/03 Given Ambulat ory Pharmac y tetanus-dipht h toxoids (Td) adult/adol 2003 zzLef t Arm [id number] 09 sanofi pasteur complet ed tetanus-d iphth [...] of diphtheria toxoid) 1 2003 Unknown, Provider [id number] Sanofi Pasteur (PMC) complet ed tetanus and diphtheri a toxoids, adsorbed, preservat marian free, for adult use (2 Lf of tetanus toxoid and 2 Lf of diphtheri a toxoid) DoD poliovirus vaccine, inactivated 1 2003 Unknown, Provider [id number] 10 Sanofi Pasteur (PMC) complet ed polioviru s vaccine, inactivat ed DoD influenza virus vaccine, whole virus 1 2003 Unknown, Provider [id number] 16 PowderJect Pharm[employer]ica ls (PWJ) complet ed influenza virus vaccine, whole virus DoD hepatitis A and hepatitis B vaccine 1 2003 Unknown, Provider [id number] 104 [facility] (SKB) complet ed hepatitis A and hepatitis B vaccine DoD tuberculin purified protein derivative 2003 zzLef t Arm [id number] 96 sanofi pasteur complet ed Patient Tolerance : Negative Ambulat ory Pharmac y tuberculin skin test; purified protein derivative solution, intradermal 1 2003 Unknown, Provider [id number] 96 Sanofi Pasteur (PMC) complet ed tuberculi [...] OCTAVIO Haile([employer] [facility]) ) OUTPATIENT [id number] f/u LAUREN Sagastume 11/04 Released w/o Limitations OCTAVIO Bowser([employer] [facility] ([facility])) OCTAVIO Haile([employer] [facility] ([facility]) ) TELE CONSULT [id number] ref: w/ heart LAUREN HOOD 11/07 [employer] Bowser([employer] [facility] ([facility] OCTAVIO Haile([employer] [facility] ([facility]) ) OUTPATIENT [id number] OB Wt. check MARTA BAIRD 11/11 Released w/o Limitations [employer] Bowser([employer] [facility] ([facility])) OCTAVIO Haile([facility]) TELE CONSULT [id number] pt states airline s cannot work with her getting back early ADEHUGO FREGOSO Leanne 12/31 [facility]AV[facility] Bowser([facility]) OCTAVIO Haile([facility]) OUTPATIENT [id number] VERONICA Mckay 02/04 Released w/o Limitations Ryan NoonaninOCTAVIO moise([facility]) [facility] AmilcarOCTAVIO oneil([facility]) OUTPATIENT [id number] nst and carlos alberto EDMAR VERONICA YOHANA 02/06 Released w/o Limitations [facility] MamtaOCTAVIO chamberlain([facility]) [facility] DIRECT TO [facility] FROM OTHER THAN ER OR APU [id number] 02/09 DISCHARGED HOME [facility] augustin Conde [facility] Amilcarronelyariel OCTAVIO ruffin([employer] [facility] ([facility]) ) OUTPATIENT [id number] foot pain X 5 weeks, OTC not working ; 6 weeks postpar cheryl IGOR EPPERSON 04/23 Released with Work/Duty Limitations [place] [facility] MamtaOCTAVIO chamberlain(Fransicoel son [facility] ([facility] [place] [address](Arnav antoine Raptor Team, [facility]) OUTPATIENT [id number] check htn AHLTA SYSTEM ADMINISTRA TOR 06/23 [facility] [place] [address](Tessa Barajas Team, [facility]) [place] [address](Financial Aid Director ecology Clinic, [facility]) OUTPATIENT [id number] rou pap no problem missed her postpar cheryl THEA CHASEA 06/30 Released w/o Limitations [facility] [place] [address](G shonda gy Clinic, [facility]) [place] [address](Arnav antoine [facility], [facility] OUTPATIENT [id number] CHOL EVAL AHLTA SYSTEM ADMINISTRA TOR 07/10 [facility] [place] [address](Tessa Barajas [facility], [facility] [place] [address](Arnav antoine Raptor Team, [facility]) OUTPATIENT [id number] pt w/ N/V/D,p t breastf eeding w/redne ss L breast, sorenes s both breasts AHLTA SYSTEM ADMINISTRA TOR 10/09 [facility] [place] [address](Tessa orellana Raptor Team, [employer]) [place] [address](Opt ometry, [facility]) OUTPATIENT [id number] exam 15 early MARTA ROBERTS 11/24 Released w/o Limitations [facility] [place] [address](O ptometr y, [facility]) [place] [address](Arnav antoine Raptor Team, [facility]) OUTPATIENT [id number] wrists/ hands pain/nu mbness/ does not want ER visit DAIVD CHANDRA 01/22 Released w/o Limitations [facility] [place] [address](Tessa orellana Raptor Team, [facility]) [place] [address](Arnav antoine Raptor Team, [employer] [facility]) OUTPATIENT [id number] rapid heartbe at/head aches/t ingling in top right teeth.. advised ER ALMA CORONEL 07/06 Released w/o Limitations [facility] [place] [address](Tessa West, [facility]) [place] [address](Arnav antoine Raptor Team, [employer] LAWSON[facility]) OUTPATIENT [id number] EVAL BP MARTA BUSH 08/06 Released w/o Limitations [facility] [place] [address](Tessa West, [employer]) [place] [address](Financial Aid Director ecology [facility]) OUTPATIENT [id number] STRESS INCONTI ZOE LUONG 08/06 Released w/o Limitations [facility] [place] [address](Michelle [facility]) [place] [address](Arnav antoine Raptor Team, [employer]) OUTPATIENT [id number] EVAL FOOT MARTA BUSH 08/10 Released w/o Limitations [facility] [place] [address](Tessa West, [employer] [facility]SON[facility]) [place] [address](Arnav Barajas Team, [employer]) OUTPATIENT [id number] f/up for meds for b/press ure DAVID CHANDRA L 09/09 Released w/o Limitations [facility] [place] [address](Tessa Barajas Team, [employer]) [place] [address](Chanelle matology, [facility]) OUTPATIENT [id number] NAVEEN Haney 10/25 Released w/o Limitations [facility] [place] [address](Deanna rm,[facility]) [place] [address](MISA Orellana Team, GERARDO (inactive )) OUTPATIENT [id number] right ankle pain..p t states the ankle is not frac... if so pt was advelidiad YONI Ragland 11/15 Released w/o Limitations [facility] [place] [address](Jazzmine West, KASHARI (inacti ve)) [employer]([facility] ritu Practice) OUTPATIENT [id number] UPSET STOMACH , VOMITTI NG AND CONSTIP ATION ZHANG GILES 12/26 Released w/o Limitations [employer](F amily Practic e) [employer](Financial Aid Director ecology) OUTPATIENT [id number] ANNUAL PAP SLOAN CHANDRA B 04/09 Released w/o Limitations [employer](G ynecolo gy) [employer](Financial Aid Director ecology) TELE CONSULT [id number] SLOAN CHANDRA B 04/24 [employer](G ynecolo gy) [employer]([facility] ritu Practice) OUTPATIENT [id number] DIFFCUL TIES SWOLLOW ING AND SUGAR LEVELS SEEM TO BE OFF SEASTEVE KELLEY 04/29 Released w/o Limitations [employer](F amily Practic e) [employer]([facility]) TELE CONSULT [id number] 72 Hr///HE Fitzpatrick 05/07 Referred for Appointment [employer](A fter Hours Clinic) [employer]([facility] ritu Practice) TELE CONSULT [id number] 72 hr//kayla MARTELL HE Ty 05/08 Referred for Appointment [employer](F amily Practic e) [facility] [place] TELE CONSULT [id number] receive d results of barium study. KM AGUILAR 05/08 Referred for Appointment [employer](F amily Practic e) [facility] [place] TELE CONSULT [id number] 24HR/NU RSE NICHOLAS JEFFYOHANAAugustin Saab 05/20 Referred for Appointment [employer](F amily Practic e) [facility] [place] OUTPATIENT [id number] GO OVER LAB RESULTS /GLUCOS E DENELSBECK , JULITA R 05/23 Released w/o Limitations [employer](F amily Practic e) [facility] [place] OUTPATIENT [id number] F/U FOR THYROID DENELSBECK , JULITA R 07/08 Released w/o Limitations [employer](F amily Practic e) [facility] [place] OUTPATIENT [id number] Depress ion/Anx ieNAVEEN Cunningham 11/11 Released w/o Limitations [employer](F amily Practic e) [facility] [place] TELE CONSULT [id number] 72HR/NU RSE NICHOLAS JEFFYOHANAAugustin Saab 11/24 Referred for Appointment [employer](F amily Practic e) [facility] [place] OUTPATIENT [id number] RENEW ANTIDEP RESSANT MEDICAT ION DENELSBECK , JULITA R 12/03 Released w/o Limitations [employer](F amily Practic e) [facility] [place] TELE CONSULT [id number] 72HR/ME D REFILL DENELSBECK , JULITA R 12/11 [employer](F amily Practic e) [facility] [place] OUTPATIENT [id number] F/U FOR ANXIETY //F/U FOR BLOOD PRESSUR E DENELSBECK , JULITA R 01/07 Released w/o Limitations [employer](F amily Practic e) [employer] VERMA ([facility])(Sco tt [facility] Team 3) OUTPATIENT [id number] blood pressur e meds [phone] SINGH LEE 05/11 Released w/o Limitations [address] [place] [address] Stevan [facility])([facility] Team 3) [address] [place] [address])([facility] Team 3) OUTPATIENT [id number] allergi es causing breathi ng problem s - [id number] KEVEN CASPER 06/09 Released w/o Limitations [address] [place] [address])([facility] Team 3) [address] [place] [address])(War rior Op Med Cln Tm A Ad) TELE CONSULT [id number] vitamin D level is low 24 NAEL MERAZ 06/[address] [place] [address])(W arrior Op Med Cln Tm A Ad) [address] [place] [address])([facility] Team 3) TELE CONSULT [id number] Notes Entered by: DELMA ALANIZ 14 Jan 2012 1116 ------- ------- ------- ------- -- High blood pressur e, heartra te, dizzine ss after working outside ALMA Gallegos 01/[address] [place] [address])([facility] Team 3) [address] [place] [address])([facility] Team 3) OUTPATIENT [id number] F/U blood pressur e concern s [phone] ZHANG GILES 02/09 Released w/o Limitations [address] [place] [address])([facility] Team 3) [address] [place] [address])([facility] Team 3) TELE CONSULT [id number] Notes Entered by: KEVEN SULLIVAN 01 Mar 2012 0956 ------- ------- ------- ------- -- Tcon for lab results Dr Unique roca [phone] ALMA Harding 03/[address] [place] [address])([facility] Team 3) [address] [place] [address])([facility] Team 3) TELE CONSULT [id number] Notes Entered by: DELMA ALANIZ 04 Mar 2012 0849 ------- ------- ------- ------- -- Lab results Unique frankt ALMA ABEBE 03/[address] [place] [address])([facility] Team 3) [address] [place] [address])([facility] Team 3) TELE CONSULT [id number] Notes Entered by: JULIAN CRAWFORD 04 Mar 2012 1500 ------- ------- ------- ------- -- Cardiol ogZHANG Chiang 03/[address] [place] [address])([facility] Team 3) [address] [place] [address])([facility] Team 3) TELE CONSULT [id number] Notes Entered by: JULIAN CRAWFORD 15 Mar 2012 0650 ------- ------- ------- ------- -- Urine Culture ALMA ABEBE 03/[address] [place] [address])([facility] Team 3) [address] [place] [address])([facility] Team 3) TELE CONSULT [id number] Notes Entered by: GENESIS TRIPATHI CIA 14 Apr 2012 1022 ------- ------- ------- ------- -- Lab and urine test results wanted - unique roca - dino/[facility] VANESSA DYSON 04/[address] [place] [address])([facility] Team 3) [address] [place] [address])(Carlos Manuel [facility] Med Cl[facility] Tm A Ad) TELE CONSULT [id number] Notes Entered by: BORIS BENSON 02 Jun 2012 1559 ------- ------- ------- ------- -- Network Results -CARDIO LOGY 05/18/12 ZHANG GILES 06/02 [facility] [place] [facility] Stevan [facility])(W arrior Op Med Cln Tm A Ad) [facility] Medical [facility] Stevan [facility])(Sco tt [facility] Team 3) TELE CONSULT [id number] Notes Entered by: KEVEN SULLIVAN 20 Jul 2012 0829 ------- ------- ------- ------- -- Med refill Dr Calhoun chanelle ph [phone] VANESSA DYSON 07/[address] [place] [address] [facility])(S cott [facility] Team 3) [address] [place] [address] Stevan [facility])(War rior Op Med Cln Tm A Ad) OUTPATIENT [id number] Ear and stomach Pain possibl e vertigo per pt H# MINNIE MONCADA 10/31 Released w/o Limitations [address] [place] [address] Stevan [facility])(W arrior Op Med Cln Tm A Ad) [facility] Medical [facility] Stevan [facility])(All ergy Resource Sharing) OUTPATIENT [id number] Allergi c SAMARA Dowling 11/29 Released w/o Limitations [address] [place] [address] Stevan [facility])(A llergy [facility] e Sharing ) [address] [place] [address])(War rior Op Med Cln Tm A Ad) OUTPATIENT [id number] F/U blood pressur e [phone] MINNIE MONCADA 12/05 Released w/o Limitations [address] [place] [address] Stevan [facility])(W arrior Op Med Cln Tm A Ad) [address] [place] [address])(Opt ometry) OUTPATIENT [id number] eye exam [phone] JOAN AKERS 10/02 Released w/o Limitations [address] [place] [address])(O ptometr y) [address] [place] [address])(Sco tt [place] Fam Res Tm Red) TELE CONSULT [id number] Notes Entered by: Ty CHERRY 30 Oct 2013 1217 ------- ------- ------- ------- -- Med refill MARYBETH EDUARDO 10/30 [facility] Medical Group Stevan VERMA ([facility])(S [facility] Fam Res Tm Red) [facility] Medical Group [employer] VERMA ([facility])(Iao [facility] Fam Res Tm Green) OUTPATIENT [id number] [facility] [phone] MARGARITA ARELLANO 11/10 Released w/o Limitations [address] [place] [address] Group Stevan VERMA ([facility])([facility] Fam Res Tm Green) [facility] Medical Group Ste[employer] VERMA ([facility])(Iao [facility] Fam Res Tm Gold) TELE CONSULT [id number] Notes Entered by: HAILEY GONZALEZ 15 Nov 2013 0927 ------- ------- ------- ------- -- Blood pressur e not staying down - Adan MARYBETH EDUARDO 11/15 [facility] Medical Group [employer] VERMA ([facility])([facility] Fam Res Tm Gold) [address] [place] [address] Stevan VERMA ([facility])(All ergy Resource Sharing) OUTPATIENT [id number] allergy test SAMARA ROTH 11/28 Released w/o Limitations [address] [place] [address] Group Ste[employer] VERMA ([facility])(A llergy Resourc e Sharing ) [address] [place] [address] Stevan VERMA ([facility])([facility] Fam Res Tm Green) OUTPATIENT [id number] F/U blood pressur e MARGARITA ARELLANO 12/01 Released w/o Limitations [address] [place] [address] Group Ste[employer] VERMA ([facility])([facility] Fam Res Tm Green) [facility] Medical Group Stevan LAWSONB ([facility])(All ergy Resource Sharing) OUTPATIENT [id number] Notes Entered by: Ty LOGAN ON06 Feb 2014 1008 ------- ------- ------- ------- -- allergy shots LAURENCE LOGAN 02/06 Released w/o Limitations [address] [place] [address] Stevan LULUB ([facility])(A llergy Resourc e Sharing ) [address] [place] [address] Stevan [facility])(All ergy) OUTPATIENT [id number] Notes Entered by: HUGO HOOKS 13 Feb 2014 0944 ------- ------- ------- ------- -- Allergy shots HUGO KHAN 02/13 Released w/o Limitations [address] [place] [address] Stevan [facility] ([facility])(A llergy) [address] [place] [address] Stevan [facility])(All ergy Resource Sharing) OUTPATIENT [id number] Notes Entered by: Ty LOGAN 20 Feb 2014 1005 ------- ------- ------- ------- -- allergy shots LAURENCE LOGAN 02/20 Released w/o Limitations [address] [place] [address] Stevan [facility])(A llergy Resourc e Sharing ) [address] [place] [address] Stevan [facility])(Sco [facility] Fam Res Tm Green) TELE CONSULT [id number] Notes Entered by: HAILEY GONZALEZ 20 Feb 2014 1005 ------- ------- ------- ------- -- Medicat [facility] renewal - Arellano - BHARGAV THOMPSON 02/[address] [place] [address] Stevan [facility])(S [facility] Fam Res Tm Green) [address] [place] [address] Stevan [facility])(All ergy Resource Sharing) OUTPATIENT [id number] Notes Entered by: Ty LOGAN 27 Feb 2014 1329 ------- ------- ------- ------- -- allergy shots LARUENCE LOGAN 02/27 Released w/o Limitations [address] [place] [address] Group Stevan LAWSON ([facility])(A llergy Resourc e Sharing ) [address] [place] [address] Stevan [facility])(All ergy Resource Sharing) OUTPATIENT [id number] Notes Entered by: Ty LOGAN 06 Mar 2014 1045 ------- ------- ------- ------- -- allergy shots HUGO KHAN 03/06 Released w/o Limitations [employer] ([facility])(A llergy Resourc e Sharing ) [employer] ([facility])(All ergy) OUTPATIENT [id number] Notes Entered by: HUGO HOOKS 13 Mar 2014 0916 ------- ------- ------- ------- -- Allergy gemma KHAN HUGO ALMANZA 03/13 Released w/o Limitations [employer] LAWSONB ([facility])(A llergy) [facility] Medical Group [employer] ([facility])(Sco tt [facility] Fam Res Tm Green) OUTPATIENT [id number] f/u for bp [phone] MARGARITA ARELLANO 03/14 Released w/o Limitations [facility] Medical Group [employer] ([facility])(S cott [facility] Fam Res Tm Green) [facility] Medical Group [employer] ([facility])(All ergy) OUTPATIENT [id number] Notes Entered by: HUGO HOOKS 20 Mar 2014 0842 ------- ------- ------- ------- -- Allergy LAURENCE Rebollar 03/20 Released w/o Limitations [facility] Medical Group Stevan LAWSONB ([facility])(A llergy) [facility] Medical Group [employer] LAWSONB ([facility])([facility]) OUTPATIENT [id number] FABIANO NARANJO 03/23 Released w/o Limitations [facility] Medical Group [employer] ([facility])(O TRUMBULL [facility] [employer] ([facility])(All ergy Resource Sharing) OUTPATIENT [id number] Notes Entered by: Ty LOGANATHAN 27 Mar 2014 0933 ------- ------- ------- ------- -- allergy LAURENCE Rebollar 03/27 Released w/o Limitations [employer] ([facility])(A llergy Resourc e Sharing ) [facility] [employer] ([facility])(All ergy) OUTPATIENT [id number] Notes Entered by: HUGO HOOKS 03 Apr 2014 1558 ------- ------- ------- ------- -- Allergy shotHUGO DunnSES 04/03 Released w/o Limitations [address] [place] [address] [place] ([facility])(A llergy) [address] [place] [address] ([facility])(All ergy) OUTPATIENT [id number] Notes Entered by: HUGO HOOKS 10 Apr 2014 0902 ------- ------- ------- ------- -- Allergy shotHUGO Dunn CAMI 04/10 Released w/o Limitations [address] [place] [address] [employer] [place] ([facility])(A llergy) [address] [place] [address])(All ergy) OUTPATIENT [id number] Notes Entered by: HUGO HOOKS 17 Apr 2014 1014 ------- ------- ------- ------- -- Allergy HUGO Brownlee CAMI 04/17 Released w/o Limitations [address] [place] [address] [place] ([facility])(A llergy) [address] [place] [address])(All ergy Resource Sharing) OUTPATIENT [id number] Notes Entered by: Ty LOGAN 01 May 2014 0920 ------- ------- ------- ------- -- allergy shot LAURENCE LOGAN 05/01 Released w/o Limitations [address] [place], [place] [address]B ([facility])(A llergy Resourc e Sharing ) [address] [place], [place] [address]B ([facility])([facility]) OUTPATIENT [id number] Notes Entered by: BROOKE PACHECO 01 May 2014 1136 ------- ------- ------- ------- -- Weight loss JOHNATHON PACHECO 05/01 Released w/o Limitations [address] [place] [address] [employer] ([facility])(N utritio nal Medicin e) [address] [place], [place] [address]B ([facility])(All ergy Resource Sharing) OUTPATIENT [id number] Notes Entered by: Ty LOGANATHAN 15 May 2014 0952 ------- ------- ------- ------- -- allergy shots LAURENCE LOGAN 05/15 Released w/o Limitations [facility] [employer] ([facility])(A llergy Resourc e Sharing ) [facility] [employer] ([facility])(All ergy) OUTPATIENT [id number] Notes Entered by: Ty LOGAN 01 Jun 2014 1238 ------- ------- ------- ------- -- Allergy shots LAURENCE LOGAN 06/01 Released w/o Limitations [facility] [employer] ([facility])(A llergy) [address] [place] [address] [employer] ([facility])(All ergy Resource Sharing) OUTPATIENT [id number] Notes Entered by: Ty LOGAN 04 Jul 2014 1435 ------- ------- ------- ------- -- allergy shots DEENA ELLIS 07/04 Released w/o Limitations [facility] [employer] ([facility])(A llergy Resourc e Sharing ) [facility] [employer] ([facility])(All ergy) OUTPATIENT [id number] Notes Entered by: HUGO HOOKS 03 Aug 2014 0856 ------- ------- ------- ------- -- Allergy shots HUGO KHAN 08/03 Released w/o Limitations [facility] [employer] ([facility])(A llergy) [facility] [employer] ([facility])(All ergy) OUTPATIENT [id number] Notes Entered by: HUGO HOOKS 05 Sep 2014 1355 ------- ------- ------- ------- -- Allergy shots HUGO KHAN 09/05 Released w/o Limitations [facility] [employer] ([facility])(A llergy) [facility] [employer] ([facility])(All ergy) TELE CONSULT [id number] Notes Entered by: HUGO HOOKS 05 Sep 2014 1357 ------- ------- ------- ------- -- Medicat ion refill SHERRY THURMAN 09/[address] [place] [address] [place] ([facility])(A llergy) [address] [place] [address])(All ergy Resource Sharing) OUTPATIENT [id number] Yearly follow up SHERRY THURMAN 09/24 Released w/o Limitations [address] [place] [address] Group [facility])(A llergy Resourc e Sharing ) [address] [place] [address])(All ergy Resource Sharing) OUTPATIENT [id number] Notes Entered by: STEVE ROWAN 24 Sep 2014 0948 ------- ------- ------- ------- -- Allergy Shots SHERRY THURMAN 09/24 Released w/o Limitations [address] [place] [address] Group [facility])(A llergy Resourc e Sharing ) [address] [place] [address])(Sco [facility] Fam Res Tm [place]) TELE CONSULT [id number] Notes Entered by: ABDIAS SKELTON 27 Sep 2014 1313 ------- ------- ------- ------- -- Med refill/ adan/Martha [phone] MARGARITA ARELLANO 09/[address] [place] [address])(S [facility] Fam Res Tm Green) [address] [place] [address])(All ergy Resource Sharing) OUTPATIENT [id number] Notes Entered by: STEVE ROWAN 22 Oct 2014 1000 ------- ------- ------- ------- -- Allergy Shots SHERRY THURMAN 10/22 Released w/o Limitations [address] [place] [address] [place] ([facility])(A llergy Resourc e Sharing ) [address] [place] [address])(All ergy Resource Sharing) OUTPATIENT [id number] follow up SHERRY THURMAN 11/26 Released w/o Limitations [employer] ([facility])(A llergy Resourc e Sharing ) [employer] ([facility])(All ergy Resource Sharing) OUTPATIENT [id number] Notes Entered by: STEVE ROWAN 26 Nov 2014 1126 ------- ------- ------- ------- -- SHERRY CLEMENTE 11/26 Released w/o Limitations [employer] ([facility])(A llergy Resourc e Sharing ) [facility] [employer] ([facility])(All ergy Resource Sharing) OUTPATIENT [id number] Notes Entered by: Ty LOGAN 24 Dec 2014 1036 ------- ------- ------- ------- -- SHERRY CLEMENTE 12/24 Released w/o Limitations [facility] [employer] [facility] ([facility])(A llergy Resourc e Sharing ) [facility] [employer] ([facility])(All ergy Resource Sharing) OUTPATIENT [id number] Notes Entered by: STEVE ROWAN 21 Jan 2015 0956 ------- ------- ------- ------- -- SHERRY CLEMENTE 01/21 Released w/o Limitations [employer] ([facility])(A llergy Resourc e Sharing ) [facility] [employer] ([facility])(All ergy Resource Sharing) OUTPATIENT [id number] Notes Entered by: Ty LOGAN 30 Jan 2015 1013 ------- ------- ------- ------- -- SAMARA APODACA 01/30 Released w/o Limitations [employer] ([facility])(A llergy Resourc e Sharing ) [facility] [employer] ([facility])(All ergy Resource Sharing) OUTPATIENT [id number] Notes Entered by: STEVE ROWAN 27 Feb 2015 1041 ------- ------- ------- ------- -- SAMARA APODACA 02/27 Released w/o Limitations [facility] [employer] ([facility])(A llergy Resourc e Sharing ) [address] [place] [address] [facility]All ergy) OUTPATIENT [id number] Notes Entered by: DESIRAE BOYLE 22 Mar 2015 0853 ------- ------- ------- ------- -- SAMARA APODACA 03/22 Released w/o Limitations [facility] [employer] ([facility])(A llergy) [address] [place] [address] [facility]All ergy) OUTPATIENT [id number] Notes Entered by: DESIRAE BOYLE 19 Apr 2015 1549 ------- ------- ------- ------- -- SAMARA APODACA 04/19 Released w/o Limitations [address] [place] [address] [employer] ([facility])(A llergy) [address] [place] [address] [facility]Sco tt [facility] Fam Res Tm Green) TELE CONSULT [id number] Notes Entered by: JORGE LUIS MORRIS 20 May 2015 1005 ------- ------- ------- ------- -- ER f/u (referr al request )/Adan /[phone] BHARGAV THOMPSON 05/[address] [place] [address] [facility]S cott [facility] Fam Res Tm Green) [address] [place] [address] [facility])(All ergy Resource Sharing) OUTPATIENT [id number] Notes Entered by: STEVE ROWAN 24 May 2015 1036 ------- ------- ------- ------- -- SAMARA APODACA 05/24 Released w/o Limitations [facility] [employer] ([facility])(A llergy Resourc e Sharing ) [address] [place] [address] [employer] ([facility])(All ergy Resource Sharing) OUTPATIENT [id number] Notes Entered by: DESIRAE BOYLE 12 Jun 2015 1242 ------- ------- ------- ------- -- SHERRY CLEMENTE 06/12 Released w/o Limitations [address] [place] [address])(A llergy [facility] e Sharing ) [address] [place] [address])(Sco tt [facility] Fam Res Tm Green) TELE CONSULT [id number] Notes Entered by: ROLY TAYLOR 25 Jun 2015 0820 ------- ------- ------- ------- -- Sx - blood in vomit, painful diarrhe a - REFUSED E.R - Adan - [phone]* BHARGAV THOMPSON 06/[address] [place] [address])(S [facility] Fiix Res Tm Green) [address] [place] [address])(Sco tt [facility] Fam Res Tm Green) TELE CONSULT [id number] Notes Entered by: MARIA G MIDDLETON 04 Oct 2015 1519 ------- ------- ------- ------- -- Network Results -GASTRO ENTEROL OGY 10/02/15 UPPER ENDOSCO PY PATRICIO HERNANDEZ 10/[address] [place] [address])(S [facility] Fam Res Tm [place]) [address] [place] [address])(Sco tt [facility] Fam Res Tm Green) TELE CONSULT [id number] Notes Entered by: MARIA G MIDDLETON 11 Oct 2015 1005 ------- ------- ------- ------- -- Network Results -GASTRO ENTEROL OGY 10/10/15 COLONOS COPY MARGARITA KIM 10/[address] [place] [address])(S [facility] Fam Res Tm [place]) [address] [place] [address])([facility] ication Refill [facility]) TELE CONSULT [id number] Notes Entered by: HAILEY GONZALEZ 12 Nov 2015 1002 ------- ------- ------- ------- -- Rx renewal - Adan - KARIME NICHOLSIE PAXTON 11/11 Referred for Appointment [address] [place] [address] [facility]Franck macdonald on Refill Clinic) [address] [place], [place] [address]B [facility]Sco tt [facility] Fam Res Tm Green) OUTPATIENT [id number] annual f/u for HTN MARGARITA ARELLANO 12/09 Released w/o Limitations [address] [place] [address] [employer] ([facility])(S cott [facility] Fam Res Tm Green) [address] [place] [address] [facility]Sco tt [facility] Fam Res Tm Green) OUTPATIENT [id number] Notes Entered by: Augustin CHANDRA 06 Jan 2016 1009 ------- ------- ------- ------- -- Strep Test SANDOR EATON 01/05 Released w/o Limitations [address] [place] [address] [employer] [facility])(S cott [facility] Fam Res Tm Green) [address] [place] [address] [facility]Sco tt [facility] Fam Res Tm Green) TELE CONSULT [id number] Notes Entered by: HAILEY GONZALEZ 15 May 2016 0909 ------- ------- ------- ------- -- Ovidio saab apr madiet - Yurimi Bryanna - - RITU Membreno 05/15 Other Not Elsewhere Classified [address] [place] [address] [employer] ([facility])(S cott [facility] Fam Res Tm Green) [address] [place] [address] [facility]Sco tt [facility] Fam Res Tm Green) TELE CONSULT [id number] Notes Entered by: MARIA G MIDDLETON 11 Aug 2016 1044 ------- ------- ------- ------- -- Network Results -FERNANDO Spaulding 04/22/16 SILVIANO BRIDGES 08/11 Referred for Appointment [address] [place] [address] Group [employer] ([facility])(S cott [facility] Fam Res Tm Green) [address] [place] [address] [facility]Sco tt [facility] Fam Res Tm Green) TELE CONSULT [id number] Notes Entered by: MARIA G MIDDLETON 25 Aug 2016 0706 ------- ------- ------- ------- -- Network Results -ALLERG Y 6 ROSIE REA 08/[address] [place] [address] [employer]S cott [facility] Fam Res Tm Green) [address] [place] [address] [facility])(Sco tt [facility] Fam Res Tm Green) TELE CONSULT [id number] Notes Entered by: LUANA CANTU 16 Nov 2016 1518 ------- ------- ------- ------- -- Ovidio Grubbs /CHENCHO MENEDZ / SHARITA KRISHNAMURTHY 11/[address] [place] [address] [facility]S cott [facility] Fam Res Tm Green) [address] [place] [address] [employer])(Sco tt [facility] Fam Res Tm Green) TELE CONSULT [id number] Notes Entered by: MARIA G MIDDLETON 29 Jan 2017 0920 ------- ------- ------- ------- -- Network Results -ALLERG Y 12/09/16 and 01/21/17 ROSIE REA 01/[address] [place] [address] [facility]S cott [facility] Fam Res Tm Green) [address] [place] [address] [facility])(Sco tt [facility] Fam Res Tm Green) TELE CONSULT [id number] Notes Entered by: MARIA G MIDDLETON 01 Feb 2017 1147 ------- ------- ------- ------- -- Network Results -ALLERG Y 11/16/16 - 01/12/17 ROSIE REA 02/[address] [place] [address] [facility]S cott [facility] Fam Res Tm Green) [address] [place] [address] [facility])(Med ication Refill Clinic) TELE CONSULT [id number] Notes Entered by: HAILEY GONZALEZ 04 Mar 2017 1017 ------- ------- ------- ------- -- Rx renewal - Troy Gould - - [facility] SHARITA KRISHNAMURTHY 03/[address] [place] [address] [employer])(Franck macdonald on Refill Clinic) [address] [place] [address] [employer] [facility])(Sco tt [facility] Fam Res Tm Green) OUTPATIENT [id number] annual check up, refill meds, f/u on labs ROSIE RODRIGUES 03/11 Released w/o Limitations [address] [place] [address] [employer])(S cott [facility] Fam Res Tm Green) [address] [place] [address] [employer] [facility])(Sco tt [facility] FAMRES Tm Blue) TELE CONSULT [id number] Notes Entered by: HODAN THEODORE 22 Apr 2017 1411 ------- ------- ------- ------- -- Lab results ROSIE RODRIGUES 04/[address] [place] [address] [facility]S cott [facility] FAMRES Tm Blue) [address] [place] [address] [facility])(Sco tt [facility] Fam Res Tm Green) OUTPATIENT [id number] lump in right breast ROSIE RODRIGUES 04/22 Released w/o Limitations [address] [place] [address] [employer] [facility])(S cott [facility] Fam Res Tm Green) [address] [place] [address] Stevan [facility])(Sco tt [facility] FAMRES Tm Blue) TELE CONSULT [id number] Notes Entered by: MARCELL AMBRIZ 07 Jul 2017 0823 ------- ------- ------- ------- -- Network results Allergy 7 ROSIE RODRIGUES 07/[address] [place] [address] [facility]S cott [facility] FAMRES Tm Blue) [address] [place] [address] [facility])(Sco tt [facility] Fam Res Tm Green) TELE CONSULT [id number] Notes Entered by: MOOSE ALCANTARA 17 Dec 2017 0954 ------- ------- ------- ------- -- Allergy Referra katiana Rios / Troy nRoyo/6 [phone] - DAYSI Moscoso 12/17 Other Not Elsewhere Classified [address] [place] [address] [facility]S cott [facility] Fam Res Tm Green) [address] [place] [address] [facility])(Sco tt [facility] Fam Res Tm Green) TELE CONSULT [id number] Notes Entered by: ROSELINE ENCISO 19 Apr 2018 1320 ------- ------- ------- ------- -- Med Renewal / Winsome mead / - [facility] BUD SMALLS 04/19 Referred for Appointment [address] [place] [address] [facility]S cott [facility] Fam Res Tm Green) [address] [place] [address] Stevan [facility])(Sco tt [facility] Fam Res Tm Green) OUTPATIENT [id number] 4 f/u on BP, ALEXANDR DUMONT 06/16 Released w/o Limitations [address] [place] [address] [facility]van [facility]S cott [facility] Fam Res Tm Green) [address] [place] [address] [facility] [facility])(Sco tt [facility] FAMRES Tm Blue) TELE CONSULT [id number] Notes Entered by: Mikayla BERNARDO 23 Dec 2018 1509 ------- ------- ------- ------- -- Visit for adminis trative purpose URI BERNARDO 12/[address] [place] [address] [facility]S cott [facility] FAMRES Tm Blue) [address] [place] [address] [facility])(Sco tt [facility] Fam Res Tm Green) TELE CONSULT [id number] Notes Entered by: JORGE LUIS MORRIS 27 Dec 2018 1017 ------- ------- ------- ------- -- Referra l Renewal Request /Red[facility]isa [facility]/[phone] DAYSI CIFUENTES 12/27 Other Not Elsewhere Classified [address] [place] [address] Group [facility])(S [facility] Res Green) [address] [place] [address] Stevan [facility])(Sco tt [facility]) TELE CONSULT [id number] Notes Entered by: MOOSE ALCANTARA 17 Jan 2019 0847 ------- ------- ------- ------- -- Neurolo gy Ovidio saab Req- ER F/U/ [facility]/ - SHARITA Subramanian 01/17 Referred for Appointment [address] [place] [address])(S [facility] Res [facility]) [address] [place] [address])(Sco tt [facility]) OUTPATIENT [id number] f/uon er visit, passing out, seizure ? FARHAD PETERSON 01/24 Released w/o Limitations [address] [place] [address])(S [facility] Res Tm [place]) [address] [place] [address])(Sco tt [facility]) TELE CONSULT [id number] Notes Entered by: AMBROCIO IZQUIERDO 07 Feb 2019 1026 ------- ------- ------- ------- -- Med Renewal /Redalisa [facility]/[phone]/SHARITA Carrera 02/07 Referred for Appointment [address] [place] [address] Group [facility])(S [facility] Res Tm [place]) [address] [place] [address])(Sco tt [facility] Res Green) TELE CONSULT [id number] Notes Entered by: Augustin MAURER 30 Mar 2019 1406 ------- ------- ------- ------- -- Network results Neurolo gy 9 TSB BUD SMALLS 03/30 Released to [facility] [address] [place] [address] [facility]S cott [facility] Fam Res Tm Green) [address] [place] [address] [facility])(Sco tt [facility] Fam Res Tm Green) OUTPATIENT [id number] ER F/U Stomach Infecti on [phone] BUD SMALLS 06/09 Released w/o Limitations [address] [place] [address] [facility]S cott [facility] Fam Res Tm Green) [address] [place] [address] [facility])(Sco tt [facility] Fam Res Tm Green) OUTPATIENT [id number] left arm pit lump noticed 1 week RAUL ROBLERO 07/27 Released w/o Limitations [address] [place] [address] [facility]S cott [facility] Fam Res Tm Green) [address] [place] [address] [facility])(Sco tt [facility] Fam Res Tm Green) TELE CONSULT [id number] Notes Entered by: JORGE LUIS MORRIS 02 Aug 2019 1028 ------- ------- ------- ------- -- Ovidio moyer/Nirali deal / SHARITA KRISHNAMURTHY 08/02 Other Not Elsewhere Classified [address] [place] [address] [facility]S cott [facility] Fam Res Tm Green) [address] [place] [address] [facility])(Sco tt [facility] [employer] Tm Blue) TELE CONSULT [id number] Notes Entered by: RAUL LIN 02 Aug 2019 1229 ------- ------- ------- ------- -- axilla lump RAUL ROBLERO 08/02 Other Not Elsewhere Classified [address] [place] [address] [facility]S cott [facility] FAMRES Tm Blue) [address] [place] [address] [facility])(Sco tt [facility] Fam Res Tm Green) TELE CONSULT [id number] Notes Entered by: ROSELINE ENCISO 21 Aug 2019 1018 ------- ------- ------- ------- -- Med Romie / Winsoem mead / - ty KRISHNAMURTHYSHARITA Franck 08/21 Other Not Elsewhere Classified [facility] Medical Group Ste[address] [facility]S cott [facility] Fam Res Tm Green) [address] [place] [address] [address] [facility])(Sco tt [facility] Fam Res Tm Green) TELE CONSULT [id number] Notes Entered by: Sheri WALKER 28 Sep 2019 1238 ------- ------- ------- ------- -- Network results Gastroakin sultana gy 020 BUD NAPIER 09/28 Released to Self Care [address] [place] [address] Stevan [facility]S cott [facility] Fam Res [place] [place]) [address] [place] [address] Stevan [facility])(Sco tt [facility] Fam Res [place]) TELE CONSULT [id number] Notes Entered by: ROSELINE ENCISO 23 Oct 2019 0808 ------- ------- ------- ------- -- STAT Referra l Renewal - Appt Oct /Specia list F/U/Yeison baig/ SHIV Olsen 10/22 Immediate Referral [address] [place] [address] Stevan [facility]S cott [facility] Fam Res [place]) [address] [place] [address] [facility]Sco tt [facility] Fam Res [place]m [place]) TELE CONSULT [id number] Notes Entered by: Sheri WALKER 06 Nov 2019 1216 ------- ------- ------- ------- -- Network results Danny sultana gy 020 BUD NAPIER 11/05 Released to Self Care [address] [place] [address] [facility] [facility]S cott [facility] Fam Res [place]) [address] [place] [address] Stevan [facility])(Sco tt [facility] Fam Res [place]m [place]) TELE CONSULT [id number] Notes Entered by: JORGE LUIS MORRIS 02 Jan 2020 1049 ------- ------- ------- ------- -- Referra l Renewal Request /Black garay/[phone] KAMERON RILEY MALENA 01/01 Released to Self Care [address] [place] [address])(S [facility] Res [facility]m [place]) [address] [place] [address])(Sco tt [facility] Res [facility]) TELE CONSULT [id number] Notes Entered by: Sheri WALKER 25 Jan 2020 0935 ------- ------- ------- ------- -- Network results Gastroe nterolo gy 019 ALD KAMERON RILEY Lorelei 01/24 Released to Self Care [address] [place] [address])(S [facility] Res [place] [place]) [address] [place] [address])(Sco tt [facility] Res Green) TELE CONSULT [id number] 7 Sx - Rash/Re say / SHARITA KRISHNAMURTHY 02/21 Other Not Elsewhere Classified [address] [place] [address])(S [facility] Fam Res [place]m [place]) [address] [place] [address])(Sco tt [facility] Res [facility]) TELE CONSULT [id number] 1 Notes Entered by: MOOSE ALCANTARA 05 Mar 2020 1037 ------- ------- ------- ------- -- Med Renewal Request / Winsome mead/ - SALBADOR Osei 03/05 Referred for Appointment [address] [place] [address] Stevan [facility])(S cott [facility] Fam Res Tm [place]) [id number] [facility] vijay Between Visit [id number] 03/01 0055A-3 75th [facility]- Stevan 0055A-375 th [facility] Between Visit [id number] 03/08 Discharge Disposition: Home or Self Care 0055A-3 75th [facility]- [facility] 0055A-375 th [facility] Between Visit [id number] 03/15 Discharge Disposition: Home or Self Care 0055A-3 75th [facility]- [facility] 0055A-375 th [facility] Outpatient [id number] AASHISH Dover 04/06 Discharge Disposition: Home or Self Care 0055A-3 75th [facility] 0055A-375 th [facility] Outpatient [id number] HALINA TRAN 04/06 Discharge Disposition: Home or Self Care 0055A-3 75th [facility]- [facility] Procedures Combined list of: 1) Procedures from Department of Veterans Affairs facilities going back up to thelast 18 months, not all [place] non-surgical procedures are included; 2) All procedures from the Department of Defense facilities. Procedure Procedure Type Code Date Perfomer Comments Sour e Non-Physician Phone Call To Patient/Provider Brief (5-10min) Non-Physician Phone Call To Patient/Provider Brief (5-10min) [id number] 2016 SHARITA KRISHNAMURTHY [facility] Non-Physician Phone Call To Patient/Provider Brief (5-10min) Non-Physician Phone Call To Patient/Provider Brief (5-10min) [id number] 2016 SHARITA KRISHNAMURTHY [facility] Rapid Antigen Identification Streptococcus Group A Beta Hemolytic Rapid Antigen Identification Streptococcus Group A Beta Hemolytic [id number] 2015 SANDOR EATON [facility] Non-Physician Phone Call To Patient/Provider Brief (5-10min) Non-Physician Phone Call To Patient/Provider Brief (5-10min) [id number] 2015 BINDU NICHOLS [facility] Non-Physician Phone Call To Patient/Provider Brief (5-10min) Non-Physician Phone Call To Patient/Provider Brief (5-10min) [id number] 2014 BHARGAV THOMPSON [facility] Desensitization Supervision - Multiple Extract Injections Desensitization Supervision - Multiple Extract Injections 59018 2014 DESIRAE BOYLE [facility] Pulmonary Function MVV Pulmonary Function MVV 86483 2014 DESIRAE BOLYE 1st peak flow 525 2nd peak flow 550 3rd peak flow 520 DoD Pulmonary Function MVV Pulmonary Function MVV 54909 2014 STEVE ROWAN 1st PF: 520 2nd PF: 460 3rd PF: 500 DoD Desensitization Supervision - Multiple Extract Injections Desensitization Supervision - Multiple Extract Injections 30965 2014 STEVE ROWAN DoD Non-Physician Phone Call To Patient/Provider Brief (5-10min) Non-Physician Phone Call To Patient/Provider Brief (5-10min) [id number] 2014 BHARGAV THOMPSON Do[facility] Pulmonary Function MVV Pulmonary Function MVV 93019 2014 DESIRAE BOYLE 1st peak flow 510 2nd peak flow 525 3rd peak flow 510 DoD Desensitization Supervision - Multiple Extract Injections Desensitization Supervision - Multiple Extract Injections 34828 2014 DESIRAE BOYLE DoD Pulmonary Function MVV Pulmonary Function MVV 53178 2014 DESIRAE BOYLE 1st peak flow 500 2nd peak flow 500 3rd peak flow 500 DoD Desensitization Supervision - Multiple Extract Injections Desensitization Supervision - Multiple Extract Injections 17255 2014 DESIRAE BOYLE DoD Pulmonary Function MVV Pulmonary Function MVV 81096 2014 STEVE ROWAN 1st PF: 460 2nd PF 480 3rd PF: 480 DoD Desensitization Supervision - Multiple Extract Injections Desensitization Supervision - Multiple Extract Injections 36701 2014 STEVE ROWAN DoD Pulmonary Function MVV Pulmonary Function MVV 08642 2014 LAURENCE LOGAN 1st 440 2nd 460 3rd 450 DoD Desensitization Supervision - Multiple Extract Injections Desensitization Supervision - Multiple Extract Injections 89429 2014 LAURENCE LOGAN DoD Desensitization Supervision - Multiple Extract Injections Desensitization Supervision - Multiple Extract Injections 23504 2014 STEVE ROWAN DoD Pulmonary Function MVV Pulmonary Function MVV 87095 2014 STEVE ROWAN 1st PF: 450 2nd PF: 450 3rd PF: 470 DoD Pulmonary Function MVV Pulmonary Function MVV 55777 2014 LAURENCE LOGAN 1ST 500 2ND 400 3RD 380 DoD Desensitization Supervision - Multiple Extract Injections Desensitization Supervision - Multiple Extract Injections 05112 2014 LAURENCE LOGAN DoD Pulmonary Function MVV Pulmonary Function MVV 87449 2014 STEVE ROWAN 1st PF: 510 2nd PF: 490 3rd PF: 490 DoD Desensitization Supervision - Multiple Extract Injections Desensitization Supervision - Multiple Extract Injections 48931 2014 STEVE ROWAN [facility] Desensitization Supervision - Multiple Extract Injections Desensitization Supervision - Multiple Extract Injections 74524 2014 STEVE ROWAN [facility] Desensitization Supervision - Multiple Extract Injections Desensitization Supervision - Multiple Extract Injections 95463 2014 YASMINSTEVE FRANCOIS [facility] Spirometry Spirometry 05478 2014 SHERRY THURMAN [facility] Desensitization Supervision - Multiple Extract Injections Desensitization Supervision - Multiple Extract Injections 95230 2014 HUGO KHAN [facility] Desensitization Supervision - Multiple Extract Injections Desensitization Supervision - Multiple Extract Injections 04635 2013 HUGO KHAN [facility] Desensitization Supervision - Multiple Extract Injections Desensitization Supervision - Multiple Extract Injections 17926 2013 LAURENCE LOGAN [facility] Desensitization Supervision - Multiple Extract Injections Desensitization Supervision - Multiple Extract Injections 18244 2013 LAURENCE LOGAN [facility] Medical Nutrition Therapy Initial A e ment, Intervention Medical Nutrition Therapy Initial Assessment, Intervention 62309 2013 JOHNATHON PACHECO [facility] Desensitization Supervision - Multiple Extract Injections Desensitization Supervision - Multiple Extract Injections 25597 2013 LAURENCE LOGAN [facility] Desensitization Supervision - Multiple Extract Injections Desensitization Supervision - Multiple Extract Injections 65451 2013 LAURENCE LOGAN [facility] Desensitization Supervision - Multiple Extract Injections Desensitization Supervision - Multiple Extract Injections 53240 2013 HUGO KHAN [facility] Desensitization Supervision - Multiple Extract Injections Desensitization Supervision - Multiple Extract Injections 46687 2013 HUGO KHAN [facility] Desensitization Supervision - Multiple Extract Injections Desensitization Supervision - Multiple Extract Injections 15579 2013 HUGO KHAN [facility] Desensitization Supervision - Multiple Extract Injections Desensitization Supervision - Multiple Extract Injections 04796 2013 LAURENCE LOGAN [facility] Psychiatric Therapy Individual Approximately 45-50 Minutes 2013 FABIANO PRATHER [facility] Desensitization Supervision - Multiple Extract Injections Desensitization Supervision - Multiple Extract Injections 77596 2013 HUGO KHAN Cluster Schedule: Week 7 [facility] Desensitization Supervision - Multiple Extract Injections Desensitization Supervision - Multiple Extract Injections 34533 2013 HUGO KHAN Cluster schedule: Week 6 [facility] Desensitization Supervision - Multiple Extract Injections Desensitization Supervision - Multiple Extract Injections 18649 2013 LAURENCE LOGAN [facility] Desensitization Supervision - Multiple Extract Injections Desensitization Supervision - Multiple Extract Injections 34222 2013 LAURENCE LOGAN Desensitization Supervision - Multiple Extract Injections Desensitization Supervision - Multiple Extract Injections 88983 2013 LAURENCE LOGAN Desensitization Supervision - Multiple Extract Injections Desensitization Supervision - Multiple Extract Injections 70732 2013 HUGO KHAN schedule: Week 2 DoD Desensitization Supervision - Multiple Extract Injections Desensitization Supervision - Multiple Extract Injections 85810 2013 LAURENCE LOGAN Determination Of Refractive State Determination Of Refractive State 22211 2013 JOAN AKERS Ophthalmological New Patient Start Comprehensive Care Ophthalmological New Patient Start Comprehensive Care [id number] 2013 JOAN AKERS Allergy Percutaneous tests - allergenic extracts Allergy Percutaneous tests - allergenic extracts 06693 2012 SAMARA ROTH Informed consent obtained [facility] Non-Physician Phone Call To Patient/Provider Brief (5-10min) Non-Physician Phone Call To Patient/Provider Brief (5-10min) [id number] 2010 NAEL MERAZ Screening papanicolaou smear; obtaining, preparing and conveyance of cervical or vaginal smear to laboratory 2009 SLOAN CHANDRA Destruction Of Benign Lesion By Cryosurgery 2006 ELIZABETH GREENWOOD Destruct Of Benign Lesion By Any Method Second Through 14 2006 ELIZABETH GREENWOOD Urethral Catheterization (Diagnostic) Urethral Catheterization (Diagnostic) 02865 2005 ZOE VILLANUEVA Urethral Catheterization Straight (Non-Balloon) Urethral Catheterization Straight (Non-Balloon) 24062 2005 ZOE VILLANUEVA Ophthalmological New Patient Start Comprehensive Care Ophthalmological New Patient Start Comprehensive Care 11703 2005 MARTA ROBERTS Determination Of Refractive State Determination Of Refractive State 25855 2005 MARTA ROBERTS Non-Stre Test (___ 0,2) Non-Stress Test (___ 0,2) 18418 2004 VERONICA HYATT Non-Stre Test (___ 0,2) Non-Stress Test (___ 0,2) 49537 2004 VERONICA HYATT NON-STRESS TEST 2004 [facility] OTHER BILATERAL LIGATION AND DIVISION OF FALLOPIAN TUBES 2004 [facility] LOW CERVICAL SECTION 2004 [facility] OTHER DIAGNOSTIC PROCEDURES ON URETHRA AND PERIURETHRAL TISSUE 2004 [facility] INJECTION OF RH IMMUNE GLOBULIN 2004 [facility] LIGATION OR TRANSECTION OF FALLOPIAN TUBE(S) WHEN DONE AT THE TIME OF DELIVERY OR INTRA-ABDOMINAL SURGERY (NOT SEPARATE PROCEDURE) (LIST SEPARATELY IN ADDITION TO CODE FOR PRIMARY PROCEDURE) 2004 [facility] NON-STRESS TEST 2004 [facility] ULTRASOUND, UTERUS, REAL TIME WITH IMAGE DOCUMENTATION, LIMITED (EG, HEART BEAT, PLACENTAL LOCATION, POSITION AND/OR QUALITATIVE AMNIOTIC FLUID VOLUME), 1 OR MORE FETUSES 2004 [facility] ULTRASOUND, UTERUS, REAL TIME WITH IMAGE DOCUMENTATION, AND MATERNAL EVALUATION PLUS DETAILED ANATOMIC EXAMINATION,TRANSAB DOMINAL APPROACH; SINGLE OR FIRST GESTATION 2004 [facility] NON-STRESS TEST 2004 [facility] NON-STRESS TEST 2004 [facility] THERAPEUTIC, PROPHYLACTIC OR DIAGNOSTIC INJECTION (SPECIFY MATERIAL INJECTED); SUBCUTANEOUS OR INTRAMUSCULAR 2004 [facility] ULTRASOUND, UTERUS, REAL TIME WITH IMAGE DOCUMENTATION, AND MATERNAL EVALUATION PLUS DETAILED ANATOMIC EXAMINATION,TRANSAB DOMINAL APPROACH; SINGLE OR FIRST GESTATION 2004 [facility] ULTRASOUND, UTERUS, REAL TIME WITH IMAGE DOCUMENTATION, AND MATERNAL EVALUATION, AFTER FIRST TRIMESTER (> OR = 14 WEEKS 0 DAYS), TRANSABDOMINAL APPROACH; SINGLE OR FIRST GESTATION 2004 [facility] ULTRASOUND, UTERUS, REAL TIME WITH IMAGE DOCUMENTATION, AND MATERNAL EVALUATION PLUS DETAILED ANATOMIC EXAMINATION,TRANSAB DOMINAL APPROACH; SINGLE OR FIRST GESTATION 2004 [facility] ULTRASOUND, UTERUS, REAL TIME WITH IMAGE DOCUMENTATION, AND MATERNAL EVALUATION PLUS DETAILED ANATOMIC EXAMINATION,TRANSAB DOMINAL APPROACH; SINGLE OR FIRST GESTATION 2004 [facility] EXT PAT &,WHEN PERF,AUTO ACT ECG RHY DERIVED EVENT RECORD W SYMPT-RELAT MEMORY LOOP W REMOTE DOWNLOAD CAPABILITY UP TO 30 DAYS,24-HOUR ATTENDED MONITOR; RECORDING (INCL CONNECT, RECORD, & DISCONNECT) 2004 [facility] SCREENING PAPANICOLAOU SMEAR; OBTAINING, PREPARING AND CONVEYANCE OF CERVICAL OR VAGINAL SMEAR TO LABORATORY 2004 [facility] EDUCATIONAL SUPPLIES, SUCH BOOKS, TAPES, AND PAMPHLETS, FOR THE PATIENT'S EDUCATION AT COST TO PHYSICIAN OR OTHER QUALIFIED HEALTH ANGLE FURNACEMAN 2004 [facility] INJECTION, DIPHENHYDRAMINE HCL, UP TO 50 MG 2003 [facility] VISUAL FIELD EXAMINATION, UNI OR BILATERAL, WITH MEDICAL DIAGNOSTIC EVAL; LIMITED EXAM (EG, TANGENT SCREEN, AUTOPLOT, ARC PERIMETER, OR SINGLE STIMULUS LEVEL AUTO TEST, EG OCTOPUS 3 OR 7 EQUIVALENT) 2003 [facility] THERAPEUTIC, PROPHYLACTIC OR DIAGNOSTIC INJECTION (SPECIFY MATERIAL INJECTED); SUBCUTANEOUS OR INTRAMUSCULAR 2003 [facility] LAPAROSCOPIC APPENDECTOMY 2002 [facility] COLLECTION OF VENOUS BLOOD BY VENIPUNCTURE 2002 [facility] OPHTHALMOLOGICAL SERVICES: MEDICAL EXAMINATION AND EVALUATION, WITH INITIATION OR CONTINUATION OF DIAGNOSTIC AND TREATMENT PROGRAM; INTERMEDIATE, ESTABLISHED PATIENT 2002 [facility] OPHTHALMOLOGICAL SERVICES: MEDICAL EXAMINATION AND EVALUATION WITH INITIATION OF DIAGNOSTIC AND TREATMENT PROGRAM; INTERMEDIATE, NEW PATIENT 2002 [facility] EKG (SCALP) 2002 [facility] INDUCTION OF LABOR BY ARTIFICIAL RUPTURE OF MEMBRANES 2002 [facility] MEDICAL INDUCTION OF LABOR 2002 [facility] HANDLING AND/OR CONVEYANCE OF SPECIMEN FOR TRANSFER FROM THE OFFICE TO A LABORATORY 2002 [facility] NON-STRESS TEST 2002 [facility] NON-STRESS TEST 2002 [facility] HANDLING AND/OR CONVEYANCE OF SPECIMEN FOR TRANSFER FROM THE OFFICE TO A LABORATORY 2002 [facility] COLLECTION OF VENOUS BLOOD BY VENIPUNCTURE 2002 [facility] SCREENING PAPANICOLAOU SMEAR; OBTAINING, PREPARING AND CONVEYANCE OF CERVICAL OR VAGINAL SMEAR TO LABORATORY 2009 [facility] VISUAL FIELD EXAM,UNILAT/BI,INTE RP&REP;EXT EXM(EG,GOLDMANN VIS FLD,AT LEAST 3 ISOP PLOT&STAT DET W/IN KAMI 30DEG/QUANT,AUTO THRSH PAMELA,OCT G-1,32/42,HUMP VIS FLD ANAL FULL THRSH 30-2,24-2, OR 3060-2) 2001 [facility] SCREENING PAPANICOLAOU SMEAR; OBTAINING, PREPARING AND CONVEYANCE OF CERVICAL OR VAGINAL SMEAR TO LABORATORY 2000 [facility] TELE ASSESS & MGT SRV PROV QUAL [...] NUTRITION THERAPY; INITIAL ASSESSMENT AND INTERVENTION, INDIVIDUAL, [id number] WITH THE PATIENT, EACH 15 MINUTES 2013 [...] ALLERGENIC EXTRACTS; 2 OR MORE INJECTIONS 2013 [facility] DETERMINATION OF REFRACTIVE STATE 2013 DoD PERCUTANEOUS TESTS (SCRATCH, PUNCTURE, PRICK) WITH ALLERGENIC EXTRACTS, IMMEDIATE TYPE REACTION, INCLUDING TEST INTERPRETATION AND REPORT, SPECIFY NUMBER OF TESTS 2012 DoD TELE ASSESS & MGT SRV PROV QUAL NONPHYS HLTH CARE PRO TO EST PAT,PARENT,GUARD NOT ORIG REL ASSESS & MGT SRV PROV W/IN PREV 7 DAYS NOR LEAD ASSESS & MGT SRV/PX W/IN NXT 24 HR/SOON APT;5-10 MIN MED DIS 2010 DoD No data available for this section Ambulato ry Pharmacy Social History Combined list of available smoking, tobacco, and other social history from Department of Defense and Veterans Affairs facilities. Social History Type Response Date Comment Sour e Sex Representation Female (finding) 10/28/2022 Unknown Organization This section is an empty social history section. [facility] Sexual Orientation Ambula tory Pharmacy Gender identity Ambulator y Pharmacy Assessment and Plan Combined list of future [...] of Defense and Veterans Affairs (VA).VA Functional Young Measurement (FIM) Scale: 1 = Total Assistance (Subject = 0% +), 2 = Maximal Assistance (Subject = 25% +), 3 = Moderate Assistance (Subject = 50% +), 4 = Minimal Assistance (Subject = 75% +), 5 = Supervision, 6 = Modified Young (Device), 7 = Complete Young (Timely, Safely). Assessment Date/Time Source Assessment Type Assessment Skill Assessment Score Assessment Details No data available for this section
--- OUTSIDE RECORDS SUMMARY | 2024-12-27 16:10 | XMS_ITS | Clinical Summary ---
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 RL: SOULEYMANE Report ID: [id number] Reading Location: [facility] Rob Valverde DO IMG MAMMO PROCEDURES Fin al Result * High Risk HPV DNA Detection with Genotyping (Molecular component) (06/03/2023 11:00 AM CDT) HPV HR 16 Not Detected Not Detected [facility] Comment:Testing performed by : [facility], [address] [place] [address]., [address] HPV HR 18 Not Detected Not Detected JIM Comment:Testing performed by : [facility], [address] [place]., [address] HPV HR Non 16/18 Not Detected Not [...] this test have been verified by the [facility] Molecular Infectious Disease laboratory. Correlate with separately reported cytology results, as applicable. Interpretive data last revised 23 Testing performed by: [facility], [address] [place]., [address] Endocervical 06/03/2023 11:0 0 AM CDT 06/04/2023 3:49 PM CDT Narrative JIM ARRINGTON - 06/05/2023 2:38 AM CDT Clinical history and diagnosis->routine Number of vials->1 Testing type->Screening Last menstrual period (date if known)->02/23/2023 Rama Gastelum CNM LAB BODY FLUIDS AND STOOLS OR DERABLES Final Result JIM [address] [facility] Department [place] [address] [facility] * Colonoscopy (11/06/2021) Anatomical Region Laterality Modality Other Historical Provider ENDOSCOPY PROCEDURES Jeane l Result from Last 3 Months or Most Recently Relevant to Health Maintenance Insurance [facility] Care Teams Jewel Corner Brushing Machine Operator Relationship Specialty Start Date End Date K[place] [address] [place] [address] PCP - General Family Medicine 06/22/24
--- OUTSIDE RECORDS SUMMARY | 2024-12-27 16:10 | XMS_ITS | Referral Summary ---
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 RL: SOULEYMANE Report ID: [id number] Reading Location: [facility] Rob Valverde DO IMG MAMMO PROCEDURES Fin al Result * High Risk HPV DNA Detection with Genotyping (Molecular component) (06/03/2023 11:00 AM CDT) HPV HR 16 Not Detected Not Detected [facility] Comment:Testing performed by : [facility], [address] [place]., [address] HPV HR 18 Not Detected Not Detected JIM Comment:Testing performed by : [facility], [address] [place]., [address] HPV HR Non 16/18 Not Detected Not [...] this test have been verified by the [facility] Molecular Infectious Disease laboratory. Correlate with separately reported cytology results, as applicable. Interpretive data last revised 23 Testing performed by: [facility], [address] [place]., [address] Endocervical 06/03/2023 11:0 0 AM CDT 06/04/2023 3:49 PM CDT Narrative JIM - 06/05/2023 2:38 AM CDT Clinical history and diagnosis->routine Number of vials->1 Testing type->Screening Last menstrual period (date if known)->02/23/2023 Rama Gastelum CNM LAB BODY FLUIDS AND STOOLS OR DERABLES Final Result [facility] [address] [facility] Department [place] [address] [facility] * Colonoscopy (11/06/2021) Anatomical Region Laterality Modality Other us Historical Provider ENDOSCOPY PROCEDURES Jeane l Result from Last 3 Months or Most Recently Relevant to Health Maintenance Insurance [facility] Care Teams Tv Technician Relationship Specialty Start Date End Date Kish[place] [address] [place] [address] PCP - General Family Medicine 06/22/24
--- OUTSIDE RECORDS SUMMARY | 2024-12-27 16:10 | XMS_ITS | Clinical Summary ---
Author Organization [facility] GASTROENTEROLOGY [facility] Address [address] [place] [address] [address] [place] [address] Phone Care Team Providers Care Puller Out Name Role Phone Provider, Not On File Primary Care Provider Unav ailable Gilberto Ferrera DO Unavailable [phone] Allergies Active Allergy Reactions Criticality Noted [...] on file Legal Sex Female 4:44 PM MANUFACTURING TECHNOLOGY PROFESSOR Gender Identity Not on file Sexual Orientation Not on file Last Filed Vital Signs Vital Sign Reading Time Taken Comments Blood Pressure 124/82 08/08/2015 10:50 AM MANUFACTURING TECHNOLOGY PROFESSOR Pulse 99 08/08/2015 10:50 AM MANUFACTURING TECHNOLOGY PROFESSOR Temperature 36.4 C (97.5 F) 08/08/2015 10:50 AM MANUFACTURING TECHNOLOGY PROFESSOR Respiratory Rate 14 08/08/2015 10:5 0 AM MANUFACTURING TECHNOLOGY PROFESSOR Oxygen Saturation 97% 08/08/2015 10: 50 AM MANUFACTURING TECHNOLOGY PROFESSOR Inhaled Oxygen Concentration - - Weight 102.6 kg (226 lb 3.2 oz) 015 10:50 AM MANUFACTURING TECHNOLOGY PROFESSOR Height 162.6 cm (5' 4 ) 08/08/2015 10:5 0 AM MANUFACTURING TECHNOLOGY PROFESSOR Body Mass Index 38.83 08/08/2015 10:50 AM MANUFACTURING TECHNOLOGY PROFESSOR Plan of Treatment Health Maintenance Due Date [...] Recently Relevant to Health Maintenance Care Teams Puller Out Relationship Specialty Start Date End Date Provider, Not On File [place] PCP - General 08/26/15 Gilberto Ferrera DO [place] Gastroenterology 10/17/15
--- OUTSIDE RECORDS SUMMARY | 2024-12-27 16:10 | XMS_ITS | Encounter Summary ---
Author Organization [facility] Address [address] [place] [address] Care Team Providers Care Thresher Broomcorn Name Role Phone Kishore Mercer DO Primary Care Provider [phone] Reason for Visit * Reason Onset Date Comments Referral 07/06/2024 Encounter Details Date Type Department Care Team (Late st Contact Info) Description 07/06/2024 [employer] Message Enc [facility] Family Medicine [address] [address] Kishore Mercer DO [address] [place] [address] Referrals Social History Tobacco Use Types Packs/Day Years Used Date Smoking Tobacco: Never Passive Smoke Exposure: Never Smokeless Tobacco: Never Alcohol Use Standard Drinks/Week Comments Never 0 (1 standard drink = 0.6 oz pur e alcohol) PHQ-2 Answer Date Recorded Patient Health Questionnaire-2 Score 1 06/07/2024 Comments No Sex and Gender Information Value Date Recorded Sex Assigned at Female 09/22/2024 11:16 AM CORK PAINTER AND GRADER Legal Sex Female 5:30 PM CORK PAINTER AND GRADER Gender Identity Female 09/22/2024 11:16 AM CORK PAINTER AND GRADER Sexual Orientation Not on file documented as of this encounter Progress Notes * Jumana Woodard - 07/06/2024 2:52 PM CST Marli from [facility] office called and is needing an ins Referral for pt who has an appt 07/10/24. Pt is seeing Dr Ricardo Cox NPI #[id number] Diagnosis Code E04.1 any further questions call Marli at [phone] fax # [phone] PAINTER AND GRADER documented in this encounter Plan of Treatment Upcoming Encounters Date Type Department Care Team (Late st Contact Info) Description 06/19/2025 10:00 AM CDT Office Visit [facility] Family Medicine - [place] [address] [place] [address] Kishore Mercer DO [address] [place], [place] [id number] documented as of this encounter Visit Diagnoses Not on filedocumented in this encounter Additional Health Concerns Assessment Noted Time PHQ-9 Depression Total Score: 3 06/07/20 24 11:14 AM CDT documented as of this encounter Care Teams Thresher Broomcorn Relationship Specialty Start Date End Date Kishore Mercer DO [address] [place] [address] PCP - General FAMILY PRACTICE 05/26/24 documented as of this encounter
== END 2024-12-27 16:44 | disposition home or self-care (01) ==
PROVIDERS: Physician Assistant; Emergency Provider Emergency Medicine; PCP Family Medicine
DX: N34.0 Urethral abscess (principal); J45.909 Unspecified asthma, uncomplicated; K21.9 Gastro-esophageal reflux disease without esophagitis; K58.9 Irritable bowel syndrome, unspecified; Z90.49 Acquired absence of other specified parts of digestive tract; Z79.1 Long term (current) use of non-steroidal anti-inflammatories (NSAID); Z79.899 Other long term (current) drug therapy
CPT/HCPCS: 10060; 53060; 81003; 99284

== ENCOUNTER 2025-02-04 12:37 | Observation (INO) | payer OTHER, SELFPAY ==
[2025-02-04] VITALS (11 sets, daily range): BP systolic 111–151; BP diastolic 68–103; PULSE 92–112; RESP 14–20; TEMP 36.4–36.7; O2SAT 100; BMI 33.3
--- NOTE | ~2025-02-04 | XR_ITS ---
Clinical Indication: Dizziness PA and lateral views of the chest: Comparison: 07/16/2022 Findings: The lungs are clear, without evidence of focal consolidation or pleural effusion. Cardiome diastinal silhouette is within normal limits. Bones and soft tissues are unremarkable. Impression: Normal chest. Reviewed, dictated and finalized at location . Impression: Normal chest.
--- NOTE | ~2025-02-04 | US_ITS ---
EXAMINATION: US pelvic complete w TV INDICATION: Menorrhagia Comparison:Ultrasound dated 11/10/2022 TECHNIQUE: Multiple transabdominal and endovaginal sonographic images of the pelvis performed. FINDINGS: The uterus measures 13.2 x 6.2 x 8.4 cm.. Endometrium is heterogeneous with trace fluid mayco suring 6 mm. There are nabothian cysts. The ovaries are not well visualized. There is trace fluid in the endometrium and cul-de-sac. There is no free fluid in the pelvis. There are no abnormal masses seen on either side. IMPRESSION: 1. Thickened endomtrial complex. The differential diagnosis includes endometrial hyperplasia, polyp a nd carcinoma. Biopsy is recommended. Reviewed, dictated and finalized at location A. IMPRESSION: 1. Thickened endomtrial complex. The differential diagnosis includes endometria l hyperplasia, polyp and carcinoma. Biopsy is recommended.
--- OUTSIDE RECORDS SUMMARY | 2025-02-04 12:39 | XMS_ITS | Clinical Summary ---
Author Organization [facility] GASTROENTEROLOGY [facility] Address [address] [place] [address] [address] [place] [address] Phone Care Team Providers Care Senior Ui Ux Designer Name Role Phone Provider, Not On File Primary Care Provider Unav ailable Gilberto Ferrera DO Unavailable [phone] Allergies Active Allergy Reactions Criticality Noted [...] on file Legal Sex Female 4:44 PM COLORER HIDES AND SKINS Gender Identity Not on file Sexual Orientation Not on file Last Filed Vital Signs Vital Sign Reading Time Taken Comments Blood Pressure 124/82 08/08/2015 10:50 AM COLORER HIDES AND SKINS Pulse 99 08/08/2015 10:50 AM COLORER HIDES AND SKINS Temperature 36.4 C (97.5 F) 08/08/2015 10:50 AM COLORER HIDES AND SKINS Respiratory Rate 14 08/08/2015 10:5 0 AM COLORER HIDES AND SKINS Oxygen Saturation 97% 08/08/2015 10: 50 AM COLORER HIDES AND SKINS Inhaled Oxygen Concentration - - Weight 102.6 kg (226 lb 3.2 oz) 015 10:50 AM COLORER HIDES AND SKINS Height 162.6 cm (5' 4) 08/08/2015 10:5 0 AM COLORER HIDES AND SKINS Body Mass Index 38.83 08/08/2015 10:50 AM COLORER HIDES AND SKINS Plan of Treatment Health Maintenance Due Date [...] (Adult) (1 - 1-dose 75+ series) 2048 Meningococcal Immunization (ACWY) Aged Out No longer eligible based on patient's age to complete this topic Pneumococcal Immunization Combined Aged Out No longer eligible based on patient's age to complete this topic Rotavirus Immunization Aged Out No lo nger eligible based on patient's age to complete this topic Procedures Procedure Name Priority Date/Time Associated Diagnosis Comments COLONOSCOPY Routine 10/10/2015 from Last 3 Months or Most Recently Relevant to Health Maintenance Results * COLONOSCOPY (10/10/2015) Gilberto Ferrera DO PROCEDURE/MINOR SURGICAL ORDERA BLES Final Result from Last 3 Months or Most Recently Relevant to Health Maintenance Care Teams Senior Ui Ux Designer Relationship Specialty Start Date End Date Provider, Not On File [place] PCP - General 08/26/15 Gilberto Ferrera DO [place] Gastroenterology 10/17/15
--- OUTSIDE RECORDS SUMMARY | 2025-02-04 12:39 | XMS_ITS | Clinical Summary ---
Author Organization [facility] Address [address] [place] [address] Care Team Providers Care Financial Administration Officer Name Role Phone Rob Valverde DO Primary Care Provider [phone] Source Comments [facility],non-owned Affiliates and Associated Physician Practices is amultiple site organization consisting of ambulatory clinics and hospital sitesin [place], [place], [place] and [place]. This disclosure is being madepursuant to the Care Everywhere program and may not contain all information available regarding this patient. Last updated 18.[facility] [employer] Social History Tobacco Use Types Packs/Day Years Used Date Smoking Tobacco: Never Assessed Comments Unknown Sex and Gender Information Value Date Recorded Sex Assigned at Not on file Legal Sex Female 10:50 AM GRINDER OUTSIDE DIAMETER Gender Identity Not on file Sexual Orientation Not on file Plan of Treatment Health Maintenance Due Date Last Done Comments COLOGUARD (AGES 45-75) - COLON CA SCREENING 1973 COLON MONITORING 1973 COLONOSCOPY - COLON CA SCREENING 1973 CT COLONOGRAPHY - COLON CA SCREENING 1973 Colorectal Cancer Screening 1973 FIT - COLON CA SCREENING 1973 FLEX SIG - COLON CA SCREENING 1973 LIPID TESTING 1973 HIV SCREENING 1988 HEPATITIS C SCREENING 10/10/1991 DTAP/TDAP/TD VACCINES (1 - Tdap) 1992 HEPATITIS B VACCINE (1 of 3 - 19+ 3-dose series) 1992 MAMMOGRAM 09/04/2021 09/04/2019, 09/04/2019 PNEUMOCOCCAL VACCINE 50+ (1 of 1 - PCV) 2023 ZOSTER VACCINE (1 of 2) 2023 COVID-19 VACCINE ( season) 2024 DEPRESSION SCREENING 08/23/2024 INFLUENZA VACCINE (Season Ended) 2025 08/19/2022, 05/23/2020, 06/30/2005, Additional history exists PAP SMEAR 06/03/2026 06/03/2023, 06/03/2023 HIB VACCINE Aged Out No longer eligi ble based on patient's age to complete this topic HPV VACCINE Aged Out No longer eligi ble based on patient's age to complete this topic MENINGOCOCCAL (Group B) VACCINE SHARED DECISION-MAKING Aged Out No longer eligible based on patient's age to complete this topic MENINGOCOCCAL GROUPS A/C/Y/W VACCINE Aged Out No longer eligible based on patient's age to complete this topic Insurance Emergency [facility] Address: [facility] [address] [place] [address] Care Teams Financial Administration Officer Relationship Specialty Start Date End Date Rob Valverde DO [address] [place] [address] PCP - General 10/28/22
--- OUTSIDE RECORDS SUMMARY | 2025-02-04 12:39 | XMS_ITS ---
Author Organization [facility] Address [address] [place] [address] Care Team Providers Care Manager Oracle Retail Name Role Phone Rob Valverde DO Primary Care Provider Randal Colunga Unavailable [phone] Jonathon Sparrow Unavailable [phone] RESULTS Component Value Reference Range Notes CT Lumbar Spine with Sagitta l and Coronal Reconstruction Reviewed date:04/14/2024 09:20:39 AM Interpretation:completed Performing Lab: Notes/Report: completed REASON FOR VISIT SNN XR/MRI Lumb 04-06-24 Encounters Encounter Location Date Provider Diagnosis [facility] [place] [address] [address] 04/13/2024 Jonathon Sparrow Lumbar radiculopathy M54.16 ASSESSMENTS Encounter Date Diagnosis Assessment Notes Treatment Notes Treatment Clinical Notes Section Notes 04/13/2024 Lumbar radiculopathy (ICD-10 - M54.16) PLAN OF TREATMENT No Information
--- OUTSIDE RECORDS SUMMARY | 2025-02-04 12:39 | XMS_ITS ---
Author Organization [facility] Address [address] [facility] [[email or web address] [address] [place] [address] Care Team Providers Care Pest Control Technician Name Role Phone Rob Valverde DO Primary Care Provider Aspena Randal Mullen [phone] REASON FOR VISIT MRI Facility Change Encounters Encounter Location Date Provider Diagnosis [facility] [address] [facility] [[email or web address] [address] [place] [address] 03/01/2024 Randal Cook PLAN OF TREATMENT No Information
--- OUTSIDE RECORDS SUMMARY | 2025-02-04 12:39 | XMS_ITS | Clinical Summary ---
Author Organization [facility] [address] Address [address] [place] [address] Care Team Providers Care Corporate Responsibility Officer Name Role Phone Sylvie Kishore Samano DO [...] muscle spasms 90 tablet 02/18/20 24 Active pregabalin (LYRICA) 50 mg capsule 04/10/20 24 Active estradioL (ESTRACE) 0.01 % (0.1 mg/gram) vaginal creamIndications:U rgency of urination,Painful urination,Urinary frequency APPLY 1 GRAM TO THE VAGINA 2-3 NIGHTS PER WEEK 42.5 g 3 01/26/20 25 Active estradioL (ESTRACE) 0.01 % (0.1 mg/gram) vaginal creamIndications:U rinary frequency,Urgency of urination,Painful urination APPLY 1 GRAM TO THE VAGINA 2-3 NIGHTS PER WEEK 42.5 g 3 02/23/20 24 025 Discontin ued(Reord er) Active Problems Problem Noted [...] with anxious mood 04/14/2022 Iron deficiency anemia secon natty to inadequate dietary iron intake 03/19/2022 Submandibular [...] (10/30/2021): Added automatically from request for surgery [id number] Smell and taste disorder 10/24/2021 Assessment & Plan (10/24/2021 4:37 PM BOILERMAKER): - concern for possible covid - check covid test today - if neg possible other viral illness Palpitations 10/24/2021 Assessment & Plan (10/24/2021 4:37 PM BOILERMAKER): - EKG today with sinus tachycardia, rate [...] 06/10/2020 Assessment & Plan (10/24/2021 4:34 PM BOILERMAKER): - slight elevated today - rec if BP high over weekend increase lisinopril to 20mg daily - f/u with Dr Valverde if sx continue Gastroesophageal reflux disease without esophagi tis 06/10/2020 Obesity (BMI 30-39.9) 06/10/2020 Eosinophilic esophagitis 06/10/2020 Lipoma of buttock 06/10/2020 Seizures Overview (07/31/2022): 3 yrs ago, on no meds Resolved Problems Problem Noted Date Diagnosed Date Resolved Date COVID 07/01/2021 10/25/2023 Encounters Date Type Department Care Team Description 01/25/2025 3:20 PM CDT [facility] - [facility] Urology [address] [facility] [address] [place] [address] [place] [address] Db Pollard MD Urologic disease (Primary Dx); Urgency of urination; Urge incontinence; Painful urination; Urinary frequency from Last 3 Months Immunizations Immunization Administration Dates Next Due Hep [...] SURGERY 08/23/1997 - 08/22/1998 SECTION 08/23/1997 - 08/22/19982004 APPENDECTOMY 08/23/2003 - 08/22/2004 INCONTINENCE SURGERY 08/23/2004 [...] on file Legal Sex Female 2:29 AM BOILERMAKER Gender Identity Not on file Sexual Orientation Not on file Obstetrics History Para Term AB IAB SAB Ectopic Multiple Livin g Live Births 4 4 4 Date Outcome GA Total Labor Labor/09/25 Weight Sex Type Anes PTL Ivonne A1 [...] 9:16 AM CDT Height 162.6 cm (5' 4) 02/18/2024 9:16 AM CDT Body Mass Index 34.5 02/18/2024 9:16 AM CDT Plan of Treatment Health Maintenance Due Date Last Done Comments Hepatitis C Screening 1973 Meningococcal B Vaccine (1 o f 5 - Increased Risk) 1983 Pneumococcal vaccine <65 (1 of 2 - [...] Procedure Name Priority Date/Time Associated Diagnosis Comments POCT URINALYSIS DIPSTICK Routine 01/25/2025 3:23 PM CDT Urge incontinence DIAGNOSTIC MAMMOGRAM BILATERAL W DARRELL Schedule Routine, Read Routine (OP Routine) 03/01/2024 9:30 AM CDT Follow-up examination of abnormal mammogram HIGH RISK HPV DNA DETECTION WITH GENOTYPING Routine 06/03/2023 11:00 AM CDT Encounter for screening for malignant neoplasm of cervix COLONOSCOPY Routine 11/06/2021 from Last 3 Months or Most Recently Relevant to Health Maintenance Results * (ABNORMAL) POCT urinalysis dipstick (01/25/2025 3:23 PM CDT) Color, Urine, POC Yellow Clarity, ur, POC Clear Clear Glucose, ur, POC Negative Negative Bilirubin, ur, POC Negative Negative Ketones, ur, POC Negative Negative Blood, ur, POC Trace(A) Negative pH, ur, POC 5.0 5.0 - 8.0 Protein, ur, POC Negative Negative Nitrite, ur, POC Negative Negative Leukocytes, ur, POC Negative Negative Lot Number X Comment:X Urine 01/25/2025 3:23 PM CDT Db Pollard MD POINT OF CARE TEST ORDERABLES Final Result * Diagnostic Mammogram Bilateral W Darrell (03/01/2024 [...] Roberto Mcguire M.D. RL: SOULEYMANE Report ID: [id number] Reading Location: [facility] us Rob Valverde DO IMG MAMMO PROCEDURES Fin al Result * High Risk HPV DNA Detection with Genotyping (Molecular component) (06/03/2023 11:00 AM CDT) HPV HR 16 Not Detected Not Detected [facility] Comment:Testing performed by : [facility], [address] [facility], [address] HPV HR 18 Not Detected Not Detected [facility] Comment:Testing performed by : [facility], [address] [facility], [address] HPV HR Non 16/18 Not Detected Not [...] this test have been verified by the [facility] Molecular Infectious Disease laboratory. Correlate with separately reported cytology results, as applicable. Interpretive data last revised 23 Testing performed by: [facility], [address] [place] [address], [address] Endocervical 06/03/2023 11:0 0 AM CDT 06/04/2023 3:49 PM CDT Narrative [facility] - 06/05/2023 2:38 AM CDT Clinical history and diagnosis->routine Number of vials->1 Testing type->Screening Last menstrual period (date if known)->02/23/2023 Rama Gastelum CNM LAB BODY FLUIDS AND STOOLS OR DERABLES Final Result [facility] [address] [facility] Department [place] [address] [facility] * Colonoscopy (11/06/2021) Anatomical Region Laterality Modality Other Historical Provider MD ENDOSCOPY PROCEDURES Jeane l Result from Last 3 Months or Most Recently Relevant to Health Maintenance Insurance [facility] Care Teams Corporate Responsibility Officer Relationship Specialty Start Date End Date Kish[place] [address] [address] [place] [address] PCP - General Family Medicine 06/22/24
--- OUTSIDE RECORDS SUMMARY | 2025-02-04 12:39 | XMS_ITS | Referral Summary ---
Author Organization [facility] [address] Address [address] [place] [address] Care Team Providers Care Buckle Strap Drum Operator Name Role Phone Sylvie Kishore Selwyn Primary Care Provide r Encounters Date Type Department Care Team Description 01/25/2025 3:20 PM CDT Office Visit [facility]) [facility] U[facility] 11th [place] [address] [place] [address] Db Pollard MD Urologic disease (Primary Dx); Urgency of urination; Urge incontinence; Painful urination; Urinary frequency from Last 3 Months Allergies Active Allergy Reactions Criticality Noted Date [...] (10/30/2021): Added automatically from request for surgery [id number] Smell and taste disorder 10/24/2021 Assessment & Plan (10/24/2021 4:37 PM RELAY SHOP SUPERVISOR): - concern for possible covid - check covid test today - if neg possible other viral illness Palpitations 10/24/2021 Assessment & Plan (10/24/2021 4:37 PM RELAY SHOP SUPERVISOR): - EKG today with sinus tachycardia, [...] 06/10/2020 Assessment & Plan (10/24/2021 4:34 PM RELAY SHOP SUPERVISOR): - slight elevated today - rec [...] on file Legal Sex Female 2:29 AM RELAY SHOP SUPERVISOR Gender Identity Not on file Sexual [...] Roberto Mcguire M.D. RL: SOULEYMANE Report ID: [id number] Reading Location: [facility] us Rob Valverde DO IMG MAMMO PROCEDURES Fin al Result * High Risk HPV DNA Detection with Genotyping (Molecular component) (06/03/2023 11:00 AM CDT) HPV HR 16 Not Detected Not Detected [facility] Comment:Testing performed by : [facility], [address] [place]., [address] HPV HR 18 Not Detected Not Detected [facility] Comment:Testing performed by : [facility], [address] [place]., [address] HPV HR Non 16/18 Not Detected Not [...] this test have been verified by the [facility] Molecular Infectious Disease laboratory. Correlate with separately reported cytology results, as applicable. Interpretive data last revised 23 Testing performed by: [facility], [address] [place]., [address] Endocervical 06/03/2023 11:0 0 AM CDT 06/04/2023 3:49 PM CDT Narrative JIM - 06/05/2023 2:38 AM CDT Clinical history and diagnosis->routine Number of vials->1 Testing type->Screening Last menstrual period (date if known)->02/23/2023 Rama Gastelum CNM LAB BODY FLUIDS AND STOOLS OR DERABLES Final Result [facility] [address] [facility] Department [place] [address] [facility] * Colonoscopy (11/06/2021) Anatomical Region Laterality Modality Other Historical Provider ENDOSCOPY PROCEDURES Jeane l Result from Last 3 Months or Most Recently Relevant to Health Maintenance Insurance [facility] Care Teams Buckle Strap Drum Operator Relationship Specialty Start Date End Date Kish[place] [address] [place] [address] PCP - General Family Medicine 06/22/24
--- OUTSIDE RECORDS SUMMARY | 2025-02-04 12:40 | XMS_ITS | Patient Health Record ---
Author Organization [facility] [place] ([address]) Address [address] [place] [address] Care Team Providers Care Hospice Home Care Coordinator Name Role Phone Kishore Mercer Primary Care Provider Unavailab le Ragini Godoy Unavailable [phone] Rob Valverde DO Unavailable Unavailable Petr Schulz Unavailable [phone] [employer], Provider Unavailable Unavailab le Allergies Allergen (clinical drug ingredient) Drug/Non Drug Allergy documented on EMR Reaction Allergy Type Onset Date Status TEQUIN (uncoded) Dysphagia Allergy Act marian Reason For Referral Reason [id number] Referring Provider First Name Kishore Referring Provider Last Name Sylvie Referred Organization [facility] Referred Provider Ragini Godoy Referred Address [address] [place], [place],[address], Referred Provider Specialty Allergy/Immu nology Referral Priority Routine Medications Medication SIG (Take, Route, Frequency, Duration) Notes Start Date End Date Status FAMOTIDINE 40 mg 1 tab(s) orally prio r to shots for 90 days Not-Taking Lisinopril 10 MG 1 tab(s) orally once a day for 30 day(s) Not-Taking BUDESONIDE 0.5 mg/2 mL 2 ml mix with 4-5 packets of Splenda, then swallow 1 times a day for 30 day(s) Active Olopatadine HCl 0.1 % 1 drop into affected eye Ophthalmic Twice a day for 90 days Active SINGULAIR 10 mg 1 tab(s) orally prio r to allergy shots for 90 days Active OMEPRAZOLE 40 mg 1 cap(s) orally once a day Active NASAL WASHES N/A as directed intranasally as needed Active Famotidine 20 MG 1 tablet Orally 1 hr prior to shots for 90 days 03/23/2024 Active SIT (TRADITIONAL) variable per schedule SC per schedule Active AEROCHAMBER MDI SPACER N/A user with MDI inhalers by mouth q4-6 hours PRN Active Famotidine 40 MG 1 tab(s) orally once a day (at bedtime) Not-Taking FLONASE 0.05 mg/inh 2 spray(s) intranasally (avoid nasal septum) once a day Active Montelukast Sodium 10 MG TAKE 1 TABLET BY MOUTH PRIOR TO ALLERGY SHOT for 90 Active Flovent HFA CFC FREE 220 MCG/INH 4 PUFF(S) SWALLOWED 2 TIMES A DAY for 90 DAYS *Please review and pick correct strength-formulat ion from [employer] options. If intended option is not shown, discontinue and re-order from Quick Search* Not-Taking PROVENTIL (ALBUTEROL) HFA 90 mcg/inh, cfc-free 2-4 puffs inhaled with spacer QID, PRN and per asthma action plan for 30 day(s) Active SIT (CLUSTER) VARIABLE PER SCHEDULE SC PER SCHEDULE for TO BE DETERMINED *Please review for potential replacement for e-prescription and drug interaction check* Not-Taking Cetirizine HCl 10 MG 1 tablet Orally Once a day for 90 days Active EPIPEN 2-VAMSHI 0.3 mg 0.3 mg intramuscularly once for 30 days Active EpiPen 2-Vamshi 0.3 mg 0.3 mg intramuscularly once for 30 days Active PAZEO 0.7% 1 GTT IN EACH AFFECTED EYE ONCE A DAY for 90 DAYS *Please review for potential replacement for e-prescription and drug interaction check* Not-Taking Xyzal Allergy 24HR 5 MG 1 tab(s) orally once a day (in the evening) Active Pregabalin 100 MG 1 cap(s) orally 3 times a day Not-Taking Omeprazole 40 MG 1 cap(s) orally once a day Active Budesonide 0.5 MG/2ML 2 ml mix with 4-5 packets of Splenda, then swallow 1 times a day for 30 day(s) Not-Taking ZyrTEC Allergy 10 MG 1 tab(s) orally once a day Active Famotidine 40 MG 1 tab(s) orally prio r to shots for 90 days Active Naltrexone HCl (Pain) 1.5 MG as directed Orally Active Flonase Allergy Relief 50 MCG/ACT 2 spray(s) intranasally (avoid nasal septum) once a day Active Immunizations Vaccine Route Administration Date Status [...] Status Risk Notes Problem Shortness of breath (057912957) Shortness of breath (R06.02) Active confirmed Problem Blepharitis (89609684) Unspecified inflammation of eyelid (H01.9) Active confirmed Problem Chronic allergic conjunctivitis (42328695) Other chronic allergic conjunctivitis (H10.45) Active confirmed Problem Allergic rhinitis caused by pollen (disorder) (44635629) Allergic rhinitis due to pollen (J30.1) Active confirmed Problem Allergic rhinitis (47411220) Other allergic rhinitis (J30.89) Active confirmed Problem Eosinophilic esophagitis (027644122) Eosinophilic esophagitis (K20.0) Active confirmed Problem Melena (5355462) Melena (K92.1) Active confirme d Problem Allergic rhinitis caused by pollen (disorder) (36845229) Allergic rhinitis due to pollen (J30.1) Active confirmed Problem Allergic rhinitis caused by animal hair and dander (329824659699783) Allergic rhinitis due to animal (cat) (dog) hair and dander (J30.81) Active confirmed Problem Allergic rhinitis (99021653) Other allergic rhinitis (J30.89) Active confirmed Problem Chronic allergic conjunctivitis (06182384) Other chronic allergic conjunctivitis (H10.45) Active confirmed Problem Dysphagia (67618980) Dysphagia, unspecified (R13.10) Active confirmed Vital Signs Respiratory Rate 17 /min 09/28/2024 Oximetry 99 % 09/28/2024 Blood pressure diastolic 87 mm Hg 09/28/2024 Height 64 in 09/28/2024 Blood pressure systolic 125 mm Hg 09/28/2024 Weight 209.2 lbs 09/28/2024 BMI 35.91 kg/m2 09/28/2024 Encounters Encounter Location Date Provider Diagnosis [address] [address] [place] [address] 12/21/2024 Ragini Young Allergic rhinitis du e to pollen J30.[address] [address] 03/23/2024 Ragini Young Eosinophilic esophagitis K20.0 ; Other diseases of salivary glands K11.8 ; Shortness of breath R06.02 ; Allergic rhinitis due to pollen J30.1 ; Allergic rhinitis due to animal (cat) (dog) hair and dander J30.81 ; Other allergic rhinitis J30.89 and Other chronic allergic conjunctivitis H10.[address] [address] 09/28/2024 Ragini Young Eosinophilic esophagitis K20.0 ; Other diseases of salivary glands K11.8 ; Shortness of breath R06.02 ; Allergic rhinitis due to pollen J30.1 ; Allergic rhinitis due to animal (cat) (dog) hair and dander J30.81 ; Other allergic rhinitis J30.89 and Other chronic allergic conjunctivitis H10.[address] [address] 10/10/2024 Petr Schulz Allergic rhinitis du e to pollen J30.1 ; Other allergic rhinitis J30.89 ; Allergic rhinitis due to animal (cat) (dog) hair and dander J30.81 and Other chronic allergic conjunctivitis H10.[address] [address] 10/17/2024 Petr Schulz Allergic rhinitis du e to pollen J30.1 ; Other allergic rhinitis J30.89 ; Allergic rhinitis due to animal (cat) (dog) hair and dander J30.81 and Other chronic allergic conjunctivitis H10.[address] [address] 11/07/2024 Petr Schulz Allergic rhinitis du e to pollen J30.1 ; Other allergic rhinitis J30.89 ; Allergic rhinitis due to animal (cat) (dog) hair and dander J30.81 and Other chronic allergic conjunctivitis H10.45 [facility] [address] [place] [phone] 12/07/2024 Petr Zeus Allergic rhinitis du e to pollen J30.1 ; Other allergic rhinitis J30.89 ; Allergic rhinitis due to animal (cat) (dog) hair and dander J30.81 and Other chronic allergic conjunctivitis H10.45 [facility] [address] [place] [phone] 01/03/2025 Petr Schulz Allergic rhinitis du e to pollen J30.1 ; Other allergic rhinitis J30.89 ; Allergic rhinitis due to animal (cat) (dog) hair and dander J30.81 and Other chronic allergic conjunctivitis H10.45 [facility] [address] [place] [phone] 01/31/2025 Petr Schulz Allergic rhinitis du e to pollen J30.1 ; Other allergic rhinitis J30.89 ; Allergic rhinitis due to animal (cat) (dog) hair and dander J30.81 and Other chronic allergic conjunctivitis H10.45 [facility] [address] [place] [phone] 03/30/2024 Petr Schulz Allergic rhinitis du e to pollen J30.1 ; Other allergic rhinitis J30.89 ; Allergic rhinitis due to animal (cat) (dog) hair and dander J30.81 and Other chronic allergic conjunctivitis H10.45 [facility] [address] [place] [phone] 04/13/2024 Petr Schulz Allergic rhinitis du e to pollen J30.1 ; Other allergic rhinitis J30.89 ; Allergic rhinitis due to animal (cat) (dog) hair and dander J30.81 and Other chronic allergic conjunctivitis H10.45 [facility] [address] [place] [phone] 04/20/2024 Petr Schulz Allergic rhinitis du e to pollen J30.1 ; Other allergic rhinitis J30.89 ; Allergic rhinitis due to animal (cat) (dog) hair and dander J30.81 and Other chronic allergic conjunctivitis H10.45 [facility] [address] [place] [address] [employer] [address] [place] [phone] 04/25/2024 Petr Zeus Allergic rhinitis du e to pollen J30.1 ; Other allergic rhinitis J30.89 ; Allergic rhinitis due to animal (cat) (dog) hair and dander J30.81 and Other chronic allergic conjunctivitis H10.45 [facility] [address] [place] [address] [employer] [address] [phone] 05/02/2024 Petr Zeus Allergic rhinitis du e to pollen J30.1 ; Other allergic rhinitis J30.89 ; Allergic rhinitis due to animal (cat) (dog) hair and dander J30.81 and Other chronic allergic conjunctivitis H10.45 [facility] [address] [place] [address] [employer] [address] [address] 05/09/2024 Petranthony Schulz Allergic rhinitis du e to pollen J30.1 ; Other allergic rhinitis J30.89 ; Allergic rhinitis due to animal (cat) (dog) hair and dander J30.81 and Other chronic allergic conjunctivitis H10.45 [facility] [address] [place] [address] [employer] [address] [phone] 05/16/2024 Petr Zeus Allergic rhinitis du e to pollen J30.1 ; Other allergic rhinitis J30.89 ; Allergic rhinitis due to animal (cat) (dog) hair and dander J30.81 and Other chronic allergic conjunctivitis H10.45 [facility] [address] [place] [address] [employer] [address] [address] 05/23/2024 Petr Schulz Allergic rhinitis du e to pollen J30.1 ; Other allergic rhinitis J30.89 ; Allergic rhinitis due to animal (cat) (dog) hair and dander J30.81 and Other chronic allergic conjunctivitis H10.45 [facility] [address] [place] [address] [employer] [address] [place] [phone] 05/30/2024 Petr Schulz Allergic rhinitis du e to pollen J30.1 ; Other allergic rhinitis J30.89 ; Allergic rhinitis due to animal (cat) (dog) hair and dander J30.81 and Other chronic allergic conjunctivitis H10.45 [facility] [address] [place], [place] [address] [address] [place] [phone] 06/06/2024 Petr Zeus Allergic rhinitis du e to pollen J30.1 ; Other allergic rhinitis J30.89 ; Allergic rhinitis due to animal (cat) (dog) hair and dander J30.81 and Other chronic allergic conjunctivitis H10.45 [facility] [address] [place] [address] [employer] [address] [address] 06/13/2024 Petr Zeus Allergic rhinitis du e to pollen J30.1 ; Other allergic rhinitis J30.89 ; Allergic rhinitis due to animal (cat) (dog) hair and dander J30.81 and Other chronic allergic conjunctivitis H10.45 [facility] [address] [place] [address] [employer] [address] [address] 06/22/2024 Petr Zeus Allergic rhinitis du e to pollen J30.1 ; Other allergic rhinitis J30.89 ; Allergic rhinitis due to animal (cat) (dog) hair and dander J30.81 and Other chronic allergic conjunctivitis H10.45 [facility] [address] [place] [phone] 06/29/2024 Petr Zeus Allergic rhinitis du e to pollen J30.1 ; Other allergic rhinitis J30.89 ; Allergic rhinitis due to animal (cat) (dog) hair and dander J30.81 and Other chronic allergic conjunctivitis H10.45 [facility] [address] [place] [phone] 07/06/2024 Petr Schulz Allergic rhinitis du e to pollen J30.1 ; Other allergic rhinitis J30.89 ; Allergic rhinitis due to animal (cat) (dog) hair and dander J30.81 and Other chronic allergic conjunctivitis H10.45 [facility] [address] [place] [address] [employer] [address] [place] [phone] 07/17/2024 Petr Schulz Allergic rhinitis du e to pollen J30.1 ; Other allergic rhinitis J30.89 ; Allergic rhinitis due to animal (cat) (dog) hair and dander J30.81 and Other chronic allergic conjunctivitis H10.45 [facility] [address] [place] [address] [employer] [address] [place] [phone] 08/01/2024 Petr Schulz Allergic rhinitis du e to pollen J30.1 ; Other allergic rhinitis J30.89 ; Allergic rhinitis due to animal (cat) (dog) hair and dander J30.81 and Other chronic allergic conjunctivitis H10.45 [facility] [address] [place] [phone] 08/30/2024 Petr Schulz Allergic rhinitis du e to pollen J30.1 ; Other allergic rhinitis J30.89 ; Allergic rhinitis due to animal (cat) (dog) hair and dander J30.81 and Other chronic allergic conjunctivitis H10.45 [facility] [address] [place] [address] [employer] [address] [address] 09/20/2024 Petr Zeus Allergic rhinitis du e to pollen J30.1 ; Other allergic rhinitis J30.89 ; Allergic rhinitis due to animal (cat) (dog) hair and dander J30.81 and Other chronic allergic conjunctivitis H10.45 [facility] [address] [place] [phone] 02/09/2024 Petr Zeus Allergic rhinitis du e to pollen J30.1 ; Other allergic rhinitis J30.89 ; Allergic rhinitis due to animal (cat) (dog) hair and dander J30.81 and Other chronic allergic conjunctivitis H10.45 [facility] [address] [place] [phone] 02/17/2024 Petr Zeus Allergic rhinitis du e to pollen J30.1 ; Other allergic rhinitis J30.89 ; Allergic rhinitis due to animal (cat) (dog) hair and dander J30.81 and Other chronic allergic conjunctivitis H10.45 [facility] [address] [place] [phone] 02/22/2024 Petranthony Schulz Allergic rhinitis du e to pollen J30.1 ; Other allergic rhinitis J30.89 ; Allergic rhinitis due to animal (cat) (dog) hair and dander J30.81 and Other chronic allergic conjunctivitis H10.45 [facility] [address] [place] [phone] 03/09/2024 Petranthony Schulz Allergic rhinitis du e to pollen J30.1 ; Other allergic rhinitis J30.89 ; Allergic rhinitis due to animal (cat) (dog) hair and dander J30.81 and Other chronic allergic conjunctivitis H10.[address] [address] 02/05/2024 Provider MARIAMA-Indira Assessments Encounter Date Diagnosis (ICD Code) Assessment Notes Treatment Notes Treatment Clinical Notes Section Notes 03/09/2024 Allergic rhinitis due to pollen (ICD-10 [...] rhinitis due to pollen (ICD-10 - J30.1) 01/03/2025 Allergic rhinitis due to pollen (ICD-10 - J30.1) 01/31/2025 Allergic rhinitis due to pollen (ICD-10 - J30.1) 10/17/2024 Allergic rhinitis due to pollen (ICD-10 - J30.1) 10/10/2024 Allergic rhinitis due to pollen (ICD-10 [...] SE of facial droop and BOYD. -per [employer] Ruby notes was having episodes of tachycardia and [...] biopsy will be helpful if symptoms return 09/20/2024 Allergic rhinitis due to pollen (ICD-10 [...] rhinitis due to pollen (ICD-10 - J30.1) 03/30/2024 Allergic rhinitis due to pollen (ICD-10 [...] SE of facial droop and BOYD. -per [employer] Tung notes was having episodes of tachycardia [...] - EGD with biopsy will be helpful 02/22/2024 Allergic rhinitis due to pollen (ICD-10 - J30.1) 02/17/2024 Allergic rhinitis due to pollen (ICD-10 - J30.1) 02/09/2024 Allergic rhinitis due to pollen (ICD-10 - J30.1) 05/09/2024 Allergic rhinitis due to pollen (ICD-10 - J30.1) 05/02/2024 Allergic rhinitis due to pollen (ICD-10 - J30.1) 04/25/2024 Allergic rhinitis due to pollen (ICD-10 - J30.1) 04/25/2024 Other allergic rhinitis (ICD-10 - J30.89) 05/02/2024 Other allergic rhinitis (ICD-10 - J30.89) 05/09/2024 Other allergic rhinitis (ICD-10 - J30.89) 02/09/2024 Other allergic rhinitis (ICD-10 - J30.89) 02/17/2024 Other allergic rhinitis (ICD-10 - J30.89) 02/22/2024 Other allergic rhinitis (ICD-10 - J30.89) 03/30/2024 Other allergic rhinitis (ICD-10 - J30.89) 03/23/2024 Shortness of breath (ICD-10 - R06.02) Spirometry last visit with normal FEV1, FVC, and FEV%. -continue to closely monitor lung function and symptoms given her other allergic conditions -UTD on flu shot -continue ELVIS per AAP with spacer -continue Singulair 04/13/2024 Other allergic rhinitis (ICD-10 - J30.89) 04/20/2024 Other allergic rhinitis (ICD-10 - J30.89) 05/16/2024 Other allergic rhinitis (ICD-10 - J30.89) 05/23/2024 Other allergic rhinitis (ICD-10 - J30.89) 06/06/2024 Other allergic rhinitis (ICD-10 - J30.89) 06/29/2024 Other allergic rhinitis (ICD-10 - J30.89) 07/17/2024 Other allergic rhinitis (ICD-10 - J30.89) 08/01/2024 Other allergic rhinitis (ICD-10 - J30.89) 09/20/2024 Other allergic rhinitis (ICD-10 - J30.89) 10/10/2024 Other allergic rhinitis (ICD-10 - J30.89) 09/28/2024 Shortness of breath (ICD-10 - R06.02) No recent ELVIS use or lower airway symptoms. Spirometry last visit with normal FEV1, FVC, and FEV%. -continue to closely monitor lung function and symptoms given her other allergic conditions -UTD on flu shot -continue ELVIS per AAP with spacer -continue Singulair 10/17/2024 Other allergic rhinitis (ICD-10 - J30.89) 01/31/2025 Other allergic rhinitis (ICD-10 - J30.89) 01/03/2025 Other allergic rhinitis (ICD-10 - J30.89) 12/07/2024 Other allergic rhinitis (ICD-10 - J30.89) 11/07/2024 Other allergic rhinitis (ICD-10 - J30.89) 08/30/2024 Other allergic rhinitis (ICD-10 - J30.89) 07/06/2024 Other allergic rhinitis (ICD-10 - J30.89) 06/22/2024 Other allergic rhinitis (ICD-10 - J30.89) 06/13/2024 Other allergic rhinitis (ICD-10 - J30.89) 05/30/2024 Other allergic rhinitis (ICD-10 - J30.89) 03/09/2024 Other allergic rhinitis (ICD-10 - J30.89) 05/30/2024 Allergic rhinitis due to animal (cat) [...] (dog) hair and dander (ICD-10 - J30.81) 11/07/2024 Allergic rhinitis due to animal (cat) (dog) hair and dander (ICD-10 - J30.81) 12/07/2024 Allergic rhinitis due to animal (cat) (dog) hair and dander (ICD-10 - J30.81) 01/03/2025 Allergic rhinitis due to animal (cat) (dog) hair and dander (ICD-10 - J30.81) 01/31/2025 Allergic rhinitis due to animal (cat) (dog) [...] (off pepcid) -dosing tolerated today -AIE refilled 08/01/2024 Allergic rhinitis due to animal (cat) [...] (dog) hair and dander (ICD-10 - J30.81) 03/30/2024 Allergic rhinitis due to animal (cat) (dog) hair and dander (ICD-10 - J30.81) 03/23/2024 Allergic rhinitis due to pollen (ICD-10 - J30.1) Rama clearly suffers from atopic disease based upon our prior SPT. -immunocaps showed alternatia, ragweed, and cedar -doing well back on SCIT. She will triple pre-medicate due to prior large local rxns -AIE refilled 02/22/2024 Allergic rhinitis due to animal (cat) [...] hair and dander (ICD-10 - J30.81) 04/25/2024 Other chronic allergic conjunctivitis (ICD-10 - H10.45) 05/02/2024 Other chronic allergic conjunctivitis (ICD-10 - H10.45) 05/09/2024 Other chronic allergic conjunctivitis (ICD-10 - H10.45) 02/09/2024 Other chronic allergic conjunctivitis (ICD-10 - H10.45) 02/17/2024 Other chronic allergic conjunctivitis (ICD-10 - H10.45) 03/23/2024 Allergic rhinitis due to animal (cat) (dog) hair and dander (ICD-10 - J30.81) Recommend medications, allergen avoidance measures, and SCIT as above 02/22/2024 Other chronic allergic conjunctivitis (ICD-10 - [...] allergen avoidance measures, and SCIT as above 09/20/2024 Other chronic allergic conjunctivitis (ICD-10 - H10.45) 10/10/2024 Other chronic allergic conjunctivitis (ICD-10 - H10.45) 10/17/2024 Other chronic allergic conjunctivitis (ICD-10 - H10.45) 01/31/2025 Other chronic allergic conjunctivitis (ICD-10 - H10.45) 12/07/2024 Other chronic allergic conjunctivitis (ICD-10 - H10.45) 01/03/2025 Other chronic allergic conjunctivitis (ICD-10 - H10.45) 11/07/2024 Other chronic allergic conjunctivitis (ICD-10 - H10.45) 08/30/2024 Other chronic allergic conjunctivitis (ICD-10 - H10.45) 07/06/2024 Other chronic allergic conjunctivitis (ICD-10 - H10.45) 06/22/2024 Other chronic allergic conjunctivitis (ICD-10 - H10.45) 06/13/2024 Other chronic allergic conjunctivitis (ICD-10 - H10.45) 05/30/2024 Other chronic allergic conjunctivitis (ICD-10 - H10.45) 03/09/2024 Other chronic allergic conjunctivitis (ICD-10 - H10.45) 09/28/2024 Other allergic rhinitis (ICD-10 - J30.89) Recommend medications, allergen avoidance measures, and SCIT as above 03/23/2024 Other allergic rhinitis (ICD-10 - J30.89) Recommend medications, allergen avoidance measures, and SCIT as above 03/23/2024 Other chronic allergic conjunctivitis (ICD-10 - H10.45) Given ocular signs and symptoms I encouraged allergy avoidance measures and meds and continue SCIT as an adjunctive measure 09/28/2024 Other chronic allergic conjunctivitis (ICD-10 - [...] 09/22/2021 ANCA SCREEN WITH REFLEX TO TITER 022 PROSTAGLANDIN D2 (PG D2), URINE 09/22/19 22 LEUKOTRIENE E4, URINE 09/22/2021 N METHYLHISTAMINE, 24 HOUR, URINE 2021 Next Appt Details Provider Name:Petr Avina Zeus , 02/28/2025 10:40:00 AM, [address] [facility], [address], [place], [address], Insurance Providers Payer Name Payer Address Payer Phone Subscriber Number Group Number Insured Name Patient Relationship to Insured Coverage Start Date Coverage End Date [facility] [place] [address] [phone] [id number] Gilberto Carrasco Spouse - patient is the spouse of the insured 5 Medical (General) History Medical History History ICD Code Essential (primary) hypertension Allergic rhinitis due to pollen Other allergic rhinitis Other chronic allergic conjunctivitis Shortness of breath Dysphagia, unspecified Surgical History Surgery Date(Month/Year) , Cholecystectomy 1997 Appendectomy 2002 2005 Bladder Reconstruction 2006 lumbar fusion 11/2022 Shoulder surgery 05/2023 Hospitalization History Reason Date(Month/Year) COVID x7 days 03/25/2022 See above surgical history
--- OUTSIDE RECORDS SUMMARY | 2025-02-04 12:40 | XMS_ITS | Encounter Summary ---
Author Organization [facility] Address [address] [place] [address] Care Team Providers Care Tip Stitcher Name Role Phone ValverdeRob cano Primary Care Provider [phone] Encounter Details Date Type Department Care Team (Late st Contact Info) Description 09/28/2023 Lab Requisition [facility] - DermPath Lab [address] [place] [phone] Ward Isaacs MD [facility] DER[facility] [address] [place] [phone] Neoplasm of uncertain behavior of skin Social History Tobacco Use Types Packs/Day Years Used Date Smoking Tobacco: Never Assessed Comments Unknown Sex and Gender Information Value Date Recorded Sex Assigned at Not on file Legal Sex Female 10:50 AM DESK TOP PUBLISHER Gender Identity Not on file Sexual Orientation Not on file documented as of this encounter Plan of Treatment Not on file documented as of this encounter Procedures Procedure Name Priority Date/Time Associated Diagnosis Comments DERMATOPATHOLOGY Routine 09/28/2023 3:33 AM DESK TOP PUBLISHER Neoplasm of uncertain behavior of skin documented in this encounter Results * DERMATOPATHOLOGY (09/28/2023 3:33 AM DESK TOP PUBLISHER) Case Report Dermatopathology Report Case: [id number] Authorizing Provider: Ward Isaacs MD Collected: 09/28/2023 03:33 AM Ordering Location: [facility] DermPath Lab Received: 09/29/2023 01:54 PM Pathologist: Deidra Salcedo MD Specimen: Skin, left gluteal fold 4 5:24 PM [facility] Final Diagnosis Specimen A. SKIN, left gluteal fold: DERMAL SCAR (L90.5) (see microscopic description) 4 5:24 PM [facility] at 1724 DESK TOP PUBLISHER Clinical History Neurofibroma 4 5:24 PM [facility] Gross Description Specimen A: Received is one formalin filled container labeled with the patient's name and designated left gluteal fold. The specimen consists of a shave biopsy measuring [id number] mm. Jar 0. 5:24 PM [facility] Microscopic Description Specimen A. SKIN, left gluteal fold: There are fibroblasts and collagen bundles oriented parallel to the skin surface with elongated blood vessels, some of which are oriented perpendicular to the skin surface. Additional deeper sections were obtained and reviewed. 5:24 PM [facility] Disclaimer An external and internal positive and negative controls are appropriate for the histochemical, immunohistochemical and immunofluorescence stain(s) in this case (if any), except where stated explicitly. The performance characteristics of the stain(s) cited in this report were developed and its performance characteristic determined by the Dermatopathology Laboratory at [facility], directed by Dr. Jes Clinton. These tests need not be, and therefore are not, approved by the [place] Food and Drug Administration. The tests are used for clinical purposes. Billing Codes Specimen Charges Stain Charges 25650 1 4 5:24 PM [facility] Embedded Images 4 5:24 PM [facility] Pathology/Cytolo gy TISSUE SPECIMEN FROM SKIN / Unknown 09/28/2023 3:33 AM DESK TOP PUBLISHER 09/29/2023 1:54 PM DESK TOP PUBLISHER us Ward Isaacs MD LAB - PATHOLOGY/CYTOLOGY [facility] Final Result DERMATOPATHOLOGY LABORATORY [facility] - Department of Dermatology [address] [phone] documented in this encounter Visit Diagnoses Diagnosis Neoplasm of uncertain behavior of skin documented in this encounter Care Teams Tip Stitcher Relationship Specialty Start Date End Date Rob Valverde DO [address] [place] [phone] PCP - General 10/28/22 documented as of this encounter
--- OUTSIDE RECORDS SUMMARY | 2025-02-04 12:40 | XMS_ITS | Continuity of Care Document ---
Author Name [facility] Organization [facility] Care Team Providers Care Sales Force Developer Name Role Phone [facility] Unavailable Unavailable Problems [...] (syncope) Active Condition DoD lightheadedness Inactive Condition [facility] visit for: issue repeat prescription Inactive Condition DoD Patient Education Inactive Condition DoD headache Inactive Condition DoD PALPITATIONS Active Condition DoD Laboratory Studies Inactive Condition Do D DEPRESSION WITH ANXIETY Active Condition DoD DYSPHAGIA Active Condition DoD MENORRHAGIA Active Condition DoD Body Mass Index Active Condition DoD visit for: screening exam Inactive Condition [facility] visit for: screening exam for malignant neoplasm [...] OAB vs mixed vs NGB.Pending UAC&S for fanta. DoD FATIGUE Active Condition likley due to [...] Ordering Provider Order Date Order Qty Source CETIRIZINE HCL (cetirizine HCl), 10 MG, TABLET, ORAL, 'S LAB, 500 ea. BOTTLE Active [id number] 2023 90 Pharmac y Data Transac tion Service Facilit y CYCLOBENZAP RINE HCL (cyclobenza tony HCl), 10 MG, TABLET, ORAL, [facility], 1000 ea. BOTTLE Active [id number] 2023 20 Pharmac y Data Transac tion Service Facilit y ESTRADIOL (estradiol) , 0.01 %, CREAM/APPL, VAGINAL, PADAGIS, 42.5 g TUBE Cancele d [id number] : 2023 0 Pharmac y Data Transac tion Service Facilit y ESTRADIOL (estradiol) , 0.01 %, CREAM/APPL, VAGINAL, PADAGIS, 42.5 g TUBE Cancele d [id number] : 2023 0 Pharmac y Data Transac [...] 3 2023 270.0 Ambulat ory Pharmac y meclizine 25 mg chew tablet See Instruct ions, # 30 EA, 1 total refill(s ), Hard Stop Complet ed 05/13/2024 3 2023 30.0 Ambulat ory Pharmac y METHYLPREDN ISOLONE (methylpred nisolone), 4 MG, TAB DS PK, ORAL, Fligoo, 21 ea. DOSE-PACK Active [id number] 2023 21 Pharmac y Data Transac [...] ([place] T SODIUM), 10 MG, TABLET, ORAL, [facility], 1000 ea. BOTTLE Cancele d [id number] : 2023 0 Pharmac y Data Transac [...] Ambulat ory Pharmac y PREGABALIN (pregabalin ), 75 MG, CAPSULE, ORAL, [facility], 90 ea. BOTTLE Active [id number] 2023 60 Pharmac y Data Transac tion Service Facilit y PREGABALIN (pregabalin ), 75 MG, CAPSULE, ORAL, [facility], 90 ea. BOTTLE Active [id number] 2023 60 Pharmac y Data Transac [...] ) Drug allergy (disorder) Rash active 5 [facility] Rosy tOCTAVIO Immunizations Combined list of available immunizations from the Department of Defense and Veterans Affairs facilities. Immunization Series Date Given Administered By Site Reaction Lot Number CVX Code Drug Firmware Engineer Status Comments Source influenza, injectable, quadrivalent- pf 2021 zzRig ht Arm [id number] 150 [id number] complet ed influenza , injectabl e, quadrival ent-pf 08/19/22 Given Ambulat ory Pharmac y Influenza, injectable, quadrivalent, preservative free 1 2021 Unknown, Provider [id number] 150 [facility] ([facility]) complet ed Influenza , injectabl e, quadrival ent, preservat marian free DoD hepatitis A-hepatitis B vaccine 2018 zzLef t Arm [id number] 104 GlaxoSmithKli ne complet ed hepatitis A-hepatit is B vaccine 05/01/19 Given Ambulat ory Pharmac y tetanus, diphtheria, acellular pertu is 2018 zzLef t Arm [id number] 115 GlaxoSmithKl ne complet ed tetanus, diphtheri a, acellular pertussis 05/01/19 Given Ambulat ory Pharmac y hepatitis A and hepatitis B vaccine 1 2018 Unknown, Provider [id number] 104 [facility] ([facility]) complet ed hepatitis A and hepatitis B vaccine DoD tetanus toxoid, reduced diphtheria toxoid, and acellular pertu is vaccine, adsorbed 1 2018 Unknown, Provider [id number] 115 [facility] ([facility]) complet ed tetanus toxoid, reduced diphtheri a toxoid, and acellular pertussis vaccine, adsorbed DoD influenza virus vaccine, whole virus 2004 [id number] 16 sanofi pasteur complet ed influenza virus vaccine, whole virus 06/30/05 Given Ambulat ory Pharmac y influenza virus vaccine, whole virus 1 2004 Unknown, Provider [id number] 16 Sanofi Pasteur ([facility]) complet ed influenza virus vaccine, whole virus [facility] influenza virus vaccine, whole virus 2003 zzLef t Arm [id number] 16 Novartis Pharmaceutica complet ed influenza virus vaccine, whole virus 10/23/03 Given Ambulat ory Pharmac y hepatitis A-hepatitis B vaccine 2003 zzLef t Arm [id number] 104 GlaxoSmithKli ne complet ed hepatitis A-hepatit is B vaccine 10/23/03 Given Ambulat ory Pharmac y tetanus-dipht h toxoids (Td) adult/adol 2003 zzLef t Arm [id number] 09 sanofi pasteur complet ed tetanus-d iphth [...] of diphtheria toxoid) 1 2003 Unknown, Provider [id number] 09 Sanofi Pasteur ([facility]) complet ed tetanus and diphtheri a toxoids, adsorbed, preservat marian free, for adult use (2 Lf of tetanus toxoid and 2 Lf of diphtheri a toxoid) DoD poliovirus vaccine, inactivated 1 2003 Unknown, Provider [id number] 10 Sanofi Pasteur ([facility]) complet ed polioviru s vaccine, inactivat ed DoD influenza virus vaccine, whole virus 1 2003 Unknown, Provider [id number] 16 PowderJect Pharmaceutica ls ([facility]) complet ed influenza virus vaccine, whole virus DoD hepatitis A and hepatitis B vaccine 1 2003 Unknown, Provider [id number] 4 LevelUpine ([facility]) complet ed hepatitis A and hepatitis B vaccine DoD tuberculin purified protein derivative 2003 zzLef t Arm [id number] 96 sanofi pasteur complet ed Patient Tolerance : Negative Ambulat ory Pharmac y tuberculin skin test; purified protein derivative solution, intradermal 1 2003 Unknown, Provider [id number] 96 Sanofi Pasteur ([facility]) complet ed tuberculi [...] Date Status Disposition Source OCTAVIO Haile(Eielso n [facility] ([facility]) ) OUTPATIENT [id number] f/u LAUREN Sagastume 11/04 Released w/o Limitations OCTAVIO Bowser(Eiel son [facility] ([facility])) OCTAVIO Haile(Eielso n [employer] [facility] ([facility]) ) TELE CONSULT [id number] ref: w/ heart LAUREN HOOD 11/07 [facility] OCTAVIO Cordero(Eiel son [employer] [facility] ([facility] n)) [facility] OCTAVIO Cuadra(Eielso n B [facility] ([facility]) ) OUTPATIENT [id number] OB Wt. 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 OCTAVIO Anthony([facility]) [facility] DIRECT TO MTF FROM OTHER THAN ER OR APU [id number] 02/[address] [facility] Conde [facility] OCTAVIO Cuadra(Merono n [facility] ([facility]) ) OUTPATIENT [id number] foot pain X 5 weeks, OTC not working ; 6 weeks postpar IGOR Headley 04/23 Released with Work/Duty Limitations [facility] OCTAVIO Anthony(Eiel son [employer] [facility] [place] [address](Arnav antoine [employer] Team, Gisselle VERMA) OUTPATIENT [id number] check htn AHLTA SYSTEM ADMINISTRA TOR 06/23 [facility] [place] [address](Tessa orellana [employer], Gisselle VERMA) [place] [address](Residential Support Specialist ecology [facility], [facility]) OUTPATIENT [id number] rou pap no problem missed her postpar cheryl ESTEFANI CHASE 06/30 Released w/o Limitations [facility] [place] [address](G shonda gy [facility], [facility]) [place] [address](Arnav antoine [employer], Gisselle VERMA) OUTPATIENT [id number] CHOL EVAL AHLTA SYSTEM ADMINISTRA TOR 07/10 [facility] [place] [address](Tsesa Barajas Team, Gisselle LAWSONB) [place] [address](Arnav antoine [employer], Gisselle LAWSONB) OUTPATIENT [id number] pt w/ N/V/D,p t breastf eeding w/redne ss L breast, sorenes s both breasts AHLTA SYSTEM ADMINISTRA TOR 10/09 [facility] [place] [address](Tessa Barajas Team, Gisselle LAWSONB) [place] [address](Opt ometry, [facility]) OUTPATIENT [id number] exam 15 early MARTA ROBERTS 11/24 Released w/o Limitations [facility] [place] [address](O ptometr y, [facility]) [place] [address](Arnav antoine [employer] Team, Gisselle LAWSONB) OUTPATIENT [id number] wrists/ hands pain/nu mbness/ does not want ER visit DAVID CHANDRA 01/22 Released w/o Limitations [facility] [place] [address](Tessa orellana [employer], Gisselle LAWSONB) [place] [address](Arnav antoine [employer] Team, Gisselle VERMA) OUTPATIENT [id number] rapid heartbe at/head aches/t ingling in top right teeth.. advised ER ALMA CORONEL 07/06 Released w/o Limitations [facility] [place] [address](Tessa orellana [employer], Gisselle LAWSONB) [place] [address](Arnav antoine [employer], Gisselle VERMA) OUTPATIENT [id number] EVAL BP RACHELLE MARTA D 08/06 Released w/o Limitations [facility] [place] [address](Tessa Barajas Team, Gisselle B) [facility] [place] [address](Residential Support Specialist ecology [facility]) OUTPATIENT [id number] STRESS INCONTI ZOE LUONG Ty 08/06 Released w/o Limitations [place] [address](G minoocosusan [facility]) [facility] [place] [address](Arnav antoine Raptor Team, Gisselle [facility]) OUTPATIENT [id number] EVAL FOOT MARTA BUSH D 08/10 Released w/o Limitations [facility] [place] [address](Tessa West, Gisselle [facility]) [place] [address](Arnav West, [facility]) OUTPATIENT [id number] f/up for meds for b/press DAVID Gonsalez 09/09 Released w/o Limitations [facility] [place] [address](Tessa eWst, [facility]) [place] [address](Chanelle matology, [facility]) OUTPATIENT [id number] NAVEEN Haney 10/25 Released w/o Limitations [facility] [place] [address]([facility] [place] [address](MISA West, GERARDO (inactive )) OUTPATIENT [id number] right ankle pain..p t states the ankle is not frac... if so pt was YONI Veliz 11/15 Released w/o Limitations [facility] [place] [address](Jazzmine West, KASHARI (inacti ve)) [facility]) OUTPATIENT [id number] UPSET STOMACH , VOMITTI NG AND CONSTIP ATION ZHANG GILES 12/26 Released w/o Limitations [employer](F amily Practic e) [employer](Residential Support Specialist ecology) OUTPATIENT [id number] ANNUAL PAP SLOAN CHANDRA 04/09 Released w/o Limitations [employer](G ynecolo gy) [employer](Residential Support Specialist ecology) TELE CONSULT [id number] SLOAN CHANDRA 04/24 [employer](G ynecolo gy) [facility]) OUTPATIENT [id number] DIFFCUL TIES SWOLLOW ING AND SUGAR LEVELS SEEM TO BE OFF SEASTEVE KELLEY 04/29 Released w/o Limitations [employer](F amily Practic e) [facility]) TELE CONSULT [id number] 72 Hr///Re HE Parmar 05/07 Referred for Appointment [employer]([facility]) [facility]) TELE CONSULT [id number] 72 hr//kayla HE Mena 05/08 Referred for Appointment [employer](F amily Practic e) [facility]) TELE CONSULT [id number] receive d results of barium study. KM AGUILAR 05/08 Referred for Appointment [facility](F amily Practic e) [facility]) TELE CONSULT [id number] 24HR/NU RSE TCKM ORTEGA 05/20 Referred for Appointment [facility](F amily Practic e) [facility]) OUTPATIENT [id number] GO OVER LAB RESULTS /GLUCOS E JULITA PRITCHARD 05/23 Released w/o Limitations [employer](F amily Practic e) [facility]) OUTPATIENT [id number] F/U FOR THYROID JULITA PRITCHARD 07/08 Released w/o Limitations [employer](F amily Practic e) [facility]) OUTPATIENT [id number] Depress ion/Anx NAVEEN Ferrell 11/11 Released w/o Limitations [employer](F amily Practic e) [facility]) TELE CONSULT [id number] 72HR/NU RSE KM AGUILERA 11/24 Referred for Appointment [facility](F amily Practic e) [facility]) OUTPATIENT [id number] RENEW ANTIDEP RESSANT MEDICAT ION [place]ELSBECK , JULITA R 12/03 Released w/o Limitations [facility](F amily Practic e) [facility]) TELE CONSULT [id number] 72HR/ME D REFILL DENELSBECK , JULITA R 12/11 [facility](F amily Practic e) [facility]) OUTPATIENT [id number] F/U FOR ANXIETY //F/U FOR BLOOD PRESSUR E [place]EL[place]K , JULITA R 01/07 Released w/o Limitations [facility](F amily Practic e) [address] [place] [address])(Nvo tt [facility] Team 3) OUTPATIENT [id number] blood pressur e meds [phone] SINGH LEE 05/11 Released w/o Limitations [address] [place] [address] Stevan [facility] Team 3) [address] [place] [address] Stevan [facility])(Nvo [facility] Team 3) OUTPATIENT [id number] allergi es causing breathi ng problem s - [phone] KEVEN CASPER 06/09 Released w/o Limitations [address] [place] [address])([facility] Team 3) [address] [place] [address])(War rior Op Med Cln Tm A Ad) TELE CONSULT [id number] vitamin D level is low 24 ANEL MERAZ 06/[address] [place] [address])(W arrior Op Med Cln Tm A Ad) [address] [place] [address])(Nvo tt [facility] Team 3) TELE CONSULT [id number] Notes Entered by: DELMA ALNAIZ 14 Jan 2012 1116 ------- ------- ------- ------- -- High blood pressur e, heartra te, dizzine ss after working outside ALMA Gallegos 01/[address] [place] [address] Stevan [facility] Team 3) [address] [place] [address] Stevan [facility])([facility] Team 3) OUTPATIENT [id number] F/U blood pressur e concern s [phone] ZHANG GILES 02/09 Released w/o Limitations [address] [place] [address] Stevan [facility])([facility] Team 3) [address] [place] [address])([facility] Team 3) TELE CONSULT [id number] Notes Entered by: KEVEN SULLIVAN 01 Mar 2012 0956 ------- ------- ------- ------- -- Tcon for lab results Dr Unique roca ph [phone] cad dmj ALMA ABEBE 03/[address] [place] [address])([facility] Team 3) [address] [place] [address])([facility] Team 3) TELE CONSULT [id number] Notes Entered by: DELMA ALANIZ 04 Mar 2012 0849 ------- ------- ------- ------- -- Lab results ALMA Desai 03/[address] [place] [address])([facility] Team 3) [address] [place] [address])([facility] Team 3) TELE CONSULT [id number] Notes Entered by: JULIAN CRAWFORD 04 Mar 2012 1500 ------- ------- ------- ------- -- Cardiol ogy ZHANG Bonner 03/[address] [place] [address])([facility] Team 3) [address] [place] [address])([facility] Team 3) TELE CONSULT [id number] Notes Entered by: JULIAN CRAWFORD 15 Mar 2012 0650 ------- ------- ------- ------- -- Urine Culture ALMA ABEBE 03/[address] [place] [address])([facility] Team 3) [address] [place] [address])([facility] Team 3) TELE CONSULT [id number] Notes Entered by: GENESIS TRIPATHI CIA 14 Apr 2012 1022 ------- ------- ------- ------- -- Lab and urine test results wanted - unique roca - cad/pmh VANESSA DYSON 04/[address] [place] [address])([facility] Team 3) [address] [place] [address])(War rior Op Med Cln Tm A Ad) TELE CONSULT [id number] Notes Entered by: BORIS BENSON 02 Jun 2012 1559 ------- ------- ------- ------- -- Network Results -CARDIO LOGY 05/18/12 ZHANG GILES 06/[address] [place] [address])(W arrior Op Med Cln Tm A Ad) [address] [place] [address])([facility] Team 3) TELE CONSULT [id number] Notes Entered by: KEVEN SULLIVAN 20 Jul 2012 0829 ------- ------- ------- ------- -- Med refill Dr Calhoun chanelle ph [phone] VANESSA DYSON 07/[address] [place] [address])([facility] Team 3) [address] [place] [address])(War rior Op Med Cln Tm A Ad) OUTPATIENT [id number] Ear and stomach Pain possibl e vertigo per pt H# MINNIE MONCADA 10/31 Released w/o Limitations [address] [place] [address])(W arrior Op Med Cln Tm A Ad) [address] [place] [address])(All ergy Resource Sharing) OUTPATIENT [id number] Allergi c SAMARA Dowling 11/29 Released w/o Limitations [address] [place] [address] Group Stevan VERMA ([facility])(A llergy Resourc e Sharing ) [address] [place] [address] Stevan [employer] ([facility])(War rior Op Med Cln Tm A Ad) OUTPATIENT [id number] F/U blood pressur e [phone] MINNIE MONCADA Michelle 12/05 Released w/o Limitations [address] [place] [address] Group [employer] ([facility])(W arrior Op Med Cln Tm A Ad) [address] [place] [address] Stevan [facility]Opt ometry) OUTPATIENT [id number] eye exam [phone] JOAN AKERS 10/02 Released w/o Limitations [address] [place] [address] Group [employer] VERMA ([facility])(O ptometr y) [address] [place] [address] Group [employer] ([facility])(Sco tt [facility] Fam Res Tm Red) TELE CONSULT [id number] Notes Entered by: Ty CHERRY 30 Oct 2013 1217 ------- ------- ------- ------- -- Med refill MARYBETH EDUARDO 10/[address] [place] [address] Stevan [facility]MA [facility]S cott [facility] Fam Res Tm Red) [address] [place] [address] Stevan [facility]Sco tt [facility] Fam Res Tm Green) OUTPATIENT [id number] medicat ions [phone] MARGARITA ARELLANO 11/10 Released w/o Limitations [address] [place] [address] Stevan VERMA ([facility])(S cott [facility] Fam Res Tm Green) [address] [place] [address] Stevan [facility]Sco tt [facility] Fam Res Tm Gold) TELE CONSULT [id number] Notes Entered by: HAILEY GONZALEZ 15 Nov 2013 0927 ------- ------- ------- ------- -- Blood pressur e not staying down - Adan - MARYBETH EDUARDO 11/[address] [place] [address] Stevan [facility]S cott [facility] Fam Res Tm Gold) [address] [place] [address] Stevan [facility]All ergy Resource Sharing) OUTPATIENT [id number] allergy test GONZALEZ SAMAAR Franck 11/28 Released w/o Limitations [address] [place] [address] Group [employer] ([facility])(A llergy Resourc e Sharing ) [address] [place] [address] Stevan [facility]Sco tt [facility] Fam Res Tm Green) OUTPATIENT [id number] F/U blood MARGARITA Alarcon 12/01 Released w/o Limitations [address] [place] [address] Group [employer] ([facility])(S cott [facility] Res Tm Green) [address] [place] [address] Stevan [facility]All ergy Resource Sharing) OUTPATIENT [id number] Notes Entered by: Ty LOGAN 06 Feb 2014 1008 ------- ------- ------- ------- -- allergy shots LAURENCE LOGAN 02/06 Released w/o Limitations [address] [place] [address] Group [employer] ([facility])(A llergy Resourc e Sharing ) [address] [place] [address] Stevan [facility] ([facility])(All ergy) OUTPATIENT [id number] Notes Entered by: HUGO HOOKS 13 Feb 2014 0944 ------- ------- ------- ------- -- Allergy shots HUGO KHAN 02/13 Released w/o Limitations [address] [place] [address] Group [employer] ([facility])(A llergy) [address] [place] [address] Stevan VERMA ([facility])(All ergy Resource Sharing) OUTPATIENT [id number] Notes Entered by: Ty LOGAN 20 Feb 2014 1005 ------- ------- ------- ------- -- allergy shots LAURENCE LOGAN 02/20 Released w/o Limitations [address] [place] [address] Group Stevan LAWSONB ([facility]A llergy Resourc e Sharing ) [address] [place] [address] Stevan VERMA ([facility])(Sco tt [facility] Fam Res Tm Green) TELE CONSULT [id number] Notes Entered by: HAILEY GONZALEZ 20 Feb 2014 1005 ------- ------- ------- ------- -- Medicat endy Arellano - JAY, BHARGAV M 02/20 [facility] [employer] ([facility])(S [facility] Res Tm Green) [address] [place] [address] Group [employer] ([facility])(All ergy Resource Sharing) OUTPATIENT [id number] Notes Entered by: Ty LOGAN 27 Feb 2014 1329 ------- ------- ------- ------- -- allergy shots LAURENCE LOGAN 02/27 Released w/o Limitations [address] [place] [address] Group [employer] LAW[employer] ([facility])(A llergy Resourc e Sharing ) [address] [place] [address] Group [employer] ([facility])(All ergy Resource Sharing) OUTPATIENT [id number] Notes Entered by: Ty LOGAN 06 Mar 2014 1045 ------- ------- ------- ------- -- allergy shots HUGO KHAN 03/06 Released w/o Limitations [address] [place] [address] [employer] ([facility]A llergy Resourc e Sharing ) [address] [place] [address] [employer] ([facility])(All ergy) OUTPATIENT [id number] Notes Entered by: HUGO HOOKS 13 Mar 2014 0916 ------- ------- ------- ------- -- Allergy shots HUGO KHAN 03/13 Released w/o Limitations [address] [place] [address] [employer] ([facility])(A llergy) [address] [place] [address] [employer] ([facility])([facility] Res [place]) OUTPATIENT [id number] f/u for bp [id number] MARGARITA ARELLANO 03/14 Released w/o Limitations [address] [place] [address] [employer] ([facility])(S [facility] Res [place]) [address] [place] [address] [employer] [facility]All ergy) OUTPATIENT [id number] Notes Entered by: HUGO HOOKS 20 Mar 2014 0842 ------- ------- ------- ------- -- Allergy shots LAURENCE LOGAN 03/20 Released w/o Limitations [employer] ([facility])(A llergy) [employer] ([facility] OUTPATIENT [id number] FABIANO NARANJO 03/23 Released w/o Limitations [employer] ([facility])([facility] [employer] ([facility])(All ergy Resource Sharing) OUTPATIENT [id number] Notes Entered by: Ty LOGAN 27 Mar 2014 0933 ------- ------- ------- ------- -- allergy shots LAURENCE LOGAN 03/27 [facility]ased [facility] Limitations [facility] [employer] ([facility] ) [facility] [employer] ([facility])(All ergy) OUTPATIENT [id number] Notes Entered by: HUGO HOOKS 03 Apr 2014 1558 ------- ------- ------- ------- -- Allergy shots HUGO KHAN 04/03 Released w/o Limitations [facility] [employer] ([facility])(A llergy) [facility] [employer] ([facility])(All ergy) OUTPATIENT [id number] Notes Entered by: HUGO HOOKS 10 Apr 2014 0902 ------- ------- ------- ------- -- Allergy shots HUGO KHAN 04/10 Released w/o Limitations [facility] [employer] ([facility])(A llergy) [facility] [employer] ([facility])(All ergy) OUTPATIENT [id number] Notes Entered by: HUGO HOOKS 17 Apr 2014 1014 ------- ------- ------- ------- -- Allergy shots HUGO KHAN 04/17 Released w/o Limitations [facility] [employer] ([facility])(A llergy) [facility] [employer] ([facility])(All ergy Resource Sharing) OUTPATIENT [id number] Notes Entered by: Ty LOGAN 01 May 2014 0920 ------- ------- ------- ------- -- allergy shot LAURENCE LOGAN 05/01 Released w/o Limitations [address] [place] [address] [employer] ([facility])(A llergy Resourc e Sharing ) [address] [place] [address] [employer] [facility]) OUTPATIENT [id number] Notes Entered by: BROOKE PACHECO 01 May 2014 1136 ------- ------- ------- ------- -- Weight loss JOHNATHON PACHECO 05/01 Released w/o Limitations [address] [place] [address] [employer] [facility] ([facility])(N utritio nal Medicin e) [address] [place] [address] [employer] [facility])(All ergy Resource Sharing) OUTPATIENT [id number] Notes Entered by: Ty LOGAN 15 May 2014 0952 ------- ------- ------- ------- -- allergy shots LAURENCE LOGAN 05/15 Released w/o Limitations [address] [place] [address] [employer] [facility] ([facility])(A llergy Resourc e Sharing ) [address] [place] [address] [employer] [facility])(All ergy) OUTPATIENT [id number] Notes Entered by: Ty LOGAN 01 Jun 2014 1238 ------- ------- ------- ------- -- Allergy shots LAURENCE LOGAN 06/01 Released w/o Limitations [address] [place] [address] [employer] [facility] ([facility])(A llergy) [address] [place] [address] [employer] [facility])(All ergy Resource Sharing) OUTPATIENT [id number] Notes Entered by: Ty LOGAN 04 Jul 2014 1435 ------- ------- ------- ------- -- allergy shots DEENA ELLIS 07/04 Released w/o Limitations [address] [place] [address] [employer] [facility] ([facility])(A llergy Resourc e Sharing ) [address] [place] [address])(All ergy) OUTPATIENT [id number] Notes Entered by: HUGO HOOKS 03 Aug 2014 0856 ------- ------- ------- ------- -- Allergy shots HUGO KHAN 08/03 Released w/o Limitations [address] [place] [address] ([facility])(A llergy) [address] [place] [address])(All ergy) OUTPATIENT [id number] Notes Entered by: HUGO HOOKS 05 Sep 2014 1355 ------- ------- ------- ------- -- Allergy shotherminia BILL HUGO ALMANZA 09/05 Released w/o Limitations [address] [place] [address] ([facility])(A llergy) [address] [place] [address])(All ergy) TELE CONSULT [id number] Notes Entered by: UHGO HOOKS 05 Sep 2014 1357 ------- ------- ------- ------- -- Medicat ion refill SHERRY THURMAN 09/[address] [place] [address])(A llergy) [address] [place] [address])(All ergy Resource Sharing) OUTPATIENT [id number] Yearly follow up SHERRY THURMAN 09/24 Released w/o Limitations [address] [place] [address])(A llergy Resourc e Sharing ) [address] [place] [address])(All ergy Resource Sharing) OUTPATIENT [id number] Notes Entered by: STEVE ROWAN 24 Sep 2014 0948 ------- ------- ------- ------- -- Allergy SHERRY Fragoso 09/24 Released w/o Limitations [address] [place] [address] ([facility])(A llergy Resourc e Sharing ) [address] [place] [address])([facility] Res Susan Guerin) TELE CONSULT [id number] Notes Entered by: ABDIAS SKELTON 27 Sep 2014 1313 ------- ------- ------- ------- -- Med sujey/ adan/Martha [phone] MARGARITA ARELLANO 09/27 [facility] [employer] [facility] ([facility])(S [facility] Res [place]) [facility] [employer] [facility])(All ergy Resource Sharing) OUTPATIENT [id number] Notes Entered by: STEVE ROWAN 22 Oct 2014 1000 ------- ------- ------- ------- -- Allergy SHERRY Fragoso 10/22 Released w/o Limitations [facility] [employer] ([facility])(A llergy Resourc e Sharing ) [facility] [employer] B [facility]All ergy Resource Sharing) OUTPATIENT [id number] follow up SHERRY THURMAN 11/26 Released w/o Limitations [facility] [employer] [facility] ([facility])(A llergy Resourc e Sharing ) [facility] [employer] B [facility]All ergy Resource Sharing) OUTPATIENT [id number] Notes Entered by: STEVE ROWAN 26 Nov 2014 1126 ------- ------- ------- ------- -- SHERRY CLEMENTE 11/26 Released w/o Limitations [facility] [employer] B ([facility])(A llergy Resourc e Sharing ) [facility] [employer] [facility])(All ergy Resource Sharing) OUTPATIENT [id number] Notes Entered by: Ty LOGAN 24 Dec 2014 1036 ------- ------- ------- ------- -- SHERRY CLEMENTE 12/24 Released w/o Limitations [facility] [employer] B ([facility])(A llergy Resourc e Sharing ) [address] [place] [address] [employer] ([facility])(All ergy Resource Sharing) OUTPATIENT [id number] Notes Entered by: STEVE ROWAN 21 Jan 2015 0956 ------- ------- ------- ------- -- SHERRY CLEMENTE 01/21 Released w/o Limitations [employer] [facility] ([facility])(A llergy Resourc e Sharing ) [facility] [employer] [facility])(All ergy Resource Sharing) OUTPATIENT [id number] Notes Entered by: Ty LOGANATHAN 30 Jan 2015 1013 ------- ------- ------- ------- -- SAMARA APODACA 01/30 Released w/o Limitations [facility] [employer] B ([facility])(A llergy Resourc e Sharing ) [facility] [employer] ([facility])(All ergy Resource Sharing) OUTPATIENT [id number] Notes Entered by: STEVE ROWAN 27 Feb 2015 1041 ------- ------- ------- ------- -- SAMARA APODACA 02/27 Released w/o Limitations [facility] [employer] ([facility])(A llergy Resourc e Sharing ) [facility] [employer] [facility]All ergy) OUTPATIENT [id number] Notes Entered by: DESIRAE BOYLE 22 Mar 2015 0853 ------- ------- ------- ------- -- SAMARA APODACA 03/22 Released w/o Limitations [facility] [employer] [facility] ([facility])(A llergy) [facility] [employer] B [facility]All ergy) OUTPATIENT [id number] Notes Entered by: DESIRAE BOYLE 19 Apr 2015 1549 ------- ------- ------- ------- -- SAMARA APODACA 04/19 Released w/o Limitations [facility] [employer] ([facility])(A llergy) [address] [place], [place] [address]B [facility] Res Susan Guerin) TELE CONSULT [id number] Notes Entered by: JORGE LUIS MORRIS 20 May 2015 1005 ------- ------- ------- ------- -- ER f/u (referr al request )/Adan /[phone] BHARGAV THOMPSON 05/[address] [place] [address] [employer] [facility])(S [facility] Res [place]m [place]) [address] [place] [address])(All ergy Resource Sharing) OUTPATIENT [id number] Notes Entered by: STEVE ROWAN 24 May 2015 1036 ------- ------- ------- ------- -- SAMARA APODACA 05/24 Released w/o Limitations [address] [place] [address])(A [employer] Sharing ) [address] [place] [address])(All ergy Resource Sharing) OUTPATIENT [id number] Notes Entered by: DESIRAE BOYLE 12 Jun 2015 1242 ------- ------- ------- ------- -- SHERRY CLEMENTE 06/12 Released w/o Limitations [address] [place] [address])(A [employer]aring ) [address] [place] [address])([facility] Res [place]) TELE CONSULT [id number] Notes Entered by: ROLY TAYLOR 25 Jun 2015 0820 ------- ------- ------- ------- -- Sx - blood in vomit, painful diarrhe a - REFUSED E.R - Adan - [phone]* BHARGAV THOMPSON 06/[address] [place] [address])(S [facility] Res [place]m [place]) [address] [place] [address])([facility] Res Tm [place]) TELE CONSULT [id number] Notes Entered by: MARIA G MIDDLETON 04 Oct 2015 1519 ------- ------- ------- ------- -- Network Results -GASTRO ENTEROL OGY 10/02/15 UPPER ENDOSCO PY PATRICIO HERNANDEZ 10/[address] [place] [address] [employer] [facility])(S cott [facility] Fam Res [place]m [place]) [address] [place] [address])(Sco tt [facility] Res Tm [place]) TELE CONSULT [id number] Notes Entered by: MARIA G MIDDLETON 11 Oct 2015 1005 ------- ------- ------- ------- -- Network Results -GASTRO ENTEROL OGY 10/10/15 COLONOS COPY MARGARITA KIM 10/[address] [place] [address])(S cott [facility] Res Tm [place]) [address] [place] [address])(Med ication Refill Clinic) TELE CONSULT [id number] Notes Entered by: HAILEY GONZALEZ 12 Nov 2015 1002 ------- ------- ------- ------- -- Rx renewal - Adan - BINDU NICHOLS 11/11 Referred for Appointment [address] [place] [address] [employer] [facility]Franck macdonald on Refill Clinic) [address] [place] [address])(Sco tt [facility] Fam Res Tm [place]) OUTPATIENT [id number] annual f/u for HTN MARGARITA ARELLANO 12/09 Released w/o Limitations [address] [place] [address] [employer] [facility]S cott [facility] Fam Res [place]m [place]) [address] [place] [address])(Sco tt [facility] Fam Res [place]m [place]) OUTPATIENT [id number] Notes Entered by: Augustin CHANDRA 06 Jan 2016 1009 ------- ------- ------- ------- -- Strep Test SANDOR EATON 01/05 Released w/o Limitations [address] [place] [address] [employer] [facility]S cott [facility] Fam Res [place]m [place]) [address] [place] [address])(Sco tt [facility] Fam Res Tm Green) TELE CONSULT [id number] Notes Entered by: HAILEY GONZALEZ 15 May 2016 0909 ------- ------- ------- ------- -- Ovidio saab apr madiet - Troy Gould - - [facility] ALVARADOBHAVYA MEADArlene Saab 05/15 Other Not Elsewhere Classified [address] [place] [address] [employer] [facility]S cott [facility] Fam Res Tm [place]) [address] [place] [address] [employer] Anali [facility]Sco tt [facility] Fam Res Tm [place]) TELE CONSULT [id number] Notes Entered by: MARIA G MIDDLETON 11 Aug 2016 1044 ------- ------- ------- ------- -- Network Results -ALLERG Y 04/22/16 SD SILVIANO ASTUDILLO 08/11 Referred for Appointment [address] [place] [address] [employer] [facility]S cott [facility] Fam Res [place]m [place]) [address] [place] [address] [employer] Anali [facility]Sco tt [facility] Fam Res Tm [place]) TELE CONSULT [id number] Notes Entered by: MARIA G MIDDLETON 25 Aug 2016 0706 ------- ------- ------- ------- -- Network Results -ALLERG Y 6 SD ROSIE RODRIGUES 08/[address] [place] [address] [employer] [facility]S cott [facility]am Res Tm [place]) [address] [place] [address] [employer] Anali [facility]Sco tt [facility] Fam Res Tm [place]) TELE CONSULT [id number] Notes Entered by: LUANA CANTU 16 Nov 2016 1518 ------- ------- ------- ------- -- Ovidio Grubbs /CHENCHO MENDEZ / SHARITA Lawson 11/[address] [place] [address] [employer] [facility]S cott [facility]am Res [place]m [place]) [address] [place] [address] [employer] Anali [facility]Sco tt [facility] Fam Res [place]m [place]) TELE CONSULT [id number] Notes Entered by: MARIA G MIDDLETON 29 Jan 2017 0920 ------- ------- ------- ------- -- Network Results -ALLERG Y 12/09/16 and 01/21/17 ROSIE REA 01/[address] [place] [address] [employer] [facility]S cott [facility] Fam Res [place]m [place]) [address] [place] [address] [employer] [facility]Sco tt [facility] Fam Res [place]m [place]) TELE CONSULT [id number] Notes Entered by: MARIA G MIDDLETON 01 Feb 2017 1147 ------- ------- ------- ------- -- Network Results -ALLERG Y 11/16/16 - 01/12/17 ROSIE REA 02/[address] [place] [address] [employer] [facility]S cott [facility] Fam Res [place]m [place]) [address] [place] [address] [employer] Anali [facility]Med ication Refill Clinic) TELE CONSULT [id number] Notes Entered by: HAILEY GONZALEZ 04 Mar 2017 1017 ------- ------- ------- ------- -- Rx renewal - Troy Gould - - SHARITA Knapp 03/[address] [place] [address] [employer] [facility]Franck macdonald on Refill Clinic) [address] [place] [address] [employer] [facility]Sco tt [facility] Fam Res [place]m [place]) OUTPATIENT [id number] annual check up, refill meds, f/u on labs ROSIE RODRIGUES 03/11 Released w/o Limitations [address] [place] [address] [employer] [facility]S cott [facility]am Res [place]m [place]) [address] [place] [address] [employer] [facility]Sco tt [facility] FAMRES Tm Blue) TELE CONSULT [id number] Notes Entered by: HODAN THEODORE 22 Apr 2017 1411 ------- ------- ------- ------- -- Lab results ROSIE RODRIGUES 04/[address] [place] [address] [employer] Anali [facility]S cott [facility] FAMRES Tm Blue) [address] [place] [address] Stevan [facility]Sco tt [facility] Fam Res Tm [place]) OUTPATIENT [id number] lump in right breast ROSIE RODRIGUES 04/22 Released w/o Limitations [address] [place] [address] [employer] [facility]S cott OF Fam Res Tm Green) [address] [place] [address] [employer] [facility]) TELE CONSULT [id number] Notes Entered by: MARCELL AMBRIZ 07 Jul 2017 08 ------- ------- ------- ------- -- Network results Allergy 7 ROSIE RODRIGUES 07/[address] [place] [address] [employer] [facility]S cott [facility]) [address] [place] [address])(Sco tt [facility] Fam Res Tm Green) TELE CONSULT [id number] Notes Entered by: MOOSE ALCANTARA 17 Dec 2017 0954 ------- ------- ------- ------- -- Allergy Referra katiana Rios / rToy nRoyo/6 [phone] - ajDAYSI Moscoso 12/17 Other Not Elsewhere Classified [address] [place] [address] [employer] [facility])(S cott [facility] Fam Res [place]m [place]) [address] [place] [address] Stevan [facility])(Sco tt [facility] Fam Res Tm [place]) TELE CONSULT [id number] Notes Entered by: ROSELINE ENCISO 19 Apr 2018 1320 ------- ------- ------- ------- -- Med Renewal / Winsome mead / - sgj BUD SMALLS 04/19 Referred for Appointment [address] [place] [address] [facility]S cott [facility] Fam Res Tm Green) [address] [place] [address] [facility]co tt [facility] Fam Res Tm Green) OUTPATIENT [id number] 4 f/u on BP, ALEXANDR DUMONT 06/16 Released w/o Limitations [address] [place] [address] [employer] [facility]S cott [facility] Fam Res [place]m [place]) [address] [place] [address] Stevan [facility]Sco tt [facility] FAMRES Tm Blue) TELE CONSULT [id number] Notes Entered by: Herminia BERNARDO 23 Dec 2018 1509 ------- ------- ------- ------- -- Visit for adminis trative purpose URI BERNARDO 12/[address] [place] [address] [employer]van Anali [facility]S [facility]) [address] [place] [address] [employer] [facility])(Sco tt [facility] Fam Res Tm Green) TELE CONSULT [id number] Notes Entered by: JORGE LUIS MORRIS 27 Dec 2018 1017 ------- ------- ------- ------- -- Referra katiana Grubbs Request /Black garay/[phone] DAYSI CIFUENTES 12/27 Other Not Elsewhere Classified [address] [place] [address] Stevan [facility]S cott [facility] Fam Res Tm [place]) [address] [place] [address] Stevan [facility]Sco tt [facility] Fam Res Tm Green) TELE CONSULT [id number] Notes Entered by: MOOSE ALCANTARA 17 Jan 2019 0847 ------- ------- ------- ------- -- Neurolo alec Campoverdeq- ER F/U/ Winsome mead/ - SHARITA Mcdowell 01/17 Referred for Appointment [address] [place] [address] Ste[employer] [facility]S cott [facility] Fam Res Tm [place]) [address] [place] [address] Stevan Anali [facility]Sco tt [facility] Fam Res Tm [place]) OUTPATIENT [id number] 6 f/uon er visit, passing out, seizure ? FARHAD PETERSON 01/24 Released w/o Limitations [address] [place] [address] Group [employer] ([facility]S cott [facility] Fam Res [place]m [place]) [address] [place] [address] Group [employer] [facility] ([facility])(Sco tt [facility] Fam Res Tm [place]) TELE CONSULT [id number] Notes Entered by: AMBROCIO IZQUIERDO 07 Feb 2019 1026 ------- ------- ------- ------- -- Med Romie /[facility]/[phone] 08/[facility] SHARITA KRISHNAMURTHY 02/07 Referred for Appointment [address] [place] [address] Group [employer] [facility]S cott [facility] Fam Res Tm [place]) [address] [place] [address] Group [employer] [facility]Sco tt [facility] Fam Res Tm [place]) TELE CONSULT [id number] Notes Entered by: Augustin MAURER 30 Mar 2019 1406 ------- ------- ------- ------- -- Network results Neurolo gy 9 BUD CASTAÑEDA 03/30 Released to [employer] [address] [place] [address] [employer] [facility]S cott [facility] Fam Res Tm Green) [address] [place] [address] Group [employer] [facility]Sco tt [facility] Fam Res Tm [place]) OUTPATIENT [id number] ER F/U Stomach Infecti on BUD SMALLS 06/09 Released w/o Limitations [address] [place] [address] Group [employer] [facility]S cott [facility] Fam Res Tm [place]) [address] [place] [address] [employer]Sco tt [facility] Fam Res Tm Green) OUTPATIENT [id number] left arm pit lump noticed 1 week RAUL ROBLERO 07/27 Released w/o Limitations [address] [place] [address] Group [employer] [facility]S cott [facility] Fam Res Tm [place]) [address] [place] [address] [employer]van [facility] ([facility]Sco tt [facility] Fam Res Tm Green) TELE CONSULT [id number] Notes Entered by: JORGE LUIS MORRIS 02 Aug 2019 1028 ------- ------- ------- ------- -- Ovidio moyer/Nirali deal / SHARITA KRISHNAMURTHY Franck 08/02 Other Not Elsewhere [facility] [facility] [place] [address] [place] [address] Group [facility] TELE CONSULT [id number] 8 Notes Entered by: RAUL LIN 02 Aug 2019 1229 ------- ------- ------- ------- -- axilla lump RAUL ROBLERO 08/02 Other Not Elsewhere Classified [facility] [address] [place] [address] Group [facility])(Sco tt [facility] Res Tm Green) TELE CONSULT [id number] 5 Notes Entered by: ROSELINE ENCISO 21 Aug 2019 1018 ------- ------- ------- ------- -- Paco Grubbs / Winsome mead / - sgj SHARITA KRISHNAMURTHY Franck 08/21 Other Not Elsewhere [facility]ified [facility])(S cott [facility] [place]) [address] [place] [address] Group [facility])(Sco tt [facility] [place]) TELE CONSULT [id number] 1 Notes Entered by: Sheri WALKER 28 Sep 2019 1238 ------- ------- ------- ------- -- Network results Gastroe nterolo gy 020 BUD NAPIER 09/28 Released to Self [facility])(S cott [facility] [place]) [address] [place] [address])(Sco tt [facility] Res Tm Green) TELE CONSULT [id number] 7 Notes Entered by: ROSELINE ENCISO 23 Oct 2019 0808 ------- ------- ------- ------- -- STAT Referra l Renewal - Appt Oct /Specia list F/U/Yeison baig/ SHIV Linder 10/22 Immediate Referral [address] [place] [address] Group [facility])([facility] [place]) [address] [place] [address])(Sco tt [facility] [place]) TELE CONSULT [id number] 0 Notes Entered by: Sheri WALKER 06 Nov 2019 1216 ------- ------- ------- ------- -- Network results Gastroe nterolo gy 020 BUD NAPIER 11/05 Released to Self Care [address] [place] [address] Group [facility])(S cott [facility] [place]) [address] [place] [address])(Sco tt [facility] [place]) TELE CONSULT [id number] 7 Notes Entered by: JORGE LUIS MORRIS 02 Jan 2020 1049 ------- ------- ------- ------- -- Referra l Romie Rios /Black garay/[phone] KAMERON RILEY 01/01 Released to Self Care [address] [place] [address])(S cott [facility] [place]) [address] [place] [address])(Sco tt [facility] [place]) TELE CONSULT [id number] 9 Notes Entered by: Sheri WALKER 25 Jan 2020 0935 ------- ------- ------- ------- -- Network results Gastroe nterolo gy 019 ALD KAMERON RILEY 01/24 Released to Self Care [address] [place] [address] Group [facility])(S cott [facility] [place]) [address] [place] [address])(Sco tt [facility] [place]) TELE CONSULT [id number] 7 Sx - Rash/Re dlinger / SHARITA KRISHNAMURTHY 02/21 Other Not Elsewhere [facility]ified [facility]S cott [facility] [place] [address] [place] [address] Group [facility]Sco tt [facility] [place]) TELE CONSULT [id number] 1 Notes Entered by: MOOSE ALCANTARA 05 Mar 2020 1037 ------- ------- ------- ------- -- Med Renewal Request / [place] / - aj SALBADOR PATEL 03/05 Referred for Appointment [address] [place] [address] Group [facility]S cott [facility] [place]) 0055A-375 th [facility] Between Visit [id number] 03/01 0055A-3 75th [facility] 0055A-375 th [facility] Between Visit [id number] 03/08 Discharge Disposition: Home or Self Care 0055A-3 75th [facility] 0055A-375 th [facility] Between Visit [id number] 03/15 Discharge Disposition: Home or Self Care 0055A-3 75th [facility] 0055A-375 th [facility] Outpatient [id number] AASHISH Dover 04/06 Discharge Disposition: Home or Self Care 0055A-3 75th [facility] 0055A-375 th [facility] Outpatient [id number] HALINA TRAN 04/06 Discharge Disposition: Home or Self Care 0055A-3 75th [facility] Procedures Combined list of: 1) Procedures from Department of Veterans Affairs facilities going back up to thelast 18 months, not all VA non-surgical procedures are included; 2) All procedures from the Department of Defense facilities. Procedure Procedure Type Code Date Perfomer Comments Sourc e No data available for this section [facility] NON-STRESS TEST 2004 DoD OTHER BILATERAL LIGATION AND DIVISION OF FALLOPIAN TUBES 2004 [facility]D LOW CERVICAL SECTION 2004 [facility] OTHER DIAGNOSTIC PROCEDURES ON URETHRA AND PERIURETHRAL TISSUE 2004 [facility] INJECTION OF RH IMMUNE GLOBULIN 2004 [facility] LIGATION OR TRANSECTION OF FALLOPIAN TUBE(S) WHEN DONE AT THE TIME OF DELIVERY OR INTRA-ABDOMINAL SURGERY (NOT SEPARATE PROCEDURE) (LIST SEPARATELY IN ADDITION TO CODE FOR PRIMARY PROCEDURE) 2004 [facility] NON-STRESS TEST 2004 [facility] ULTRASOUND, UTERUS, REAL TIME WITH IMAGE DOCUMENTATION, LIMITED (EG, HEART BEAT, PLACENTAL LOCATION, POSITION AND/OR QUALITATIVE AMNIOTIC FLUID VOLUME), 1 OR MORE FETUSES 2004 [facility] VISUAL FIELD EXAM,UNILAT/BI,INTE RP&REP;EXT EXM(EG,GOLDMANN VIS FLD,AT LEAST 3 ISOP PLOT&STAT DET W/IN KAMI 30DEG/QUANT,AUTO THRSH PAMELA,OCT G-1,32/42,HUMP VIS FLD ANAL FULL THRSH 30-2,24-2, OR 3060-2) 2001 [facility] SCREENING PAPANICOLAOU SMEAR; OBTAINING, PREPARING AND CONVEYANCE OF CERVICAL OR VAGINAL SMEAR TO LABORATORY 2000 [facility] TELE ASSESS & MGT SRV PROV [...] NUTRITION THERAPY; INITIAL ASSESSMENT AND INTERVENTION, INDIVIDUAL, DEJH-NJ-PBQL WITH THE PATIENT, EACH 15 MINUTES 2013 [facility] PROFESSIONAL SERVICES FOR ALLERGEN IMMUNOTHERAPY NOT INCLUDING PROVISION OF ALLERGENIC EXTRACTS; 2 OR MORE INJECTIONS 2013 [facility]ESSION[facility] SERVICES FOR ALLERGEN IMMUNOTHERAPY NOT INCLUDING PROVISION OF ALLERGENIC EXTRACTS; 2 OR MORE INJECTIONS 2013 [facility] PROFESSIONAL SERVICES FOR ALLERGEN IMMUNOTHERAPY NOT INCLUDING [...] ALLERGENIC EXTRACTS; 2 OR MORE INJECTIONS 2013 [facility] DETERMINATION OF REFRACTIVE STATE 2013 [facility] PERCUTANEOUS TESTS (SCRATCH, PUNCTURE, PRICK) WITH ALLERGENIC EXTRACTS, IMMEDIATE TYPE REACTION, INCLUDING TEST INTERPRETATION AND REPORT, SPECIFY NUMBER OF TESTS 2012 [facility] TELE ASSESS & MGT SRV PROV QUAL NONPHYS HLTH CARE PRO TO EST PAT,PARENT,GUARD NOT ORIG REL ASSESS & MGT SRV PROV W/IN PREV 7 DAYS NOR LEAD ASSESS & MGT SRV/PX W/IN NXT 24 HR/SOON APT;5-10 MIN MED DIS 2010 [facility] SCREENING PAPANICOLAOU SMEAR; OBTAINING, PREPARING AND CONVEYANCE OF CERVICAL OR VAGINAL SMEAR TO LABORATORY 2009 [facility] ULTRASOUND, UTERUS, REAL TIME WITH IMAGE DOCUMENTATION, AND MATERNAL EVALUATION PLUS DETAILED ANATOMIC EXAMINATION,TRANSAB DOMINAL APPROACH; SINGLE OR FIRST GESTATION 2004 [facility] NON-STRESS TEST 2004 [facility] NON-STRESS TEST 2004 [facility] THERAPEUTIC, PROPHYLACTIC OR DIAGNOSTIC INJECTION (SPECIFY MATERIAL INJECTED); SUBCUTANEOUS OR INTRAMUSCULAR 2004 [facility] ULTRASOUND, UTERUS, REAL TIME WITH IMAGE DOCUMENTATION, AND MATERNAL EVALUATION PLUS DETAILED ANATOMIC EXAMINATION,TRANSAB DOMINAL APPROACH; SINGLE OR FIRST GESTATION 2004 [facility] ULTRASOUND, UTERUS, REAL TIME WITH IMAGE DOCUMENTATION, AND MATERNAL EVALUATION, AFTER FIRST TRIMESTER (> OR = 14 WEEKS 0 DAYS), TRANSABDOMINAL APPROACH; SINGLE OR FIRST GESTATION 2004 [facility] ULTRASOUND, UTERUS, REAL TIME WITH IMAGE DOCUMENTATION, AND MATERNAL EVALUATION PLUS DETAILED ANATOMIC EXAMINATION,TRANSAB DOMINAL APPROACH; SINGLE OR FIRST GESTATION 2004 [facility] ULTRASOUND, UTERUS, REAL TIME WITH IMAGE DOCUMENTATION, AND MATERNAL EVALUATION PLUS DETAILED ANATOMIC EXAMINATION,TRANSAB DOMINAL APPROACH; SINGLE OR FIRST GESTATION 2004 [facility] EXT PAT &,WHEN PERF,AUTO ACT ECG RHY DERIVED EVENT RECORD W SYMPT-RELAT MEMORY LOOP W REMOTE DOWNLOAD CAPABILITY UP TO 30 DAYS,24-HOUR ATTENDED MONITOR; RECORDING (INCL CONNECT, RECORD, & DISCONNECT) 2004 [facility] SCREENING PAPANICOLAOU SMEAR; OBTAINING, PREPARING AND CONVEYANCE OF CERVICAL OR VAGINAL SMEAR TO LABORATORY 2004 [facility] EDUCATIONAL SUPPLIES, SUCH BOOKS, TAPES, AND PAMPHLETS, FOR THE PATIENT'S EDUCATION AT COST TO PHYSICIAN OR OTHER QUALIFIED HEALTH CLERK MANAGER 2004 [facility] INJECTION, DIPHENHYDRAMINE HCL, UP TO 50 MG 2003 [facility] VISUAL FIELD EXAMINATION, UNI OR BILATERAL, WITH MEDICAL DIAGNOSTIC EVAL; LIMITED EXAM (EG, TANGENT SCREEN, AUTOPLOT, ARC PERIMETER, OR SINGLE STIMULUS LEVEL AUTO TEST, EG OCTOPUS 3 OR 7 EQUIVALENT) 2003 [facility] THERAPEUTIC, PROPHYLACTIC OR DIAGNOSTIC INJECTION (SPECIFY MATERIAL INJECTED); SUBCUTANEOUS OR INTRAMUSCULAR 2003 [facility] LAPAROSCOPIC APPENDECTOMY 2002 [facility] COLLECTION OF VENOUS BLOOD BY VENIPUNCTURE 2002 [facility] OPHTHALMOLOGICAL SERVICES: MEDICAL EXAMINATION AND EVALUATION, WITH INITIATION OR CONTINUATION OF DIAGNOSTIC AND TREATMENT PROGRAM; INTERMEDIATE, ESTABLISHED PATIENT 2002 [facility] OPHTHALMOLOGICAL SERVICES: MEDICAL EXAMINATION AND EVALUATION WITH INITIATION OF DIAGNOSTIC AND TREATMENT PROGRAM; INTERMEDIATE, NEW PATIENT 2002 [facility] EKG (SCALP) 2002 [facility] INDUCTION OF LABOR BY ARTIFICIAL RUPTURE OF MEMBRANES 2002 [facility] MEDICAL INDUCTION OF LABOR 2002 [facility] HANDLING AND/OR CONVEYANCE OF SPECIMEN FOR TRANSFER FROM THE OFFICE TO A LABORATORY 2002 [facility] NON-STRESS TEST 2002 [facility] NON-STRESS TEST 2002 [facility] HANDLING AND/OR CONVEYANCE OF SPECIMEN FOR TRANSFER FROM THE OFFICE TO A LABORATORY 2002 [facility] COLLECTION OF VENOUS BLOOD BY VENIPUNCTURE 2002 [facility] Non-Physician Phone Call To Patient/Provider Brief (5-10min) Non-Physician Phone Call To Patient/Provider Brief (5-10min) [id number] 2016 SHARITA KRISHNAMURTHY [facility] Non-Physician Phone Call To Patient/Provider Brief (5-10min) Non-Physician Phone Call To Patient/Provider Brief (5-10min) [id number] 2016 SHARITA KRISHNAMURTHY [facility] Rapid Antigen Identification Streptococcus Group A Beta Hemolytic Rapid Antigen Identification Streptococcus Group A Beta Hemolytic [id number] 2015 SANDOR EATON [facility] Non-Physician Phone Call To Patient/Provider Brief (5-10min) Non-Physician Phone Call To Patient/Provider Brief (5-10min) [id number] 2015 BINDU NICHOLS [facility] Non-Physician Phone Call To Patient/Provider Brief (5-10min) Non-Physician Phone Call To Patient/Provider Brief (5-10min) [id number] 2014 BHARGAV THOMPSON [facility] Desensitization Supervision - Multiple Extract Injections Desensitization Supervision - Multiple Extract Injections [id number] 2014 DESIRAE BOYLE [facility] Pulmonary Function MVV Pulmonary Function MVV 57133 2014 DESIRAE BOYLE 1st peak flow 525 2nd peak flow 550 3rd peak flow 520 [facility] Pulmonary Function MVV Pulmonary Function MVV 82821 2014 STEVE ROWAN 1st PF: 520 2nd PF: 460 3rd PF: 500 [facility]D Desensitization Supervision - Multiple Extract Injections Desensitization Supervision - Multiple Extract Injections 30540 2014 STEVE ROWAN Non-Physician Phone Call To Patient/Provider Brief (5-10min) Non-Physician Phone Call To Patient/Provider Brief (5-10min) [id number] 2014 BHARGAV THOMPSON [facility] Pulmonary Function MVV Pulmonary Function MVV 14972 2014 DESIRAE BOYLE 1st peak flow 510 2nd peak flow 525 3rd peak flow 510 DoD Desensitization Supervision - Multiple Extract Injections Desensitization Supervision - Multiple Extract Injections [id number] 2014 DESIRAE BOYLE [facility] Pulmonary Function MVV Pulmonary Function MVV 90245 2014 DESIRAE BOYLE 1st peak flow 500 2nd peak flow 500 3rd peak flow 500 DoD Desensitization Supervision - Multiple Extract Injections Desensitization Supervision - Multiple Extract Injections [id number] 2014 DESIRAE BOYLE DoD Pulmonary Function MVV Pulmonary Function MVV 71684 2014 STEVE ROWAN 1st PF: 460 2nd PF 480 3rd PF: 480 DoD Desensitization Supervision - Multiple Extract Injections Desensitization Supervision - Multiple Extract Injections [id number] 2014 STEVE ROWAN [facility] Pulmonary Function MVV Pulmonary Function MVV 75860 2014 LAURENCE LOGAN 1st 440 2nd 460 3rd 450 DoD Desensitization Supervision - Multiple Extract Injections Desensitization Supervision - Multiple Extract Injections [id number] 2014 LAURENCE LOGAN [facility] Desensitization Supervision - Multiple Extract Injections Desensitization Supervision - Multiple Extract Injections [id number] 2014 STEVE ROWAN [facility] Pulmonary Function MVV Pulmonary Function MVV 56512 2014 STEVE ROWAN 1st PF: 450 2nd PF: 450 3rd PF: 470 DoD Pulmonary Function MVV Pulmonary Function MVV 70651 2014 LAURENCE LOGAN 1ST 500 2ND 400 3RD 380 DoD Desensitization Supervision - Multiple Extract Injections Desensitization Supervision - Multiple Extract Injections [id number] 2014 LAURENCE LOGAN [facility] Pulmonary Function MVV Pulmonary Function MVV 23943 2014 STEVE ROWAN 1st PF: 510 2nd PF: 490 3rd PF: 490 DoD Desensitization Supervision - Multiple Extract Injections Desensitization Supervision - Multiple Extract Injections 27901 2014 STEVE ROWAN [facility] Desensitization Supervision - Multiple Extract Injections Desensitization Supervision - Multiple Extract Injections [id number] 2014 STEVE ROAWN [facility] Desensitization Supervision - Multiple Extract Injections Desensitization Supervision - Multiple Extract Injections [id number] 2014 STEVE ROWAN [facility] Spirometry Spirometry 85260 2014 SHERRY THURMAN [facility] Desensitization Supervision - Multiple Extract Injections Desensitization Supervision - Multiple Extract Injections [id number] 2014 HUGO KHAN [facility] Desensitization Supervision - Multiple Extract Injections Desensitization Supervision - Multiple Extract Injections 73786 2013 HUGO KHAN [facility] Desensitization Supervision - Multiple Extract Injections Desensitization Supervision - Multiple Extract Injections 35901 2013 LAURENCE LOGAN [facility] Desensitization Supervision - Multiple Extract Injections Desensitization Supervision - Multiple Extract Injections [id number] 2013 LAURENCE LOGAN [facility] Medical Nutrition Therapy Initial A e ment, Intervention Medical Nutrition Therapy Initial Assessment, Intervention 55807 2013 JOHNATHON PACHECO [facility] Desensitization Supervision - Multiple Extract Injections Desensitization Supervision - Multiple Extract Injections 30403 2013 LAURENCE LOGAN [facility] Desensitization Supervision - Multiple Extract Injections Desensitization Supervision - Multiple Extract Injections [id number] 2013 LAURENCE LOGAN [facility] Desensitization Supervision - Multiple Extract Injections Desensitization Supervision - Multiple Extract Injections [id number] 2013 HUGO KHAN [facility] Desensitization Supervision - Multiple Extract Injections Desensitization Supervision - Multiple Extract Injections [id number] 2013 HUGO KHAN [facility] Desensitization Supervision - Multiple Extract Injections Desensitization Supervision - Multiple Extract Injections 97477 2013 HUGO KHAN [facility] Desensitization Supervision - Multiple Extract Injections Desensitization Supervision - Multiple Extract Injections 29454 2013 LAURENCE LOGAN [facility] Psychiatric Therapy Individual Approximately 45-50 Minutes 2013 FABIANO PRATHER [facility] Desensitization Supervision - Multiple Extract Injections Desensitization Supervision - Multiple Extract Injections 82341 2013 HUGO KHAN Cluster Schedule: Week 7 [facility] Desensitization Supervision - Multiple Extract Injections Desensitization Supervision - Multiple Extract Injections [id number] 2013 HUGO KHAN Cluster schedule: Week 6 [facility] Desensitization Supervision - Multiple Extract Injections Desensitization Supervision - Multiple Extract Injections 15353 2013 LAURENCE LOGAN [facility] Desensitization Supervision - Multiple Extract Injections Desensitization Supervision - Multiple Extract Injections [id number] 2013 LAURENCE LOGAN Desensitization Supervision - Multiple Extract Injections Desensitization Supervision - Multiple Extract Injections [id number] 2013 LAURENCE LOGAN [facility] Desensitization Supervision - Multiple Extract Injections Desensitization Supervision - Multiple Extract Injections 74624 2013 HUGO KHAN Cluster schedule: Week 2 [facility] Desensitization Supervision - Multiple Extract Injections Desensitization Supervision - Multiple Extract Injections 23460 2013 LAURENCE LOGAN [facility] Determination Of Refractive State Determination Of Refractive State 93139 2013 JOAN AKERS Ophthalmological New Patient Start Comprehensive Care Ophthalmological New Patient Start Comprehensive Care [id number] 2013 JOAN AKERS Allergy Percutaneous tests - allergenic extracts Allergy Percutaneous tests - allergenic extracts 02392 2012 SAMARA ROTH Informed consent obtained [facility] Non-Physician Phone Call To Patient/Provider Brief (5-10min) Non-Physician Phone Call To Patient/Provider Brief (5-10min) [id number] 2010 NAEL MERAZ [facility] Screening papanicolaou smear; obtaining, preparing and conveyance of cervical or vaginal smear to laboratory 2009 SLOAN CHANDRA [facility] Destruction Of Benign Lesion By Cryosurgery 2006 ELIZABETH GREENWOOD Destruct Of Benign Lesion By Any Method Second Through 14 2006 ELIZABETH GREENWOOD [facility] Urethral Catheterization (Diagnostic) Urethral Catheterization (Diagnostic) 54779 2005 ZOE VILLANUEVA Urethral Catheterization Straight (Non-Balloon) Urethral Catheterization Straight (Non-Balloon) 81539 2005 ZOE VILLANUEVA Ophthalmological New Patient Start Comprehensive Care Ophthalmological New Patient Start Comprehensive Care 64017 2005 MARTA ROBERTS [facility] Determination Of Refractive State Determination Of Refractive State 19117 2005 MARTA ROBERTS Non-Stre Test (___ 0,2) Non-Stress Test (___ 0,2) 15535 2004 VERONICA HYATT Non-Stre Test (___ 0,2) Non-Stress Test (___ 0,2) 05448 2004 VERONICA HYATT Social History Combined list of available smoking, tobacco, and other social history from Department of Defense and Veterans Affairs facilities. Social History Type Response Date Comment [facility] e Sex Representation Female (finding) 10/28/2022 Unknown Organization Sexual Orientation Ambula tory Pharmacy Gender identity Ambulator y Pharmacy This section is an empty social history section. DoD Assessment and Plan Combined list of future care activities from Department of Defense and Veterans Affairs facilities (e.g., assessment and plan notes, appointments, orders, and referrals). Additional future care activities may be listed in the Plan of Care section. Result Assessment and Plan Date Source Assessment and Plan No data available for this section 02/04/2025 Ambulatory Pharmacy Functional Status Combined list of recent functional and cognitive assessments recorded at Department of Defense and Veterans Affairs (VA).VA Functional [place] Measurement (FIM) Scale: 1 = Total Assistance (Subject = 0% +), 2 = Maximal Assistance (Subject = 25% +), 3 = Moderate Assistance (Subject = 50% +), 4 = Minimal Assistance (Subject = 75% +), 5 = Supervision, 6 = Modified [place] (Device), 7 = Complete [place] (Timely, Safely). Assessment Date/Time Source Assessment Type Assessment Skill Assessment Score Assessment Details No data available for this section
--- OUTSIDE RECORDS SUMMARY | 2025-02-04 12:40 | XMS_ITS ---
Author Organization [facility] Address [address] [place] [address] Care Team Providers Care Clinical Nurse Name Role Phone Rob Valverde DO Primary Care Provider Unavaila Randal Mullen Unavailable [phone] Jonathon Sparrow Unavailable [phone] Lumb 04-20-24 Encounters Encounter Location Date Provider Diagnosis [facility] [address] [place] [address] 04/20/2024 Jonathon Sparrow PLAN OF TREATMENT No Information
--- OUTSIDE RECORDS SUMMARY | 2025-02-04 12:40 | XMS_ITS | Patient Health Record ---
Author Organization [facility], Address [address] [place] [address] Care Team Providers Care System Specialist Name Role Phone Rob Valverde DO Primary Care Provider Randal Colunga Unavailable [phone] Jonathon Sparrow Unavailable [phone] ALLERGIES Allergen (clinical drug ingredient) Drug/Non Drug [...] Status Progesterone Active PriLOSEC Active Testosterone Active [place] Thyroid Activ e Neurontin 300 MG 1 [...] with left-sided sciatica (M54.42) Active confirmed Sciatica (86693806) Problem Lumbar radiculopathy (M54.16) Active confirmed Lumbar radiculopathy (897355365) Problem Lumbar stenosis with neurogenic claudication (M48.062) Active confirmed Neurogenic claudication (939865261) Problem Spondylolisthesis of lumbar region (M43.16) Active confirmed Acquired spondylolisthesis (422292033) Problem Orthopedic aftercare (Z47.89) Active confirmed Problem Arthritis of left acromioclavicular joint (M19.012) Active confirmed [id number] Problem Incomplete rotator cuff tear or rupture of left shoulder, not specified as traumatic (M75.112) Active confirmed Non-trau matic partial tear of left rotator cuff ([id number]) Problem Cervical radiculopathy (M54.12) Active confirmed [id number] Encounters Encounter Location Date Provider Diagnosis [facility] [address] [address] 02/23/2024 Jonathon Sparrow Lumbar radiculopathy M54.16 [facility], [address] [address] 03/01/2024 Randal Cook [facility], [address] [address] 04/13/2024 Jonathon Sparrow Lumbar radiculopathy M54.16 [facility], [address] [address] 04/20/2024 Jonathon Sparrow ASSESSMENTS Encounter Date Diagnosis Assessment Notes Treatment Notes Treatment Clinical Notes Section Notes 02/23/2024 Lumbar radiculopathy (ICD-10 - M54.16) 04/13/2024 Lumbar radiculopathy (ICD-10 - M54.16) PLAN OF TREATMENT Pending Test Test Name Order Date Lumbar Decompression and Transforminal I nterbody Fusion 11/25/2022 Insurance Providers Payer Name Payer Address Payer Phone Subscriber Number Group Number Insured Name Patient Relationship to Insured Coverage Start Date Coverage End Date [facility] [address] [place] [address] [id number] Rama Carrasco Self - patient is the insured MEDICAL (GENERAL) HISTORY Medical History History ICD Code Hypertension Hypothyroidism Anemia Surgical History Surgery Date(Month/Year) Cholecystectomy Bladder surgery Appendectomy Left shoulder arthroscopy, d ebridement of rotator cuff, distal clavicle resection- [facility] 06/04/23 L4-5 Decompression and TLIF 12/09/22 Hospitalization History Reason Date(Month/Year) As per above.
--- NOTE | 2025-02-04 12:48 | ECG_ITS ---
Test Date: 2025-02-04 12:53:25 Measurements Intervals [place] Rate: 95 P: 21 GA: 118 QRS: -2 QRSD: 103 T: -14 QT: 354 QTc: 447 Interpretive Statements SINUS RHYTHM WITH SHORT GA INTERVAL BORDERLINE ST-T WAVE ABNORMALITY- ANT/INF LEADS BORDERLINE ECG No previous ECG available for comparison Electronically Signed On 02-04-2025 17:18:49 CDT by Prince Springer D.O.
[2025-02-04] MEDS: SODIUM CHLORIDE 0.9% IV 1,000 ML 999 ML IV CONT (13:00)
--- NOTE | 2025-02-04 13:02 | ED_ITS ---
HPI - Female Genitourinary General Chief complaint: Vaginal Bleeding Stated complaint: vaginal bleeding Time Seen by Provider: 02/04/25 12:38 History of Present Illness HPI Narrative: 49-year-old female approximately 2 years postmenopausal presenting to the emergency department for vaginal bleeding that has worsened since . She states it started out as spotting with some vaginal cramping feeling similar to a. And now becoming voluminous and going through 1 large pad an hour since Wednesday. Is also passing large clots of feeling symptomatic with lightheadedness and dizziness sensations with standing. Denies any chest pain, abdominal pain, back pain. Pelvic surgery including , previous abdominal surgeries as well. No recent instrumentation. She has a D&C previously several years ago for menorrhagia with her primary OBGYN doctor Rodrigo. Patient states that she has never had this type of vaginal bleeding before even when she was having normal cycles and this is very unusual for her. No history of fibroids or masses to her knowledge. Related Data Home Medications ?Medication ?Instructions ?Recorded ?Confirmed ?Last Taken ?Type cetirizine 10 mg tablet (Zyrtec) 10 mg PO DAILY 03/25/22 07/16/22 07/16/22 History fluticasone propionate 220 220 mcg inhalation PRN PRN 03/25/22 07/16/22 Unknown History mcg/actuation HFA aerosol inhaler Shortness Of Breath Or Wheezing (Flovent HFA) fluticasone propionate 50 50 mcg intranasal DAILY 03/25/22 07/16/22 07/16/22 History mcg/actuation nasal spray,suspension omeprazole 40 mg capsule,delayed 40 mg PO HS 03/25/22 07/17/22 07/15/22 History release ascorbic acid (vitamin C) 250 mg 250 mg PO DAILY 05/26/22 10/12/22 10/08/22 History tablet calcium 600 mg (as carbonate)-vit 1 tablet PO DAILY 05/26/22 10/12/22 10/08/22 History D3 10 mcg (400 unit)-minerals tablet omega-3 fatty acids 1,000 mg PO DAILY 05/26/22 10/12/22 10/08/22 History famotidine 20 mg tablet (Pepcid) 20 mg PO DAILY 09/28/22 09/28/22 Unknown History montelukast 10 mg tablet 10 mg PO HS 09/28/22 09/28/22 Unknown History (Singulair) gabapentin 300 mg tablet 300 mg PO TID 10/08/22 10/12/22 10/12/22 History 0500 methylprednisolone 4 mg tablets in 0 mg PO PER PKG DIR 10/08/22 10/08/22 Unknown History a dose pack Allergies Allergy/AdvReac Type Severity Reaction Status Date / Time gatifloxacin Allergy Unknown Other Verified 12/27/24 15:51 morphine Allergy Swelling Verified 12/27/24 15:51 prednisone Allergy Seizure Verified 12/27/24 15:51 amoxicillin AdvReac Mild Dizziness Verified 12/27/24 15:51 Review of Systems 2 Review of Systems: As reviewed above in [facility] Past Medical History Medical History Obesity History of asthma Irritable bowel syndrome Gastroesophageal reflux disease Eosinophilic esophagitis by EGD in 2016 History of hypertension No longer on antihypertensives after 25 pound weight loss. Surgical History Surgical History History of bladder suspension procedure 2004 Hx of section C/s x2 with two vaginal births History of cholecystectomy History of appendectomy Family History Family History Mother Hypothyroidism Diabetes type 2, controlled Hypertension Father Thyroid cancer Diabetes type 2, controlled Hypertension Sibling Epilepsy Other Epilepsy Grandparent Breast cancer Social History Social History Social History: Surrogate medical decision maker: Gilberto Carrasco, spouse. Code status: Full code. Smoking status: Never smoker Second hand tobacco smoke exposure: No Alcohol intake: never Substance use: never Substance use type: does not use Lack of Transportation: No Lack of Food: Never True Current Housing: I Have Housing Concerned About Future Housing: No Difficulty Paying Gas/Electric Bills: No Difficulty Paying for Meds: No Currently Unemployed: No Education: Associate Degree Difficulty w/ Childcare or Family Care: No Living arrangements: with family Additional occupation/education comments: Homemaker. Spiritual care concerns: No Exam 2 Narrative: GENERAL: [Well-appearing, well-nourished, and in no acute distress.] HEAD: [Normocephalic, atraumatic.] EYES: [PERRLA and EOMI.] ENT: Nares clear, no rhinorrhea or epistaxis. Mucous membranes moist. NECK: Supple. CHEST: [Clear to auscultation. No respiratory distress.] HEART: [Regular rate and rhythm]. No murmur heard. [Normal peripheral pulses.] ABDOMEN: [Soft, nondistended], [nontender], [No rigidity or guarding] EXTREMITIES: Normal range of motion. [No edema.] SKIN: Warm, dry, no rash. NEURO: [No focal deficits]. Alert and oriented [x3.] PSYCH: [Normal mood and affect.] Course Vital Signs Vital signs: Vital Signs Temperature 36.7 C 02/04/25 12:43 Pulse Rate 106 H 02/04/25 12:43 Respiratory Rate 20 02/04/25 12:43 Blood Pressure 151/90 H 02/04/25 12:43 Pulse Oximetry 100 02/04/25 12:43 Oxygen Delivery Room Air 02/04/25 12:43 Temperature 36.6 C 02/04/25 15:18 Pulse Rate 104 H 02/04/25 15:18 Respiratory Rate 18 02/04/25 15:18 Blood Pressure 129/92 H 02/04/25 15:18 Pulse Oximetry 100 02/04/25 15:18 Oxygen Delivery Room Air 02/04/25 12:43 MDM - Female Genitourinary MDM Narrative Medical decision making narrative: 49-year-old female proximally 2 years postmenopausal presenting to the emergency department with vaginal bleeding since . Started out as feeling abdominal cramping similar to a. With some light spotting and now turning into large blood clot passage and feeling 1 large pad per hour. Endorses feeling symptomatic including lightheaded and dizzy when she stands up. No abdominal pain, mild cramping pelvic pain. Previous D&C for menorrhagia with OBGYN Dr. Wallace. Had a well-woman visit with her several weeks ago as well without any concerns. She is slightly tachycardic with a pulse in the low 100s, no fever, hypoxia or tachypnea. Soft nondistended abdomen. Suspect menorrhalgia, Christie menopausal bleeding, uterine fibroid, mass, hormone imbalances. Laboratory studies were obtained as well as a pelvic ultrasound with transvaginal component. Patient's workup shows no significant leukocytosis, hemoglobin 12.7, normal platelets, normal coagulation panel, electrolytes are unremarkable. Normal renal function, normal LFTs. Negative test. Ultrasonography shows thickened endometrial complex with recommendations for biopsy. Patient's speculum examination done by midlevel provider reveals quite a bit of blood clots and voluminous but thin bleeding. Unable to wipe away clots to show cervix. I discussed the case with the on-call OBGYN covering Dr. Wallace currently Dr. Eckert. Recommendations to give 1 g of IV TXA and we discussed admission for observation and D&C in the morning. Patient was made aware of the plan and comfortable with being admitted. Admission orders to OBGYN was placed. Telemetry ordered given tachycardia and bleeding. Medical Records Attestation: I reviewed the patient's medical records. Lab Data Attestation: I reviewed the patient's lab results. 02/04/25 12:57 02/04/25 12:57 Labs: Lab Results 02/04/25 02/04/25 Range/Units 12:57 14:16 WBC 10.4 H (4.5-10.0) K/mm3 RBC 4.28 (4.2-5.4) M/mm3 Hgb 12.7 (12.0-15.0) g/dL Hct 37.2 (37.0-47.0) % MCV 86.9 (80-100) fl MCH 29.7 (26-34) pg MCHC 34.1 (32-36) g/dl RDW 13.1 (11.5-14.5) % Plt Count 190 (150-375) k/mm3 MPV 11.8 H (7.4-10.4) fl Immature Gran % (Auto) 1.2 H (0-0.5) % Neut % (Auto) 66.7 (45.5-73.1) % Lymph % (Auto) 22.8 (18.3-44.2) % [place] % (Auto) 7.1 (2.6-8.5) % Eos % (Auto) 1.5 (0-4.4) % Baso % (Auto) 0.7 (0.2-1.2) % Lymph # (Auto) 2.36 (0.9-3.2) K/mm3 [place] # (Auto) 0.7 H (0.1-0.6) K/mm3 Eos # (Auto) 0.2 (0-0.3) K/mm3 Baso # (Auto) 0.1 (0.0-0.1) K/mm3 Abs Immat Gran (auto) 0.12 H (0.00-0.031) K/mm3 Absolute Neuts (auto) 6.9 H (1.3-6.7) K/mm3 Absolute Nucleated RBC 0.000 (0.0-0.012) K/mm3 Nucleated RBC % 0.0 (0.0-0.2) % PT 13.2 (11.1-14.7) Seconds INR 1.0 APTT 25.8 (22.3-36.8) Seconds Sodium 134 L (137-145) mmol/L Potassium 3.9 (3.4-5.0) mmol/L Chloride 105 (98-107) mmol/L Carbon Dioxide 21 L (22-30) mmol/L Anion Gap 8 (4-12) mmol/L BUN 12 D (7-17) mg/dL Creatinine 0.76 (0.7-1.0) mg/dL Estim Creat Clear Calc Not Reportable Estimated GFR > 60 (59 - ) Glucose 101 (65-110) mg/dL Calcium 8.6 (8.4-10.2) mg/dL Total Bilirubin 0.3 (0.2-1.3) mg/dL AST 24 (14-36) U/L ALT 27 (6-35) U/L Alkaline Phosphatase 53 (38-126) U/L Total Protein 6.9 (6.3-8.2) g/dL Albumin 4.0 (3.5-5.1) g/dL Beta HCG, Quant < 2.39 mIU/ML POC Urine HCG, Qual Negative (Negative) Blood Type O Negative Antibody Screen Negative Screen Not Reportable Baby's Blood Type Not Reportable Baby's ALYCIA Not Reportable Doses of RhIg Required 0 Imaging Data Attestation: I personally reviewed and interpreted this imaging study as follows: My impression: Impressions Chest X-Ray 02/04/25 13:37 Impression: Normal chest. Pelvic/Transvag US 02/04/25 14:19 IMPRESSION: 1. Thickened endomtrial complex. The differential diagnosis includes endometrial hyperplasia, polyp and carcinoma. Biopsy is recommended. Discharge Plan Discharge Clinical Impression: Menopausal menorrhagia Patient Disposition: Still a Patient Condition: Stable Patient Language: German Prescriptions: No Action ascorbic acid (vitamin C) 250 mg Tablet 250 mg PO DAILY omega-3 fatty acids Capsule 1,000 mg PO DAILY calcium carbonate-vit D3-min 600 mg calcium- 400 unit Tablet 1 tablet PO DAILY famotidine [Pepcid] 20 mg Tablet 20 mg PO DAILY montelukast [Singulair] 10 mg Tablet 10 mg PO HS gabapentin 300 mg Tablet 300 mg PO TID methylprednisolone 4 mg Tablets,Dose Pack 0 mg PO PER PKG DIR cetirizine [Zyrtec] 10 mg Tablet 10 mg PO DAILY omeprazole 40 mg Capsule,Delayed Release(Dr/Ec) 40 mg PO HS fluticasone propionate [Flovent HFA] 220 mcg/actuation HFA aerosol inhaler 220 mcg inhalation PRN PRN (Reason: Shortness Of Breath Or Wheezing) Rx Instructions: patient swallows dose for EOE fluticasone propionate 50 mcg/actuation spray,suspension 50 mcg INTRANASAL DAILY methylprednisolone [Medrol (Alec)] 4 mg tablets,dose pack 4 mg PO DAILY Qty: 21 0RF Rx Instructions: Take x6 on day 1, x5 on day 2, x4 on day 3, x3 on day 4, x2 on day 5, x1 on day 6. methocarbamol 750 mg tablet 1,500 mg PO TID Qty: 60 0RF hydrocodone-acetaminophen 5-325 mg tablet 1 tablet PO Q8H PRN (Reason: pain) Qty: 10 0RF doxycycline hyclate 100 mg capsule 100 mg PO BID Qty: 14 0RF hydrocodone-acetaminophen 5-325 mg tablet 1 tablet PO Q6H PRN (Reason: pain) Qty: 10 0RF Follow-up/Referrals: UNKNOWN,DOCTOR [Primary Care Provider] - Time of Disposition: 15:41
[2025-02-04 13:03] LABS: Basophils Absolute Auto 0.1 K/mm3 (0.0-0.1); Basophils Percent Auto 0.7 % (0.2-1.2); Eosinophils Absolute Auto 0.2 K/mm3 (0-0.3); Eosinophils Percent Auto 1.5 % (0-4.4); Hematocrit 37.2 % (37.0-47.0); Hemoglobin 12.7 g/dL (12.0-15.0); Immature Granulocyte Absolute 0.12 K/mm3 (0.00-0.031); Immature Granulocyte Percent A 1.2 % (0-0.5); Lymphocytes Absolute Auto 2.36 K/mm3 (0.9-3.2); Lymphocytes Percent Auto 22.8 % (18.3-44.2); Mean Corpuscular HGB Conc 34.1 g/dl (32-36); Mean Corpuscular Hemoglobin 29.7 pg (26-34); Mean Corpuscular Volume 86.9 fl (80-100); Mean Platelet Volume 11.8 fl (7.4-10.4); Monocytes Absolute Auto 0.7 K/mm3 (0.1-0.6); Monocytes Percent Auto 7.1 % (2.6-8.5); Neutrophils Absolute Auto 6.9 K/mm3 (1.3-6.7); Neutrophils Percent Auto 66.7 % (45.5-73.1); Platelet Count Result 190 k/mm3 (150-375); Red Blood Count 4.28 M/mm3 (4.2-5.4); Red Cell Distribution Width 13.1 % (11.5-14.5); White Blood Count 10.4 K/mm3 (4.5-10.0)
[2025-02-04 13:13] LABS: Alanine Aminotransferase 27 U/L (6-35); Alkaline Phosphatase 53 U/L (38-126); Anion Gap 8 mmol/L (4-12); Aspartate Amino Transferase 24 U/L (14-36); Bilirubin,Total 0.3 mg/dL (0.2-1.3); Blood Urea Nitrogen 12 mg/dL (7-17); Calcium 8.6 mg/dL (8.4-10.2); Carbon Dioxide 21 mmol/L (22-30); Chloride 105 mmol/L (98-107); Estimated Glomerular Filt Rate > 60; Glucose 101 mg/dL (65-110); Potassium 3.9 mmol/L (3.4-5.0); Sodium 134 mmol/L (137-145); Total Protein 6.9 g/dL (6.3-8.2)
[2025-02-04 13:17] LABS: Prothrombin Time 13.2 Seconds (11.1-14.7)
[2025-02-04 13:18] LABS: Partial Thromboplastin Time 25.8 Seconds (22.3-36.8)
[2025-02-04 13:30] LABS: Beta HCG Quantitative < 2.39 mIU/ML
[2025-02-04 14:18] LABS: BEDSIDEPREGUCG Negative (Negative)
[2025-02-04] MEDS: ACETAMINOPHEN 325 MG TABLET 650 MG PO (15:42)
[2025-02-04] MEDS: ONDANSETRON INJ 4 MG/2 ML VIAL IV PUSH (15:42)
[2025-02-04] MEDS: LACTATED RINGERS 1,000 ML 125 ML IV CONT (15:42)
[2025-02-04] MEDS: TRANEXAMIC ACID 1,000 MG/10 ML AMPUL 1000 MG IV PUSH (15:42)
--- NOTE | 2025-02-04 17:34 | ADMGEN ---
This patient, Rama Carrasco, was admitted to Medical Room 340-01. Patient/family oriented to hospital policies and general routines including ID bracelet, bed and alarms, visiting hours, pain management, procedures, bathroom and other care routines, personal items, smoking policy, room service/diet, and visiting hours. Information on how to activate the Rapid Response Team has been discussed. Patient/Family are encouraged to report perceived risks to care and to ask questions if they do not understand what they are told or what they should do.
[2025-02-04 20:15] LABS: Hematocrit 34.9 % (37.0-47.0); Hemoglobin 11.7 g/dL (12.0-15.0)
[2025-02-05] VITALS: PULSE 92
[2025-02-05] MEDS: LACTATED RINGERS 1,000 ML 125 ML IV CONT (00:03)
[2025-02-05 04:00] VITALS: PULSE 78
[2025-02-05 06:00] VITALS: BP 110/69; PULSE 83; RESP 20; TEMP 36.7; O2SAT 100
--- NOTE | 2025-02-05 07:56 | P.HP_ITS ---
H&P: HPI History of Present Illness Date/Time: 02/05/25 07:56 Chief Complaint: Postmenopausal bleeding Narrative: 49-year-old with onset of postmenopausal bleeding on . Patient began was spotting that turned in to heavy bleeding on Wednesday. She came to the emergency room last night due to continued heavy bleeding. She was given TXA and the bleeding has decreased overnight. She used 1 pad in 4hours. Hemoglobin is stable considering she received IV fluids. Patient's last menstrual cycle was 2022. Patient had D&C hysteroscopy in September of 2022 for menorrhagia when she was near menopause at was benign. [facility] Past Medical History Medical History (Updated 02/05/25 @ 08:01 by Vivian Wallace MD) Obesity History of asthma Irritable bowel syndrome Gastroesophageal reflux disease Eosinophilic esophagitis by EGD in 2015 History of hypertension No longer on antihypertensives after 25 pound weight loss. Surgical History Surgical History (Updated 02/05/25 @ 08:00 by Vivian Wallace MD) History of hysteroscopy History of bladder suspension procedure 2004 Hx of section C/s x2 with two vaginal births History of cholecystectomy History of appendectomy Family History Family History Mother Hypothyroidism Diabetes type 2, controlled Hypertension Father Thyroid cancer Diabetes type 2, controlled Hypertension Sibling Epilepsy Other Epilepsy Grandparent Breast cancer Social History Social History Social History: Surrogate medical decision maker: Gilberto Carrasco, spouse. Code status: Full code. Smoking status: Never smoker Second hand tobacco smoke exposure: No Alcohol intake: never Substance use: never Substance use type: does not use Do You Feel Safe in your Home?: Yes Lack of Transportation: No Lack of Food: Never True Current Housing: I Have Housing Concerned About Future Housing: No Difficulty Paying Gas/Electric Bills: No Difficulty Paying for Meds: No Currently Unemployed: No Education: Associate Degree Difficulty w/ Childcare or Family Care: No Living arrangements: with family Additional occupation/education comments: Homemaker. Spiritual care concerns: No Meds Home Medications and Allergies Home Medications ?Medication ?Instructions ?Recorded ?Confirmed ?Type cetirizine 10 mg tablet (Zyrtec) 10 mg PO DAILY 03/25/22 02/04/25 History fluticasone propionate 50 50 mcg intranasal DAILY 03/25/22 02/04/25 History mcg/actuation nasal spray,suspension omeprazole 40 mg capsule,delayed 40 mg PO HS 03/25/22 02/04/25 History release ascorbic acid (vitamin C) 250 mg 250 mg PO DAILY 05/26/22 02/04/25 History tablet famotidine 20 mg tablet (Pepcid) 20 mg PO DAILY 09/28/22 02/04/25 History montelukast 10 mg tablet 10 mg PO HS 09/28/22 02/04/25 History (Singulair) baclofen 10 mg tablet 10 mg PO TID PRN back spasms 02/04/25 02/04/25 History levothyroxine 88 mcg tablet 88 mcg PO QAM 02/04/25 02/04/25 History lisinopril 20 mg tablet 10 mg PO DAILY 02/04/25 02/04/25 History Allergies Allergy/AdvReac Type Severity Reaction Status Date / Time gatifloxacin Allergy Unknown Other Verified 12/27/24 15:51 morphine Allergy Swelling Verified 12/27/24 15:51 prednisone Allergy Seizure Verified 12/27/24 15:51 amoxicillin AdvReac Mild Dizziness Verified 12/27/24 15:51 Vital Signs Vital Signs - 24 hr 02/04/25 12:43 02/04/25 13:00 02/04/25 13:01 Temperature 98.0 F 97.8 F Pulse Rate 106 H 92 97 Respiratory Rate 20 18 Blood Pressure 151/90 H 140/87 140/87 Pulse Oximetry 100 100 Oxygen Delivery Room Air 02/04/25 13:02 02/04/25 13:05 02/04/25 14:18 Temperature 98 F Pulse Rate 107 H 105 H 95 Respiratory Rate 14 Blood Pressure 138/87 145/103 H 138/92 H Pulse Oximetry 100 Oxygen Delivery 02/04/25 15:18 02/04/25 16:15 02/04/25 16:51 Temperature 98 F 97.8 F 98.0 F Pulse Rate 104 H 94 92 Respiratory Rate 18 18 18 Blood Pressure 129/92 H 121/79 111/68 Pulse Oximetry 100 100 100 Oxygen Delivery 02/04/25 20:00 02/04/25 22:44 02/05/25 00:00 Temperature 97.5 F L Pulse Rate 97 112 H 92 Respiratory Rate 20 Blood Pressure 125/79 Pulse Oximetry 100 Oxygen Delivery 02/05/25 04:00 02/05/25 06:00 Temperature 98.1 F Pulse Rate 78 83 Respiratory Rate 20 Blood Pressure 110/69 Pulse Oximetry 100 Oxygen Delivery Exam Const: General: healthy appearing and alert Orientation/consciousness: patient oriented x3 Resp: Effort & Inspection: normal respiratory effort Neuro: General: patient oriented x3 H&P: Results Labs Labs: Short CBC 02/04/25 02/04/25 Range/Units 12:57 20:10 WBC 10.4 H (4.5-10.0) K/mm3 Hgb 12.7 11.7 L (12.0-15.0) g/dL Hct 37.2 34.9 L (37.0-47.0) % Plt Count 190 (150-375) k/mm3 BMP 02/04/25 12:57 Sodium 134 L Potassium 3.9 Chloride 105 Carbon Dioxide 21 L BUN 12 D Creatinine 0.76 Glucose 101 Calcium 8.6 Liver Function 02/04/25 Range/Units 12:57 Total Bilirubin 0.3 (0.2-1.3) mg/dL AST 24 (14-36) U/L ALT 27 (6-35) U/L Alkaline Phosphatase 53 (38-126) U/L Albumin 4.0 (3.5-5.1) g/dL Assessment and Plan Assessment and plan (1) Post-menopausal bleeding: Code(s): N95.0 - Postmenopausal bleeding Status: Acute Assessment and Plan: Will give 1 more dose of TXA now and then discharge home on oral TXA 1300mg t.i.d. for 5 days. ER instructions given to the patient. Once bleeding has stopped the plan is for a hysteroscopy D&C to further evaluate in the near future.
--- NOTE | 2025-02-05 08:02 | PM.DS ---
DS: Admitting Diagnosis Discharge Date 02/05/25 Admitting Diagnosis Postmenopausal bleeding DS: Discharge Diagnosis Discharge Diagnosis (1) Post-menopausal bleeding: Code(s): N95.0 - Postmenopausal bleeding Status: Acute DS: Summary Hospital Course Hospital Course: Patient was admitted from the ER with heavy postmenopausal bleeding. She was given TXA a with good resolution of heavy bleeding. Patient is down to a pad every 4hours. Hemoglobin is stable given the IV fluids. Status at Discharge Functional status at discharge: independent ambulation Overall status at discharge: patient is progressing back to baseline Time Spent with Patient Time attestation: Total time spent providing and/or coordinating discharge services: DS: Data Data Completed and Pending Labs on day of discharge: Labs from last 24 hours 02/04/25 02/04/25 02/04/25 20:10 14:16 12:57 WBC 10.4 H RBC 4.28 Hgb 11.7 L 12.7 Hct 34.9 L 37.2 MCV 86.9 MCH 29.7 MCHC 34.1 RDW 13.1 Plt Count 190 MPV 11.8 H Immature Gran % (Auto) 1.2 H Neut % (Auto) 66.7 Lymph % (Auto) 22.8 [place] % (Auto) 7.1 Eos % (Auto) 1.5 Baso % (Auto) 0.7 Lymph # (Auto) 2.36 [place] # (Auto) 0.7 H Eos # (Auto) 0.2 Baso # (Auto) 0.1 Abs Immat Gran (auto) 0.12 H Absolute Neuts (auto) 6.9 H Absolute Nucleated RBC 0.000 Nucleated RBC % 0.0 PT 13.2 INR 1.0 APTT 25.8 Sodium 134 L Potassium 3.9 Chloride 105 Carbon Dioxide 21 L Anion Gap 8 BUN 12 D Creatinine 0.76 Estim Creat Clear Calc Not Reportable Estimated GFR > 60 Glucose 101 Calcium 8.6 Total Bilirubin 0.3 AST 24 ALT 27 Alkaline Phosphatase 53 Total Protein 6.9 Albumin 4.0 Beta HCG, Quant < 2.39 POC Urine HCG, Qual Negative Blood Type O Negative Antibody Screen Negative Screen Not Reportable Baby's Blood Type Not Reportable Baby's ALYCIA Not Reportable Doses of RhIg Required 0 Discharge Plan Discharge Attending physician on discharge: Vivian Wallace Discharging Clinician: Vivian Wallace Anticipated Discharge Date/Time: 02/05/25 08:03 Patient Disposition: Home Activity: pelvic rest Diet: regular Patient Instructions: Antibiotic Form Patient Language: Djib[place]ian Stand Alone Forms: General Discharge Information Follow-up/Referrals: Vivian Wallace MD [Physician] - Call for Appointment Discharge Medications: New tranexamic acid 650 mg tablet 1,300 mg PO TID Qty: 30 1RF Continued ascorbic acid (vitamin C) 250 mg Tablet 250 mg PO DAILY famotidine [Pepcid] 20 mg Tablet 20 mg PO DAILY montelukast [Singulair] 10 mg Tablet 10 mg PO HS cetirizine [Zyrtec] 10 mg Tablet 10 mg PO DAILY omeprazole 40 mg Capsule,Delayed Release(Dr/Ec) 40 mg PO HS fluticasone propionate 50 mcg/actuation spray,suspension 50 mcg INTRANASAL DAILY baclofen 10 mg tablet 10 mg PO TID PRN (Reason: back spasms) levothyroxine 88 mcg tablet 88 mcg PO QAM lisinopril 20 mg tablet 10 mg PO DAILY Date of admission: 02/04/25 15:24 Primary Care Provider: UNKNOWN,DOCTOR Admitting Provider: Yordan Eckert Attending physician on admission: Yordan Eckert Condition: Stable
[2025-02-05] MEDS: TRANEXAMIC ACID 1,000MG/ISO100 1,000 MG/100 ML BAG 200 MG IVPB (08:25)
[2025-02-05] MEDS: ONDANSETRON INJ 4 MG/2 ML VIAL IV PUSH (09:00)
== END 2025-02-05 11:11 | disposition home or self-care (01) ==
LOC: ANHED 15:43 → ANH3MED 16:33
PROVIDERS: Admitting Provider Obstetrics & Gynecology; Emergency Provider Student in an Organized Health Care Education/Training Program; Visit Provider Obstetrics & Gynecology Gynecology
DX: N95.0 Postmenopausal bleeding (principal); J45.909 Unspecified asthma, uncomplicated; K58.9 Irritable bowel syndrome, unspecified; K21.9 Gastro-esophageal reflux disease without esophagitis; Z90.49 Acquired absence of other specified parts of digestive tract; Z86.79 Personal history of other diseases of the circulatory system; Z79.899 Other long term (current) drug therapy
CPT/HCPCS: 36415; 71046; 76830; 76856; 80053; 81025; 84702; 85014; 85018; 85025; 85461; 85610; 85730; 86850; 86900; 86901; 93005; 96361; 96374; 96375; 99285; A9270; G0378; J2405; J7030; J7120

== ENCOUNTER 2025-02-12 00:19 | Day surgery (SDC) | payer OTHER, SELFPAY ==
[2025-02-08 10:49] VITALS: BMI 33.5
--- NOTE | 2025-02-08 10:54 | PC.NURSE ---
Report to the Outpatient Waiting Room, entrance under the green pavilion located off [facility], at time _1045_ on date _[id number]_. Planned Procedure Time: _1245_.? Time changes happen often and if your time is changed the preop area will call you the afternoon before. - You and your visitor will be asked to self-screen and do not enter if you have any COVID symptoms. Please call surgeon if you need to reschedule. - A mask is optional within the hospital at this time. Patients may have clear liquids (water, carbonated beverages, clear teas, apple juice) until 3 hours prior to surgery with a maximum of 20 ounces. - No food from midnight until time of surgery and no smoking, or chewing tobacco (or any form of nicotine). No chewing gum, candy or mints. Take only the following medications with a SIP of water on the morning of surgery: ___Levothyroxine, Flonase and Tranexemic acid. DO NOT STOP ANY OF YOUR OTHER PRESCRIPTION MEDICATIONS PRIOR TO SURGERY EXCEPT THE FOLLOWING Hold all vitamins and supplements for 3 days per anesthesiologist. stop now. Medications to discontinue per physician Date to take last dose Please no make-up, nail frisian, hairspray, perfume, deodorant, or body powder the day of surgery.? No jewelry (including any body piercings) or valuables the day of surgery, leave them at home.? Please take a shower or bath the night before, or the morning of, surgery with an antibacterial soap.? Wear comfortable, loose fitting clothing.? - Jewelry must be removed prior to entering the operating room.? Rings and piercings that are not removed may be cut off. - The hospital will not accept responsibility for valuables.? - Please leave all valuables, including medications, at home the day of surgery. If you are going home after surgery, a licensed delivery driver assistant must drive you home.? - NO public transportation without another adult if you receive anesthesia. - We recommend that an adult stay with you for 24 hours following discharge. - We also recommend that you do not drive, make important decision, drink alcoholic beverages, or take any drugs that were not prescribed by your health care provider for at least 24 hours after your discharge time. Follow any additional instructions given to you from your surgeon. Telephone instructions given to __Rama___and asked if any additional questions and then verbalized understanding. Patient advised to call surgeon office or pre surgery nurse liaison [phone] if any additional questions.
--- NOTE | 2025-02-12 08:16 | WPDHPUPDATE1 ---
History and Physical Update Update Date/Time: 02/12/25 08:16 History and Physical has been reviewed, including an updated exam of the patient. There are NO changes in the patient's condition. Risks, benefits, and alternatives have been discussed and questions answered. Patient agrees to proceed with procedure.
--- NOTE | 2025-02-12 08:17 | P.HP_ITS ---
History of Present Illness History of Present Illness Consent: Risks, benefits, and alternatives have been discussed and questions answered. Patient agrees to proceed with procedure. Chief complaint: post menopausal bleeding Narrative: Rama Carrasco is a 49 year old female with an episode of heavy vaginal bleeding that required patient to proceed to the emergency room and was admitted. Patient received TXA and IV fluids and was discharged home. The patient is postmenopausal. Plan to proceed with D&C hysteroscopy for further evaluation. Review of Systems Review of Systems: not repeated day of surgery; patient states no changes in status [facility] Past Medical History Medical History (Updated 02/12/25 @ 08:19 by Vivian Wallace MD) Obesity History of asthma Irritable bowel syndrome Gastroesophageal reflux disease Eosinophilic esophagitis by EGD in 2016 History of hypertension No longer on antihypertensives after 25 pound weight loss. Surgical History Surgical History (Updated 02/12/25 @ 08:19 by Vivian Wallace MD) History of spinal fusion History of hysteroscopy History of bladder suspension procedure 2004 Hx of section C/s x2 with two vaginal births History of cholecystectomy History of appendectomy Family History Family History Mother Hypothyroidism Diabetes type 2, controlled Hypertension Father Thyroid cancer Diabetes type 2, controlled Hypertension Sibling Epilepsy Other Epilepsy Grandparent Breast cancer Social History Social History Social History: Surrogate medical decision maker: Gilberto Carrasco, spouse. Code status: Full code. Smoking status: Never smoker Second hand tobacco smoke exposure: No Alcohol intake: never Substance use: never Substance use type: does not use Do You Feel Safe in your Home?: Yes Lack of Transportation: No Lack of Food: Never True Current Housing: I Have Housing Concerned About Future Housing: No Difficulty Paying Gas/Electric Bills: No Difficulty Paying for Meds: No Currently Unemployed: No Education: Associate Degree Difficulty w/ Childcare or Family Care: No Living arrangements: with family Additional occupation/education comments: Homemaker. Spiritual care concerns: No Meds Home Medications and Allergies Home Medications ?Medication ?Instructions ?Recorded ?Confirmed ?Type cetirizine 10 mg tablet (Zyrtec) 10 mg PO DAILY 03/25/22 02/08/25 History fluticasone propionate 50 50 mcg intranasal DAILY 03/25/22 02/08/25 History mcg/actuation nasal spray,suspension omeprazole 40 mg capsule,delayed 40 mg PO HS 03/25/22 02/08/25 History release ascorbic acid (vitamin C) 250 mg 250 mg PO DAILY 05/26/22 02/08/25 History tablet famotidine 20 mg tablet (Pepcid) 20 mg PO DAILY 09/28/22 02/08/25 History montelukast 10 mg tablet 10 mg PO HS 09/28/22 02/08/25 History (Singulair) baclofen 10 mg tablet 10 mg PO TID PRN back spasms 02/04/25 02/08/25 History levothyroxine 88 mcg tablet 88 mcg PO QAM 02/04/25 02/08/25 History lisinopril 20 mg tablet 10 mg PO DAILY 02/04/25 02/08/25 History tranexamic acid 650 mg tablet 1,300 mg (2 x 650 mg) PO TID #30 02/05/25 02/08/25 Rx tabs Allergies Allergy/AdvReac Type Severity Reaction Status Date / Time gatifloxacin Allergy Unknown Other Verified 02/08/25 10:47 morphine Allergy Swelling Verified 02/08/25 10:47 Exam Const: General: healthy appearing and alert Orientation/consciousness: patient oriented x3 Resp: Effort & Inspection: normal respiratory effort : External Female Exam: normal external appearance Speculum Exam - Vagina: normal appearance of the vagina and normal vaginal discharge Speculum Exam - Cervix: normal appearance of the cervix Bimanual exam- vagina & uterus: uterine size normal and consistency normal Bimanual Exam- Adnexa, other: normal adnexae and No adnexal tenderness Neuro: General: patient oriented x3 Assessment and Plan Assessment and plan (1) Post-menopausal bleeding: Code(s): N95.0 - Postmenopausal bleeding Status: Acute Assessment and Plan: Plan to proceed with D&C hysteroscopy
--- NOTE | 2025-02-12 11:05 | WPDANESEPPF ---
Anes - Initial Pre Proc Eval Procedure: Operation Date: 02/12/25 12:45 Proposed Procedures p Hysteroscopy Dilation and Curettage - Vivian Wallace MD Date/Time: 02/12/25 11:05 Surgeon: Vivian Wallace MD Pre Op Diagnosis: post menopausal bleeding Patient Data Age: 49 Gender: F Height: 1.63 m Weight: 88.6 kg Allergies Allergy/AdvReac Type Severity Reaction Status Date / Time gatifloxacin Allergy Unknown Other Verified 02/08/25 10:47 morphine Allergy Swelling Verified 02/08/25 10:47 Home Medications ?Medication ?Instructions ?Recorded ?Confirmed ?Type cetirizine 10 mg tablet (Zyrtec) 10 mg PO DAILY 03/25/22 02/08/25 History fluticasone propionate 50 50 mcg intranasal DAILY 03/25/22 02/08/25 History mcg/actuation nasal spray,suspension omeprazole 40 mg capsule,delayed 40 mg PO HS 03/25/22 02/08/25 History release ascorbic acid (vitamin C) 250 mg 250 mg PO DAILY 05/26/22 02/08/25 History tablet famotidine 20 mg tablet (Pepcid) 20 mg PO DAILY 09/28/22 02/08/25 History montelukast 10 mg tablet 10 mg PO HS 09/28/22 02/08/25 History (Singulair) baclofen 10 mg tablet 10 mg PO TID PRN back spasms 02/04/25 02/08/25 History levothyroxine 88 mcg tablet 88 mcg PO QAM 02/04/25 02/08/25 History lisinopril 20 mg tablet 10 mg PO DAILY 02/04/25 02/08/25 History tranexamic acid 650 mg tablet 1,300 mg (2 x 650 mg) PO TID #30 02/05/25 02/08/25 Rx tabs Patient hx anesthesia problems: none Family hx anesthesia problems: none Results Review: All pre-operative results and documents have been reviewed as part of the pre-operative evaluation. 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 Surgical History Surgical History (Updated 02/12/25 @ 08:19 by Vivian Wallace MD) History of spinal fusion History of hysteroscopy History of bladder suspension procedure 2004 Hx of section C/s x2 with two vaginal births History of cholecystectomy History of appendectomy Family History Family History Mother Hypothyroidism Diabetes type 2, controlled Hypertension Father Thyroid cancer Diabetes type 2, controlled Hypertension Sibling Epilepsy Other Epilepsy Grandparent Breast cancer Social History Social History Social History: Surrogate medical decision maker: Gilberto Carrasco, spouse. Code status: Full code. Smoking status: Never smoker Second hand tobacco smoke exposure: No Alcohol intake: never Substance use: never Substance use type: does not use Do You Feel Safe in your Home?: Yes Lack of Transportation: No Lack of Food: Never True Current Housing: I Have Housing Concerned About Future Housing: No Difficulty Paying Gas/Electric Bills: No Difficulty Paying for Meds: No Currently Unemployed: No Education: Associate Degree Difficulty w/ Childcare or Family Care: No Living arrangements: with family Additional occupation/education comments: Homemaker. Spiritual care concerns: No Anes - Eval Final PreProcedure Day of Procedure 02/12/25 11:05 Patient weight: obese Heart: regular rate and rhythm Lungs: clear to auscultation Airway: Mallampati scale class II Neurological: alert and oriented Last oral intake: >/= 8 hours ASA classification: III Emergent: no Anesthetic plan: proceed Anesthesia type and monitoring: general GIVS and standard monitoring Results Review: All pre-operative results and documents have been reviewed as part of the pre-operative evaluation. Informed Consent: The patient's anesthetic plan and its attendant risks and benefits were discussed with the patient/family/POA. Questions were solicited and answers provided to the satisfaction of the patient/family/POA.
[2025-02-12 11:15] VITALS: BP 126/88; PULSE 79; RESP 14; TEMP 36.2; O2SAT 100
[2025-02-12] MEDS: LACTATED RINGERS 1,000 ML 30 ML IV CONT (11:15)
[2025-02-12] MEDS: ACETAMINOPHEN 500 MG TABLET 1000 MG PO (11:15)
--- NOTE | 2025-02-12 11:59 | S_PTH ---
PATIENT: Rama Carrasco LOC: [facility] U#:[id number] AGE/SX: 49/F ROOM: RE02/12/[address]: Vivian Wallace MD : 1975 BED: DIS: 02/12/2025 SPEC #: [id number] RECD: 02/12/25 13:28 STATUS: DANAY REQ #: [id number] RONALD: 02/12/25 11:[address]: Vivian Wallace DEPT: [facility] Surgical RECD BY: Claribel Winters Tissues: A - Endometrial Curettings Procedures: Hematoxylin and Eosin Stain Gross and Microscopic Level 4
[2025-02-12 12:03] VITALS: BP 127/76; PULSE 91; RESP 14; O2SAT 98
--- NOTE | 2025-02-12 12:03 | W.PM.PROC2 ---
Procedure Note - Detailed Date of Procedure 02/12/25 Pre-op Diagnosis post menopausal bleeding Post-op Diagnosis Same Procedure Performed D&C hysteroscopy Surgeon Vivian Wallace MD Anesthesia MAC Findings Uterus sounds to 9cm and appears grossly normal with small amount of bleeding Description of Procedure The patient is taken to the operating room and placed under anesthesia in the dorsal lithotomy position. She was prepped and draped in the usual sterile fashion. [place] speculum was placed in the vagina and the cervix was grasped on the anterior lip with a tenaculum. The uterus is sounded to 9cm. The diagnostic hysteroscope was placed and with no abnormalities noted it is removed. The sharp curette is used to curette the endometrium until a good uterine cry was noted in all areas. All instruments were then removed. Sponge, needle, and instrument counts are correct per the OR staff. The patient was taken to recovery in stable condition. Estimated Blood Loss 5 Drains No Packing No Pathology Yes (Endometrial curettings) Complications No immediate complications Condition Stable Disposition PACU
[2025-02-12 12:15] VITALS: BP 117/70; PULSE 78; RESP 14; O2SAT 98
[2025-02-12 12:45] VITALS: BP 106/67; PULSE 77; RESP 14
[2025-02-12] MEDS: ONDANSETRON INJ 4 MG/2 ML VIAL IV PUSH (12:50)
== END 2025-02-12 13:23 | disposition home or self-care (01) ==
PROVIDERS: Visit Provider Obstetrics & Gynecology Gynecology
PROC: 0U5B8ZZ Destruction of Endometrium, Via Natural or Artificial Opening Endoscopic (ICD-10-PCS; CPT 58563; principal; 2025-02-12 12:45)
DX: N95.0 Postmenopausal bleeding (principal); E66.9 Obesity, unspecified; Z68.35 Body mass index [BMI] 35.0-35.9, adult
CPT/HCPCS: 58558; 88305; A9270; J1100; J2003; J2250; J2405; J2704; J3010; J7120